=== PATIENT | female | born 1960 | race Caucasian/White ===

== ENCOUNTER → 2016-08-31 | Outpatient (REF) | payer OTHER ==
[~2016-08-31] MED LIST: METO25TAB PO; PROT1TAB2 PO; SUCR1SS PO; XANA0.5T PO
== END ==
LOC: M SFHCLACO 15:04
PROVIDERS: ATTEND Physician Assistant
DX: A09 Infectious gastroenteritis and colitis, unspecified (principal)

== ENCOUNTER → 2016-09-01 | Outpatient (REF) | payer OTHER | LOC: M SFHCLACO 15:05 | PROVIDERS: ATTEND Physician Assistant | DX: A09 Infectious gastroenteritis and colitis, unspecified (principal) ==

== ENCOUNTER → 2016-09-02 | Outpatient (REF) | payer OTHER | LOC: M SFHCLACO 15:07 | PROVIDERS: ATTEND Physician Assistant | DX: A09 Infectious gastroenteritis and colitis, unspecified (principal) ==

== ENCOUNTER → 2017-03-30 | Outpatient (REF) | payer OTHER ==
[2017-03-30 15:41] LABS: ALBUMIN 3.1 GM/DL (3.2-5.2); ALBUMIN/GLOBULIN RATIO 0.69 (1.00-1.93); ALKALINE PHOSPHATASE 168 U/L (45-117); ALT/SGPT 34 U/L (12-78); ANION GAP 8 MEQ/L (8-16); AST/SGOT 54 U/L (15-37); BLOOD UREA NITROGEN 7 MG/DL (7-18); CALCIUM LEVEL 8.6 MG/DL (8.5-10.1); CARBON DIOXIDE LEVEL 26 MEQ/L (21-32); CHLORIDE LEVEL 103 MEQ/L (98-107); CHOLESTEROL LEVEL 210 MG/DL (<200); GLOMERULAR FILTRATION RATE > 60.0 (>51); GLUCOSE, FASTING 150 MG/DL (70-105); MAGNESIUM LEVEL 1.8 MG/DL (1.8-2.4); SODIUM LEVEL 137 MEQ/L (136-145); TOTAL PROTEIN 7.6 GM/DL (6.4-8.2); TRIGLYCERIDES LEVEL 201 MG/DL (<150)
== END ==
LOC: M SFHCLACO 09:46
PROVIDERS: ATTEND Physician Assistant
DX: I10 Essential (primary) hypertension (principal); Z68.30 Body mass index [BMI] 30.0-30.9, adult; K21.9 Gastro-esophageal reflux disease without esophagitis; F41.9 Anxiety disorder, unspecified

== ENCOUNTER → 2017-12-06 | Outpatient (CLI) | payer OTHER | LOC: M RAD 06:25 | DX: R19.7 Diarrhea, unspecified (principal) | CPT/HCPCS: 76700 ==

== ENCOUNTER 2017-12-10 08:34 | Day surgery (SDC) | payer OTHER ==
[2017-12-10] MEDS: NS 1,000 ML IV (08:45)
[2017-12-10] MEDS ORDERED: fentaNYL 100 MCG/2 ML INJECTION (J3010) As Ordered (10:40)
[2017-12-10] MEDS ORDERED: LIDOCAINE 2% INJ 100 MG/5 ML SDV (FOR ANES.) As Ordered (10:41)
[2017-12-10] MEDS ORDERED: PROPOFOL 200 MG/20 ML VIAL As Ordered (10:41)
== END 2017-12-10 11:09 | disposition home or self-care (01) ==
LOC: M OPP 08:34
DX: K50.90 Crohn's disease, unspecified, without complications (principal); R19.7 Diarrhea, unspecified; D12.2 Benign neoplasm of ascending colon; D12.7 Benign neoplasm of rectosigmoid junction; K57.30 Diverticulosis of large intestine without perforation or abscess without bleeding; K64.8 Other hemorrhoids; R10.13 Epigastric pain; R11.10 Vomiting, unspecified; K21.0 Gastro-esophageal reflux disease with esophagitis; K29.70 Gastritis, unspecified, without bleeding; K29.80 Duodenitis without bleeding; I10 Essential (primary) hypertension; M54.5 Low back pain; F41.9 Anxiety disorder, unspecified; F32.9 Major depressive disorder, single episode, unspecified; R06.83 Snoring; F17.210 Nicotine dependence, cigarettes, uncomplicated; Z88.8 Allergy status to other drugs, medicaments and biological substances; Z79.899 Other long term (current) drug therapy; Z80.42 Family history of malignant neoplasm of prostate; Z80.6 Family history of leukemia
CPT/HCPCS: 45385

== ENCOUNTER 2018-11-10 03:09 | Emergency (ER) | payer OTHER ==
[~2018-11-10] VITALS: Ht 167.6 cm; Wt 81.8 kg
[~2018-11-10 03:09] MED LIST changes: +FLUO40CA PO; +LOSA100T50 PO; +METO1TAB63 PO; -METO25TAB PO; +PROC10TA4 PO
[2018-11-10] MEDS ORDERED: PANTOPRAZOLE 40MG TAB (PROTONIX) PO ONE (04:00)
[2018-11-10 04:02] LABS: BASO % 0.4 % (0.0-1.0); EOS # 0.2 10^3/uL (0.0-0.50); EOS % 2.3 % (0.0-3.0); HEMATOCRIT 38.4 % (36.0-47.0); HEMOGLOBIN 13.9 g/dl (12.0-15.5); LYMPH # 1.8 10^3/uL (1.5-4.5); LYMPH % 18.1 % (24.0-44.0); MEAN CORPUSCULAR HEMOGLOBIN 38.6 pg (27.0-33.0); MEAN CORPUSCULAR HGB CONC 36.2 g/dl (32.0-36.5); MEAN CORPUSCULAR VOLUME 106.7 fl (80.0-96.0); MONO # 0.8 10^3/uL (0.0-0.8); MONO % 8.3 % (0.0-5.0); NEUTROPHILS # 6.8 10^3/uL (1.8-7.7); NEUTROPHILS % 70.4 % (36.0-66.0); PLATELET COUNT, AUTOMATED 110 10^3/uL (150-450); WHITE BLOOD COUNT 9.7 10^3/uL (4.0-10.0)
[2018-11-10] MEDS ORDERED: PANT40TA3 PO (04:11)
[2018-11-10 04:24] LABS: ALBUMIN 2.5 GM/DL (3.2-5.2); ALT/SGPT 30 U/L (12-78); BILIRUBIN,DIRECT 1.6 MG/DL (0.0-0.2); BILIRUBIN,TOTAL 2.9 MG/DL (0.2-1.0); BLOOD UREA NITROGEN 5 MG/DL (7-18); CALCIUM LEVEL 7.8 MG/DL (8.5-10.1); CARBON DIOXIDE LEVEL 22 MEQ/L (21-32); CHLORIDE LEVEL 103 MEQ/L (98-107); CPK CREATINE PHOSPHOKINASE 51 U/L (26-192); CREATININE FOR GFR 0.61 MG/DL (0.55-1.30); ETHYL ALCOHOL (ETHANOL) 0.021 % (0.000-0.010); GLOMERULAR FILTRATION RATE > 60.0 (>51); GLUCOSE, FASTING 166 MG/DL (70-100); LIPASE 467 U/L (73-393); MB/CK RELATIVE INDEX 3.33 (< OR =4); POTASSIUM SERUM 3.5 MEQ/L (3.5-5.1); SODIUM LEVEL 136 MEQ/L (136-145); TOTAL PROTEIN 7.7 GM/DL (6.4-8.2); TROPONIN I 0.02 NG/ML (< 0.10)
[2018-11-10] MEDS ORDERED: amLODIPine 10 MG TAB PO ONE (04:30)
--- NOTE | 2018-11-10 06:03 | REPVR ---
EXAM: US Abdomen Limited, Right Upper Quadrant EXAM DATE/TIME: 11/10/2018 5:49 AM CLINICAL HISTORY: 58 years old, female; Pain; Other: Chest; Additional info: Epigastric pain TECHNIQUE: Imaging protocol: Real-time ultrasound of the abdomen with image documentation. Examination was focused on the right upper quadrant. COMPARISON: ABD COMPLETE US 12/06/2017 6:46 AM FINDINGS: Liver: The liver is lobulated in contour and heterogeneous and echogenic in texture. Gallbladder: No gallstones seen. Common bile duct: The CBD is normal in caliber measuring 2 mm in diameter. Pancreas: The pancreas is obscured by bowel gas. Right kidney: The right kidney measures 11.2 x 4.5 x 4.4 cm. The right renal parenchymal echogenicity is within normal limits. There is no right renal mass, stone, cyst or hydronephrosis. Intraperitoneal space: There is suggestion of small perihepatic ascites. IMPRESSION: 1. Cirrhotic liver with no focal mass identified. 2. No cholelithiasis or sonographic evidence of cholecystitis. 3. Suggestion of small perihepatic ascites Electronically signed by: Brad Augutse On 11/10/2018 06:03:35 AM
[2018-11-10] MEDS ORDERED: GI COCKTAIL 50ML BTL(HYOSCYAMINE/MAALOX/LIDOCAINE VISCOUS)(1:3:1) PO ONE (06:15)
[2018-11-10] MEDS ORDERED: CARA1TAB6 PO (06:58)
[2018-11-10 07:06] VITALS: BP 144/71
--- NOTE | 2018-11-10 08:39 | REP ---
Abdomen series: Three views. History: Abdomen pain Comparison study: August 30, 2015. Findings: EKG monitoring electrodes overlie the chest. There is no evidence of infiltrate or free subdiaphragmatic air. Heart is not enlarged. The aorta is slightly calcific. Supine and erect views of the abdomen show a normal bowel gas pattern. Psoas margins and flank stripes are intact. No mass, organomegaly, or pathologic calcification is seen. Impression: No significant abnormality. Electronically Signed by Adilson Norman MD 11/10/2018 01:04 P
--- NOTE | 2018-11-11 07:11 | ECGEPIP ---
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
== END 2018-11-10 07:08 | disposition home or self-care (01) ==
LOC: M ED 03:09
DX: K29.20 Alcoholic gastritis without bleeding (principal); K70.10 Alcoholic hepatitis without ascites; I10 Essential (primary) hypertension; F33.9 Major depressive disorder, recurrent, unspecified; F41.9 Anxiety disorder, unspecified; F10.10 Alcohol abuse, uncomplicated; Z79.899 Other long term (current) drug therapy; F17.210 Nicotine dependence, cigarettes, uncomplicated
CPT/HCPCS: 36415; 74021; 76705; 80048; 80076; 82550; 82553; 83690; 85025; 93005; 93041; 99285; G0480

== ENCOUNTER 2019-01-13 10:31 | Day surgery (SDC) | payer OTHER ==
[~2019-01-13] VITALS: Ht 167.6 cm; Wt 72.6 kg
[~2019-01-13 10:31] MED LIST changes: +ALPR1TAB3 PO; +CARA1TAB6 PO; +METO25TA4 PO; +NS 1,000 ML IV ONE; +PANT40TA3 PO
[2019-01-13] MEDS ORDERED: PROPOFOL 500 MG/50 ML VIAL As Ordered ONE (10:47)
[2019-01-13] MEDS ORDERED: fentaNYL 100 MCG/2 ML INJECTION (J3010) As Ordered ONE (10:47)
[2019-01-13] MEDS ORDERED: LIDOCAINE 2% INJ 100 MG/5 ML SDV (FOR ANES.) As Ordered ONE (10:50)
[2019-01-13] MEDS ORDERED: ONDANSETRON 4MG/2ML VIAL (J2405) As Ordered ONE (11:08)
[2019-01-13] MEDS ORDERED: ePHEDrine SULFATE 25 MG/5 ML(5MG/ML) SYRINGE As Ordered ONE (11:15)
[2019-01-13] MEDS ORDERED: PROPOFOL 200 MG/20 ML VIAL As Ordered ONE (11:53)
--- NOTE | 2019-01-13 12:23 | ROOR ---
Patient Name: Alexa Burgos Procedure Date: 01/13/2019 10:53 AM Date of : 1960 Age: 58 Room: [facility] Gender: Female Note Status: Finalized Procedure: Upper GI endoscopy Indications: Cirrhosis rule out esophageal varices, Suspected atrophic gastritis Providers: Du Long MD Referring MD: PAULINE Kwan PA-C Requesting Provider: Medicines: Monitored Anesthesia Care Complications: No immediate complications. Procedure: Pre-Anesthesia Assessment: - Prior to the procedure, a History and Physical was performed, and patient medications and allergies were reviewed. The patient is competent. The risks and benefits of the procedure and the sedation options and risks were discussed with the patient. All questions were answered and informed consent was obtained. Patient identification and proposed procedure were verified by the physician, the nurse and the anesthesiologist in the procedure room. Mental Status Examination: alert and oriented. Airway Examination: normal oropharyngeal airway and neck mobility. Respiratory Examination: clear to auscultation. CV Examination: normal. Prophylactic Antibiotics: The patient does not require prophylactic antibiotics. Prior Anticoagulants: The patient has taken no previous anticoagulant or antiplatelet agents. ASA Grade Assessment: III - A patient with severe systemic disease. After reviewing the risks and benefits, the patient was deemed in satisfactory condition to undergo the procedure. The anesthesia plan was to use monitored anesthesia care (MAC). Immediately prior to administration of medications, the patient was re-assessed for adequacy to receive sedatives. The heart rate, respiratory rate, oxygen saturations, blood pressure, adequacy of pulmonary ventilation, and response to care were monitored throughout the procedure. The physical status of the patient was re-assessed after the procedure. The Endoscope was introduced through the mouth, and advanced to the second part of duodenum. The upper GI endoscopy was accomplished without difficulty. The patient tolerated the procedure well. Findings: The Z-line was regular and was found 40 cm from the incisors. Grade I, small (< 5 mm) varices were found in the lower third of the esophagus. Moderate portal hypertensive gastropathy was found in the entire examined stomach. Four biopsies were obtained with cold forceps for histology in the gastric antrum, as well as two biopsies in the gastric body. Verification of patient identification for the specimen was done by the physician and nurse using the patient's name, date and medical record number. Estimated blood loss was minimal. Diffuse mildly congested mucosa without active bleeding and with no stigmata of bleeding was found in the duodenal bulb and in the second portion of the duodenum. Impression: - Z-line regular, 40 cm from the incisors. - Grade I and small (< 5 mm) esophageal varices. - Portal hypertensive gastropathy. - Congested duodenal mucosa. - Biopsies performed in the gastric antrum and in the gastric body. Recommendation: - Patient has a contact number available for emergencies. The signs and symptoms of potential delayed complications were discussed with the patient. Return to normal activities tomorrow. Written discharge instructions were provided to the patient. - Low sodium diet. - Continue present medications. - - To review and start on low dose Non selective beta- blockers in clinic follow up. - Await pathology results. - Return to GI clinic in [facility] (address [address], [address], [place], [facility] [place]) in 4 -- 6 weeks. Please call GI clinic @ [phone] for apppointment date and time. - Return to primary care physician. Du Long MD Du Long MD 01/13/2019 12:22:57 PM Electronically signed by Du Long MD Number of Addenda: 0 Note Initiated On: 01/13/2019 10:53 AM Estimated Blood Loss: Estimated blood loss was minimal.
[2019-01-13 12:35] VITALS: BP 110/60
--- NOTE | 2019-01-13 13:17 | ROOR ---
Patient Name: Alexa Burgos Procedure Date: 01/13/2019 11:06 AM Date of : 1960 Age: 58 Room: [facility] Gender: Female Note Status: Finalized Procedure: Colonoscopy Indications: High risk colon cancer surveillance: Personal history of adenoma (10 mm or greater in size), High risk colon cancer surveillance: Personal history of adenoma with villous component, Incidental - Follow-up for history of adenomatous polyps in the colon Providers: Du Long MD Referring MD: PAULINE Kwan PA-C Requesting Provider: Medicines: Monitored Anesthesia Care Complications: No immediate complications. Procedure: Pre-Anesthesia Assessment: - Prior to the procedure, a History and Physical was performed, and patient medications and allergies were reviewed. The patient is competent. The risks and benefits of the procedure and the sedation options and risks were discussed with the patient. All questions were answered and informed consent was obtained. Patient identification and proposed procedure were verified by the physician, the nurse and the anesthesiologist in the procedure room. Mental Status Examination: alert and oriented. Airway Examination: normal oropharyngeal airway and neck mobility. Respiratory Examination: clear to auscultation. CV Examination: normal. Prophylactic Antibiotics: The patient does not require prophylactic antibiotics. Prior Anticoagulants: The patient has taken no previous anticoagulant or antiplatelet agents. ASA Grade Assessment: III - A patient with severe systemic disease. After reviewing the risks and benefits, the patient was deemed in satisfactory condition to undergo the procedure. The anesthesia plan was to use monitored anesthesia care (MAC). Immediately prior to administration of medications, the patient was re-assessed for adequacy to receive sedatives. The heart rate, respiratory rate, oxygen saturations, blood pressure, adequacy of pulmonary ventilation, and response to care were monitored throughout the procedure. The physical status of the patient was re-assessed after the procedure. The Colonoscope was introduced through the anus and advanced to the terminal ileum, with identification of the appendiceal orifice and IC valve. The colonoscopy was performed without difficulty. The patient tolerated the procedure well. The quality of the bowel preparation was good. The terminal ileum, ileocecal valve, appendiceal orifice, and rectum were photographed. Scope insertion time was 3 minutes. Scope withdrawal time was 9 minutes. The total duration of the procedure was 12 minutes. Findings: The perianal and digital rectal examinations were normal. The terminal ileum appeared normal except few red spots ( tiny AVMs). A few medium-sized localized angioectasias with stigmata of recent bleeding were found in the ascending colon. Coagulation for hemostasis using argon plasma at 0.8 liters/minute and 20 funes was successful. For hemostasis, one hemostatic clip was successfully placed. There was no bleeding at the end of the procedure. A 6 mm polyp was found in the ascending colon. The polyp was sessile. The polyp was removed with a hot snare. Resection and retrieval were complete. Verification of patient identification for the specimen was done by the physician and nurse using the patient's name, date and medical record number. Estimated blood loss was minimal. A 4 mm polyp was found in the recto-sigmoid colon. The polyp was sessile. The polyp was removed with a cold biopsy forceps. Resection and retrieval were complete. Non-bleeding external and internal hemorrhoids were found during retroflexion. The hemorrhoids were medium-sized. An area of moderately congested mucosa was found in the recto-sigmoid colon. Impression: - The examined portion of the ileum was normal except few red spots ( tiny AVMs).. - A few recently bleeding colonic angioectasias. Treated with argon plasma coagulation (APC). Clip was placed. - One 6 mm polyp in the ascending colon, removed with a hot snare. Resected and retrieved. - One 4 mm polyp at the recto-sigmoid colon, removed with a cold biopsy forceps. Resected and retrieved. - Non-bleeding external and internal hemorrhoids. - Congested mucosa in the recto-sigmoid colon. Recommendation: - Patient has a contact number available for emergencies. The signs and symptoms of potential delayed complications were discussed with the patient. Return to normal activities tomorrow. Written discharge instructions were provided to the patient. - Low sodium diet. - Continue present medications. - Await pathology results. - Repeat colonoscopy in 3 years for surveillance based on pathology results and for surveillance based on personal history of previous adenomatous polyps. - Return to GI office in [facility] (address [address], [address], [place] [address]) in 4 -- 6 weeks. Please call GI clinic @ [phone] for apppointment date and time. - Return to primary care physician. Du Long MD Du Long MD 01/13/2019 1:16:29 PM Electronically signed by Du Long MD Number of Addenda: 0 Note Initiated On: 01/13/2019 11:06 AM Estimated Blood Loss: Estimated blood loss was minimal.
== END 2019-01-13 12:56 | disposition home or self-care (01) ==
LOC: M OPP 10:31
PROVIDERS: ATTEND Internal Medicine Gastroenterology
DX: K64.8 Other hemorrhoids (principal); K55.21 Angiodysplasia of colon with hemorrhage; D12.2 Benign neoplasm of ascending colon; K63.5 Polyp of colon; K63.89 Other specified diseases of intestine; K74.60 Unspecified cirrhosis of liver; I85.10 Secondary esophageal varices without bleeding; K76.6 Portal hypertension; K31.89 Other diseases of stomach and duodenum; Z86.010 Personal history of colon polyps; Z79.899 Other long term (current) drug therapy; Z88.8 Allergy status to other drugs, medicaments and biological substances
CPT/HCPCS: 43239; 45380; 45382; 45385; 88305; J2405; J3010

== ENCOUNTER → 2019-03-07 | Outpatient (CLI) | payer OTHER ==
[~2019-03-07] MED LIST changes: +GASTROGRAFIN SOLUTION 30ML (Q9963) As Ordered ONE; +ISOVUE-370 76% 100ML VIAL (Q9967) As Ordered ONE; -NS 1,000 ML IV ONE
--- NOTE | 2019-03-08 09:59 | REP ---
Clinical: Abdominal pain and nausea. Technique: Axial contrast enhanced images from the lung bases to the pubic symphysis using oral (per protocol) and 100 ml Isovue 370 intravenous contrast material with precontrast and delayed images of the abdomen as well as coronal and sagittal re-formations. Findings: Moderate to significant amount of ascites noted throughout the abdomen and pelvis. Hepatomegaly is appreciated with heterogeneous liver and subtle hepatic nodular contour suggesting cirrhosis. A recanalized umbilical vein is identified along with mucosal thickening primarily involving the ascending colon which are both known findings related to cirrhosis. Portal vein thrombosis noted (images 42-55). Spleen, pancreas, bilateral adrenal glands and kidneys are relatively normal. The gallbladder is moderately distended. There is no evidence for bowel obstruction and no free air to suggest perforation. Pelvis demonstrates normal bladder and evidence for prior hysterectomy. Atherosclerotic changes of the aorta and vasculature noted without aneurysm. Musculoskeletal structures demonstrate degenerative changes. Lung bases demonstrate moderate COPD. Impression: 1. Findings described above compatible with cirrhosis. 2. Portal vein thrombosis. Electronically Signed by Braxton Hair MD 03/07/2019 03:53 P
== END ==
LOC: M RAD 13:16
PROVIDERS: ATTEND Internal Medicine Gastroenterology
DX: R11.0 Nausea (principal)
CPT/HCPCS: 74177; Q9963; Q9967

== ENCOUNTER → 2019-04-04 | Outpatient (REF) | payer OTHER ==
[~2019-04-04] MED LIST changes: -GASTROGRAFIN SOLUTION 30ML (Q9963) As Ordered ONE; -ISOVUE-370 76% 100ML VIAL (Q9967) As Ordered ONE
[2019-04-13 14:07] LABS: CALPROTECTIN STOOL <16 ug/g (0-120); FATS NEUTRAL Normal (.); FATS TOTAL Normal (.)
== END ==
LOC: M LAB REF 12:00
PROVIDERS: ATTEND Internal Medicine Gastroenterology
DX: R63.4 Abnormal weight loss (principal); R11.0 Nausea

== ENCOUNTER → 2019-04-05 | Outpatient (CLI) | payer OTHER ==
[2019-04-05 11:40] LABS: BASO % 0.4 % (0.0-1.0); EOS # 0.3 10^3/uL (0.0-0.5); EOS % 2.8 % (0.0-3.0); HEMOGLOBIN 12.7 g/dl (12.0-15.5); LYMPH # 2.2 10^3/uL (1.5-5.0); LYMPH % 24.4 % (24.0-44.0); MEAN CORPUSCULAR HEMOGLOBIN 35.4 pg (27.0-33.0); MEAN CORPUSCULAR HGB CONC 33.4 g/dl (32.0-36.5); MEAN CORPUSCULAR VOLUME 105.8 fl (80.0-96.0); MONO # 1.1 10^3/uL (0.0-0.8); MONO % 11.9 % (0.0-5.0); NEUTROPHILS # 5.3 10^3/uL (1.5-8.5); NEUTROPHILS % 59.8 % (36.0-66.0); PLATELET COUNT, AUTOMATED 240 10^3/uL (150-450); RED BLOOD COUNT 3.59 10^6/uL (4.00-5.40); WHITE BLOOD COUNT 8.9 10^3/uL (4.0-10.0)
[2019-04-05 11:50] LABS: INR 1.65; PROTHROMBIN TIME 19.2 SECONDS (11.8-14.0)
[2019-04-05 11:51] LABS: PARTIAL THROMBOPLASTIN TIME 33.7 SECONDS (25.0-38.4)
[2019-04-05 12:04] LABS: ALBUMIN 2.5 GM/DL (3.2-5.2); BILIRUBIN,DIRECT 1.5 MG/DL (0.0-0.2); BILIRUBIN,TOTAL 2.7 MG/DL (0.2-1.0); CREATININE FOR GFR 2.08 MG/DL (0.55-1.30); GLOMERULAR FILTRATION RATE 26.1 (>51); TOTAL PROTEIN 8.4 GM/DL (6.4-8.2)
== END ==
LOC: M LAB 11:00
PROVIDERS: ATTEND Internal Medicine Gastroenterology
DX: R11.0 Nausea (principal); R63.4 Abnormal weight loss

== ENCOUNTER → 2019-04-05 | Outpatient (CLI) | payer OTHER ==
[2019-04-05 12:21] LABS: HEMOGLOBIN A1c 4.6 %
[2019-04-05 12:24] LABS: ALBUMIN 2.5 GM/DL (3.2-5.2); BILIRUBIN,TOTAL 2.7 MG/DL (0.2-1.0); CALCIUM LEVEL 8.6 MG/DL (8.5-10.1); CREATININE FOR GFR 2.05 MG/DL (0.55-1.30); GLOMERULAR FILTRATION RATE 26.6 (>51); TOTAL PROTEIN 8.3 GM/DL (6.4-8.2)
== END ==
LOC: M LAB 10:57
PROVIDERS: ATTEND Physician Assistant
DX: I10 Essential (primary) hypertension (principal); E88.81 Metabolic syndrome and other insulin resistance

== ENCOUNTER 2019-06-05 14:15 | Inpatient (IN) | payer OTHER ==
[~2019-06-05] VITALS: Ht 165.1 cm; Wt 54.5 kg
[2019-06-05] VITALS (20 sets, daily range): BP systolic 65–99; BP diastolic 40–56
[2019-06-05] MEDS ORDERED: NS 500 ML IV SCH (17:45)
[2019-06-05 17:49] LABS: ALBUMIN 2.4 GM/DL (3.2-5.2); ALT/SGPT 28 U/L (12-78); BILIRUBIN,DIRECT 1.5 MG/DL (0.0-0.2); BILIRUBIN,TOTAL 2.6 MG/DL (0.2-1.0); ETHYL ALCOHOL (ETHANOL) < 0.003 % (0.000-0.010); INR 2.09; PARTIAL THROMBOPLASTIN TIME 27.1 SECONDS (25.0-38.4); PROTHROMBIN TIME 23.3 SECONDS (11.8-14.0)
[2019-06-05] MEDS ORDERED: MED REC COMMENT (18:50)
--- NOTE | 2019-06-05 19:06 | REP ---
Single view chest: 06/05/2019. Indication: New central line placement evaluation. Comparison: 08/30/2015. Findings: Right-sided IJ central line is present with the distal tip in the SVC. There is no pneumothorax. No air space consolidations or pleural effusions are present. The cardiac silhouette is unremarkable. Impression: No pneumothorax. Electronically Signed by Henry Santiago DO 06/05/2019 06:58 P
--- NOTE | 2019-06-05 19:36 | ROOPDOC ---
[facility] Report Of Operation Report of Operation DATE OF PROCEDURE: 06/05/2019 PREPROCEDURE DIAGNOSES: poor access, cirrhosis POSTPROCEDURE DIAGNOSES: poor access, cirrhosis PROCEDURE: right IJ central line placement Performed by: Chester Thompson Attending: Dr. José Luis Vang ANESTHESIA: local ESTIMATED BLOOD LOSS: Approximately <5mL COMPLICATIONS: none PROCEDURE NOTE: Consent was obtained prior to the procedure. Indications, risks and benefits were explained to the patient. Procedure was performed . DESCRIPTION OF PROCEDURE: The patient was placed in the supine position, was placed in Trendelenburg. The right chest region and neck was prepped with chlorhexidine scrub. The patient was draped in the typical sterile fashion using a full drape. Ultrasonography was employed at bedside. A sterile probe cover was placed over the ultrasound. The medial and lateral head of the sternocleidomastoid were identified, as was the carotid pulse. The internal jugular vein was identified using ultrasound. Anesthesia was achieved over the internal jugular vein on the right using a 1% lidocaine solution. Once ane sthetized, an introducer needle was inserted into the internal jugular vein under direct ultrasound visualization. Venous blood was withdrawn, syringe was removed and a guidewire was advanced on to the introducer needle. The guidewire was visualized in the internal jugular vein by ultrasound. A small incision was made in the skin surface with a scalpel, and the introducer needle was exchanged for a dilator over the guidewire. After appropriate dilation was obtained, the dilator was exchanged over the wire for a central venous catheter. The wire was removed, and the catheter was sutured in place. A sterile bandage was placed over the catheter site. The patient tolerated the procedure well without any hemodynamic compromise. At the time of procedure completion, all ports were aspirated and flushed properly. Postprocedure x-ray was performed, which demonstrated adequate positioning of the central venous catheter in the right internal jugular vein. GME ATTESTATION GME ATTESTATION My faculty preceptor for this patient encounter was physically present during the encounter and was fully available. All aspects of the patient interview, examination, medical decision making process, and medical care plan development were reviewed and approved by the faculty preceptor. The faculty preceptor is aware and concurs with the plan as stated in the body of this note and will attest to such by his/her cosignature. CHESTER THOMPSON DO Jun 05, 2019 19:36
[2019-06-05 19:45] LABS: HEMATOCRIT 31.8 % (36.0-47.0); MEAN CORPUSCULAR HEMOGLOBIN 34.1 pg (27.0-33.0); MEAN CORPUSCULAR HGB CONC 34.6 g/dl (32.0-36.5); MEAN CORPUSCULAR VOLUME 98.5 fl (80.0-96.0); PLATELET COUNT, AUTOMATED 142 10^3/uL (150-450); RED BLOOD COUNT 3.23 10^6/uL (4.00-5.40); WHITE BLOOD COUNT 9.9 10^3/uL (4.0-10.0)
--- NOTE | 2019-06-05 20:19 | HPEPDOC ---
[facility] Medical History & Physical Date of Admission Jun 05, 2019 Date of Service: Jun 05, 2019 History and Physical CHIEF COMPLAINT: weakness and weight loss HISTORY OF PRESENT ILLNESS: Patient is a 58F with PMH alcoholic cirrhosis, HTN, Anxiety/Depression was sent in by Dr. Long's office with concern for cirrhosis and SBP. Patient was initially referred to GI by PCP for suspected Crohn's disease but work up was not suggestive of Crohn's. Per GI's documentation, patient had complaints of abdominal pain, nausea, vomiting, loss of appetite in setting of liver cirrhosis and ascites, requested workup to r/o SBP. Patient states that she has had significant unintentional weight loss for months but cannot quantify how many months or about how pounds she had lost. Also reports decrease appetite as well as intermittent diarrhea. She currently denies any abdominal discomfort, SOB, fever, chills, diarrhea, melena or chematochezia at this time. Upon arriving on the floor, patient was noted to have very difficult BP to obtain but about 80 systolic by doppler. She was moved to the ICU for further monitoring. PAST MEDICAL HISTORY: Refer to [facility] PAST SURGICAL HISTORY: Appendicitis Hysterectomy Colonoscopy/EGD SOCIAL HISTORY: Smokes 1/2 ppd. History of alcohol use and currently does not. Denies any drug use. FAMILY HISTORY: Mother- Leukemia Father- prostate cancer ALLERGIES: Please see below. REVIEW OF SYSTEMS: 10 point review of system negative except as stated in [facility] HOME MEDICATIONS: Please see below. PHYSICAL EXAMINATION: General: No acute distress, alert, severely dry skin everywhere, weak Eyes: Normal sclera, EOMI, WILFREDO HENT: Atraumatic, neck supple, moist mucous membranes Cardiovascular: Bradycardic, normal rhythm. Pulmonary: Clear to auscultation b/l, no wheezing GI: Soft, nontender, nondistended Skin: Warm and dry Neuro: CN grossly intact. No focal deficits. Strengths equal b/l. Psych: oriented x 3 LABORATORY DATA: See below. IMAGING: CXR- Findings: Right-sided IJ central line is present with the distal tip in the SVC. There is no pneumothorax. No air space consolidations or pleural effusions are present. The cardiac silhouette is unremarkable. Impression: No pneumothorax. MICROBIOLOGY: Please see below. ASSESSMENT AND PLAN: 1. Liver cirrhosis with concern for SBP - No significant abdominal tenderness, no leukocytosis and afebrile. - Abdomen is soft with no significant distension. Will check US/CT for any evidence of ascites. - IR consult for paracentesis in AM. Start on Rocephin for coverage of SBP. - Contact GI in AM to see if Dr. Long wants to be on official consultation along with medicine team. 2. Hypotension - Systolic BP around 80-90s on presentation, appear extremely dry. - Getting small amount of IVF with improvement in pressure. To get 500 cc NS total @100. - No strong evidence of sepsis base on current bloodwork other than hypotention. - Check Lactic acid now. On Rocephin for coverage of possible SBP. - Start on pressor if needed. 3. Intermittent diarrhea - Obtain GI panel. No current diarrhea reported. Low suspicion for C. diff. 4. Suspected portal vein thrombosis - Obtain US/CT abdomen/pelvis. - Anticoagulate if positive. 5. HTN - Hold all home hypertensive meds given hypotention. DVT ppx: HSQ Code status: Full code Vital Signs Vital Signs Date Time Temp Pulse Resp B/P (MAP) Pulse Ox O2 Delivery O2 Flow Rate FiO2 06/05/19 18:45 58 20 99/54 Nasal Cannula 2.0 06/05/19 16:30 97.1 Laboratory Data Labs 24H Laboratory Tests 2 06/05/19 17:08: Prothrombin Time 23.3H, Prothromb Time International Ratio 2.09, Activated Partial Thromboplast Time 27.1, Total Bilirubin 2.6H, Direct Bilirubin 1.5H, Aspartate Amino Transf (AST/SGOT) 41H, Alanine Aminotransferase (ALT/SGPT) 28, Alkaline Phosphatase 100, Total Protein 8.0, Albumin 2.4L, Albumin/Globulin Ratio 0.43L, Ethyl Alcohol Level < 0.003 CBC/BMP Home Medications Scheduled Fluoxetine Hcl (Fluoxetine HCl) 40 Mg Cap, 40 MG PO QHS Losartan Potassium (Losartan Potassium) 100 Mg Tab, 100 MG PO DAILY Metoprolol Tartrate (Metoprolol Tartrate) 25 Mg Tablet, 25 MG PO BID Pantoprazole Sodium (Pantoprazole Sodium) 40 Mg Tablet.dr, 40 MG PO QHS Scheduled PRN Alprazolam (Alprazolam) 1 Mg Tablet, 1 MG PO TIDP PRN for ANXIETY/AGITATION Miscellaneous Medications [Med Rec Comment] MEDS HAVE NOT BEEN TAKEN IN OVER A WEEK PER PT Allergies Coded Allergies: Opioids - Morphine Analogues (Verified Adverse Reaction, Mild, N/V, 01/12/19) A-FIB/CHADSVASC A-FIB History Current/History of A-Fib/PAF?: No ALANIS VALENCIA MD Jun 05, 2019 20:19
[2019-06-05] MEDS: GASTROGRAFIN SOLUTION 30ML PO SCH ×2 (20:41→21:20)
[2019-06-05] MEDS: ALPRAZolam 0.5 MG TAB PO PRN (20:41)
[2019-06-05] MEDS: cefTRIAXone SOD 2 GM in D5W MINI-BAG PLUS 50 ML IV SCH (20:41)
[2019-06-05 21:04] LABS: CALCIUM LEVEL 8.4 MG/DL (8.5-10.1); CREATININE FOR GFR 2.15 MG/DL (0.55-1.30); GLOMERULAR FILTRATION RATE 25.2 (>51); POTASSIUM SERUM 3.3 MEQ/L (3.5-5.1)
[2019-06-05] MEDS: PANTOPRAZOLE 40MG TAB (PROTONIX) PO SCH (21:52)
[2019-06-05] MEDS: FLUoxetine 20 MG CAP PO SCH (21:52)
[2019-06-05] MEDS: HEPARIN SOD (PORCINE) 5000 UNITS/ML VIAL SQ SCH (21:53)
[2019-06-05] MEDS ORDERED: NOREPINEPHRINE 4 MG/4 ML AMP As Ordered ONE (22:02)
[2019-06-05] MEDS: NOREPINEPHRINE BITARTRATE 8 MG in D5W 492 ML IV SCH (22:10)
--- NOTE | 2019-06-05 22:49 | REPVR ---
PROCEDURE INFORMATION: Exam: CT Abdomen And Pelvis Without Contrast Exam date and time: 06/05/2019 9:16 PM Age: 58 years old Clinical history: Abdominal pain; Generalized; Prior surgery; Additional info: Assess pancreas, for portal vein thrombosis, ascites TECHNIQUE: Imaging protocol: Computed tomography of the abdomen and pelvis without contrast. Radiation optimization: All CT scans at this facility use at least one of these dose optimization techniques: automated exposure control; mA and/or kV adjustment per patient size (includes targeted exams where dose is matched to clinical indication); or iterative reconstruction. Other contrast: Route: Oral; COMPARISON: CT ABD PELVIS WITH CONTRAST 2019-03-07 15:31 FINDINGS: Limitations: Study is limited by the absence of contrast. Liver: Liver cirrhosis. Gallbladder and bile ducts: Normal. No calcified stones. No ductal dilation. Pancreas: Atrophic pancreas. Spleen: Normal. No splenomegaly. Adrenals: Normal. No mass. Kidneys and ureters: Normal. No hydronephrosis. Stomach and bowel: Diffuse gastric, and bowel wall thickening, likely from portal hypertension with portal venous bowel edema. Mild colonic diverticulosis without evidence for acute diverticulitis. Appendix: No evidence of appendicitis. Intraperitoneal space: Large volume ascites. Vasculature: Unremarkable. No abdominal aortic aneurysm. Lymph nodes: Unremarkable. No enlarged lymph nodes. Bladder: Unremarkable as visualized. Reproductive: Hysterectomy. Bones/joints: Left anterior lateral chronic rib fractures. 4 mm L4-L5 anterolisthesis. Mild S-shaped lumbar curvature. L4-S1 disc bulge/protrusions. Moderate L4-5 spinal stenosis. Soft tissues: Unremarkable. IMPRESSION: 1. Study is without contrast, portal vein thrombus can't be assessed adequately. 2. Atrophic but otherwise unremarkable pancreas. 3. Liver cirrhosis. 4. Large volume ascites. 5. Diffuse gastric, and bowel wall thickening, likely from portal hypertension with portal venous bowel edema. Secondary to cirrhosis, and/or portal vein obstruction. 6. Mild colonic diverticulosis without evidence for acute diverticulitis. Electronically signed by: Jamison Latif On 06/05/2019 22:49:13 PM
[2019-06-06] VITALS (64 sets, daily range): BP systolic 76–108; BP diastolic 42–60
[2019-06-06 04:34] LABS: HEMATOCRIT 32.2 % (36.0-47.0); HEMOGLOBIN 10.6 g/dl (12.0-15.5); MEAN CORPUSCULAR HEMOGLOBIN 33.3 pg (27.0-33.0); MEAN CORPUSCULAR HGB CONC 32.9 g/dl (32.0-36.5); MEAN CORPUSCULAR VOLUME 101.3 fl (80.0-96.0); PLATELET COUNT, AUTOMATED 161 10^3/uL (150-450); RED BLOOD COUNT 3.18 10^6/uL (4.00-5.40); WHITE BLOOD COUNT 11.3 10^3/uL (4.0-10.0)
[2019-06-06 04:45] LABS: INR 2.29
[2019-06-06 04:46] LABS: PARTIAL THROMBOPLASTIN TIME 37.6 SECONDS (25.0-38.4)
[2019-06-06 04:57] LABS: BILIRUBIN,TOTAL 1.7 MG/DL (0.2-1.0); CALCIUM LEVEL 7.4 MG/DL (8.5-10.1); CREATININE FOR GFR 1.94 MG/DL (0.55-1.30); GLOMERULAR FILTRATION RATE 28.3 (>51); POTASSIUM SERUM 3.1 MEQ/L (3.5-5.1)
[2019-06-06] MEDS ORDERED: POTASSIUM CHLORIDE 10 MEQ SR TABLET PO ONE (05:15)
[2019-06-06] MEDS: HEPARIN SOD (PORCINE) 5000 UNITS/ML VIAL SQ SCH ×3 (05:35→21:18)
[2019-06-06] MEDS: NOREPINEPHRINE BITARTRATE 8 MG in D5W 492 ML IV SCH (10:53)
[2019-06-06] MEDS ORDERED: PHYTONADIONE 1.25 MG 1/4 TAB PO ONE (12:00)
--- NOTE | 2019-06-06 12:32 | CR.PDOC ---
General Date of Consultation: Jun 05, 2019 Referring Provider: MANNY ATKINS MD Attending Physician: MELVIN MORGAN MD Consultation Printed copy of the GI clinic note (06/05/2019) is placed in chart as part of GI consultation. Impression and recommendations reviewed with primary team. GI will follow. Please call GI if any questions or acute change in status. Laboratory Data Labs 24H Laboratory Tests 2 06/05/19 17:08: Prothrombin Time 23.3H, Prothromb Time International Ratio 2.09, Activated Partial Thromboplast Time 27.1, Total Bilirubin 2.6H, Direct Bilirubin 1.5H, Aspartate Amino Transf (AST/SGOT) 41H, Alanine Aminotransferase (ALT/SGPT) 28, Alkaline Phosphatase 100, Total Protein 8.0, Albumin 2.4L, Albumin/Globulin Ratio 0.43L, Ethyl Alcohol Level < 0.003 06/05/19 19:30: Nucleated Red Blood Cells % (auto) 0.0, Anion Gap 13, Glomerular Filtration Rate 25.2L, Calcium Level 8.4L 06/05/19 20:25: Lactic Acid Level 2.6*H 06/06/19 04:13: Prothrombin Time 25.0H, Prothromb Time International Ratio 2.29, Activated Partial Thromboplast Time 37.6, Total Bilirubin 1.7H, Aspartate Amino Transf (AST/SGOT) 31, Alanine Aminotransferase (ALT/SGPT) 23, Alkaline Phosphatase 94, Total Protein 7.0, Albumin 2.0L, Albumin/Globulin Ratio 0.40L, Nucleated Red Blood Cells % (auto) 0.0, Anion Gap 10, Glomerular Filtration Rate 28.3L, Calcium Level 7.4L, Lactic Acid Followup at 4 Hours 1.5 CBC/BMP Laboratory Tests 06/05/19 19:30 06/06/19 04:13 Allergies Coded Allergies: Opioids - Morphine Analogues (Verified Adverse Reaction, Mild, N/V, 01/12/19) Home Medications Scheduled Fluoxetine Hcl (Fluoxetine HCl) 40 Mg Cap, 40 MG PO QHS, (Reported) Losartan Potassium (Losartan Potassium) 100 Mg Tab, 100 MG PO DAILY, (Reported) Metoprolol Tartrate (Metoprolol Tartrate) 25 Mg Tablet, 25 MG PO BID, (Reported) Pantoprazole Sodium (Pantoprazole Sodium) 40 Mg Tablet.dr, 40 MG PO QHS, (Reported) Scheduled PRN Alprazolam (Alprazolam) 1 Mg Tablet, 1 MG PO TIDP PRN for ANXIETY/AGITATION, (Reported) Miscellaneous Medications [Med Rec Comment] , (Reported) MEDS HAVE NOT BEEN TAKEN IN OVER A WEEK PER PT MELVIN MORGAN MD Jun 06, 2019 12:32
[2019-06-06] MEDS: ALPRAZolam 0.5 MG TAB PO PRN (15:24)
[2019-06-06 17:28] LABS: INR 1.84
--- NOTE | 2019-06-06 17:48 | IPNPDOC ---
Text Note Date of Service The patient was seen on 06/06/19. NOTE S: Pt examined at bedside. Noted to still be lethargic. Overnight, her BP continue to run soft, requiring pressors to be started. This morning, she continues on 5 mcg Levophed. She was initially scheduled for diagnostic parace ntesis today, however was cancelled due to suboptimal INR per radiology. She only complains of feeling weak and nauseous with abdominal discomfort. Otherwise, denies f/c/n/blood loss. PE: Vitals: see below General: NAD, A&Ox2, knows her name and hospital, but wrong year, resting comfortably HEENT: NCAT, EOMI, dry mucous membranes, scleral icterus, right IJ present CV: RRR, no murmurs or clicks or rub. No edema RESP: CTAB, no w/r/r/ ABD: soft, distended, tympanic. Tender throughout. No masses. No rebound, guarding, rigidity EXTREMITIES: 2+ radial pulses b/l, able to move all extremities NEURO: lethargic, but able to hold conversation and answer appropriately. No focal deficits or acute changes A/P: 1. Liver cirrhosis with large ascites: She continues to be afebrile, white count increased from 9-11 with some abdominal tenderness. There is concern for possible SBP. Continue Rocephin. Was initially scheduled for diagnostic paracentesis today, however per reports this was canceled due to her INR being greater than 1.5. I spoke with Dr. Pacheco, who will have her on schedule for tomorrow morning or afternoon. Nothing by mouth after breakfast 06/07/2019. As/P2 units FFP. Avoid any additional reversal given her hypercoagulable state and history of portal venous thrombosis as per 03/07/[address] abdomen and pelvis did not see any thrombosis, however will require closer look via Doppler. Will attempt to do this tomorrow along with the paracentesis, as both will require nothing by mouth. Dr. Long is following, appreciate GI input. Per recommendations, patient only to be started on anticoagulants-bridge therapy with heparin or Lovenox. Will add this on pending her results on tomorr ow's tests. 2. Hypotension: Likely 2/2 underlying liver cirrhosis. Limit fluids given her ascites. Was started on Levophed, titrate down to maintain MAP >65. Has underlying hypertension-continue holding home antihypertensive. 3. Portal hypertension, esophageal varices, portal hypertensive gastropathy: 2/[address] Long outpatient. 4. Waxing waning mentation: Likely hepatic encephalopathy. She is A&Ox3 at baseline. Continue monitoring. Ammonia levels ordered Anxiety/depression continue Xanax and Prozac DVT ppx: heparin sc DISPO: pending paracentesis & liver Doppler tomorrow. Continue abx. VS,Fishbone, I+O VS, Fishbone, I+O Laboratory Tests 06/05/19 19:30 06/06/19 04:13 Vital Signs Date Time Temp Pulse Resp B/P (MAP) Pulse Ox O2 Delivery O2 Flow Rate FiO2 06/06/19 16:00 57 18 96/54 (68) 98 Room Air 06/06/19 15:58 97.7 06/05/19 19:30 1.0 I&O- Last 24 Hours up to 6 AM 06/06/19 06:00 Intake Total 1131 ml Output Total 0 ml Balance 1131 ml GME ATTESTATION GME ATTESTATION My faculty preceptor for this patient encounter was physically present during the encounter and was fully available. All aspects of the patient interview, examination, medical decision making process, and medical care plan development were reviewed and approved by the faculty preceptor. The faculty preceptor is aware and concurs with the plan as stated in the body of this note and will attest to such by his/her cosignature. ATTENDING NOTE I, Anthony Chavez, have independently examined this patient and performed my own physical exam, as well as reviewed the documentation and edited where necessary. I have discussed in detail with the resident / student the findings and plan of treatment as documented by the resident / student and edited their note. I agree with their findings and treatment plan and have edited their documentation. I will continue to follow the patient during this hospital stay. STELLA RYDER DO Jun 06, 2019 16:23 ANTHONY CHAVEZ MD Jun 06, 2019 18:55
[2019-06-06] MEDS: FLUoxetine 20 MG CAP PO SCH (20:06)
[2019-06-06] MEDS: PANTOPRAZOLE 40MG TAB (PROTONIX) PO SCH (20:06)
[2019-06-06] MEDS: cefTRIAXone SOD 2 GM in D5W MINI-BAG PLUS 50 ML IV SCH (20:06)
[2019-06-07] VITALS (64 sets, daily range): BP systolic 75–134; BP diastolic 45–67
[2019-06-07] MEDS: HEPARIN SOD (PORCINE) 5000 UNITS/ML VIAL SQ SCH ×3 (05:23→20:48)
[2019-06-07 05:38] LABS: HEMATOCRIT 29.5 % (36.0-47.0); HEMOGLOBIN 9.8 g/dl (12.0-15.5); MEAN CORPUSCULAR HEMOGLOBIN 33.9 pg (27.0-33.0); MEAN CORPUSCULAR HGB CONC 33.2 g/dl (32.0-36.5); MEAN CORPUSCULAR VOLUME 102.1 fl (80.0-96.0); PLATELET COUNT, AUTOMATED 117 10^3/uL (150-450); RED BLOOD COUNT 2.89 10^6/uL (4.00-5.40); WHITE BLOOD COUNT 8.8 10^3/uL (4.0-10.0)
[2019-06-07 05:58] LABS: INR 1.92; PROTHROMBIN TIME 21.7 SECONDS (11.8-14.0)
[2019-06-07 05:59] LABS: CALCIUM LEVEL 7.7 MG/DL (8.5-10.1); CREATININE FOR GFR 1.5 MG/DL (0.55-1.30); GLOMERULAR FILTRATION RATE 38.1 (>51); MAGNESIUM LEVEL 1.3 MG/DL (1.8-2.4); POTASSIUM SERUM 3.4 MEQ/L (3.5-5.1)
[2019-06-07] MEDS ORDERED: MAG SULF 1GM/100ML (MAG RUN) 1 GM in IV 1 EA IV ONE (06:30)
[2019-06-07] MEDS ORDERED: POTASSIUM CHLORIDE 10 MEQ SR TABLET PO ONE (06:30)
[2019-06-07] MEDS ORDERED: NS 250 ML IV ONE (08:30)
[2019-06-07] MEDS: LACTULOSE 20 GM/30 ML SYRUP UD PO SCH ×4 (08:36→23:44)
--- NOTE | 2019-06-07 13:58 | REP ---
ULTRASOUND ABDOMEN WITH DUPLEX DOPPLER EVALUATION OF PORTAL VASCULATURE: Real-time sonographic evaluation of abdomen performed. The gallbladder demonstrates no evidence of intraluminal sludge or calculus, wall thickening, or pericholecystic fluid. There is no intrahepatic or extrahepatic biliary dilatation, common bile duct measuring 4 mm. Liver demonstrates heterogeneous echotexture with small right lobe and prominent size of left lobe with microlobulated borders suggesting cirrhosis. No gross mass is seen in the liver. The pancreas could not be visualized due to overlying bowel gas. Spleen demonstrates normal length of 10.2 cm with no intrinsic abnormality. The kidneys appear normal in size and echotexture, right kidney measuring 12.0 x 5.8 x 6.3 cm and left kidney 10.4 x 6.9 x 5.9 cm. There is no renal mass, hydronephrosis, or nephrolithiasis identified. Abdominal aorta could not be visualized. There is mild scattered abdominal and pelvic ascites. Real-time ultrasound evaluation and duplex Doppler interrogation of portal vasculature is performed. Filling defect is seen in the main portal vein and superior mesenteric vein, compatible with portal vein thrombus. This is nonocclusive. There is normal direction of flow in the portal venous system. Velocity in the central aspect of the splenic vein is 46.4 cm/s. Velocity in the superior mesenteric vein is 17.7 cm/s. Velocity in the main portal vein is variable and pulsatile, between 29 and 77 cm/s. There does appear to be complete thrombosis of the left portal vein. Hepatic veins have lost phasicity, with no evidence of thrombosis. Main hepatic artery demonstrates peak systolic velocity 80.4 cm/s, resistive index is 0.67. IMPRESSION: Appearance of the liver is compatible with cirrhosis. Mild diffuse abdominal and pelvic ascites. Duplex Doppler evaluation of the portal vasculature demonstrates main portal vein diameter 15 mm suggesting portal hypertension. There is nonocclusive thrombus in the superior mesenteric and main portal vein with apparent complete thrombosis of the left portal vein. Electronically Signed by Codey Pacheco MD 06/07/2019 02:14 P
--- NOTE | 2019-06-07 14:31 | IPNPDOC ---
Text Note Date of Service The patient was seen on 06/07/19. NOTE S: Pt examined at bedside. Abdominal pain continues today. She required increase in Levophed overnight, up to 8mcg, titrated back down to 2mcg this am. Attempted to shut off drip this am, but did not tolerate and required restart. No other issues overnight. Awaiting paracentesis & liver Doppler today. Denies f/c/n/blood loss. PE: Vitals: see below General: NAD, A&Ox3, resting comfortably HEENT: NCAT, EOMI, dry mucous membranes, scleral icterus, right IJ present CV: RRR, no murmurs or clicks or rub. No edema RESP: CTAB, no w/r/r/ ABD: soft, distended, tympanic. Tender throughout. No masses. No rebound, guarding, rigidity EXTREMITIES: 2+ radial pulses b/l, able to move all extremities NEURO: lethargic, but able to hold conversation and answer appropriately. No focal deficits or acute changes A/P: 1. Liver cirrhosis with large ascites: She continues to be afebrile, white count normalized. Continue Rocephin for suspicion of SBP. NPO after breakfast for diagnostic paracentesis & liver doppler today. Has hx of portal venous thro mbosis as per 03/07/[address] abdomen and pelvis did not see any thrombosis. Avoid further INR reversal given this hypercoagulable state. Dr. Long is following, appreciate GI input. Per recommendations, patient is to be started on anticoagulants-bridge therapy with heparin or Lovenox. Awaiting today's results. 2. Hypotension: Likely 2/2 underlying liver cirrhosis. Limit fluids given her ascites. Continues on Levophed, titrate down as tolerated to maintain MAP >65. Has underlying hypertension-continue holding home antihypertensive. 3. Portal hypertension, esophageal varices, portal hypertensive gastropathy: 2/[address] Long outpatient. 4. Hepatic Encephalopathy: ammonia high at 75. Lactulose started 5. AK I: Normal renal function at baseline, creatinine 0.6-0.8. Likely prerenal given hypotensive state and is improving with current pressor and antibiotic. 6. Hypomagnesemia: Supplemented 7. Hypokalemia: Supplemented Anxiety/depression continue Xanax and Prozac DVT ppx: heparin sc DISPO: paracentesis & liver Doppler today. Continue abx. VS,Fishbone, I+O VS, Fishbone, I+O Laboratory Tests 06/07/19 05:22 Vital Signs Date Time Temp Pulse Resp B/P (MAP) Pulse Ox O2 Delivery O2 Flow Rate FiO2 06/07/19 13:45 97.0 58 18 105/51 (69) 99 Room Air 06/05/19 19:30 1.0 I&O- Last 24 Hours up to 6 AM 06/07/19 06:00 Intake Total 1722.0 ml Output Total 550 ml Balance 1172.0 ml GME ATTESTATION GME ATTESTATION My faculty preceptor for this patient encounter was physically present during the encounter and was fully available. All aspects of the patient interview, examination, medical decision making process, and medical care plan development were reviewed and approved by the faculty preceptor. The faculty preceptor is aware and concurs with the plan as stated in the body of this note and will attest to such by his/her cosignature. ATTENDING NOTE I, Anthony Wong, have independently examined this patient and performed my own physical exam, as well as reviewed the documentation and edited where necessary. I have discussed in detail with the resident / student the findings and plan of treatment as documented by the resident / student and edited their note. I agree with their findings and treatment plan and have edited their documentation. I will continue to follow the patient during this hospital stay. STELLA RYDER DO Jun 07, 2019 14:31 ANTHONY WONG MD Jun 07, 2019 15:56
[2019-06-07] MEDS: ACETAMINOPHEN TAB 650MG DOSE (2X325MG) PO PRN ×2 (14:41→20:46)
--- NOTE | 2019-06-07 16:22 | REP ---
Ultrasound-guided paracentesis The procedure was performed under the direct supervision of Dr. Pacheco. The risks and benefits of the procedure were explained to the patient and informed consent was obtained. The procedure was performed in the ICU at the bedside. The largest pocket of fluid was localized in the left flank using ultrasound guidance. The skin was prepped and draped in a sterile fashion. 1% lidocaine was used as a local anesthetic. An 8-Omani multi side-hole catheter was inserted using trocar technique. 2900 ml of clear yellow fluid was withdrawn with a sample sent to the lab for analysis. The patient tolerated the procedure well and there were no immediate complications. After the appropriate amount of monitored convalescence the patient was discharged from the department. Electronically Signed by FELECIA Figueroa 06/07/2019 04:05 P Electronically Signed by Codey Pacheco MD 06/07/2019 04:13 P
[2019-06-07] MEDS: ALPRAZolam 0.5 MG TAB PO PRN (18:45)
[2019-06-07] MEDS: cefTRIAXone SOD 2 GM in D5W MINI-BAG PLUS 50 ML IV SCH (18:46)
[2019-06-07] MEDS: FLUoxetine 20 MG CAP PO SCH (20:46)
[2019-06-07] MEDS: PANTOPRAZOLE 40MG TAB (PROTONIX) PO SCH (20:46)
[2019-06-08] VITALS (13 sets, daily range): BP systolic 92–132; BP diastolic 52–60
[2019-06-08 04:47] LABS: HEMATOCRIT 32.6 % (36.0-47.0); HEMOGLOBIN 10.6 g/dl (12.0-15.5); MEAN CORPUSCULAR HEMOGLOBIN 33.7 pg (27.0-33.0); MEAN CORPUSCULAR HGB CONC 32.5 g/dl (32.0-36.5); MEAN CORPUSCULAR VOLUME 103.5 fl (80.0-96.0); RED BLOOD COUNT 3.15 10^6/uL (4.00-5.40); WHITE BLOOD COUNT 6.7 10^3/uL (4.0-10.0)
[2019-06-08 04:59] LABS: INR 2.05; PROTHROMBIN TIME 22.9 SECONDS (11.8-14.0)
[2019-06-08 05:03] LABS: CREATININE FOR GFR 1.33 MG/DL (0.55-1.30); GLOMERULAR FILTRATION RATE 43.8 (>51); MAGNESIUM LEVEL 1.7 MG/DL (1.8-2.4); POTASSIUM SERUM 3.7 MEQ/L (3.5-5.1)
[2019-06-08 05:08] LABS: PLATELET COUNT, AUTOMATED 91 10^3/uL (150-450)
[2019-06-08] MEDS: LACTULOSE 20 GM/30 ML SYRUP UD PO SCH ×4 (05:50→23:18)
[2019-06-08] MEDS: HEPARIN SOD (PORCINE) 5000 UNITS/ML VIAL SQ SCH (05:56)
[2019-06-08] MEDS ORDERED: ENOXAPARIN 60 MG/0.6 ML SYR (J1650) SC SCH (08:00)
[2019-06-08] MEDS ORDERED: MAG SULF 1GM/100ML (MAG RUN) 1 GM in IV 1 EA IV ONE (08:00)
--- NOTE | 2019-06-08 11:52 | IPNPDOC ---
Text Note Date of Service The patient was seen on 06/08/19. NOTE S: Pt examined at bedside in ICU. Underwent paracentesis yesterday, 2.9L clear yellow fluid drained-awaiting lab results. Also noted to have portal vein thrombosis. Only complaint today is nausea. She has been off levophed since yesterday afternoon, and started lactulose yesterday-tolerating well. No events overnight. No f/c/constipation/blood loss. PE: Vitals: see below General: NAD, A&Ox3, resting comfortably HEENT: NCAT, EOMI, dry mucous membranes, scleral icterus, right IJ present CV: RRR, no murmurs or clicks or rub. No edema RESP: CTAB, no w/r/r/ ABD: soft, less distended than prior days. Tender throughout. No masses, rebound, guarding, or rigidity EXTREMITIES: able to move all extremities, no edema or calf tenderness NEURO: appropriately coherent & conversant. No focal deficits or acute changes A/P: 1. Liver cirrhosis with large ascites: s/p diagnostic paracentesis yesterday-2.9 L clear yellow fluid removed. Awaiting lab results. She feels slightly better paracentesis. Continue on ceftriaxone possible SBP. She continues to be afebrile without leukocytosis. Dr. Long following, appreciate input. Will get in to [facility] with GI to consider starting octreotide & propanolol for her underlying portal hypertension and concern of possible bleed. 2. Portal vein thrombosis: Noted on 03/07/2019 CT, and doppler yesterday in the superior mesenteric vein, main portal vein, and left portal vein. Avoid further INR reversal given this hypercoagulable state. Will start on therapeutic anticoagulation- heparin drip due to concern of possible bleed and quicker reversal. Continue monitoring H&H. 4. Hypotension: Likely 2/2 underlying liver cirrhosis. Limit fluids given her ascites. Off of the Levophed since 06/07 noon. Maintaining MAP >65. Continue holding home antihypertensive and will likely downgrade out of ICU later today if bp holds up. 5. ANTHONY: Improving. Normal renal function at baseline, creatinine 0.6-0.8. Likely prerenal given hypotensive state. Continue monitoring bp & abx. 6. Hepatic Encephalopathy: ammonia high at 75. Lactulose started, goal of at least 3 BMs/day. Recheck pending. Fully A&Ox3 today. 7. Hypomagnesemia: Supplemented 8. Hypokalemia: resolved with supplement Anxiety/depression continue Xanax and Prozac DVT ppx: heparin drip DISPO: pending clinical improvement. Possible d/g out of ICU today pending bp trend. VS,Fishbone, I+O VS, Fishbone, I+O Laboratory Tests 06/08/19 04:28 Vital Signs Date Time Temp Pulse Resp B/P (MAP) Pulse Ox O2 Delivery O2 Flow Rate FiO2 06/08/19 09:00 65 109/57 (74) 99 Room Air 06/08/19 08:00 98.6 16 06/05/19 19:30 1.0 I&O- Last 24 Hours up to 6 AM 06/08/19 06:00 Intake Total 1140.2 ml Output Total 3350 ml Balance -2209.8 ml GME ATTESTATION GME ATTESTATION My faculty preceptor for this patient encounter was physically present during the encounter and was fully available. All aspects of the patient interview, examination, medical decision making process, and medical care plan development were reviewed and approved by the faculty preceptor. The faculty preceptor is aware and concurs with the plan as stated in the body of this note and will attest to such by his/her cosignature. ATTENDING NOTE I, Anthony Wong, have independently examined this patient and performed my own physical exam, as well as reviewed the documentation and edited where necessary. I have discussed in detail with the resident / student the findings and plan of treatment as documented by the resident / student and edited their note. I agree with their findings and treatment plan and have edited their documentation. I will continue to follow the patient during this hospital stay. STELLA RYDER DO Jun 08, 2019 11:52 ANTHONY WONG MD Jun 08, 2019 13:11
[2019-06-08] MEDS: ONDANSETRON 4MG/2ML VIAL (J2405) IV PRN (17:37)
[2019-06-08] MEDS: HEPARIN DRIP 25,000 UNITS in IV 1 EA IV SCH (18:13)
[2019-06-08 20:40] LABS: SPEC. GRAVITY BODY FLUIDS 1.013 (NOT ESTABLISHED)
[2019-06-08 20:55] LABS: SOURCE, BODY FLUID ALBUMIN ASCITES; SOURCE, BODY FLUID GLUCOSE ASCITES; SOURCE, BODY FLUID TOT PROTEIN ASCITES; TOTAL PROTEIN, BODY FLUID 1.1 G/DL (NOT ESTABLISHED)
[2019-06-08] MEDS ORDERED: WARFARIN SOD 2.5 MG TAB PO ONE (21:00)
[2019-06-08] MEDS: PANTOPRAZOLE 40MG TAB (PROTONIX) PO SCH (21:54)
[2019-06-08] MEDS: FLUoxetine 20 MG CAP PO SCH (21:54)
[2019-06-08] MEDS: cefTRIAXone SOD 2 GM in D5W MINI-BAG PLUS 50 ML IV SCH (21:55)
[2019-06-08] MEDS: ALPRAZolam 0.5 MG TAB PO PRN (22:04)
[2019-06-09] VITALS: BP 98/64
[2019-06-09 04:00] VITALS: BP 113/54
[2019-06-09] MEDS: LACTULOSE 20 GM/30 ML SYRUP UD PO SCH ×4 (05:38→23:59)
[2019-06-09 05:43] LABS: HEMATOCRIT 30.6 % (36.0-47.0); HEMOGLOBIN 10.3 g/dl (12.0-15.5); MEAN CORPUSCULAR HEMOGLOBIN 34.1 pg (27.0-33.0); MEAN CORPUSCULAR HGB CONC 33.7 g/dl (32.0-36.5); MEAN CORPUSCULAR VOLUME 101.3 fl (80.0-96.0); PLATELET COUNT, AUTOMATED 109 10^3/uL (150-450); RED BLOOD COUNT 3.02 10^6/uL (4.00-5.40); WHITE BLOOD COUNT 8.5 10^3/uL (4.0-10.0)
[2019-06-09 05:54] LABS: INR 2.06
[2019-06-09 06:05] LABS: CALCIUM LEVEL 7.7 MG/DL (8.5-10.1); CREATININE FOR GFR 1.27 MG/DL (0.55-1.30); GLOMERULAR FILTRATION RATE 46.2 (>51); MAGNESIUM LEVEL 1.8 MG/DL (1.8-2.4); POTASSIUM SERUM 3.6 MEQ/L (3.5-5.1)
[2019-06-09 07:24] LABS: PARTIAL THROMBOPLASTIN TIME 135.7 SECONDS (25.0-38.4)
[2019-06-09 08:00] VITALS: BP 110/60
--- NOTE | 2019-06-09 11:21 | IPNPDOC ---
Text Note Date of Service The patient was seen on 06/09/19. NOTE S: Pt downgraded out of ICU yesterday, bp maintaining well without fluids and pressors. Still has poor po intake and minimal appetite. Still pending paracentesis labs. Tolerating AC well without bleed. No issues overnight. No f/c/n/v/cp/sob. PE: Vitals: see below General: NAD, A&Ox3, resting comfortably, visibly-fatigued HEENT: NCAT, EOMI, anicteric sclera, dry mucous membranes, scleral icterus, right IJ present CV: RRR, no murmurs or clicks or rub. No edema RESP: CTAB, no w/r/r/ ABD: soft, minimally distended. Mild discomfort to palpatin diffusely. No masses, rebound, guarding, or rigidity EXTREMITIES: able to move all extremities, no edema or calf tenderness NEURO: appropriately coherent & conversant. No focal deficits or acute changes A/P: 1. Liver cirrhosis with large ascites: s/p diagnostic paracentesis 06/08 with 2.9 L clear yellow fluid removed. Negative cytology, and SAAG=1.6, with ascitic protein 1.1. Lab unable to run cell count due to fluid sitting out too long, thus unable to quantify PMN. Will treat as presumed SBP, antibiotic for total of 5-7 days. Continues on Ceftriaxone, tolerating well. Will switch to Cipro on dc. Afebrile without leukocytosis. Dr. Long following, appreciate input: will start on Propranolol & Aldactone with hold parameters, monitor HR, bp, e-lytes. 2. Portal vein thrombosis: in superior mesenteric vein, main portal vein, and left portal vein. Per GI, bridge to Coumadin with heparin for at least 3 days, with goal INR 2-3. Will discuss with PFS possibility of obtaining pre-approval to send home on Lovenox. Risks, benefits, alternatives of anticoagulation discussed in depth with pt on prior days, to which she is agreeable. H&H remain stable without any signs of bleeding. 4. Hypotension: doing well since off pressors & not requiring fluids. Monitor bp with the start of bblocker & diuretic for her cirrhosis as noted above 5. Poor appetite: po intake barely 800mL/day. Nutrition consult in place. Continue fluid restriction and high protein. 6. ANTHONY: Improving, Cr down to 1.27 today. Baseline 0.6-0.8. Likely prerenal given initial hypotensive state now improving. 7. Hypomagnesemia: resolved with supplement 8. Hepatic Encephalopathy: resolved. Ammonia improving with pt hving 3+ loose BMs/day. Continue lactulose Anxiety/depression continue Xanax and Prozac DVT ppx: heparin bridge to Coumadin DISPO: Downgrade to general medical floor. Pending PT & Nutrition c/s. Likely d/c home 24-28 hrs. VS,Fishbone, I+O VS, Fishbone, I+O Laboratory Tests 06/09/19 05:27 Vital Signs Date Time Temp Pulse Resp B/P (MAP) Pulse Ox O2 Delivery O2 Flow Rate FiO2 06/09/19 04:00 97.4 67 14 113/54 (73) 96 Room Air 06/05/19 19:30 1.0 I&O- Last 24 Hours up to 6 AM 06/09/19 06:00 Intake Total 880 ml Balance 880 ml GME ATTESTATION GME ATTESTATION My faculty preceptor for this patient encounter was physically present during the encounter and was fully available. All aspects of the patient interview, examination, medical decision making process, and medical care plan development were reviewed and approved by the faculty preceptor. The faculty preceptor is aware and concurs with the plan as stated in the body of this note and will attest to such by his/her cosignature. ATTENDING NOTE I, Anthony Wong, have independently examined this patient and performed my own physical exam, as well as reviewed the documentation and edited where necessary. I have discussed in detail with the resident / student the findings and plan of treatment as documented by the resident / student and edited their note. I agree with their findings and treatment plan and have edited their documentation. I will continue to follow the patient during this hospital stay. STELLA RYDER DO Jun 09, 2019 11:21 ANTHONY WONG MD Jun 09, 2019 15:00
[2019-06-09] MEDS: HEPARIN SOD (PORCINE) 5000 UNITS/ML VIAL IV PRN (15:53)
[2019-06-09] MEDS: HEPARIN DRIP 25,000 UNITS in IV 1 EA IV SCH (15:54)
[2019-06-09] MEDS ORDERED: WARFARIN SOD 2.5 MG TAB PO SCH (17:00)
[2019-06-09] MEDS ORDERED: LIDOCAINE 1% MDV 20ML VIAL As Ordered ONE (17:26)
[2019-06-09] MEDS: ONDANSETRON 4MG/2ML VIAL (J2405) IV PRN (18:11)
[2019-06-09] MEDS ORDERED: ENOX40IN3 SC (18:12)
[2019-06-09] MEDS: SPIRONOLACTONE 25 MG TAB PO SCH (18:30)
[2019-06-09] MEDS: cefTRIAXone SOD 2 GM in D5W MINI-BAG PLUS 50 ML IV SCH (20:13)
[2019-06-09] MEDS: PANTOPRAZOLE 40MG TAB (PROTONIX) PO SCH (21:17)
[2019-06-09] MEDS: FLUoxetine 20 MG CAP PO SCH (21:18)
[2019-06-09] MEDS: PROPRANOLOL 10 MG TAB PO SCH (21:25)
[2019-06-09 22:00] VITALS: BP 123/66
[2019-06-09] MEDS: ALPRAZolam 0.5 MG TAB PO PRN (23:00)
[2019-06-10] VITALS (7 sets, daily range): BP systolic 85–118; BP diastolic 43–62
[2019-06-10] MEDS: SODIUM CHLORIDE 0.9% INJ 10 ML SYR IV SCH ×2 (05:06→17:11)
[2019-06-10] MEDS: SODIUM CHLORIDE 0.9% INJ 10 ML SYR IV PRN (05:07)
[2019-06-10] MEDS: LACTULOSE 20 GM/30 ML SYRUP UD PO SCH ×3 (05:11→17:12)
[2019-06-10 06:24] LABS: HEMATOCRIT 31.3 % (36.0-47.0); HEMOGLOBIN 10.3 g/dl (12.0-15.5); MEAN CORPUSCULAR HEMOGLOBIN 33.7 pg (27.0-33.0); MEAN CORPUSCULAR HGB CONC 32.9 g/dl (32.0-36.5); MEAN CORPUSCULAR VOLUME 102.3 fl (80.0-96.0); PLATELET COUNT, AUTOMATED 112 10^3/uL (150-450); RED BLOOD COUNT 3.06 10^6/uL (4.00-5.40); WHITE BLOOD COUNT 8.5 10^3/uL (4.0-10.0)
[2019-06-10 06:31] LABS: INR 3.02; PROTHROMBIN TIME 31.2 SECONDS (11.8-14.0)
[2019-06-10 06:32] LABS: PARTIAL THROMBOPLASTIN TIME 74.8 SECONDS (25.0-38.4)
[2019-06-10 06:48] LABS: CALCIUM LEVEL 7.5 MG/DL (8.5-10.1); CREATININE FOR GFR 1.26 MG/DL (0.55-1.30); GLOMERULAR FILTRATION RATE 46.6 (>51); MAGNESIUM LEVEL 1.5 MG/DL (1.8-2.4); POTASSIUM SERUM 3.7 MEQ/L (3.5-5.1)
[2019-06-10] MEDS ORDERED: MAGNESIUM OXIDE 400 MG TAB (MAG-OX) PO ONE (07:30)
[2019-06-10] MEDS: PROPRANOLOL 10 MG TAB PO SCH (08:26)
[2019-06-10] MEDS: SPIRONOLACTONE 25 MG TAB PO SCH (08:27)
[2019-06-10] MEDS ORDERED: NS 250 ML IV ONE (09:00)
[2019-06-10] MEDS ORDERED: SPIRONOLACTONE 12.5MG PER 1/2 TABLET PO SCH (09:00)
[2019-06-10] MEDS: HEPARIN DRIP 25,000 UNITS in IV 1 EA IV SCH (11:04)
[2019-06-10] MEDS ORDERED: PILL CUTTER 1 EACH XX PRN (12:00)
[2019-06-10] MEDS ORDERED: PROPRANOLOL 10 MG TAB PO SCH (13:00)
[2019-06-10] MEDS: HEPARIN SOD (PORCINE) 5000 UNITS/ML VIAL IV PRN (13:25)
--- NOTE | 2019-06-10 14:08 | IPNPDOC ---
Text Note Date of Service The patient was seen on 06/10/19. NOTE S: No reported events overnight. Noted to have more energy and better appetite and po intake. Hypotensive 70s/50s this am with dizziness, but tolerated Propranolol & spironolactone well last night. No bleeds. Continues on heparin drip bridging to Coumadin. Underwent right midline placement yesterday with plan to remove IJ central line. No f/c/n/v/cp/sob. PE: Vitals: see below General: NAD, A&Ox3, resting comfortably, more energetic HEENT: NCAT, EOMI, dry mucous membranes, scleral icterus, right IJ and right midline present CV: RRR, no murmurs or clicks or rub. No edema RESP: mild bibasilar crackles, no wheezing or rhonchi or respiratory distress ABD: soft, minimally distended. Mild discomfort to palpation diffusely. No masses, rebound, guarding, or rigidity EXTREMITIES: able to move all extremities, no edema or calf tenderness NEURO: appropriately coherent & conversant. No focal deficits or acute changes A/P: 1. Alcoholic cirrhosis with large ascites: s/p diagnostic paracentesis 06/08 with 2.9 L clear yellow fluid removed suggesting portal HTN. Continue fluid restriction, high protein diet. Will reduce Propranolol & Spironolactone doses and monitor bp in light of her intermittent hypotension. Continue Ceftriaxone total of 5-7 days for presumed SBP. Will switch to Cipro on dc. Afebrile without leukocytosis. Dr. Long following, appreciate input. 2. Portal vein thrombosis: in superior mesenteric vein, main portal vein, and left portal vein. Per PFS, Lovenox is approved by her insurance for 1-month supply sent in, but syringes are only 80mg, and pt will be taught prior to discharge how to inject only 60mg twice a day for therapeutic dosing. Will DC her heparin drip and Coumadin, and start Lovenox inpt and continue it into her discharge. Tolerating AC well. H&H remain stable without any signs of bleeding. 4. Hypotension: Intermittent, responding well to 250mL bolus this am. Limit fluids given her ascites. Will reduce by half her doses of bblocker & diuretic with hold parameters in place 5. Poor appetite: improving. Dietary consulted and Ensure added to meals. Continue fluid restriction and high protein. 6. ANTHONY: Improving. Baseline 0.6-0.8. Likely prerenal given hypotensive episodes now improving. 7. Hypomagnesemia:supplemented 8. Hepatic Encephalopathy: resolved. Ammonia improving. Goal is to have 3+ loose BMs/day. Continue lactulose 9. Anxiety/depression: stable, continue Xanax and Prozac DVT ppx: Lovenox sc DISPO: Pending PT. Likely d/c home 24-28 hrs. VS,Fishbone, I+O VS, Fishbone, I+O Laboratory Tests 06/10/19 06:05 06/10/19 06:06 Vital Signs Date Time Temp Pulse Resp B/P (MAP) Pulse Ox O2 Delivery O2 Flow Rate FiO2 06/10/19 10:00 97.8 56 12 85/60 (68) 96 Room Air 06/05/19 19:30 1.0 I&O- Last 24 Hours up to 6 AM 06/10/19 06:00 Intake Total 1617 ml Output Total 150 ml Balance 1467 ml GME ATTESTATION GME ATTESTATION My faculty preceptor for this patient encounter was physically present during the encounter and was fully available. All aspects of the patient interview, examination, medical decision making process, and medical care plan development were reviewed and approved by the faculty preceptor. The faculty preceptor is aware and concurs with the plan as stated in the body of this note and will at test to such by his/her cosignature. ATTENDING NOTE I, Anthony Wong, have independently examined this patient and performed my own physical exam, as well as reviewed the documentation and edited where necessary. I have discussed in detail with the resident / student the findings and plan of treatment as documented by the resident / student and edited their note. I agree with their findings and treatment plan and have edited their documentation. I will continue to follow the patient during this hospital stay. STELLA RYDER DO Jun 10, 2019 14:07 ANTHONY WONG MD Jun 10, 2019 15:42
[2019-06-10] MEDS: ALPRAZolam 0.5 MG TAB PO PRN ×2 (14:09→21:38)
[2019-06-10] MEDS ORDERED: NS 500 ML IV ONE (15:00)
[2019-06-10] MEDS ORDERED: WARFARIN SOD 2 MG TAB PO SCH (17:00)
[2019-06-10] MEDS: MIDODRINE 5 MG TAB PO SCH (17:11)
[2019-06-10] MEDS: ENOXAPARIN 60 MG/0.6 ML SYR (J1650) SC SCH (17:11)
--- NOTE | 2019-06-10 20:47 | IPNPDOC ---
Date Seen The patient was seen on 06/10/19. Progress Note Interval history: Patient was initially noted to help low borderline blood pressure requiring i ntermittent use of vasopressors to maintain blood pressure. Patient had ultrasound Doppler, which confirmed the presence of portal vein thrombosis (involving the main portal vein, left portal vein and superior mesenteric vein). Unfortunately, the ascitic fluid analysis was incomplete but suggestive of portal hypertensive ascites, without any malignant cells on cytology. Patients symptoms have significantly improved on antibiotics, anticoagulation and lactulose. Patient upon questioning still reports mild abdominal pain and still not having much of appetite. Exam: Vitals: Afebrile, no tachycardia, borderline BP. Abdomen: Soft, mildly distention, mild tenderness, no rigidity, no guarding and no rebound. Normal bowel sounds heard. Chest: Bilaterally clear air entry, normal S1 and S2 heard. Labs: Reviewed. Imaging: Ultrasound, Doppler and CT abdomen done in this hospitalization reviewed. Impression: -- Alcoholic liver cirrhosis CTP C, MELD- Na - 19, decompensated with suspected SBP, (prior work up done in GI clinic, patient did labs in [facility] -- n egative autoimmune, viral hepatitis work up, not immune to hepatitis A and B), noted grade 1 esophageal varices in EGD in January 2019, moderate ascites, mild hepatic encephalopathy ( started on lactulose in this hospitalization), quit alcohol since April 2019 ( as per patient). -- Portal vein thrombosis complicating liver cirrhosis. -- Abdominal pain and nausea and loss of appetite and unintentional weight loss -- likely related to above. NO alcoholic hepatitis. No evidence of intrabaodminal malignancy, no malignancy in Colonoscopy ( done in January 2019.), Recommendations: -- Complete course of antibiotics for SBP for atleast 7- 10 days. -- For portal vein thrombosis, patient would benefit from anticoagulation. Discussed the different options of anticoagulation, their indications, risks and benefits, and alternatives with the patient. Due to lack of data on newer anticoagulants, the current available data suggest the preferred agent - Lovenox or fondaparinux or Coumadin. Unfortunately in this patient due to elevated INR at baseline, it is very difficult to monitor therapeutic efficacy of Coumadin. Discussed with the primary team about possibility of obtaining Lovenox. -- As patient has small esophageal varices, nonselective beta blockers can be tried if tolerated by blood pressure or else can be held for now. -- Similarly, the diuresis in this patient with borderline blood pressure will be based on the tolerance. Consider very low dose spirolonolactone for now. -- Continue lactulose, dose titrated to achieve at least 1- 2 loose bowel movements per day. -- Low sodium diet ( < 2gm/ day sodium) and high protein diet. ( consider nutrition supplements). -- Complete cessation of alcohol and avoid all hepatotoxic medications (avoid sedatives especially long acting Benzodiazepines and high dose opioids). -- Avoid NSAIDs and high dose aspirin, opioids and benzodiazepines. -- Depending on clinical course, if persistent, loss of appetite, will consider appetite stimulants in clinic follow-up. -- HCC surveillance with Ultrasound abdomen and AFP levels every 6 months. -- Elective vaccination for hepatitis A and B in outpatient setting, if not vac cinated in the past. -- Please do GI clinic appointment in 1-2 weeks upon discharge. Plan of care discussed with the patient and recommendations communicated with the primary team. VS, I&O, 24H, Fishbone Vital Signs/I&O Vital Signs Date Time Temp Pulse Resp B/P (MAP) Pulse Ox O2 Delivery O2 Flow Rate FiO2 06/10/19 19:00 88/48 (61) 06/10/19 18:00 97.6 58 17 98 Room Air 06/05/19 19:30 1.0 I&O- Last 24 Hours up to 6 AM 06/10/19 06:00 Intake Total 1617 ml Output Total 150 ml Balance 1467 ml Laboratory Data 24H LABS Laboratory Tests 2 06/09/19 22:28: Activated Partial Thromboplast Time 131.3*H 06/10/19 06:05: Nucleated Red Blood Cells % (auto) 0.0 06/10/19 06:06: Activated Partial Thromboplast Time 74.8H, Prothrombin Time 31.2H, Prothromb Time International Ratio 3.02, Anion Gap 9, Glomerular Filtration Rate 46.6L, Calcium Level 7.5L, Magnesium Level 1.5L, Ammonia 28 06/10/19 12:07: Activated Partial Thromboplast Time 55.5H 06/10/19 16:00: Lactic Acid Level 2.9*H CBC/BMP Laboratory Tests 06/10/19 06:05 06/10/19 06:06 Microbiology Microbiology 06/07/19 Acid Fast Stain, Received Pending 06/07/19 Mycobacterial Culture, Received Pending 06/07/19 Fungal Smear, Received Pending 06/07/19 Fungal Culture, Received Pending 06/07/19 Gram Stain - Final, Complete 06/07/19 Body Fluid Culture - Final, Complete 06/05/19 Blood Culture - Preliminary, Resulted No Growth after 72 hours. All specime... 06/05/19 Blood Culture - Preliminary, Resulted No Growth after 72 hours. All specime... MELVIN MORGAN MD Jun 10, 2019 20:47
[2019-06-10] MEDS: PANTOPRAZOLE 40MG TAB (PROTONIX) PO SCH (21:13)
[2019-06-10] MEDS: cefTRIAXone SOD 2 GM in D5W MINI-BAG PLUS 50 ML IV SCH (21:13)
[2019-06-10] MEDS: FLUoxetine 20 MG CAP PO SCH (21:14)
[2019-06-11] MEDS: LACTULOSE 20 GM/30 ML SYRUP UD PO SCH ×4 (00:16→17:06)
[2019-06-11 02:00] VITALS: BP 98/50
[2019-06-11] MEDS: ENOXAPARIN 60 MG/0.6 ML SYR (J1650) SC SCH ×2 (05:00→17:05)
[2019-06-11 06:00] VITALS: BP 110/60
[2019-06-11] MEDS: SODIUM CHLORIDE 0.9% INJ 10 ML SYR IV SCH ×2 (06:12→17:05)
[2019-06-11 07:16] LABS: HEMATOCRIT 32.5 % (36.0-47.0); HEMOGLOBIN 10.4 g/dl (12.0-15.5); MEAN CORPUSCULAR HEMOGLOBIN 33.4 pg (27.0-33.0); MEAN CORPUSCULAR VOLUME 104.5 fl (80.0-96.0); PLATELET COUNT, AUTOMATED 114 10^3/uL (150-450); RED BLOOD COUNT 3.11 10^6/uL (4.00-5.40); WHITE BLOOD COUNT 8.9 10^3/uL (4.0-10.0)
[2019-06-11 07:18] LABS: CALCIUM LEVEL 7.6 MG/DL (8.5-10.1); CREATININE FOR GFR 1.36 MG/DL (0.55-1.30); GLOMERULAR FILTRATION RATE 42.7 (>51); MAGNESIUM LEVEL 1.6 MG/DL (1.8-2.4); POTASSIUM SERUM 3.6 MEQ/L (3.5-5.1)
[2019-06-11 07:19] LABS: INR 4.79; PROTHROMBIN TIME 45.2 SECONDS (11.8-14.0)
[2019-06-11] MEDS: MIDODRINE 5 MG TAB PO SCH ×3 (08:25→17:05)
--- NOTE | 2019-06-11 11:36 | IPNPDOC ---
Text Note Date of Service The patient was seen on 06/11/19. NOTE Subjective: Patient was seen and examined at the bedside. . She reports she has had an uneventful evening. She denies any significant dizziness this morning. Denies chest pain, shortness of breath or palpitations. Does report some abdominal discomfort. Denies any nausea, diarrhea, or urinary discomfort. Patient continue physical therapy, however, she has not yet cleared. Objective: Vitals (See below) General: Lying in bed, no acute distress, comfortable, AAOx3 HEENT: NC, AT CVS: RRR, +S1S2 Lungs: Fair air entry b/l, -w/r/r Abdomen: Soft, ND, mild diffuse tenderness Extremities: - Edema, - Calf tenderness Assessment and plan: Cirrhosis with large volume ascites - likely 2/2 alcohol abuse history - s/p Paracentesis 06/08/2019 - removal of 2900 cc of fluid - Fluid analysis is consistent with portal hypertension - Will continue with fluid restrictions - c/w Spironolactone as tolerated with holding parameters - GI on consultation; appreciate their input Suspected spontaneous bacterial peritonitis - Remains afebrile - s/p Leukocytosis - c/w Ceftriaxone (Day #6) Thrombosis within protal vein system - s/p Heparin Drip - Warfarin has been discontinued given difficulty in interpreting INR with her liver dysfunction / coagulopathy - c/w Lovenox therapeutic Hypotension - possibly 2/2 hypovolemia / third spacing, possibly 2/2 medications - Mildly elevated lactic acid - s/p IV fluid hydration - c/w Midodrine Poor appetite - Dietary consulted and Ensure added to meals - Continue fluid restriction and high protein diet ANTHONY - possibly 2/2 hepatorenal syndrome, possibly 2/2 hypotension / hypovolemia - BP has improved - Cr baseline of 0.6-0.8 - Will avoid excess fluids given third spacing - c/w Midodrine; will repeat BMP this afternoon Hypomagnesemia - Will supplement s/p Hepatic Encephalopathy - Ammonia has normalized - c/w Lactulose with goal is to have 3+ loose BMs/day Anxiety/depression - c/w Alprazolam and Fluoxetine GI prophylaxis - c/w Protonix DVT prophylaxis - c/w full anticoagulation with Lovenox Disposition: - Awaiting physical therapy clearance - Anticipate home with services, possibly subacute rehabilitation VS,Sherice, I+O VS, Fishbone, I+O Laboratory Tests 06/11/19 06:31 Vital Signs Date Time Temp Pulse Resp B/P (MAP) Pulse Ox O2 Delivery O2 Flow Rate FiO2 06/11/19 06:00 98.1 61 17 110/60 (77) 97 06/11/19 02:00 Room Air 06/05/19 19:30 1.0 I&O- Last 24 Hours up to 6 AM 06/11/19 06:00 Intake Total 2515 ml Output Total 200 ml Balance 2315 ml SHERMAN WONG MD Jun 11, 2019 11:36
[2019-06-11 12:00] VITALS: BP 112/57
[2019-06-11] MEDS ORDERED: MAG SULF 1GM/100ML (MAG RUN) 1 GM in IV 1 EA IV ONE (12:00)
[2019-06-11 14:00] VITALS: BP 110/56
[2019-06-11 18:00] VITALS: BP 113/54
[2019-06-11] MEDS: ONDANSETRON 4MG/2ML VIAL (J2405) IV PRN (19:52)
[2019-06-11] MEDS: cefTRIAXone SOD 2 GM in D5W MINI-BAG PLUS 50 ML IV SCH (19:52)
[2019-06-11] MEDS: FLUoxetine 20 MG CAP PO SCH (20:01)
[2019-06-11] MEDS: PANTOPRAZOLE 40MG TAB (PROTONIX) PO SCH (20:01)
[2019-06-11] MEDS: ALPRAZolam 0.5 MG TAB PO PRN (20:01)
[2019-06-11] MEDS: SODIUM CHLORIDE 0.9% INJ 10 ML SYR IV PRN (20:02)
[2019-06-11 22:00] VITALS: BP 109/50
[2019-06-12] VITALS (7 sets, daily range): BP systolic 94–114; BP diastolic 50–57
[2019-06-12] MEDS: ENOXAPARIN 60 MG/0.6 ML SYR (J1650) SC SCH ×2 (05:04→16:39)
[2019-06-12 05:50] LABS: HEMATOCRIT 29.2 % (36.0-47.0); HEMOGLOBIN 9.8 g/dl (12.0-15.5); MEAN CORPUSCULAR HGB CONC 33.6 g/dl (32.0-36.5); MEAN CORPUSCULAR VOLUME 101.4 fl (80.0-96.0); PLATELET COUNT, AUTOMATED 112 10^3/uL (150-450); RED BLOOD COUNT 2.88 10^6/uL (4.00-5.40); WHITE BLOOD COUNT 8.4 10^3/uL (4.0-10.0)
[2019-06-12 05:59] LABS: INR 3.58; PROTHROMBIN TIME 35.8 SECONDS (11.8-14.0)
[2019-06-12 06:05] LABS: CALCIUM LEVEL 7.7 MG/DL (8.5-10.1); CREATININE FOR GFR 1.24 MG/DL (0.55-1.30); GLOMERULAR FILTRATION RATE 47.5 (>51); MAGNESIUM LEVEL 1.8 MG/DL (1.8-2.4); POTASSIUM SERUM 3.8 MEQ/L (3.5-5.1)
[2019-06-12] MEDS: LACTULOSE 20 GM/30 ML SYRUP UD PO SCH ×4 (06:18→16:39)
[2019-06-12] MEDS: SODIUM CHLORIDE 0.9% INJ 10 ML SYR IV SCH ×2 (06:19→16:39)
[2019-06-12] MEDS: MIDODRINE 5 MG TAB PO SCH ×3 (08:35→16:39)
[2019-06-12] MEDS: SPIRONOLACTONE 6.25 MG PER 1/4 TAB PO SCH ×2 (10:13→16:56)
[2019-06-12] MEDS: PROPRANOLOL 10 MG TAB PO SCH (10:14)
--- NOTE | 2019-06-12 17:21 | IPNPDOC ---
Text Note Date of Service The patient was seen on 06/12/19. NOTE S: Examined at bedside. Feeling lightheaded this am with soft bps 90s/60s, maintaining MAP>65. No reported events overnight. Had right IJ line removed yesterday, currently using right arm midline without issues. No bleeding as she continues on therapeutic Lovenox for her portal vein thrombosis. Appetite continues to be improving from admission. No f/c/n/v/cp/sob. PE: Vitals: see below General: NAD, A&Ox3, resting comfortably HEENT: NCAT, EOMI, dry mucous membranes, scleral icterus, right midline present CV: RRR, no murmurs or clicks or rub. No edema RESP: mild bibasilar crackles, no wheezing or rhonchi or respiratory distress ABD: soft, minimally distended. No discomfort to palpation. No masses, rebound, guarding, or rigidity EXTREMITIES: able to move all extremities, no edema or calf tenderness NEURO: appropriately coherent & conversant. No focal deficits or acute changes SKIN: bandage in right neck from recent central line removed. No rashes or signs of skin infection A/P: 1. Alcoholic cirrhosis with large ascites: s/p diagnostic paracentesis 06/08 with 2.9 L clear yellow fluid removed suggesting portal HTN. Continue fluid restriction, high protein diet. Given her hypotensive episodes, will attempt lowest doses of Propranolol & Spironolactone with hold parameters in place. Will dc if her bp doesn't hold up for med administration and pt will have to f/u outpatient. Continue Ceftriaxone total of 7-10 days for presumed SBP as per GI. Appreciate Dr. Long's input. She remains afebrile without leukocytosis. Abd currently nontender and without significant distension. 2. Hypotension: Intermittent, responds well to small boluses of fluids, but limit IVF given her 3rd spacing and ascites. Started on Midodrine, encourage po entake, and bblocker & diuretic reduced to smallest doses with hold parameters in place. 4. Portal vein thrombosis: in superior mesenteric vein, main portal vein, and left portal vein. Continue Lovenox as per GI. S/P heparin drip & Coumadin. Per PFS, Lovenox is approved by her insurance for 1-month supply sent in, but syringes are only 80mg, and pt will need to be taught prior to discharge how to inject only 60mg twice a day for therapeutic dosing. Tolerating AC well. H&H remain stable without any signs of bleeding. 5. Poor appetite: improving. Dietary consulted and Ensure added to meals. Continue fluid restriction and high protein. 6. ANTHONY: almost fully resolved, baseline Cr 0.6-0.8. Likely prerenal given hypotensive episodes now improving. 7. Hypomagnesemia: resolved with supplement 8. Hepatic Encephalopathy: resolved. Ammonia improved. Goal is to have 3+ loose BMs/day. Continue lactulose post-discharge as well until f/u with GI. 9. Anxiety/depression: stable, continue Prozac. Xanax d/c'd per GI rec's-pt has not required [id number] administration. Replaced with Atarax prn. Monitor DVT ppx: Lovenox sc DISPO: Pending PT/OT/PFS. Monitor bp and po intake. VS,Fishbone, I+O VS, Fishbone, I+O Laboratory Tests 06/12/19 05:31 Vital Signs Date Time Temp Pulse Resp B/P (MAP) Pulse Ox O2 Delivery O2 Flow Rate FiO2 06/12/19 14:00 97.4 56 17 96/57 (70) 99 Room Air I&O- Last 24 Hours up to 6 AM 06/12/19 06:00 Intake Total 715 ml Output Total 300 ml Balance 415 ml GME ATTESTATION GME ATTESTATION My faculty preceptor for this patient encounter was physically present during the encounter and was fully available. All aspects of the patient interview, examination, medical decision making process, and medical care plan development were reviewed and approved by the faculty preceptor. The faculty preceptor is aware and concurs with the plan as stated in the body of this note and will attest to such by his/her cosignature. ATTENDING NOTE I, Anthony Wong, have independently examined this patient and performed my own physical exam, as well as reviewed the documentation and edited where necessary. I have discussed in detail with the resident / student the findings and plan of treatment as documented by the resident / student and edited their note. I agree with their findings and treatment plan and have edited their documentation. I will continue to follow the patient during this hospital stay. STELLA RYDER DO Jun 12, 2019 17:21 ANTHONY WONG MD Jun 21, 2019 18:28
[2019-06-12] MEDS: FLUoxetine 20 MG CAP PO SCH (20:35)
[2019-06-12] MEDS: PANTOPRAZOLE 40MG TAB (PROTONIX) PO SCH (20:35)
[2019-06-13] VITALS (7 sets, daily range): BP systolic 100–108; BP diastolic 50–60
[2019-06-13] MEDS: LACTULOSE 20 GM/30 ML SYRUP UD PO SCH ×6 (00:03→23:43)
[2019-06-13] MEDS: ENOXAPARIN 60 MG/0.6 ML SYR (J1650) SC SCH ×2 (05:29→16:46)
[2019-06-13] MEDS: SODIUM CHLORIDE 0.9% INJ 10 ML SYR IV SCH ×2 (05:29→17:50)
[2019-06-13 06:13] LABS: HEMATOCRIT 30.5 % (36.0-47.0); HEMOGLOBIN 10.4 g/dl (12.0-15.5); MEAN CORPUSCULAR HEMOGLOBIN 34.2 pg (27.0-33.0); MEAN CORPUSCULAR HGB CONC 34.1 g/dl (32.0-36.5); MEAN CORPUSCULAR VOLUME 100.3 fl (80.0-96.0); PLATELET COUNT, AUTOMATED 138 10^3/uL (150-450); RED BLOOD COUNT 3.04 10^6/uL (4.00-5.40); WHITE BLOOD COUNT 7.4 10^3/uL (4.0-10.0)
[2019-06-13 06:33] LABS: CALCIUM LEVEL 7.8 MG/DL (8.5-10.1); CREATININE FOR GFR 1.36 MG/DL (0.55-1.30); GLOMERULAR FILTRATION RATE 42.7 (>51); MAGNESIUM LEVEL 1.8 MG/DL (1.8-2.4); POTASSIUM SERUM 3.6 MEQ/L (3.5-5.1)
[2019-06-13] MEDS: SPIRONOLACTONE 6.25 MG PER 1/4 TAB PO SCH (08:30)
[2019-06-13] MEDS: PROPRANOLOL 10 MG TAB PO SCH (08:30)
[2019-06-13] MEDS: MIDODRINE 5 MG TAB PO SCH ×3 (08:31→16:46)
[2019-06-13] MEDS: ACETAMINOPHEN TAB 650MG DOSE (2X325MG) PO PRN (08:45)
--- NOTE | 2019-06-13 15:29 | IPNPDOC ---
Text Note Date of Service The patient was seen on 06/13/19. NOTE S: Examined at bedside. Continues to feel lightheaded and nauseous this am, with mild diffuse abd tenderness. No issues overnight. Continues to work with PT/OT and possible rehab. BP continues to be borderline soft this am. No f/c/n/v/cp/sob. PE: Vitals: see below General: NAD, A&Ox3, resting comfortably HEENT: NCAT, EOMI, dry mucous membranes, scleral icterus, right midline present CV: RRR, no murmurs or clicks or rub. No edema RESP: CTAB, no wheezing/r/r. No respiratory distress ABD: soft, minimally distended. No discomfort to palpation. No masses, rebound, guarding, or rigidity EXTREMITIES: able to move all extremities, no edema or calf tenderness NEURO: appropriately coherent & conversant. No focal deficits or acute changes SKIN: bandage in right neck from recent central line removed. No rashes or signs of skin infection A/P: 1. Alcoholic cirrhosis with large ascites: s/p diagnostic paracentesis 06/08 with 2.9 L clear yellow fluid removed suggesting portal HTN. Continue fluid restriction, high protein diet. Unable to tolerate Spironolactone & bblocker - will dc and monitor bp. Pt will need to f/u o/p with GI for regimen adjustment. Is s/p 7 days Ceftriaxone completed 06/11 for presumed SBP. Afebrile without leukocytosis since. GI following - appreciate Dr. Long's input. Abd pain has been slowly worsening since last paracentesis, no signs of acute abd. Likely recurrent ascites. Will repeat CT abd and possibly needs repeat paracentesis. 2. Hypotension: Intermittent, responds well to small boluses of fluids, but limit IVF given her 3rd spacing and ascites. Will inc Midodrine dose, encourage po entake. Avoid any bp meds at this time. 4. Portal vein thrombosis: in superior mesenteric vein, main portal vein, and left portal vein. Continue Lovenox as per GI. S/P heparin drip & Coumadin. Per PFS, Lovenox is approved by her insurance for 1-month supply sent in, but syringes are only 80mg, and pt will need to be taught prior to discharge how to inject only 60mg twice a day for therapeutic dosing. Tolerating AC well. H&H remain stable without any signs of bleeding. 5. Poor appetite: improving. Dietary consulted and Ensure added to meals. Continue fluid restriction and high protein. 6. ANTHONY: Cr back to 1.36 today, baseline Cr 0.6-0.8. Likely prerenal given hypotensive episodes vs hepatorenal. Monitor pending CT and possible repeat paracentesis. No complaints. 7. Hepatic Encephalopathy: resolved. Ammonia improved. Goal is to have 3+ loose BMs/day. Continue lactulose post-discharge as well until f/u with GI. 8. Anxiety/depression: stable, continue Prozac. Xanax d/c'd per GI rec's-pt has not required [id number] administration. Replaced with Atarax prn. Monitor DVT ppx: Lovenox sc DISPO: Pending PT/OT/PFS. Monitor bp and po intake. Likely acute vs subacute rehab. VS,Fishbone, I+O VS, Fishbone, I+O Laboratory Tests 06/13/19 05:53 Vital Signs Date Time Temp Pulse Resp B/P (MAP) Pulse Ox O2 Delivery O2 Flow Rate FiO2 06/13/19 14:00 98.2 61 17 108/60 (76) 97 06/12/19 22:00 Room Air I&O- Last 24 Hours up to 6 AM0 06/13/19 06:00 Intake Total 1070 ml Output Total 250 ml Balance 820 ml GME ATTESTATION GME ATTESTATION My faculty preceptor for this patient encounter was physically present during the encounter and was fully available. All aspects of the patient interview, examination, medical decision making process, and medical care plan development were reviewed and approved by the faculty preceptor. The faculty preceptor is aware and concurs with the plan as stated in the body of this note and will attest to such by his/her cosignature. STELLA RYDER DO Jun 13, 2019 15:29
--- NOTE | 2019-06-13 17:18 | REP ---
CT abdomen and pelvis without IV or oral contrast: History: History of cirrhosis. Abdomen pain. Question ascites. Comparison CT study June 05, 2019. CT findings: Preliminary digital relay technician radiograph shows soft tissue density peripheral to central bowel gas consistent with ascites. No evidence of obstructive pattern. There is no evidence of pleural effusion. There are, however, scattered ground-glass opacities in the lower lobes of the lungs bilaterally consistent with developing edema or pneumonia. This is a new finding. There is a moderate amount of diffuse abdominal ascites. This is similar in estimated volume to that seen on the June 05, 2019 study. There is no abdominal wall defect, mass, or bowel obstruction seen. No adenopathy is noted. Edematous changes are seen in the intra-abdominal and retroperitoneal fat. No evidence of hydronephrosis is seen. No focal hepatic lesion is seen. There is a small accessory splenule. No pancreatic or gallbladder abnormality is noted. Impression: Moderate amount of diffuse recurrent abdominal ascites. Ground-glass opacity pattern developing in the lung bases, question bibasilar pneumonia versus edema. Electronically Signed by Adilson Norman MD 06/13/2019 05:23 P
[2019-06-13] MEDS: FLUoxetine 20 MG CAP PO SCH (20:03)
[2019-06-13] MEDS: PANTOPRAZOLE 40MG TAB (PROTONIX) PO SCH (20:03)
[2019-06-14] VITALS (7 sets, daily range): BP systolic 101–119; BP diastolic 48–64
[2019-06-14] MEDS: SODIUM CHLORIDE 0.9% INJ 10 ML SYR IV PRN ×2 (01:26→22:28)
[2019-06-14] MEDS: ONDANSETRON 4MG/2ML VIAL (J2405) IV PRN ×4 (01:26→22:23)
[2019-06-14] MEDS: ENOXAPARIN 60 MG/0.6 ML SYR (J1650) SC SCH ×2 (05:12→16:10)
[2019-06-14] MEDS: LACTULOSE 20 GM/30 ML SYRUP UD PO SCH ×3 (05:13→18:00)
[2019-06-14] MEDS: SODIUM CHLORIDE 0.9% INJ 10 ML SYR IV SCH ×2 (05:13→18:05)
[2019-06-14] MEDS: MIDODRINE 5 MG TAB PO SCH ×3 (07:33→16:10)
[2019-06-14 09:01] LABS: HEMOGLOBIN 10.5 g/dl (12.0-15.5); MEAN CORPUSCULAR HEMOGLOBIN 33.9 pg (27.0-33.0); MEAN CORPUSCULAR HGB CONC 32.8 g/dl (32.0-36.5); MEAN CORPUSCULAR VOLUME 103.2 fl (80.0-96.0); PLATELET COUNT, AUTOMATED 160 10^3/uL (150-450); WHITE BLOOD COUNT 11.5 10^3/uL (4.0-10.0)
[2019-06-14] MEDS: ACETAMINOPHEN TAB 650MG DOSE (2X325MG) PO PRN (09:29)
--- NOTE | 2019-06-14 18:04 | IPNPDOC ---
Text Note Date of Service The patient was seen on 06/14/19. NOTE S: Examined at bedside. Still feeling nauseous and abdominal pressure. No dizziness today. Tolerating all meds well and appetite is improving. No reported events overnight. BP is better this am. No f/c/n/v/cp/sob/blood loss. PE: Vitals: see below General: NAD, A&Ox3, sitting up comfortably HEENT: NCAT, EOMI, dry mucous membranes, scleral icterus, right midline present CV: RRR, no murmurs or clicks or rub. No edema RESP: bibasilar rales, no wheezing or rhonchi. No respiratory distress ABD: soft, distended. Minimal discomfort to palpation. No masses, rebound, guarding, or rigidity EXTREMITIES: able to move all extremities, trace edema, no calf tenderness NEURO: appropriately coherent & conversant. No focal deficits or acute changes SKIN: bandage in right neck from recent central line removed. No rashes or signs of skin infection A/P: 1. Alcoholic cirrhosis with large ascites: * s/p diagnostic paracentesis 06/08 with 2.9 L clear yellow fluid removed suggesting portal HTN. * s/p 7 days Ceftriaxone completed 06/11 for presumed SBP. Remains afebrile and clinically well * Continue fluid restriction, high protein diet. * Unable to tolerate Spironolactone & bblocker. Pt will need to f/u o/p with GI for regimen adjustment. Follows Dr. Long * Repeat CT abd reveals recurrent moderate ascites. Pt agreeable to therapeutic paracentesis today. Monitor bp 2. Hypotension: Intermittent, responds well to small boluses of fluids, but limit IVF given her 3rd spacing and ascites. Continue Midodrine, encourage po entake, high protein & Ensure. Avoid any bp meds at this time. 4. Portal vein thrombosis: in superior mesenteric vein, main portal vein, and left portal vein. Continue Lovenox as per GI. S/P heparin drip & Coumadin. Per P FS, Lovenox is approved by her insurance for 1-month supply sent in, but syringes are only 80mg, and pt will need to be taught prior to discharge how to inject only 60mg twice a day for therapeutic dosing. Tolerating AC well. H&H remain stable without any signs of bleeding. 5. Poor appetite: improving. Dietary consulted and Ensure added to meals. Continue fluid restriction and high protein. 6. ANTHONY: Cr still above baseline 0.6-0.8. Likely prerenal given hypotensive episodes vs hepatorenal. No complaints. This may be her new baseline renal function in light of her recent decompensated cirrhosis and low bps. 7. Hepatic Encephalopathy: resolved. Ammonia improved. Goal is to have 3+ loose BMs/day. Continue lactulose post-discharge as well until f/u with GI. 8. Anxiety/depression: stable, continue Prozac. Xanax d/c'd per GI rec's-pt has not required [id number] administration. Replaced with Atarax prn-which she has not required thus far either. Monitor DVT ppx: Lovenox sc DISPO: Pending PT/OT/PFS. Likely acute vs subacute rehab. VS,Fishbone, I+O VS, Fishbone, I+O Laboratory Tests 06/14/19 08:37 Vital Signs Date Time Temp Pulse Resp B/P (MAP) Pulse Ox O2 Delivery O2 Flow Rate FiO2 06/14/19 15:53 58 18 100 Room Air 06/14/19 15:10 98.9 06/14/19 14:00 106/55 (72) I&O- Last 24 Hours up to 6 AM 06/14/19 05:59 Intake Total 1350 ml Output Total 450 ml Balance 900 ml GME ATTESTATION GME ATTESTATION My faculty preceptor for this patient encounter was physically present during the encounter and was fully available. All aspects of the patient interview, examination, medical decision making process, and medical care plan development were reviewed and approved by the faculty preceptor. The faculty preceptor is aware and concurs with the plan as stated in the body of this note and will attest to such by his/her cosignature. STELLA RYDER DO Jun 14, 2019 18:04
[2019-06-14] MEDS: PANTOPRAZOLE 40MG TAB (PROTONIX) PO SCH (20:12)
[2019-06-14] MEDS: FLUoxetine 20 MG CAP PO SCH (20:12)
[2019-06-15] MEDS: LACTULOSE 20 GM/30 ML SYRUP UD PO SCH ×5 (05:08→19:52)
[2019-06-15] MEDS: SODIUM CHLORIDE 0.9% INJ 10 ML SYR IV SCH ×2 (05:08→18:28)
[2019-06-15] MEDS: ENOXAPARIN 60 MG/0.6 ML SYR (J1650) SC SCH ×2 (05:08→15:40)
[2019-06-15 06:00] VITALS: BP 100/54
[2019-06-15 06:42] LABS: CALCIUM LEVEL 7.5 MG/DL (8.5-10.1); CREATININE FOR GFR 1.58 MG/DL (0.55-1.30); GLOMERULAR FILTRATION RATE 35.9 (>51); POTASSIUM SERUM 3.3 MEQ/L (3.5-5.1)
[2019-06-15] MEDS: ONDANSETRON 4MG/2ML VIAL (J2405) IV PRN ×2 (07:53→14:06)
[2019-06-15] MEDS: SODIUM CHLORIDE 0.9% INJ 10 ML SYR IV PRN ×2 (07:53→14:07)
[2019-06-15 08:09] LABS: BASO % 0.3 % (0.0-1.0); EOS # 0.1 10^3/uL (0.0-0.5); EOS % 1.6 % (0.0-3.0); HEMATOCRIT 29.2 % (36.0-47.0); HEMOGLOBIN 9.8 g/dl (12.0-15.5); LYMPH # 1.7 10^3/uL (1.5-5.0); LYMPH % 22.2 % (24.0-44.0); MEAN CORPUSCULAR HEMOGLOBIN 33.6 pg (27.0-33.0); MEAN CORPUSCULAR HGB CONC 33.6 g/dl (32.0-36.5); MONO # 1.2 10^3/uL (0.0-0.8); MONO % 15.2 % (0.0-5.0); NEUTROPHILS # 4.6 10^3/uL (1.5-8.5); NEUTROPHILS % 60.1 % (36.0-66.0); PLATELET COUNT, AUTOMATED 125 10^3/uL (150-450); RED BLOOD COUNT 2.92 10^6/uL (4.00-5.40); WHITE BLOOD COUNT 7.7 10^3/uL (4.0-10.0)
[2019-06-15] MEDS ORDERED: POTASSIUM CHLORIDE 10 MEQ SR TABLET PO ONE (08:15)
[2019-06-15] MEDS: MIDODRINE 5 MG TAB PO SCH ×3 (08:31→15:41)
[2019-06-15 10:00] VITALS: BP 105/50
[2019-06-15 11:45] LABS: MAGNESIUM LEVEL 1.6 MG/DL (1.8-2.4)
--- NOTE | 2019-06-15 13:57 | IPNPDOC ---
Text Note Date of Service The patient was seen on 06/15/19. NOTE S: Examined at bedside. Underwent Paracentesis yesterday with 2600mL removed, with abd pain improving afterwards. Vomited overnight, but feeling better this am. BP maintaining well, no dizziness. Tolerating all meds well and appetite is improving. No f/c/n/v/cp/sob/blood loss. PE: Vitals: see below General: NAD, A&Ox3, resting comfortably in bed HEENT: NCAT, EOMI, dry mucous membranes, scleral icterus, right midline present CV: RRR, no murmurs or clicks or rub. No edema RESP: CTAB, no wheezing, rhonchi, rales. No respiratory distress ABD: soft, nondistended - improved from prior days. No discomfort to palpation. No masses, rebound, guarding, or rigidity EXTREMITIES: able to move all extremities, no edema, no calf tenderness NEURO: appropriately coherent & conversant. No focal deficits or acute changes SKIN: No rashes or signs of skin infection A/P: 1. Alcoholic cirrhosis with large ascites: * s/p diagnostic paracentesis 06/08 with 2.9 L clear yellow fluid removed suggesting portal HTN * s/p therapeutic paracentesis 06/15 with 2.6L removed * s/p 7 days Ceftriaxone completed 06/11 for presumed SBP. Remains afebrile and clinically well. No leukocytosis * Continue fluid restriction, high protein diet. * Unable to tolerate Spironolactone & bblocker. Pt will need to f/u o/p with GI for regimen adjustment. Follows Dr. Long 2. ANTHONY: * Cr still above baseline 0.6-0.8. Pt asymptomatic * Likely prerenal given hypotensive episodes vs hepatorenal. Avoid nephrotoxins * Limit fluids given her 3rd spacing & ascites * This may be her new baseline renal function in light of her recent decompensated cirrhosis and low bps * 06/13 CT found no hydronephrosis. UA pending. Will consider renal US after 4. Portal vein thrombosis: in superior mesenteric vein, main portal vein, and left portal vein. Continue Lovenox as per GI. S/P heparin drip & Coumadin. Per PFS, Lovenox is approved by her insurance for 1-month supply sent in, but sy ringes are only 80mg, and pt will need to be taught prior to discharge how to inject only 60mg twice a day for therapeutic dosing. Tolerating AC well. H&H remain stable without any signs of bleeding. 5. Poor appetite: improving. Dietary consulted and Ensure added to meals. Continue fluid restriction and high protein. 6. Hypotension: Intermittent, responds well to small boluses of fluids, but l imit IVF given her 3rd spacing and ascites. Continue Midodrine, encourage po entake, high protein & Ensure. Avoid any bp meds at this time. 7. Hepatic Encephalopathy: resolved. Ammonia normalized. Goal is to have 3+ loose BMs/day. Continue lactulose post-discharge as well until f/u with GI. 8. Anxiety/depression: stable, continue Prozac. Xanax d/c'd per GI rec's-pt has not required [id number] administration. Replaced with Atarax prn-which she has not required thus far either. Monitor 9. Hypokalemia/hypomagnesemia: Supplemented DVT ppx: therapeutic Lovenox DISPO: Pending PT/OT/PFS. Likely acute vs subacute rehab. VS,Fishbone, I+O VS, Fishbone, I+O Laboratory Tests 06/15/19 05:34 06/15/19 05:37 Vital Signs Date Time Temp Pulse Resp B/P (MAP) Pulse Ox O2 Delivery O2 Flow Rate FiO2 06/15/19 10:00 97.8 59 13 105/50 (68) 98 06/14/19 18:00 Room Air 06/14/19 14:00 I&O- Last 24 Hours up to 6 AM 06/15/19 06:00 Intake Total 1250 ml Output Total 3350 ml Balance -2100 ml GME ATTESTATION GME ATTESTATION My faculty preceptor for this patient encounter was physically present during the encounter and was fully available. All aspects of the patient interview, examination, medical decision making process, and medical care plan development were reviewed and approved by the faculty preceptor. The faculty preceptor is aware and concurs with the plan as stated in the body of this note and will attest to such by his/her cosignature. STELLA RYDER DO Jun 15, 2019 13:57
[2019-06-15 14:00] VITALS: BP 103/51
[2019-06-15] MEDS ORDERED: MAGNESIUM OXIDE 400 MG TAB (MAG-OX) PO ONE (15:00)
[2019-06-15 18:00] VITALS: BP 101/48
[2019-06-15] MEDS: FLUoxetine 20 MG CAP PO SCH (21:17)
[2019-06-15] MEDS: PANTOPRAZOLE 40MG TAB (PROTONIX) PO SCH (21:17)
[2019-06-15] MEDS: hydrOXYzine 10 MG TAB PO PRN (21:35)
[2019-06-15 22:00] VITALS: BP 108/52
[2019-06-16 02:00] VITALS: BP 104/60
[2019-06-16] MEDS: ENOXAPARIN 60 MG/0.6 ML SYR (J1650) SC SCH ×2 (03:52→16:19)
[2019-06-16 06:00] VITALS: BP 96/60
[2019-06-16] MEDS: LACTULOSE 20 GM/30 ML SYRUP UD PO SCH ×4 (06:00→23:06)
[2019-06-16] MEDS: SODIUM CHLORIDE 0.9% INJ 10 ML SYR IV SCH ×2 (06:06→16:19)
[2019-06-16 06:17] LABS: HEMATOCRIT 28.8 % (36.0-47.0); MEAN CORPUSCULAR HEMOGLOBIN 34.1 pg (27.0-33.0); MEAN CORPUSCULAR HGB CONC 34.7 g/dl (32.0-36.5); MEAN CORPUSCULAR VOLUME 98.3 fl (80.0-96.0); PLATELET COUNT, AUTOMATED 132 10^3/uL (150-450); RED BLOOD COUNT 2.93 10^6/uL (4.00-5.40); WHITE BLOOD COUNT 7.6 10^3/uL (4.0-10.0)
[2019-06-16 06:37] LABS: CALCIUM LEVEL 7.7 MG/DL (8.5-10.1); CREATININE FOR GFR 1.42 MG/DL (0.55-1.30); GLOMERULAR FILTRATION RATE 40.6 (>51); MAGNESIUM LEVEL 1.7 MG/DL (1.8-2.4); POTASSIUM SERUM 3.9 MEQ/L (3.5-5.1)
[2019-06-16] MEDS: ONDANSETRON 4MG/2ML VIAL (J2405) IV PRN ×2 (07:04→14:24)
[2019-06-16] MEDS ORDERED: MAGNESIUM OXIDE 400 MG TAB (MAG-OX) PO ONE (08:30)
[2019-06-16] MEDS: MIDODRINE 5 MG TAB PO SCH ×3 (08:36→16:19)
[2019-06-16 10:00] VITALS: BP 102/63
--- NOTE | 2019-06-16 11:58 | IPNPDOC ---
Text Note Date of Service The patient was seen on 06/16/19. NOTE S: Examined at bedside. Still nauseous, but states meds help. No vomit overnight or any other issues. Blood pressure under control. No f/c/n/v/bowel changes. Working with PT/OT. Application for Acute Rehab was denied. Per therapy, possible home dc next week. PE: Vitals: see below General: NAD, A&Ox3, laying comfortably in bed HEENT: NCAT, EOMI, dry mucous membranes, scleral icterus CV: RRR, no murmurs or clicks or rub. No edema RESP: CTAB, no wheezing, rhonchi, rales. No respiratory distress ABD: soft, nondistended - improved from prior days. No discomfort to palpation. No masses, rebound, guarding, or rigidity EXTREMITIES: able to move all extremities, no edema, no calf tenderness. Right midline present NEURO: appropriately coherent & conversant. No focal deficits or acute changes SKIN: No rashes or signs of skin infection A/P: 1. Alcoholic cirrhosis with large ascites: * s/p diagnostic paracentesis 06/08 with 2.9 L clear yellow fluid removed suggesting portal HTN * s/p therapeutic paracentesis 06/15 with 2.6L removed * s/p 7 days Ceftriaxone completed 06/11 for presumed SBP. Remains afebrile and clinically well. No leukocytosis * Continue fluid restriction, high protein diet. * Unable to tolerate Spironolactone & bblocker. Pt will need to f/u o/p with GI for regimen adjustment. Follows Dr. Long 2. ANTHONY: * Cr still above baseline 0.6-0.8. Pt asymptomatic. Overall improving * Likely prerenal given hypotensive episodes vs hepatorenal. Avoid nephrotoxins * Limit fluids given her 3rd spacing & ascites * This may be her new baseline renal function in light of her recent decompensated cirrhosis and low bps * 06/13 CT found no hydronephrosis. UA ?UTI - culture pending. Will consider renal US if neg culture. 4. Portal vein thrombosis: in superior mesenteric vein, main portal vein, and left portal vein. Continue Lovenox as per GI. S/P heparin drip & Coumadin. Per PFS, Lovenox is approved by her insurance for 1-month supply sent in, but syringes are only 80mg, and pt will need to be taught prior to discharge how to inject only 60mg twice a day for therapeutic dosing. Tolerating AC well. H&H remain stable without any signs of bleeding. 5. Poor appetite: improving. Dietary consulted and Ensure added to meals. C ontinue fluid restriction and high protein. 6. Hypotension: Intermittent, responds well to small boluses of fluids, but limit IVF given her 3rd spacing and ascites. Continue Midodrine, encourage po entake, high protein & Ensure. Avoid any bp meds at this time. 7. Hepatic Encephalopathy: resolved. Ammonia normalized. Goal is to have 3+ loose BMs/day. Continue lactulose post-discharge as well until f/u with GI. 8. Anxiety/depression: stable, continue Prozac. Xanax d/c'd per GI rec's-pt has not required [id number] administration. Replaced with Atarax prn-which she has not required thus far either. Monitor 9. Hypokalemia/hypomagnesemia: Supplemented DVT ppx: therapeutic Lovenox DISPO: Pending PT/OT/PFS. Possible home with services early next week. VS,Fishbone, I+O VS, Fishbone, I+O Laboratory Tests 06/16/19 05:33 Vital Signs Date Time Temp Pulse Resp B/P (MAP) Pulse Ox O2 Delivery O2 Flow Rate FiO2 06/16/19 10:00 97.4 61 17 102/63 (76) 98 Room Air 06/14/19 14:00 I&O- Last 24 Hours up to 6 AM 06/16/19 06:00 Intake Total 675 ml Output Total 100 ml Balance 575 ml GME ATTESTATION GME ATTESTATION My faculty preceptor for this patient encounter was physically present during the encounter and was fully available. All aspects of the patient interview, examination, medical decision making process, and medical care plan development were reviewed and approved by the faculty preceptor. The faculty preceptor is aware and concurs with the plan as stated in the body of this note and will attest to such by his/her cosignature. STELLA RYDER DO Jun 16, 2019 11:58
[2019-06-16 14:00] VITALS: BP 92/70
[2019-06-16] MEDS: SODIUM CHLORIDE 0.9% INJ 10 ML SYR IV PRN (14:25)
--- NOTE | 2019-06-16 17:17 | REP ---
MIDLINE CATHETER INSERTION WITH SITE TIMJaime The procedure was performed under the direct supervision of Dr. Pacheco. The risks and benefits of the procedure were explained to the patient and informed consent was obtained. The right basilic vein was localized using ultrasound guidance. The skin was prepped and draped in a sterile fashion. 1% lidocaine was used as a local anesthetic. Using ultrasound guidance the basilic vein was cannulated and a 0.018 guidewire was inserted. The needle was removed and a 5.5 Lithuanian dilator and peel-away sheath was inserted over the guide wire. A 5.5 Lithuanian dual lumen catheter was cut to a length of 14 cm. The dilator was removed and the catheter was inserted over the guide wire. The peel-away sheath was removed and the catheter was flushed with heparinized saline as per Hospital protocol. The catheter was affixed to the skin and a sterile dressing was applied. The patient tolerated the procedure well and there were no immediate complications. Electronically Signed by FLEECIA Figueroa 06/09/2019 05:51 P Electronically Signed by Codey Pacheco MD 06/16/2019 05:08 P
--- NOTE | 2019-06-16 17:18 | REP ---
Ultrasound-guided paracentesis The procedure was performed under the direct supervision of Dr. Pacheco. The risks and benefits of the procedure were explained to the patient and informed consent was obtained. The largest pocket of fluid was localized in the left flank using ultrasound guidance. The skin was prepped and draped in a sterile fashion. 1% lidocaine was used as a local anesthetic. Using ultrasound guidance an 8-H[place]er multi side-hole catheter was inserted using trocar technique. 2600 ml of yellow fluid was withdrawn and discarded. The patient tolerated the procedure well and there were no immediate complications. After the appropriate amount of monitored convalescence the patient was discharged from the department. Electronically Signed by FELECIA Figueroa 06/14/2019 05:07 P Electronically Signed by Codey Pacheco MD 06/16/2019 05:08 P
[2019-06-16 18:00] VITALS: BP 100/74
[2019-06-16] MEDS: FLUoxetine 20 MG CAP PO SCH (20:18)
[2019-06-16] MEDS: PANTOPRAZOLE 40MG TAB (PROTONIX) PO SCH (20:18)
[2019-06-16 22:00] VITALS: BP 118/68
[2019-06-16] MEDS: hydrOXYzine 10 MG TAB PO PRN (22:33)
[2019-06-17 02:00] VITALS: BP 102/58
[2019-06-17] MEDS: ENOXAPARIN 60 MG/0.6 ML SYR (J1650) SC SCH ×2 (05:07→15:52)
[2019-06-17] MEDS: SODIUM CHLORIDE 0.9% INJ 10 ML SYR IV SCH ×2 (05:07→17:07)
[2019-06-17] MEDS: LACTULOSE 20 GM/30 ML SYRUP UD PO SCH ×4 (05:07→23:56)
[2019-06-17 05:58] LABS: HEMATOCRIT 31.4 % (36.0-47.0); HEMOGLOBIN 10.7 g/dl (12.0-15.5); MEAN CORPUSCULAR HEMOGLOBIN 33.9 pg (27.0-33.0); MEAN CORPUSCULAR HGB CONC 34.1 g/dl (32.0-36.5); MEAN CORPUSCULAR VOLUME 99.4 fl (80.0-96.0); PLATELET COUNT, AUTOMATED 141 10^3/uL (150-450); RED BLOOD COUNT 3.16 10^6/uL (4.00-5.40); WHITE BLOOD COUNT 8.2 10^3/uL (4.0-10.0)
[2019-06-17 06:00] VITALS: BP 120/66
[2019-06-17 06:16] LABS: CALCIUM LEVEL 7.7 MG/DL (8.5-10.1); CREATININE FOR GFR 1.51 MG/DL (0.55-1.30); GLOMERULAR FILTRATION RATE 37.8 (>51); MAGNESIUM LEVEL 1.6 MG/DL (1.8-2.4); POTASSIUM SERUM 4.2 MEQ/L (3.5-5.1)
[2019-06-17] MEDS: MAGNESIUM OXIDE 400 MG TAB (MAG-OX) PO SCH (08:30)
[2019-06-17] MEDS: MIDODRINE 5 MG TAB PO SCH ×3 (08:30→15:52)
[2019-06-17 10:00] VITALS: BP 131/75
[2019-06-17] MEDS: ONDANSETRON 4MG/2ML VIAL (J2405) IV PRN ×2 (12:57→19:54)
[2019-06-17 14:00] VITALS: BP 121/64
--- NOTE | 2019-06-17 16:02 | IPNPDOC ---
Text Note Date of Service The patient was seen on 06/17/19. NOTE S: Examined at bedside. Feeling better today. No vomiting or abd pain. No issues overnight. Awaiting possible rehab. No f/c/cp/sob. PE: Vitals: see below General: NAD, A&Ox3, sitting up in bed comfortably HEENT: NCAT, EOMI, dry mucous membranes, scleral icterus CV: RRR, no murmurs or clicks or rub. No edema RESP: CTAB, no wheezing, rhonchi, rales. No respiratory distress ABD: soft, NT, ND No masses, rebound, guarding, or rigidity EXTREMITIES: able to move all extremities, no edema, no calf tenderness. Right midline present NEURO: appropriately coherent & conversant. No focal deficits or acute changes SKIN: No rashes or signs of skin infection A/P: 1. Alcoholic cirrhosis with large ascites: * s/p diagnostic paracentesis 06/08 with 2.9 L clear yellow fluid removed suggesting portal HTN * s/p therapeutic paracentesis 06/14 with 2.6L removed * s/p 7 days Ceftriaxone completed 06/11 for presumed SBP. Remains afebrile and clinically well. No leukocytosis * Continue fluid restriction, high protein diet * Unable to tolerate Spironolactone & bblocker due to chronically low bp. Pt will need to f/u o/p with GI for regimen adjustment. Follows Dr. Long 2. ANTHONY: * Cr still above baseline 0.6-0.8. Pt asymptomatic. Overall improving * Likely prerenal given hypotensive episodes vs hepatorenal. Avoid nephrotoxins * Limit fluids given her 3rd spacing & ascites * This may be her new baseline renal function in light of her recent decompen sated cirrhosis and low bps * 06/13 CT found no hydronephrosis. UA & cx negative. Monitor and consider renal US if worsens 3. Hypomagnesemia : supplemented 4. Portal vein thrombosis: in superior mesenteric vein, main portal vein, and left portal vein. Continue Lovenox as per GI. S/P heparin drip & Coumadin. Per PFS, Lovenox is approved by her insurance for 1-month supply sent in, but syringes are only 80mg, and pt will need to be taught prior to discharge how to inject only 60mg twice a day for therapeutic dosing. Tolerating AC well. H&H remain stable without any signs of bleeding. 5. Poor appetite: improving. Dietary consulted and Ensure added to meals. Continue fluid restriction and high protein. 6. Hypotension: Intermittent, responds well to small boluses of fluids, but limit IVF given her 3rd spacing and ascites. Continue Midodrine, encourage po entake, high protein & Ensure. Avoid any bp meds at this time. 7. Hepatic Encephalopathy: resolved. Ammonia normalized. Goal is to have 3+ loose BMs/day. Continue lactulose post-discharge as well until f/u with GI. 8. Anxiety/depression: stable, continue Prozac. Xanax d/c'd per GI rec's-pt has not required [id number] administration. Replaced with Atarax prn-which she has not required thus far either. Monitor 9. Hypokalemia/hypomagnesemia: Supplemented DVT ppx: therapeutic Lovenox DISPO: Pending PT/OT/PFS. Possible home with services early next week. VS,Fishbone, I+O VS, Fishbone, I+O Laboratory Tests 06/17/19 05:17 Vital Signs Date Time Temp Pulse Resp B/P (MAP) Pulse Ox O2 Delivery O2 Flow Rate FiO2 06/17/19 14:00 98.2 64 18 121/64 (83) 98 Room Air 06/14/19 14:00 I&O- Last 24 Hours up to 6 AM 06/17/19 06:00 Intake Total 980 ml Output Total 200 ml Balance 780 ml GME ATTESTATION GME ATTESTATION My faculty preceptor for this patient encounter was physically present during the encounter and was fully available. All aspects of the patient interview, examination, medical decision making process, and medical care plan development were reviewed and approved by the faculty preceptor. The faculty preceptor is aware and concurs with the plan as stated in the body of this note and will attest to such by his/her cosignature. STELLA RYDER DO Jun 17, 2019 16:02
[2019-06-17 18:00] VITALS: BP 129/67
[2019-06-17] MEDS: PANTOPRAZOLE 40MG TAB (PROTONIX) PO SCH (19:54)
[2019-06-17] MEDS: FLUoxetine 20 MG CAP PO SCH (19:54)
[2019-06-17 22:00] VITALS: BP 118/62
[2019-06-18 02:00] VITALS: BP 132/66
[2019-06-18] MEDS: LACTULOSE 20 GM/30 ML SYRUP UD PO SCH ×4 (05:10→23:25)
[2019-06-18] MEDS: ENOXAPARIN 60 MG/0.6 ML SYR (J1650) SC SCH ×2 (05:10→14:36)
[2019-06-18] MEDS: SODIUM CHLORIDE 0.9% INJ 10 ML SYR IV SCH ×2 (05:11→18:00)
[2019-06-18] MEDS: ONDANSETRON 4MG/2ML VIAL (J2405) IV PRN ×3 (05:12→20:04)
[2019-06-18 06:00] VITALS: BP 98/64
[2019-06-18 06:18] LABS: HEMOGLOBIN 10.6 g/dl (12.0-15.5); MEAN CORPUSCULAR HEMOGLOBIN 34.1 pg (27.0-33.0); MEAN CORPUSCULAR HGB CONC 34.2 g/dl (32.0-36.5); MEAN CORPUSCULAR VOLUME 99.7 fl (80.0-96.0); PLATELET COUNT, AUTOMATED 143 10^3/uL (150-450); RED BLOOD COUNT 3.11 10^6/uL (4.00-5.40)
[2019-06-18 06:42] LABS: CALCIUM LEVEL 8.3 MG/DL (8.5-10.1); CREATININE FOR GFR 1.7 MG/DL (0.55-1.30); MAGNESIUM LEVEL 1.6 MG/DL (1.8-2.4); POTASSIUM SERUM 3.9 MEQ/L (3.5-5.1)
[2019-06-18] MEDS: MIDODRINE 5 MG TAB PO SCH ×3 (08:00→15:03)
[2019-06-18] MEDS: MAGNESIUM OXIDE 400 MG TAB (MAG-OX) PO SCH (08:40)
[2019-06-18 08:45] VITALS: BP 134/72
[2019-06-18] MEDS ORDERED: MAG SULF 1GM/100ML (MAG RUN) 1 GM in IV 1 EA IV ONE (09:00)
--- NOTE | 2019-06-18 10:04 | IPNPDOC ---
Text Note Date of Service The patient was seen on 06/18/19. NOTE Subjective: Patient seen and examined at bedside. Continues to feel better. No acute overnight events reported, no new medical complaints today. Objective: Vitals: see below General: NAD, sitting up in bed comfortably HEENT: NCAT, EOMI CV: +S1S2, RRR RESP: CTA B/L ABD: soft, NT, ND EXTREMITIES: able to move all extremities, no edema, no calf tenderness. Right midline present NEURO: appropriately coherent & conversant. No focal deficits or acute changes SKIN: No rashes or signs of skin infection A/P: 58 yo female with PMHx alcoholic cirrhosis presents for abdominal pain, found to have large ascites s/p paracentesis, s/p abx for presumed SBP, ANTHONY #Alcoholic cirrhosis with large ascites: * s/p diagnostic paracentesis 06/08 with 2.9 L clear yellow fluid removed sugge sting portal HTN * s/p therapeutic paracentesis 06/14 with 2.6L removed * s/p 7 days Ceftriaxone completed 06/11 for presumed SBP. Remains afebrile and clinically well. No leukocytosis * Continue fluid restriction, high protein diet * Unable to tolerate Spironolactone & BB due to chronically low bp. Pt will need to f/u o/p with GI for regimen adjustment. Follows with Dr. Long #ANTHONY: - Likely prerenal given hypotensive episodes vs hepatorenal. Avoid nephrotoxins * Limit fluids given her 3rd spacing & ascites * This may be her new baseline renal function in light of her recent decompensated cirrhosis and low bps * 06/13 CT found no hydronephrosis. UA & cx negative. Monitor and consider renal US if worsens # Hypomagnesemia : supplemented # Portal vein thrombosis - in superior mesenteric vein, main portal vein, and left portal vein - Continue therapeutic Lovenox as per GI - Per PFS, Lovenox is approved by her insurance for 1-month supply sent in, but syringes are only 80mg, and pt will need to be taught prior to discharge how to inject only 60mg twice a day for therapeutic dosing. Tolerating AC well. H&H remain stable without any signs of bleeding - coumadin difficult given underlying liver disease # Poor appetite: improving. Dietary consulted and Ensure added to meals. Continue fluid restriction and high protein. # Hypotension - intermittent, responds well to small boluses of fluids, but limit IVF given her 3rd spacing and ascites - continue Midodrine, encourage po intake, high protein & Ensure # Hepatic Encephalopathy - resolved - Goal is to have 3+ loose BMs/day. Continue lactulose post-discharge as well until f/u with GI. #Anxiety/depression - continue Prozac #Hypokalemia/hypomagnesemia: Supplemented DVT ppx: therapeutic Lovenox DISPO: Pending PT/OT/PFS. Possible home with services. VS,Sherice, I+O VS, Yurie, I+O Laboratory Tests 06/18/19 05:30 Vital Signs Date Time Temp Pulse Resp B/P (MAP) Pulse Ox O2 Delivery O2 Flow Rate FiO2 06/18/19 06:00 98.3 65 17 98/64 (75) 96 Room Air 06/14/19 14:00 I&O- Last 24 Hours up to 6 AM 06/18/19 06:00 Intake Total 1680 ml Output Total 425 ml Balance 1255 ml CRISTI CONNORS MD Jun 18, 2019 10:04
[2019-06-18 14:00] VITALS: BP 126/65
[2019-06-18] MEDS: hydrOXYzine 10 MG TAB PO PRN (14:35)
[2019-06-18 18:00] VITALS: BP 135/70
[2019-06-18] MEDS: FLUoxetine 20 MG CAP PO SCH (20:04)
[2019-06-18] MEDS: PANTOPRAZOLE 40MG TAB (PROTONIX) PO SCH (20:04)
[2019-06-18] MEDS: SODIUM CHLORIDE 0.9% INJ 10 ML SYR IV PRN (20:06)
[2019-06-18 22:00] VITALS: BP 118/78
[2019-06-19 02:00] VITALS: BP 122/82
[2019-06-19] MEDS: ENOXAPARIN 60 MG/0.6 ML SYR (J1650) SC SCH ×2 (05:03→17:46)
[2019-06-19] MEDS: SODIUM CHLORIDE 0.9% INJ 10 ML SYR IV SCH ×2 (05:03→17:46)
[2019-06-19] MEDS: LACTULOSE 20 GM/30 ML SYRUP UD PO SCH ×4 (05:03→21:17)
[2019-06-19 06:00] VITALS: BP 130/84
[2019-06-19 06:52] LABS: CALCIUM LEVEL 7.8 MG/DL (8.5-10.1); CREATININE FOR GFR 1.62 MG/DL (0.55-1.30); GLOMERULAR FILTRATION RATE 34.9 (>51); MAGNESIUM LEVEL 1.9 MG/DL (1.8-2.4); POTASSIUM SERUM 3.4 MEQ/L (3.5-5.1)
[2019-06-19] MEDS: MIDODRINE 5 MG TAB PO SCH ×4 (08:46→16:00)
[2019-06-19] MEDS: MAGNESIUM OXIDE 400 MG TAB (MAG-OX) PO SCH (08:46)
[2019-06-19] MEDS: ONDANSETRON 4MG/2ML VIAL (J2405) IV PRN ×2 (10:09→17:45)
--- NOTE | 2019-06-19 15:28 | IPNPDOC ---
Date Seen The patient was seen on 06/19/19. Progress Note SUBJECTIVE: Patient reports feeling well this morning. She denies any abdominal pain. She is noticing her belly is starting to fill up with fluid again. She denies any shortness of breath or discomfort. She did work with PT and OT and session was difficult due to patient's shaking. She feels unsteady on her feet. She is not having any trouble eating or drinking. She is having several bowel movements due to the lactulose that was given to her. REVIEW OF SYSTEMS: CONSTITUTIONAL: Feels well. No fever or chills HEENT: denies vision changes, no sinus problems, denies any trouble swallowing CARDIOVASCULAR: no palpitations RESPIRATORY: Denies any shortness of breath GENITOURINARY: No dysuria MUSCULOSKELETAL: Denies any joint/muscle pain GASTROINTESTINAL: Denies abdominal pain, no nausea/vomiting/diarrhea SKIN: No new rashes or lesions NEUROLOGICAL: No loss of sensation PSYCHIATRIC: Reports normal mood, no delusions or hallucinations ENDOCRINE: No hot/cold intolerance HEMATOLOGIC/LYMPHATIC: No easy bruising, no lumps/bumps ALLERGIC/IMMUNOLOGIC: No sinus symptoms OBJECTIVE: PHYSICAL EXAMINATION: VITAL SIGNS: Please see below. GENERAL APPEARANCE: Laying in bed, appears stated age, no acute distress, calm, cooperative HEENT: EOMI, PERRLA, neck is supple with no thyromegaly or lymphadenopathy RESPIRATORY: Lungs are clear to auscultation bilaterally with no adventitious breath sounds appreciated CARDIOVASCULAR: no JVD, RRR, no murmurs/rubs/gallops ABDOMEN: Soft, nontender to palpation in all four quadrants, there is a positive fluid shift, no masses/organomegaly EXTREMITIES: no clubbing, cyanosis or edema noted NEUROLOGICAL: No obvious focal deficits PSYCHIATRIC: normal mood/affect Skin: No rashes or ulcers. LN: No significant cervical or inguinal lymphadenopathy LABS: Please see below IMAGING: None recent ASSESSMENT: This is a 58-year-old female with history of alcoholic cirrhosis who presented with abdominal pain and suspected spontaneous bacterial peritonitis. She is status post large volume paracenteses 2. Overall, her leukocytosis has improved, but she now has ANTHONY likely prerenal in nature secondary to tenuous blood pressure and hypoperfusion. 1. Alcoholic cirrhosis and large volume ascites: -S/P diagnostic and therapeutic paracenteses, over 6 L removed. No real evidence of actual SBP. She is status post 7 days of ceftriaxone. Vitals are stable, in cluding afebrile and normotensive -Continue fluid restriction, high-protein diet -Started 25 mg Lena tone daily and Lasix 20 mg daily as she is likely benefit from diuresis at this time 2. ANTHONY: Likely prerenal given episodes of hypotension versus hepatorenal. -Creatinine has been stable around 1.4-1.6. She has been on fluid restriction and has not had any nephrotoxic medications -Will hold off on renal US for now, as it is not needed. CT abdomen did not demonstrate any abnormalities 3. Portal vein thrombosis: -Continue Lovenox -Per previous notes: "Lovenox is approved by her insurance for 1-month supply sent in, but syringes are only 80mg, and pt will need to be taught prior to discharge how to inject only 60mg twice a day for therapeutic dosing." 4. Poor nutrition/appetite: -Continue Ensure supplementation 5. Hepatic encephalopathy: -Appears to have resolved. Patient has been having several bowel movements daily. Lactulose decreased to 15 mL every 8 hours, with hold parameters 6. Electrolyte abnormalities: Hypokalemia/hypomagnesemia -Supplemented DVT prophylaxis: Patient is on Lovenox DISPO: Pending improvement in medical status, patient may be able to be discharged to rehabilitation facility or home in the next 48 hours VS, I&O, 24H, [facility] Vital Signs/I&O Vital Signs Date Time Temp Pulse Resp B/P (MAP) Pulse Ox O2 Delivery O2 Flow Rate FiO2 06/19/19 06:00 98.1 84 15 130/84 (99) 98 Room Air 06/14/19 14:00 I&O- Last 24 Hours up to 6 AM 06/19/19 06:00 Intake Total 1516 ml Balance 1516 ml Laboratory Data 24H LABS Laboratory Tests 2 06/19/19 05:35: Anion Gap 9, Glomerular Filtration Rate 34.9L, Calcium Level 7.8L, Magnesium Level 1.9 CBC/BMP Laboratory Tests 06/19/19 05:35 Microbiology Microbiology 06/16/19 Urine Culture - Final, Complete GME ATTESTATION GME ATTESTATION My faculty preceptor for this patient encounter was physically present during the encounter and was fully available. All aspects of the patient interview, examination, medical decision making process, and medical care plan development were reviewed and approved by the faculty preceptor. The faculty preceptor is aware and concurs with the plan as stated in the body of this note and will attest to such by his/her cosignature. GME ATTESTATION GME ATTESTATION My faculty preceptor for this patient encounter was physically present during the encounter and was fully available. All aspects of the patient interview, examination, medical decision making process, and medical care plan development were reviewed and approved by the faculty preceptor. The faculty preceptor is aware and concurs with the plan as stated in the body of this note and will attest to such by his/her cosignature. ATTENDING NOTE Patient was seen and examined by me this morning with the residents. Agree with the above assessment and plan SHERIF PAREKH MD Jun 19, 2019 15:28 PARESH FRANCOIS MD Jun 21, 2019 08:46
[2019-06-19] MEDS: SPIRONOLACTONE 25 MG TAB PO SCH (17:46)
[2019-06-19] MEDS: FUROSEMIDE 20 MG TAB PO SCH (17:46)
[2019-06-19] MEDS: PANTOPRAZOLE 40MG TAB (PROTONIX) PO SCH (21:16)
[2019-06-19] MEDS: FLUoxetine 20 MG CAP PO SCH (21:17)
[2019-06-19 22:00] VITALS: BP 126/82
[2019-06-20] VITALS (9 sets, daily range): BP systolic 111–133; BP diastolic 70–80
[2019-06-20] MEDS: ENOXAPARIN 60 MG/0.6 ML SYR (J1650) SC SCH ×2 (04:04→16:29)
[2019-06-20] MEDS: hydrOXYzine 10 MG TAB PO PRN ×2 (05:00→18:37)
[2019-06-20] MEDS: SODIUM CHLORIDE 0.9% INJ 10 ML SYR IV SCH ×2 (05:07→18:02)
[2019-06-20] MEDS: SODIUM CHLORIDE 0.9% INJ 10 ML SYR IV PRN ×3 (05:08→23:14)
[2019-06-20] MEDS: ONDANSETRON 4MG/2ML VIAL (J2405) IV PRN ×2 (05:08→23:14)
[2019-06-20] MEDS: LACTULOSE 20 GM/30 ML SYRUP UD PO SCH ×3 (05:08→20:19)
[2019-06-20] MEDS ORDERED: SPIRONOLACTONE 50 MG TAB PO SCH (06:00)
[2019-06-20 06:52] LABS: ALBUMIN 1.9 GM/DL (3.2-5.2); BILIRUBIN,TOTAL 1.2 MG/DL (0.2-1.0); CALCIUM LEVEL 7.7 MG/DL (8.5-10.1); CREATININE FOR GFR 1.86 MG/DL (0.55-1.30); GLOMERULAR FILTRATION RATE 29.7 (>51); POTASSIUM SERUM 3.6 MEQ/L (3.5-5.1); TOTAL PROTEIN 7.8 GM/DL (6.4-8.2)
[2019-06-20] MEDS: MIDODRINE 5 MG TAB PO SCH ×3 (08:00→16:00)
[2019-06-20 08:34] LABS: HEMATOCRIT 32.9 % (36.0-47.0); HEMOGLOBIN 10.6 g/dl (12.0-15.5); MEAN CORPUSCULAR HEMOGLOBIN 33.2 pg (27.0-33.0); MEAN CORPUSCULAR HGB CONC 32.2 g/dl (32.0-36.5); MEAN CORPUSCULAR VOLUME 103.1 fl (80.0-96.0); PLATELET COUNT, AUTOMATED 158 10^3/uL (150-450); RED BLOOD COUNT 3.19 10^6/uL (4.00-5.40); WHITE BLOOD COUNT 11.5 10^3/uL (4.0-10.0)
[2019-06-20] MEDS: SPIRONOLACTONE 25 MG TAB PO SCH (09:15)
[2019-06-20] MEDS: FUROSEMIDE 20 MG TAB PO SCH (09:15)
[2019-06-20] MEDS: MAGNESIUM OXIDE 400 MG TAB (MAG-OX) PO SCH (09:15)
--- NOTE | 2019-06-20 13:18 | REP ---
Acute abdominal series: Three views. History: Abdomen pain. Comparison chest x-ray: June 05 2019. Findings: There is a hazy opacity in the right upper perihilar region consistent with pneumonia. Lung reynoso are otherwise clear. There is no evidence of free subdiaphragmatic air. Heart is not enlarged. Supine and erect views of the abdomen demonstrate air and stool in a nondistended colon. There are a few small bowel loops in the right mid abdomen. No evidence of obstruction. Upright view shows no significant air fluid level. There is homogeneous opacity lateral to the ascending and descending colon and throughout the pelvis consistent with ascites. Impression: 1. Evidence of ascites. Unremarkable bowel gas pattern. 2. Infiltrate in the right upper lobe perihilar region consistent with pneumonia. Electronically Signed by Adilson Norman MD 06/20/2019 01:10 P
--- NOTE | 2019-06-20 13:47 | IPNPDOC ---
Date Seen The patient was seen on 06/20/19. Progress Note SUBJECTIVE: Patient reports she feels poorly this morning. She is having diarrhea and nausea since last night despite not having taken her lactulose. She does have some abdominal pain. She is not constipated and not having any trouble urinating. . She has been afebrile for 24 hours and has had vitals within normal limits. OBJECTIVE: PHYSICAL EXAMINATION: VITAL SIGNS: Please see below. GENERAL APPEARANCE: Laying in bed, appears stated age, no acute distress, calm, cooperative HEENT: EOMI, PERRLA, neck is supple with no thyromegaly or lymphadenopathy RESPIRATORY: Lungs are clear to auscultation bilaterally with no adventitious breath sounds appreciated CARDIOVASCULAR: no JVD, RRR, no murmurs/rubs/gallops ABDOMEN: Soft, nontender to palpation in all four quadrants, there is a positive fluid shift, appears to be somewhat more than yesterday, no masses/organomegaly EXTREMITIES: no clubbing, cyanosis or edema noted NEUROLOGICAL: No obvious focal deficits PSYCHIATRIC: normal mood/affect Skin: No rashes or ulcers. LN: No significant cervical or inguinal lymphadenopathy LABS: Please see below IMAGING: ABD XR: 1. Evidence of ascites. Unremarkable bowel gas pattern. 2. Infiltrate in the right upper lobe perihilar region consistent with pneumonia. ASSESSMENT: This is a 58-year-old female with history of alcoholic cirrhosis who presented with abdominal pain and suspected spontaneous bacterial peritonitis. She is status post large volume paracenteses 2. Overall, her leukocytosis has improved, but she now has ANTHONY likely prerenal in nature secondary to tenuous blood pressure and hypoperfusion. 1. Alcoholic cirrhosis and large volume ascites: -Patient's abdominal discomfort may be from reaccumulation of fluid in her abdomen at this time -Abdominal x-ray today demonstrates evidence of ascites. Should the patient need to be drained, will refer to IR -S/P diagnostic and therapeutic paracenteses, over 6 L removed. No real evidence of actual SBP. She is status post 7 days of ceftriaxone. Vitals are stable, including afebrile and normotensive -Continue fluid restriction, high-protein diet -Started 25 mg Lena tone daily and Lasix 20 mg daily as she is likely benefit from diuresis at this time 2. ANTHONY: Likely prerenal given episodes of hypotension versus hepatorenal. -Ordered urine sodium and creatinine to characterize ANTHONY. Less likely prerenal at this point as she has not been hypotensive for several days. May be lasting ATN -Creatinine has been stable around 1.4-1.6. She has been on fluid restriction and has not had any nephrotoxic medications -Will hold off on renal US for now, as it is not needed. CT abdomen did not demonstrate any abnormalities 3. Portal vein thrombosis: -Continue Lovenox -Per previous notes: "Lovenox is approved by her insurance for 1-month supply sent in, but syringes are only 80mg, and pt will need to be taught prior to discharge how to inject only 60mg twice a day for therapeutic dosing." 4. Poor nutrition/appetite: -Continue Ensure supplementation 5. Hepatic encephalopathy: -Appears to have resolved. Patient has been having several bowel movements daily. Lactulose decreased to 15 mL every 8 hours, with hold parameters 6. Electrolyte abnormalities: Hypokalemia/hypomagnesemia -Supplemented DVT prophylaxis: Patient is on Lovenox DISPO: Pending improvement in medical status, patient may be able to be discharg ed to rehabilitation facility or home in the next 48 hours VS, I&O, 24H, [facility] Vital Signs/I&O Vital Signs Date Time Temp Pulse Resp B/P (MAP) Pulse Ox O2 Delivery O2 Flow Rate FiO2 06/20/19 09:12 81 123/75 (91) 06/20/19 06:00 98.0 18 98 Room Air 06/14/19 14:00 I&O- Last 24 Hours up to 6 AM 06/20/19 06:00 Intake Total 1350 ml Output Total 200 ml Balance 1150 ml Laboratory Data 24H LABS Laboratory Tests 2 06/20/19 05:35: Nucleated Red Blood Cells % (auto) 0.0, Anion Gap 11, Glomerular Filtration Rate 29.7L, Calcium Level 7.7L, Total Bilirubin 1.2H, Aspartate Amino Transf (AST/SGOT) 47H, Alanine Aminotransferase (ALT/SGPT) 32, Alkaline Phosphatase 139H, Total Protein 7.8, Albumin 1.9L, Albumin/Globulin Ratio 0.32L CBC/BMP Laboratory Tests 06/20/19 05:35 Microbiology Microbiology 06/16/19 Urine Culture - Final, Complete GME ATTESTATION GME ATTESTATION My faculty preceptor for this patient encounter was physically present during the encounter and was fully available. All aspects of the patient interview, examination, medical decision making process, and medical care plan development were reviewed and approved by the faculty preceptor. The faculty preceptor is aware and concurs with the plan as stated in the body of this note and will attest to such by his/her cosignature. GME ATTESTATION GME ATTESTATION My faculty preceptor for this patient encounter was physically present during the encounter and was fully available. All aspects of the patient interview, examination, medical decision making process, and medical care plan development were reviewed and approved by the faculty preceptor. The faculty preceptor is aware and concurs with the plan as stated in the body of this note and will attest to such by his/her cosignature. ATTENDING NOTE Patient was seen and examined by me this morning with the residents. Agree with the above assessment and plan SHERIF PAREKH MD Jun 20, 2019 10:10 PARESH FRANCOIS MD Jun 21, 2019 08:50
[2019-06-20] MEDS: PANTOPRAZOLE 40MG TAB (PROTONIX) PO SCH (20:19)
[2019-06-20] MEDS: FLUoxetine 20 MG CAP PO SCH (20:19)
[2019-06-21 02:00] VITALS: BP 118/79
[2019-06-21] MEDS: ENOXAPARIN 60 MG/0.6 ML SYR (J1650) SC SCH (04:17)
[2019-06-21] MEDS: LACTULOSE 20 GM/30 ML SYRUP UD PO SCH ×2 (05:42→13:10)
[2019-06-21] MEDS: SODIUM CHLORIDE 0.9% INJ 10 ML SYR IV SCH (05:42)
[2019-06-21] MEDS: SODIUM CHLORIDE 0.9% INJ 10 ML SYR IV PRN (05:43)
[2019-06-21 06:00] VITALS: BP 105/71
[2019-06-21] MEDS: MIDODRINE 5 MG TAB PO SCH ×2 (08:00→11:58)
[2019-06-21] MEDS: SPIRONOLACTONE 25 MG TAB PO SCH (09:41)
[2019-06-21] MEDS: MAGNESIUM OXIDE 400 MG TAB (MAG-OX) PO SCH (09:41)
[2019-06-21] MEDS: FUROSEMIDE 20 MG TAB PO SCH (09:41)
[2019-06-21 10:00] VITALS: BP 110/70
[2019-06-21] MEDS ORDERED: Lactulose Syrup PO (11:29)
--- NOTE | 2019-06-21 12:10 | DS.PDOC ---
Discharge Summary General Date of Admission Jun 05, 2019 at 15:39 Date of Discharge June 21, 2019 Attending Physician: PARESH FRANCOIS MD Specialist/Consultants Involve: MELVIN LONG MD Discharge Summary PROCEDURES PERFORMED DURING STAY: Paracenteses 2 ADMITTING DIAGNOSES: 1. Alcoholic liver cirrhosis. 2. Ascites 3. Hypotension DISCHARGE DIAGNOSES: 1. Portal vein thrombosis 2. Alcoholic liver cirrhosis 3. Acute renal failure, prerenal COMPLICATIONS/CHIEF COMPLAINT: Liver Cirrhosis. HISTORY OF PRESENT ILLNESS: Patient is a 58F with PMH alcoholic cirrhosis, HTN, Anxiety/Depression was sent in by Dr. Long's office with concern for cirrhosis and SBP. Patient was initially referred to GI by PCP for suspected Crohn's disease but work up was not suggestive of Crohn's. Per GI's documentation, patient had complaints of abdominal pain, nausea, vomiting, loss of appetite in setting of liver cirrhosis and ascites, requested workup to r/o SBP. Patient states that she has had significant unintentional weight loss for months but cannot quantify how many months or about how pounds she had lost. Also reports decrease appetite as well as intermittent diarrhea. She currently denies any abdominal discomfort, SOB, fever, chills, diarrhea, melena or chematochezia at this time. HOSPITAL COURSE: Patient was admitted with significant abdominal pain and ascites concerning for spontaneous bacterial peritonitis. She was started on empiric antibiotics, Rocephin as such. GI panel was obtained that was negative for C. difficile or other infectious diarrhea causing organism. She underwent to large volume paracenteses where 3 L were removed each time. Fluid was unable to be tested for bacteria as it was sent too late. Patient was transferred to the ICU for hypotension and put on pressors on hospital day 3. Patient was treated with heparin drip, transitioned to Lovenox for portal vein thrombosis. The patient tolerated pressors and was started on Midrin for symptomatic hypotension. The Patient did develop a acute kidney injury while inpatient, likely secondary to hypotension and prerenal in nature. Her creatinine remained stable around 1.6-1.8 with a normal baseline. On the differential is hepatorenal syndrome. This will need to be worked up further in the outpatient setting. The patient continued to have good urine output. She was discharged on lactulose with titration. Orders for 2-3 bowel movements daily. Both spironolactone and Lasix were held at discharge due to her acute kidney injury. She is to follow-up with gastroenterology in the outpatient setting for medication management. DISCHARGE MEDICATIONS: Please see below. ALLERGIES: Please see below. PHYSICAL EXAMINATION: VITAL SIGNS: Please see below. GENERAL APPEARANCE: Laying in bed, appears stated age, no acute distress, calm, cooperative HEENT: EOMI, PERRLA, neck is supple with no thyromegaly or lymphadenopathy RESPIRATORY: Lungs are clear to auscultation bilaterally with no adventitious breath sounds appreciated CARDIOVASCULAR: no JVD, RRR, no murmurs/rubs/gallops ABDOMEN: Soft, nontender to palpation in all four quadrants, there is a positive fluid shift, appears to be somewhat more than yesterday, no masses/organomegaly EXTREMITIES: no clubbing, cyanosis or edema noted NEUROLOGICAL: No obvious focal deficits PSYCHIATRIC: normal mood/affect Skin: No rashes or ulcers. LN: No significant cervical or inguinal lymphadenopathy LABORATORY DATA: Please see below. IMAGING: ABD XR:Impression: 1. Evidence of ascites. Unremarkable bowel gas pattern. 2. Infiltrate in the right upper lobe perihilar region consistent with pneumonia. CT ABD/PELVIS: Impression: Moderate amount of diffuse recurrent abdominal ascites. Ground-glass opacity pattern developing in the lung bases, question bibasilar pneumonia versus edema. PROGNOSIS: fair ACTIVITY: [As tolerated]. DIET: as tolerated DISCHARGE PLAN: Follow-up with PCP within 3 days, follow up with GI within 14 days DISPOSITION: . DISCHARGE INSTRUCTIONS: 1.. Follow-up with PCP within 3 days 2. Needs GI appointment within 14 days ITEMS TO FOLLOWUP ON ON OUTPATIENT: 1. Acute kidney injury DISCHARGE CONDITION: [Stable]. TIME SPENT ON DISCHARGE: Greater than 30 minutes. Vital Signs/I&Os Vital Signs Date Time Temp Pulse Resp B/P (MAP) Pulse Ox O2 Delivery O2 Flow Rate FiO2 06/21/19 10:00 97.0 77 18 110/70 (83) 97 06/21/19 02:00 Room Air I&O- Last 24 Hours up to 6 AM 06/21/19 06:00 Intake Total 1155 ml Output Total 150 ml Balance 1005 ml Laboratory Data Labs 24H Laboratory Tests 2 06/20/19 18:40: Urine Random Creatinine 290.0, Urine Random Sodium 10 Microbiology Microbiology 06/16/19 Urine Culture - Final, Complete Discharge Medications Scheduled Enoxaparin Sodium (Enoxaparin Sodium) 40 Mg/0.4 Ml Syringe, 40 MG SC BID inject total of 60mg (1.5 syringe) in morning and 60mg (1.5 syringe) at evening = total of 3 syringes/day. Fluoxetine Hcl (Fluoxetine HCl) 40 Mg Cap, 40 MG PO QHS, (Reported) Lactulose (Lactulose) 10 Gm/15 Ml Solution, 15 ML PO BID Losartan Potassium (Losartan Potassium) 100 Mg Tab, 100 MG PO DAILY, (Reported) Metoprolol Tartrate (Metoprolol Tartrate) 25 Mg Tablet, 25 MG PO BID, (Reported) Pantoprazole Sodium (Pantoprazole Sodium) 40 Mg Tablet.dr, 40 MG PO QHS, (Reported) [Lactulose Syrup] 30 ML SYRP, 15 ML PO DAILY TAKE 15ML DAILY AND TITRATE FOR 2-3 BOWEL MOVEMENTS Scheduled PRN Alprazolam (Alprazolam) 1 Mg Tablet, 1 MG PO TIDP PRN for ANXIETY/AGITATION, (Reported) Allergies Coded Allergies: Opioids - Morphine Analogues (Verified Adverse Reaction, Mild, N/V, 01/12/19) GME ATTESTATION GME ATTESTATION My faculty preceptor for this patient encounter was physically present during t he encounter and was fully available. All aspects of the patient interview, examination, medical decision making process, and medical care plan development were reviewed and approved by the faculty preceptor. The faculty preceptor is aware and concurs with the plan as stated in the body of this note and will attest to such by his/her cosignature. GME ATTESTATION GME ATTESTATION My faculty preceptor for this patient encounter was physically present during the encounter and was fully available. All aspects of the patient interview, examination, medical decision making process, and medical care plan development were reviewed and approved by the faculty preceptor. The faculty preceptor is aware and concurs with the plan as stated in the body of this note and will attest to such by his/her cosignature. ATTENDING NOTE Patient was seen and examined by me this morning with the residents. Agree with the above assessment and plan SHERIF PAREKH MD Jun 21, 2019 12:10 PARESH FRANCOIS MD Jun 22, 2019 13:37
[2019-06-21 14:00] VITALS: BP 115/70
[2019-06-21] MEDS ORDERED: LACT10SO29 PO (15:50)
== END 2019-06-21 16:00 | disposition home health service (06) | DRG 264 ==
LOC: M PCU 15:39 → M ICU 17:17 → M PCU 06-08 17:11 → M MSPAV 06-09 13:40
PROVIDERS: ADMIT Internal Medicine; ATTEND Internal Medicine
PROC: 0W9G3ZZ Drainage of Peritoneal Cavity, Percutaneous Approach (ICD-10-PCS; 2019-06-07)
PROC: 02HV33Z Insertion of Infusion Device into Superior Vena Cava, Percutaneous Approach (ICD-10-PCS; principal; 2019-06-09 17:00)
PROC: 0W9G3ZX Drainage of Peritoneal Cavity, Percutaneous Approach, Diagnostic (ICD-10-PCS; 2019-06-14)
DX: K70.31 Alcoholic cirrhosis of liver with ascites (principal); I81 Portal vein thrombosis; I95.89 Other hypotension; N17.9 Acute kidney failure, unspecified; E83.42 Hypomagnesemia; K72.90 Hepatic failure, unspecified without coma; I85.10 Secondary esophageal varices without bleeding; E87.6 Hypokalemia; F41.9 Anxiety disorder, unspecified; F32.9 Major depressive disorder, single episode, unspecified; Z79.899 Other long term (current) drug therapy; Z88.5 Allergy status to narcotic agent; I10 Essential (primary) hypertension

== ENCOUNTER 2019-06-30 17:49 | Inpatient (IN) | payer OTHER ==
[~2019-06-30] VITALS: Ht 167.6 cm; Wt 59.8 kg
[~2019-06-30 17:49] MED LIST changes: -ENOX80IN3 SC; -ONDA4TAB5 PO
[2019-06-30 19:37] LABS: BASO % 0.1 % (0.0-1.0); EOS % 0.4 % (0.0-3.0); HEMOGLOBIN 11.6 g/dl (12.0-15.5); LYMPH # 1.5 10^3/uL (1.5-5.0); LYMPH % 20.9 % (24.0-44.0); MEAN CORPUSCULAR HEMOGLOBIN 33.7 pg (27.0-33.0); MEAN CORPUSCULAR HGB CONC 33.1 g/dl (32.0-36.5); MEAN CORPUSCULAR VOLUME 101.7 fl (80.0-96.0); MONO % 14.2 % (0.0-5.0); NEUTROPHILS # 4.5 10^3/uL (1.5-8.5); NEUTROPHILS % 63.4 % (36.0-66.0); PLATELET COUNT, AUTOMATED 225 10^3/uL (150-450); RED BLOOD COUNT 3.44 10^6/uL (4.00-5.40)
[2019-06-30 19:52] LABS: INR 1.89; PROTHROMBIN TIME 21.5 SECONDS (11.8-14.0)
[2019-06-30 19:53] LABS: PARTIAL THROMBOPLASTIN TIME 42.1 SECONDS (25.0-38.4)
[2019-06-30 20:16] LABS: ALBUMIN 1.9 GM/DL (3.2-5.2); ALT/SGPT 29 U/L (12-78); AMYLASE 46 U/L (25-115); BILIRUBIN,DIRECT 0.6 MG/DL (0.0-0.2); BILIRUBIN,TOTAL 1.3 MG/DL (0.2-1.0); BLOOD UREA NITROGEN 53 MG/DL (7-18); CALCIUM LEVEL 8.5 MG/DL (8.5-10.1); CARBON DIOXIDE LEVEL 14 MEQ/L (21-32); CHLORIDE LEVEL 106 MEQ/L (98-107); CK-MB VALUE MASS 1.2 NG/ML (<3.6); CPK CREATINE PHOSPHOKINASE 28 U/L (26-192); CREATININE FOR GFR 5.33 MG/DL (0.55-1.30); GLOMERULAR FILTRATION RATE 8.8 (>51); GLUCOSE, FASTING 130 MG/DL (70-100); LIPASE 319 U/L (73-393); MB/CK RELATIVE INDEX 4.29 (< OR =4); POTASSIUM SERUM 3.8 MEQ/L (3.5-5.1); SODIUM LEVEL 134 MEQ/L (136-145); TOTAL PROTEIN 8.3 GM/DL (6.4-8.2); TROPONIN I < 0.02 NG/ML (< 0.10)
--- NOTE | 2019-06-30 20:22 | REPVR ---
PROCEDURE INFORMATION: Exam: CT Abdomen And Pelvis Without Contrast Exam date and time: 06/30/2019 7:50 PM Age: 58 years old Clinical indication: Abdominal pain; Generalized; Additional info: Abd pain, nausea, hepatorenal syndrome TECHNIQUE: Imaging protocol: Computed tomography of the abdomen and pelvis without contrast. Radiation optimization: All CT scans at this facility use at least one of these dose optimization techniques: automated exposure control; mA and/or kV adjustment per patient size (includes targeted exams where dose is matched to clinical indication); or iterative reconstruction. COMPARISON: CT ABD PELVIS W/O CONTRAST 06/13/2019 3:54 PM FINDINGS: Lungs: Bilateral stellate foci of increased interstitial markings associated with foci of peripheral airway disease, stable in comparison to the prior study. Liver: Examination of the liver demonstrates a contracted volume, lobular surface contour, and enlargement of the left and caudate lobes, findings consistent with late stage cirrhosis. Gallbladder and bile ducts: Normal. No calcified stones. No ductal dilation. Pancreas: There is diffuse pancreatic atrophy. Spleen: Normal. No splenomegaly. Adrenals: Normal. No mass. Kidneys and ureters: Punctate nonobstructive calculus lower pole left kidney. Stomach and bowel: Inflammatory changes demonstrated in the duodenal sweep which may be related to hypoproteinemia however acute inflammation such as duodenitis is not excluded. Mild diverticulosis is present in the distal colon. No diverticulitis. There is wall thickening of several small bowel loops most likely related to hypoproteinemia and less likely enteritis. Appendix: No evidence of appendicitis. Intraperitoneal space: There is a moderate amount of free intraperitoneal fluid present. Vasculature: The aorta demonstrates mild atherosclerotic calcification. Lymph nodes: Unremarkable. No enlarged lymph nodes. Bladder: Unremarkable as visualized. Reproductive: There has been a hysterectomy. Bones/joints: Grade 1 anterolisthesis of L4 on L5 likely degenerative in the absence of a spondylolysis. Moderate to severe central spinal stenosis at L4-L5. Bulging disc annulus at L5-S1. Soft tissues: Unremarkable. IMPRESSION: 1. Examination of the liver demonstrates a contracted volume, lobular surface contour, and enlargement of the left and caudate lobes, findings consistent with late stage cirrhosis. 2. There is diffuse pancreatic atrophy. 3. There is a moderate amount of free intraperitoneal fluid present. 4. Inflammatory changes demonstrated in the duodenal sweep which may be related to hypoproteinemia however acute inflammation such as duodenitis is not excluded. 5. There has been a hysterectomy. 6. Mild diverticulosis is present in the distal colon. No diverticulitis. 7. There is wall thickening of several small bowel loops most likely related to hypoproteinemia and less likely enteritis. Electronically signed by: Milton Jimenez On 06/30/2019 20:22:38 PM
[2019-06-30] MEDS ORDERED: ONDA-83 PO (21:26)
[2019-06-30] MEDS ORDERED: ENOX80IN3 SC (21:26)
[2019-06-30] MEDS ORDERED: LACT10SO29 PO (21:27)
[2019-06-30] MEDS ORDERED: HEPARIN DRIP 25,000 UNITS in IV 1 EA IV SCH (23:44)
[2019-06-30] MEDS ORDERED: ALPRAZolam 0.5 MG TAB PO PRN (23:45)
[2019-06-30] MEDS ORDERED: HEPARIN SOD (PORCINE) 5000 UNITS/ML VIAL IV ONE (23:45)
[2019-06-30] MEDS ORDERED: NS 1,000 ML IV ONE (23:45)
[2019-07-01 00:11] LABS: HEMATOCRIT 32.3 % (36.0-47.0); HEMOGLOBIN 10.6 g/dl (12.0-15.5); MEAN CORPUSCULAR HEMOGLOBIN 33.1 pg (27.0-33.0); MEAN CORPUSCULAR HGB CONC 32.8 g/dl (32.0-36.5); MEAN CORPUSCULAR VOLUME 100.9 fl (80.0-96.0); PLATELET COUNT, AUTOMATED 212 10^3/uL (150-450)
[2019-07-01] MEDS ORDERED: ONDANSETRON 4MG/2ML VIAL (J2405) As Ordered ONE (00:27)
--- NOTE | 2019-07-01 00:41 | HPEPDOC ---
[facility] Medical History & Physical Date of Admission Jul 01, 2019 Date of Service: Jul 01, 2019 Attending Physician: MANNY ATKINS MD History and Physical CHIEF COMPLAINT: Sent by PCP for lab abnormalities HISTORY OF PRESENT ILLNESS: 58-year-old female with past medical history of cirrhosis, hypertension, GERD, and portal vein thrombosis (on Lovenox), presents from PCPs office for lab abnormalities. Patient was found to have a creatinine of 5.7 today, for which she was sent to the emergency department. Patient reports decreased oral intake over the past few weeks, was discharged from the hospital couple weeks ago after being admitted for portal vein thrombosis. She also reports decreased urine output for the past 2-3 days, has continued taking her lactulose with multiple bowel movements every day. She reportedly had 20 bowel movements yesterday. She has no other complaints at this time, denies shortness of breath, chest pain, nausea, vomiting, abdominal pain or diarrhea. 10 point review of system is negative except for above PAST MEDICAL HISTORY: 1. Alcoholic cirrhosis. 2. Hypertension. 3. Portal vein thrombosis. 4. GERD PAST SURGICAL HISTORY: 1. Appendectomy. 2. Hysterectomy. SOCIAL HISTORY: Smoked half pack per day for over 30 years, quit 1 month ago. Previous alcoholic, quit earlier this year. Denies drug use FAMILY HISTORY: Father with history of heart disease ALLERGIES: Please see below. HOME MEDICATIONS: Please see below. PHYSICAL EXAMINATION: VITAL SIGNS: Please see below. GENERAL: No distress HEENT: Normocephalic, atraumatic, dry mucous membranes NECK: Supple CARDIOVASCULAR EXAMINATION: S1, S2, no murmurs RESPIRATORY EXAMINATION: Scattered rhonchi, no wheezing ABDOMINAL EXAMINATION: Soft, nontender, nondistended, positive bowel sounds EXTREMITIES: Range of motion intact SKIN: No rash NEUROLOGICAL EXAMINATION: Alert and oriented 3, no focal deficits PSYCHIATRIC EXAMINATION: Calm and cooperative LABORATORY DATA: See below. IMAGING: CT abdomen and pelvis showing moderate ascites and cirrhosis MICROBIOLOGY: Please see below. ASSESSMENT: 58-year-old female with past medical history of alcoholic cirrhosis, portal vein thrombosis on anticoagulation, hypertension and GERD presents from PCPs office for acute kidney injury. PLAN: 1. Acute kidney injury. Likely prerenal given decreased oral intake and excessive bowel movements from lactulose, hold losartan, status post 1 L normal saline bolus, continue gentle IV hydration, urine studies ordered, renal ultrasound pending. 2. Portal vein thrombosis. On Lovenox at home, will hold given acute kidney injury, heparin drip started. 3. Hypertension. Hold losartan, continue metoprolol 4. GERD. Continue Protonix DVT prophylaxis: Heparin gtt. GI prophylaxis: Home PPI Vital Signs Vital Signs Date Time Temp Pulse Resp B/P (MAP) Pulse Ox O2 Delivery O2 Flow Rate FiO2 07/01/19 00:00 59 109/57 (74) 99 Room Air 06/30/19 17:58 96.9 18 Laboratory Data Labs 24H Laboratory Tests 2 06/30/19 19:28: Immature Granulocyte % (Auto) 1.0, Neutrophils (%) (Auto) 63.4, Lymphocytes (%) (Auto) 20.9L, Monocytes (%) (Auto) 14.2H, Eosinophils (%) (Auto) 0.4, Basophils (%) (Auto) 0.1, Neutrophils # (Auto) 4.5, Lymphocytes # (Auto) 1.5, Monocytes # (Auto) 1.0H, Eosinophils # (Auto) 0.0, Basophils # (Auto) 0.0, Nucleated Red Blood Cells % (auto) 0.0, Prothrombin Time 21.5H, Prothromb Time International Ratio 1.89, Activated Partial Thromboplast Time 42.1H, Anion Gap 14, Glomerular Filtration Rate 8.8L, Calcium Level 8.5, Total Bilirubin 1.3H, Direct Bilirubin 0.6H, Aspartate Amino Transf (AST/SGOT) 45H, Alanine Aminotransferase (ALT/SGPT) 29, Alkaline Phosphatase 121H, Total Creatine Kinase 28, Creatine Kinase MB 1.2, Creatine Kinase MB Relative Index 4.29H, Troponin I < 0.02, Total Protein 8.3H, Albumin 1.9L, Albumin/Globulin Ratio 0.30L, Amylase Level 46, Lipase 319 06/30/19 23:56: Nucleated Red Blood Cells % (auto) 0.0, Activated Partial Thromboplast Time 43.4H CBC/BMP Laboratory Tests 06/30/19 19:28 06/30/19 23:56 Home Medications Scheduled Enoxaparin Sodium (Enoxaparin Sodium) 80 Mg/0.8 Ml Syringe, 80 MG SC DAILY Fluoxetine Hcl (Fluoxetine HCl) 40 Mg Cap, 40 MG PO QHS Lactulose (Lactulose) 10 Gm/15 Ml Solution, 15 ML PO BID Losartan Potassium (Losartan Potassium) 100 Mg Tab, 100 MG PO DAILY Metoprolol Tartrate (Metoprolol Tartrate) 25 Mg Tablet, 25 MG PO BID Pantoprazole Sodium (Pantoprazole Sodium) 40 Mg Tablet.dr, 40 MG PO QHS Scheduled PRN Alprazolam (Alprazolam) 1 Mg Tablet, 1 MG PO TIDP PRN for ANXIETY/AGITATION Ondansetron HCl (Ondansetron HCl) 4 Mg Tablet, 4 MG PO Q6HP PRN for nausea/vomiting NEW RX, HAS NOT STARTED Allergies Coded Allergies: Opioids - Morphine Analogues (Verified Adverse Reaction, Mild, N/V, 01/12/19) A-FIB/CHADSVASC A-FIB History Current/History of A-Fib/PAF?: No MANNY ATKINS MD Jul 01, 2019 00:41
--- NOTE | 2019-07-01 01:38 | REPVR ---
PROCEDURE INFORMATION: Exam: US Retroperitoneal Limited, Kidneys Exam date and time: 07/01/2019 12:54 AM Age: 58 years old Clinical indication: Condition or disease; Kidney or ureter condition; Acute renal insufficiency; Additional info: Chandana TECHNIQUE: Imaging protocol: Real-time ultrasound of the retroperitoneum with image documentation. Examination was focused on the kidneys. COMPARISON: [facility]ENTES[facility] US 06/14/2019 3:13 PM FINDINGS: Right kidney: No stones. No hydronephrosis. Left kidney: No stones. No hydronephrosis. Intraperitoneal space: Large ascites. Bladder: Bilateral ureteral jets are present. IMPRESSION: Large ascites. No hydronephrosis bilaterally. Electronically signed by: Jose Baum On 07/01/2019 01:37:40 AM
[2019-07-01 04:10] VITALS: BP 100/49
[2019-07-01] MEDS: HEPARIN DRIP 25,000 UNITS in IV 1 EA IV SCH (04:37)
[2019-07-01] MEDS: FLUoxetine 20 MG CAP PO SCH ×2 (04:39→22:14)
[2019-07-01] MEDS: PANTOPRAZOLE 40MG TAB (PROTONIX) PO SCH ×2 (04:40→22:14)
[2019-07-01] MEDS: NS 1,000 ML IV SCH ×2 (04:40→12:32)
[2019-07-01 06:59] LABS: HEMOGLOBIN 9.9 g/dl (12.0-15.5); MEAN CORPUSCULAR HEMOGLOBIN 33.7 pg (27.0-33.0); PLATELET COUNT, AUTOMATED 188 10^3/uL (150-450); RED BLOOD COUNT 2.94 10^6/uL (4.00-5.40); WHITE BLOOD COUNT 8.7 10^3/uL (4.0-10.0)
[2019-07-01 07:45] LABS: ALBUMIN 1.5 GM/DL (3.2-5.2); BILIRUBIN,TOTAL 1.1 MG/DL (0.2-1.0); CALCIUM LEVEL 7.4 MG/DL (8.5-10.1); CREATININE FOR GFR 4.83 MG/DL (0.55-1.30); GLOMERULAR FILTRATION RATE 9.9 (>51); MAGNESIUM LEVEL 1.5 MG/DL (1.8-2.4); POTASSIUM SERUM 3.1 MEQ/L (3.5-5.1); TOTAL PROTEIN 6.9 GM/DL (6.4-8.2)
[2019-07-01] MEDS: METOPROLOL TART 25 MG TABLET PO SCH ×4 (09:00→22:17)
[2019-07-01] MEDS: ONDANSETRON 4 MG TAB (S0181) PO PRN ×2 (09:15→17:01)
[2019-07-01 14:00] VITALS: BP 118/55
[2019-07-01] MEDS ORDERED: MAG SULF 1GM/100ML (MAG RUN) 1 GM in IV 1 EA IV ONE (17:00)
[2019-07-01] MEDS ORDERED: POTASSIUM CHLORIDE 10 MEQ SR TABLET PO ONE (17:00)
--- NOTE | 2019-07-01 17:11 | IPNPDOC ---
Subjective Date Seen The patient was seen on 07/01/19. Subjective Chief Complaint/HPI Patient lying in bed comfortable. Her family is all around her and have multiple questions regarding patient's care. General: Denies: ROS Unobtainable, Chills, Night Sweats, Fatigue, Malaise, Normal Appetite, Other Symptoms Constitutional: Denies: Chills, Fever, Malaise, Night Sweats, Weakness, Fati kamla, Weight Loss, Lethargy, Other Pulmonary: Denies: Dyspnea, Cough, Pleuritic Chest Pain, Other Symptoms Cardiovascular: Denies: Chest Pain, Palpitations, Orthopnea, Paroxysmal Noc. Dyspnea, Edema, Lt Headedness, Other Symptoms Gastrointestinal: Denies: Nausea, Vomiting, Abdominal Pain, Diarrhea, Constipation, Melena, Hematochezia, Other Symptoms Musculoskeletal: Denies: Neck Pain, Back Pain, Shoulder Pain, Arm Pain, Hand Pain, Leg Pain, Foot Pain, Joint Pain, Muscle Pain, Spasms, Other Symptoms Neurological: Denies: Weakness, Numbness, Incoordination, Change in speech, Confusion, Seizures, Other Symptoms Objective Physical Examination General Exam: Positive: Alert, Cooperative Eye Exam: Positive: PERRLA, Conjunctiva & lids normal ENT Exam: Positive: Atraumatic Neck Exam: Positive: Supple Chest Exam: Positive: Clear to auscultation, Normal air movement Heart Exam: Positive: Rate Normal, Normal S1, Normal S2 Abdomen Exam: Positive: Normal bowel sounds, Tenderness Extremity Exam: Positive: Normal pulses Skin Exam: Positive: Nl turgor and temperature Neuro Exam: Positive: Strength at 5/5 X4 ext, Cranial Nerves 3-12 NL Assessment /Plan Problems (1) Acute kidney injury superimposed on CKD Status: Acute Problem Text: Patient's baseline creatinine on 06/12/2019 was 1.24 and on 06/20/2019 was 1.86 Her worsening renal function, most likely secondary to dehydration and volume loss via diarrhea Patient will continue receiving IV fluids normal saline at 80 cc per hour Patient's creatinine is 4.83, now and BUN is 56 Will monitor patient's renal functions and intake and output closely Nephrology consult with Dr. Thibodeaux has been called Renal sonogram shows large ascites, but no hydronephrosis (2) Alcoholic cirrhosis of liver with ascites Status: Chronic Problem Text: CT of the abdomen and pelvis shows late stage cirrhosis and diffuse pancreatic atrophy Possible enteritis secondary to hypoproteinemia Will request paracentesis from IR under ultrasound guidance Continue home meds (3) GERD (gastroesophageal reflux disease) Status: Chronic Problem Text: Continue PPI as per orders (4) Depression Status: Chronic (5) Hypertension Status: Chronic Problem Text: Continue home meds (6) Hypokalemia Status: Acute Problem Text: Potassium supplement given Repeat levels in a.m. (7) Hypomagnesemia Status: Acute Problem Text: Magnesium supplement given Repeat Levels in a.m. (8) Portal vein thrombosis Status: Chronic Problem Text: Patient was diagnosed for [place] thromboses on last admission Patient has been receiving Lovenox at home, but which is on hold secondary to a GI Heparin infusion has been started for anticoagulation Plan/VTE VTE Prophylaxis Ordered?: Yes VS, I&O, 24H, Sherice Vital Signs/I&O Vital Signs Date Time Temp Pulse Resp B/P (MAP) Pulse Ox O2 Delivery O2 Flow Rate FiO2 07/01/19 14:00 98.0 75 20 118/55 (76) 95 07/01/19 04:10 Room Air I&O- Last 24 Hours up to 6 AM 07/01/19 06:00 Intake Total 1100 ml Output Total 0 ml Balance 1100 ml Laboratory Data 24H LABS Laboratory Tests 2 06/30/19 19:28: Immature Granulocyte % (Auto) 1.0, Neutrophils (%) (Auto) 63.4, Lymphocytes (%) (Auto) 20.9L, Monocytes (%) (Auto) 14.2H, Eosinophils (%) (Auto) 0.4, Basophils (%) (Auto) 0.1, Neutrophils # (Auto) 4.5, Lymphocytes # (Auto) 1.5, Monocytes # (Auto) 1.0H, Eosinophils # (Auto) 0.0, Basophils # (Auto) 0.0, Nucleated Red Blood Cells % (auto) 0.0, Prothrombin Time 21.5H, Prothromb Time International Ratio 1.89, Activated Partial Thromboplast Time 42.1H, Anion Gap 14, Glomerular Filtration Rate 8.8L, Calcium Level 8.5, Total Bilirubin 1.3H, Direct Bilirubin 0.6H, Aspartate Amino Transf (AST/SGOT) 45H, Alanine Aminotransferase (ALT/SGPT) 29, Alkaline Phosphatase 121H, Total Creatine Kinase 28, Creatine Kinase MB 1.2, Creatine Kinase MB Relative Index 4.29H, Troponin I < 0.02, Total Protein 8.3H, Albumin 1.9L, Albumin/Globulin Ratio 0.30L, Amylase Level 46, Lipase 319 06/30/19 23:56: Nucleated Red Blood Cells % (auto) 0.0, Activated Partial Thromboplast Time 43.4H 07/01/19 06:38: Nucleated Red Blood Cells % (auto) 0.0, Anion Gap 11, Glomerular Filtration Rate 9.9L, Calcium Level 7.4L, Total Bilirubin 1.1H, Aspartate Amino Transf (AST/SGOT) 38H, Alanine Aminotransferase (ALT/SGPT) 24, Alkaline Phosphatase 94, Total Protein 6.9, Albumin 1.5#L, Albumin/Globulin Ratio 0.28L, Magnesium Level 1.5L 07/01/19 11:02: Activated Partial Thromboplast Time 214.2*H CBC/BMP Laboratory Tests 06/30/19 19:28 06/30/19 23:56 07/01/19 06:38 MAYRA NAVA MD Jul 01, 2019 17:11
[2019-07-01] MEDS: ONDANSETRON 4MG/2ML VIAL (J2405) IV PRN ×2 (18:40→22:59)
[2019-07-01 22:00] VITALS: BP 109/52
[2019-07-02] VITALS (14 sets, daily range): BP systolic 80–146; BP diastolic 42–76
[2019-07-02] MEDS: ONDANSETRON 4MG/2ML VIAL (J2405) IV PRN ×5 (04:41→22:11)
[2019-07-02 04:51] LABS: BASO % 0.1 % (0.0-1.0); EOS # 0.1 10^3/uL (0.0-0.5); EOS % 0.9 % (0.0-3.0); HEMATOCRIT 29.5 % (36.0-47.0); HEMOGLOBIN 9.8 g/dl (12.0-15.5); LYMPH # 2.2 10^3/uL (1.5-5.0); LYMPH % 24.3 % (24.0-44.0); MEAN CORPUSCULAR HEMOGLOBIN 33.4 pg (27.0-33.0); MEAN CORPUSCULAR HGB CONC 33.2 g/dl (32.0-36.5); MEAN CORPUSCULAR VOLUME 100.7 fl (80.0-96.0); MONO # 1.2 10^3/uL (0.0-0.8); MONO % 13.5 % (0.0-5.0); NEUTROPHILS # 5.4 10^3/uL (1.5-8.5); PLATELET COUNT, AUTOMATED 178 10^3/uL (150-450); RED BLOOD COUNT 2.93 10^6/uL (4.00-5.40)
[2019-07-02 05:15] LABS: ALBUMIN 1.6 GM/DL (3.2-5.2); CALCIUM LEVEL 7.5 MG/DL (8.5-10.1); CREATININE FOR GFR 4.44 MG/DL (0.55-1.30); GLOMERULAR FILTRATION RATE 10.9 (>51); POTASSIUM SERUM 3.5 MEQ/L (3.5-5.1); TOTAL PROTEIN 7.1 GM/DL (6.4-8.2)
[2019-07-02] MEDS: HEPARIN SOD (PORCINE) 5000 UNITS/ML VIAL IV PRN ×2 (05:42→14:08)
[2019-07-02] MEDS: HEPARIN DRIP 25,000 UNITS in IV 1 EA IV SCH (05:52)
[2019-07-02] MEDS: NS 1,000 ML IV SCH (08:55)
[2019-07-02] MEDS: METOPROLOL TART 25 MG TABLET PO SCH ×2 (08:56→21:00)
--- NOTE | 2019-07-02 09:45 | IPNPDOC ---
Subjective Date Seen The patient was seen on 07/02/19. Subjective Chief Complaint/HPI Patient feeling much better, comfortable, in no apparent distress General: Denies: ROS Unobtainable, Chills, Night Sweats, Fatigue, Malaise, Normal Appetite, Other Symptoms Constitutional: Denies: Chills, Fever, Malaise, Night Sweats, Weakness, Fatigue, Weight Loss, Lethargy, Other Eyes: Denies: Pain, Vision change, Conjunctivae inflammation, Eyelid inflammation, Redness, Other Pulmonary: Denies: Dyspnea, Cough, Pleuritic Chest Pain, Other Symptoms Cardiovascular: Denies: Chest Pain, Palpitations, Orthopnea, Paroxysmal Noc. Dyspnea, Edema, Lt Headedness, Other Symptoms Gastrointestinal: Denies: Nausea, Vomiting, Abdominal Pain, Diarrhea, Constipation, Melena, Hematochezia, Other Symptoms Musculoskeletal: Denies: Neck Pain, Back Pain, Shoulder Pain, Arm Pain, Hand Pain, Leg Pain, Foot Pain, Joint Pain, Muscle Pain, Spasms, Other Symptoms Neurological: Denies: Weakness, Numbness, Incoordination, Change in speech, Confusion, Seizures, Other Symptoms Objective Physical Examination General Exam: Positive: Alert, Cooperative Eye Exam: Positive: PERRLA, Conjunctiva & lids normal ENT Exam: Positive: Atraumatic Neck Exam: Positive: Supple Chest Exam: Positive: Clear to auscultation, Normal air movement Heart Exam: Positive: Rate Normal, Normal S1, Normal S2 Abdomen Exam: Positive: Normal bowel sounds, Tenderness Extremity Exam: Positive: Normal pulses Skin Exam: Positive: Nl turgor and temperature Neuro Exam: Positive: Strength at 5/5 X4 ext, Cranial Nerves 3-12 NL Assessment /Plan Problems (1) Acute kidney injury superimposed on CKD Status: Acute Problem Text: Patient's baseline creatinine on 06/12/2019 was 1.24 and on 06/20/2019 was 1.86 Her worsening renal function, most likely secondary to dehydration and volume loss via diarrhea Patient will continue receiving IV fluids normal saline at 80 cc per hour Creatinines have improved to 4.44 and BUN is 52 Will monitor patient's renal functions and intake and output closely Nephrology consult is still pending Renal sonogram shows large ascites, but no hydronephrosis (2) Alcoholic cirrhosis of liver with ascites Status: Chronic Problem Text: CT of the abdomen and pelvis shows late stage cirrhosis and diffuse pancreatic atrophy Possible enteritis secondary to hypoproteinemia Will request paracentesis from IR under ultrasound guidance in a.m. Continue home meds (3) GERD (gastroesophageal reflux disease) Status: Chronic Problem Text: Continue PPI as per orders (4) Depression Status: Chronic (5) Hypertension Status: Chronic Problem Text: Continue home meds (6) Hypokalemia Status: Resolved Problem Text: Patient's potassium is 3.7 Will give one extra dose dose today to prevent hypokalemia in a.m. (7) Hypomagnesemia Status: Acute Problem Text: Magnesium supplement given Repeat level pending (8) Portal vein thrombosis Status: Chronic Problem Text: Patient was diagnosed for [place] thromboses on last admission Patient has been receiving Lovenox at home, but which is on hold secondary to a GI Heparin infusion has been started for anticoagulation Plan/VTE VTE Prophylaxis Ordered?: Yes VS, I&O, 24H, Fishbone Vital Signs/I&O Vital Signs Date Time Temp Pulse Resp B/P (MAP) Pulse Ox O2 Delivery O2 Flow Rate FiO2 07/02/19 08:56 73 98/60 07/02/19 06:50 97.5 18 99 Room Air I&O- Last 24 Hours up to 6 AM 07/02/19 06:00 Intake Total 2398.25 ml Output Total 625 ml Balance 1773.25 ml Laboratory Data 24H LABS Laboratory Tests 2 07/01/19 11:02: Activated Partial Thromboplast Time 214.2*H 07/01/19 19:01: Activated Partial Thromboplast Time 124.9*H 07/02/19 04:42: Activated Partial Thromboplast Time 55.6H, Immature Granulocyte % (Auto) 1.2, Neutrophils (%) (Auto) 60.0, Lymphocytes (%) (Auto) 24.3, Monocytes (%) (Auto) 13.5H, Eosinophils (%) (Auto) 0.9, Basophils (%) (Auto) 0.1, Neutrophils # (Auto) 5.4, Lymphocytes # (Auto) 2.2, Monocytes # (Auto) 1.2H, Eosinophils # (Auto) 0.1, Basophils # (Auto) 0.0, Nucleated Red Blood Cells % (auto) 0.0, Anion Gap 14, Glomerular Filtration Rate 10.9L, Calcium Level 7.5L, Total Bilirubin 1.0, Aspartate Amino Transf (AST/SGOT) 44H, Alanine Aminotransferase (ALT/SGPT) 28, Alkaline Phosphatase 110, Total Protein 7.1, Albumin 1.6L, Albumin/Globulin Ratio 0.29L CBC/BMP Laboratory Tests 07/02/19 04:42 MAYRA NAVA MD Jul 02, 2019 09:45
[2019-07-02 11:35] LABS: AMORPHOUS SEDIMENT MODERATE (NEGATIVE); APPEARANCE, URINE CLOUDY (CLEAR); BACTERIA, URINE AUTO NEGATIVE (NEGATIVE); BILIRUBIN, URINE AUTO NEGATIVE (NEGATIVE); BLOOD, URINE BLOOD NEGATIVE (NEGATIVE); COLOR, URINE YELLOW (YELLOW); GLUCOSE, URINE (UA) AUTO NEGATIVE (NEGATIVE); GRANULAR CAST, URINE AUTO 8 /LPF; KETONE, URINE AUTO NEGATIVE (NEGATIVE); LEUKOCYTE ESTERASE, URINE AUTO NEGATIVE (NEGATIVE); NITRITE, URINE AUTO NEGATIVE (NEGATIVE); PROTEIN, URINE AUTO NEGATIVE (NEGATIVE); RBC, URINE AUTO 1 /HPF (0-3); SPECIFIC GRAVITY URINE AUTO 1.014 (1.002-1.035); SQUAMOUS EPITHELIAL CELL UR AU 21 /HPF (0-6); UROBILINOGEN, URINE AUTO 0.2 mg/dL (0.0-2.0); WBC, URINE AUTO 10 /HPF (0-3)
[2019-07-02 11:59] LABS: CHLORIDE,RANDOM URINE < 10 MEQ/L; POTASSIUM RANDOM URINE 26.1 MEQ/L; SODIUM,RANDOM URINE 14 MEQ/L
[2019-07-02] MEDS: MIDODRINE 5 MG TAB PO SCH ×2 (13:03→15:56)
--- NOTE | 2019-07-02 15:14 | ECGEPIP ---
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
[2019-07-02] MEDS: OCTREOTIDE ACETATE 1,200 MCG in NS 238.8 ML IV SCH (15:27)
--- NOTE | 2019-07-02 20:19 | CR ---
DATE OF CONSULTATION: 07/02/2019 REQUESTING PHYSICIAN: Dr. Ling CONSULTING PHYSICIAN: Vane Lozoya MD REASON FOR CONSULTATION: Management of acute renal failure. CHIEF COMPLAINT: The patient was sent to the emergency room on 07/01/2019 for abnormal labs found at PCP office. HISTORY OF PRESENT ILLNESS: Alexa Burgos is a 58-year-old female with past medical history of alcoholic cirrhosis, last drink was exactly 2 months ago, history of hypertension, portal vein thrombosis, who was on Lovenox. The patient has baseline CKD III with a best baseline creatinine of 1.2 as of June 2019. She was seen at PCP office recently and she was found to have a creatinine of 5.7 so patient was sent to the emergency room for further management and evaluation. When patient presented to the hospital, she also reported that she was nauseated. She was having vomiting for a few days and she was also having loose stools because of all the bowel preparation that she was taking to prevent hepatic encephalopathy. She was having about 20 bowel movements a day. The patient was admitted under the hospitalist service yesterday because of acute renal failure. She was started on IV fluid hydration. Nephrology service was called for further help in the management of this patient. Of note, patient was also taking losartan at home 100 mg daily which was stopped on admission. I saw and evaluated the patient today morning at the bedside. Her was also present at the bedside. The patient was able to provide the history. She reports that she is feeling slightly better today as compared with yesterday. PAST MEDICAL HISTORY: Past medical history of alcoholic cirrhosis, last drink was 2 months ago, history of hypertension, portal vein thrombosis anticoagulated with Lovenox, gastroesophageal reflux disease. PAST SURGICAL HISTORY: Status post hysterectomy and appendectomy in the past. ALLERGIES: The patient is allergic to MORPHINE ANALOG. FAMILY HISTORY: No significant family history of end-stage renal disease requiring hemodialysis. SOCIAL HISTORY: The patient is a former smoker. She quit 1 month ago. She was a heavy alcohol drinker and she quit 2 months ago. She denies any illicit drug abuse. REVIEW OF SYSTEMS: Constitutional: Patient reports feeling very weak and tired. Eyes: She denies any blurry vision, double vision. ENT: She denies any dysphagia, odynophagia. Cardiovascular: She denies any chest pain or palpitation. Respiratory: She denies any shortness of breath or cough. GI: She reports nausea and diarrhea. Genitourinary: She reports a decreased urine output. Musculoskeletal: She denies any muscle aches and pains. Skin: She denies any rashes or ulcers. Hematology/Oncology: The patient denies any easy bleeding or bruising. Endocrine: The patient denies any hyperthyroidism, hypothyroidism or diabetes. All other review of systems is negative. PHYSICAL EXAMINATION: General: The patient is awake, alert, oriented times three, laying in bed. Vital signs: Temperature is 98 degrees Fahrenheit, blood pressure is 117/58, pulse is 71, respiratory rate of 18, saturating 100% on room air. Head and neck exam: Extraocular muscles intact. Pupils equally round and reactive to light. Mucous membranes are moist. Neck is supple. There is mildly elevated JVD. Cardiovascular: S1, S2, regular rate. No edema of the bilateral lower extremities. Respiratory: Mildly decreased breath sounds at the bases with mild inspiratory crackles at the bases on deep inspiration. Abdomen: Soft. There is moderate amount of ascites and dullness to percussion in the flanks. Genitourinary: Bladder is not palpable. Musculoskeletal: No clubbing or cyanosis. Pulses are 2+. [employer]INTENANCE: The patient moves all extremities. She follows commands. Mild tremor of the upper extremities on rest was noted. LABORATORY REVIEW: CBC showed WBC of 9, hemoglobin is 9.8, platelets are 178, PTT is 48.4. Urinalysis showed it was cloudy with 10 WBCs. Urine random sodium is 14, random potassium is 26.1, and random chloride is less than 10. BMP done on arrival showed a creatinine of 5.3. BMP done today showed sodium 137, potassium 3.5, chloride 112, bicarbonate is 11, BUN is 52, creatinine is 4.4, calcium 7.5, magnesium is 1.5, total bilirubin is 1, AST 44, ALT is 28 alkaline phosphatase is 110, albumin is 1.6 today. Microbiology: Stool occult blood is negative. IMAGING: Renal ultrasound was done which showed large volume ascites. CT scan of the abdomen and pelvis showed lobular surface and contour and enlarged left lobe consistent with cirrhosis. Diffuse pancreatic atrophy. Moderate amount of free intraperitoneal fluid. HOME MEDICATIONS: The patient's home medications included: - alprazolam 1 mg by mouth three times a day as needed for anxiety - Lovenox 80 mg subcutaneous daily - fluoxetine 40 mg nightly - lactulose 15 mL twice a day - losartan 100 mg daily - metoprolol 25 mg by mouth twice a day - Zofran as needed - Protonix 40 mg nightly CURRENT INPATIENT MEDICATIONS: The patient's medications include heparin drip. She was given magnesium sulfate 1 gram IV times one dose. She was getting normal saline at 80 mL an hour which I am stopping right now. I have started the patient on Sandostatin drip. She is also on Xanax 1 mg three times a day as needed for anxiety. She is on fluoxetine 40 mg daily, metoprolol 25 mg by mouth twice a day. I have started the patient on midodrine 5 mg every eight hours. He is on Zofran as needed, Protonix 40 mg by mouth nightly, and potassium chloride 40 mEq one dose was given today. ASSESSMENT: 58-year-old female with chronic kidney disease stage III, baseline creatinine of 1.2, history of alcoholic cirrhosis, hypertension and portal vein thrombosis currently on anticoagulation admitted at this time with acute renal failure. PLAN: 1. Acute renal failure superimposed on chronic kidney disease stage III. The patient urine electrolytes show very low sodium and very low chloride which point towards either volume depletion or hepatorenal syndrome. The patient was getting normal saline IV. However given her very low albumin level, it is going to make her ascites worse. I have started the patient on albumin 25% 25 grams IV every eight hours and because of soft blood pressures I have started the patient on midodrine 5 mg by mouth three times a day. Losartan has already been adequately held by the admitting physician and I also started the patient on octreotide infusion 50 mcg per hour. 2. Portal vein thrombosis. The patient is already on metoprolol for portal hypertension and because of thrombosis and renal failure Lovenox has been stopped and she has been switched to heparin infusion. 3. History of hypertension. Avoid use of MATTHEW inhibitors or angiotensin receptor blockers in this patient. Okay to continue metoprolol, blood pressure is actually soft, and I have started the patient on midodrine to help with acute renal failure. 4. Gastroesophageal reflux disease. Okay to continue current dose of Protonix. 5. Hypomagnesemia. The patient was already given magnesium 1 gram IV today morning. 6. Hyponatremia. The patient had hypovolemic hyponatremia and I see the sodium level is improving after IV fluid hydration and administration of IV albumin. Thank you for involving me in the care of this patient. I shall be happy to follow the patient along with you tomorrow morning.
[2019-07-02] MEDS: PANTOPRAZOLE 40MG TAB (PROTONIX) PO SCH (22:11)
[2019-07-02] MEDS: FLUoxetine 20 MG CAP PO SCH (22:11)
[2019-07-02] MEDS ORDERED: NS 250 ML IV ONE ×2 (23:00→23:15)
[2019-07-03] VITALS (16 sets, daily range): BP systolic 75–134; BP diastolic 40–76
[2019-07-03] MEDS ORDERED: MIDODRINE 5 MG TAB PO ONE
[2019-07-03] MEDS: ONDANSETRON 4MG/2ML VIAL (J2405) IV PRN ×3 (02:31→20:07)
[2019-07-03 05:59] LABS: BASO % 0.2 % (0.0-1.0); EOS # 0.1 10^3/uL (0.0-0.5); EOS % 0.9 % (0.0-3.0); HEMATOCRIT 24.4 % (36.0-47.0); HEMOGLOBIN 8.1 g/dl (12.0-15.5); LYMPH # 1.7 10^3/uL (1.5-5.0); MEAN CORPUSCULAR HEMOGLOBIN 33.8 pg (27.0-33.0); MEAN CORPUSCULAR HGB CONC 33.2 g/dl (32.0-36.5); MEAN CORPUSCULAR VOLUME 101.7 fl (80.0-96.0); MONO # 0.8 10^3/uL (0.0-0.8); MONO % 12.1 % (0.0-5.0); NEUTROPHILS % 60.2 % (36.0-66.0); PLATELET COUNT, AUTOMATED 133 10^3/uL (150-450); WHITE BLOOD COUNT 6.6 10^3/uL (4.0-10.0)
[2019-07-03 06:24] LABS: ALBUMIN 2.4 GM/DL (3.2-5.2); BILIRUBIN,TOTAL 1.5 MG/DL (0.2-1.0); CALCIUM LEVEL 7.9 MG/DL (8.5-10.1); CREATININE FOR GFR 4.34 MG/DL (0.55-1.30); GLOMERULAR FILTRATION RATE 11.2 (>51); MAGNESIUM LEVEL 1.6 MG/DL (1.8-2.4); POTASSIUM SERUM 3.6 MEQ/L (3.5-5.1); TOTAL PROTEIN 6.3 GM/DL (6.4-8.2)
[2019-07-03] MEDS: HEPARIN DRIP 25,000 UNITS in IV 1 EA IV SCH ×2 (06:25→13:46)
[2019-07-03] MEDS ORDERED: MAG SULF 1GM/100ML (MAG RUN) 1 GM in IV 1 EA IV ONE (07:30)
[2019-07-03] MEDS: MIDODRINE 5 MG TAB PO SCH ×3 (08:22→16:29)
[2019-07-03] MEDS: cefTRIAXone SOD 1 GM in D5W MINI-BAG PLUS 50 ML IV SCH (10:15)
--- NOTE | 2019-07-03 10:39 | IPNPDOC ---
Subjective Date Seen The patient was seen on 07/03/19. Subjective Chief Complaint/HPI Patient is comfortable offers no new complaints at the present time, in no apparent distress General: Denies: ROS Unobtainable, Chills, Night Sweats, Fatigue, Malaise, Normal Appetite, Other Symptoms Constitutional: Denies: Chills, Fever, Malaise, Night Sweats, Weakness, Fatigue, Weight Loss, Lethargy, Other Pulmonary: Denies: Dyspnea, Cough, Pleuritic Chest Pain, Other Symptoms Cardiovascular: Denies: Chest Pain, Palpitations, Orthopnea, Paroxysmal Noc. Dyspnea, Edema, Lt Headedness, Other Symptoms Gastrointestinal: Denies: Nausea, Vomiting, Abdominal Pain, Diarrhea, Constipation, Melena, Hematochezia, Other Symptoms Musculoskeletal: Denies: Neck Pain, Back Pain, Shoulder Pain, Arm Pain, Hand Pain, Leg Pain, Foot Pain, Joint Pain, Muscle Pain, Spasms, Other Symptoms Neurological: Denies: Weakness, Numbness, Incoordination, Change in speech, Confusion, Seizures, Other Symptoms Objective Physical Examination General Exam: Positive: Alert, Cooperative Chest Exam: Positive: Clear to auscultation, Normal air movement Heart Exam: Positive: Rate Normal, Normal S1, Normal S2 Abdomen Exam: Positive: Normal bowel sounds, Tenderness Extremity Exam: Positive: Normal pulses Skin Exam: Positive: Nl turgor and temperature Neuro Exam: Positive: Strength at 5/5 X4 ext, Cranial Nerves 3-12 NL Assessment /Plan Problems (1) Acute kidney injury superimposed on CKD Status: Acute Problem Text: Acute kidney injury on CK D, stage III, most likely secondary to hypovolemia or hepatorenal syndrome Nephrology consult appreciated IV fluids with normal saline DC'd to prevent further worsening of ascites Patient admitted and started on albumin 25% 25 g IV every 8 hours Should also has been started on midodrine 5 mg by mouth 3 times a day for hypotension No statin and metoprolol has been placed on hold Patient also has been started on octreotide 50 g per hour as well Renal function is slightly improved with the creatinine of 4.34 Further, as per nephrology recommendation Renal sonogram shows large ascites, but no hydronephrosis (2) Alcoholic cirrhosis of liver with ascites Status: Chronic Problem Text: CT of the abdomen and pelvis shows late stage cirrhosis and diffuse pancreatic atrophy Possible enteritis secondary to hypoproteinemia Scheduled for paracentesis for removal of ascites today Patient is already on abdomen supplement from nephrology Continue home meds (3) GERD (gastroesophageal reflux disease) Status: Chronic Problem Text: Continue PPI as per orders (4) Depression Status: Chronic (5) Hypertension Status: Chronic Problem Text: Continue home meds (6) Hypokalemia Status: Resolved Problem Text: Patient's potassium is 3.7 Will give one extra dose dose today to prevent hypokalemia in a.m. (7) Hypomagnesemia Status: Acute Problem Text: Magnesium supplement given Repeat level pending (8) Portal vein thrombosis Status: Chronic Problem Text: Patient was diagnosed for [place] thromboses on last admission Patient has been receiving Lovenox at home, but which is on hold secondary to a GI Continue heparin infusion for anticoagulation Beta blockers for portal hypertension are on hold secondary to hypotension Plan/VTE VTE Prophylaxis Ordered?: Yes VS, I&O, 24H, Fishbone Vital Signs/I&O Vital Signs Date Time Temp Pulse Resp B/P (MAP) Pulse Ox O2 Delivery O2 Flow Rate FiO2 07/03/19 08:41 98.2 88 20 92/51 98 Nasal Cannula 2.0 I&O- Last 24 Hours up to 6 AM 07/03/19 06:00 Intake Total 1443.5 ml Output Total 300 ml Balance 1143.5 ml Laboratory Data 24H LABS Laboratory Tests 2 07/02/19 10:45: Urine Color YELLOW, Urine Appearance CLOUDYH, Urine pH 5.0, Urine Specific [place] 1.014, Urine Protein NEGATIVE, Urine Glucose (Auto)(UA) NEGATIVE, Urine Ketones (Auto) NEGATIVE, Urine Blood NEGATIVE, Urine Nitrite NEGATIVE, Urine Bilirubin NEGATIVE, Urine Urobilinogen 0.2, Urine Leukocyte Esterase (Auto) NEGATIVE, Urine WBC (Auto) 10H, Urine RBC (Auto) 1, Urine Hyaline Casts (Auto) 13, Urine Bacteria (Auto) NEGATIVE, Urine Squamous Epithelial Cells 21, Urine Amorphous Sediment (Auto) MODERATEH, Urine Granular Casts (Auto) 8, Urine Sperm (Auto) , Urine Random Creatinine 248.0, Urine Random Sodium 14, Urine Random Potassium 26.1, Urine Random Chloride < 10 07/02/19 11:57: Activated Partial Thromboplast Time 48.4H 07/02/19 20:18: Activated Partial Thromboplast Time 229.0*H 07/02/19 22:21: Activated Partial Thromboplast Time 195.1*H 07/03/19 05:30: Immature Granulocyte % (Auto) 0.6, Neutrophils (%) (Auto) 60.2, Lymphocytes (%) (Auto) 26.0, Monocytes (%) (Auto) 12.1H, Eosinophils (%) (Auto) 0.9, Basophils (%) (Auto) 0.2, Neutrophils # (Auto) 4.0, Lymphocytes # (Auto) 1.7, Monocytes # (Auto) 0.8, Eosinophils # (Auto) 0.1, Basophils # (Auto) 0.0, Nucleated Red Blood Cells % (auto) 0.0, Activated Partial Thromboplast Time 96.0H, Anion Gap 16, Glomerular Filtration Rate 11.2L, Calcium Level 7.9L, Magnesium Level 1.6L, Total Bilirubin 1.5H, Aspartate Amino Transf (AST/SGOT) 35, Alanine Aminotransferase (ALT/SGPT) 23, Alkaline Phosphatase 73, Total Protein 6.3L, Albumin 2.4#L, Albumin/Globulin Ratio 0.62L CBC/BMP Laboratory Tests 07/03/19 05:30 Microbiology Microbiology 07/02/19 Stool Occult Blood (ERIC) - Final, Complete MAYRA NAVA MD Jul 03, 2019 10:39
[2019-07-03 12:22] LABS: HEMATOCRIT 24.7 % (36.0-47.0); HEMOGLOBIN 8.2 g/dl (12.0-15.5); MEAN CORPUSCULAR HEMOGLOBIN 33.5 pg (27.0-33.0); MEAN CORPUSCULAR HGB CONC 33.2 g/dl (32.0-36.5); MEAN CORPUSCULAR VOLUME 100.8 fl (80.0-96.0); PLATELET COUNT, AUTOMATED 137 10^3/uL (150-450); RED BLOOD COUNT 2.45 10^6/uL (4.00-5.40); WHITE BLOOD COUNT 7.4 10^3/uL (4.0-10.0)
[2019-07-03] MEDS: SODIUM BICARBONATE 325 MG TAB PO SCH ×2 (12:30→20:07)
[2019-07-03 12:44] LABS: INR 2.84; PROTHROMBIN TIME 29.7 SECONDS (11.8-14.0)
[2019-07-03 12:45] LABS: PARTIAL THROMBOPLASTIN TIME 74.4 SECONDS (25.0-38.4)
--- NOTE | 2019-07-03 13:02 | IPN ---
DATE OF SERVICE: 07/03/2019 SUBJECTIVE: The patient was seen and examined at the bedside today morning. Last 24-hour events were noted. The patient was hypotensive overnight. She needed IV fluid boluses. She was started on albumin infusions yesterday. There is no significant improvement in the renal function. Patient is still oliguric. She does not have and Sher catheter so urine output is not accurately measured. Creatinine has still been fluctuating at about 4.3. She continues to be on heparin infusion at this time. OBJECTIVE: Vital signs: Temperature is 98.2 degrees Fahrenheit, blood pressure is 119/56, pulse is 71, respiratory of 18, saturating 98% on nasal cannula at 1 liter. Intake and output: urine output recorded is 525 mL yesterday. There is no urine output recorded today. However, I was told by the nursing staff that after placement of Sher catheter today she had 350 mL of urine output so far. Weight in the bed scale is 57.5 mL. PHYSICAL EXAMINATION: General: The patient is awake, alert, oriented times three, laying in bed in no apparent distress. Head and neck exam: Extraocular muscles intact. Pupils equally round and reactive to light. Mucous membranes are moist. Neck is supple. There is no jugular venous distention (JVD). Cardiovascular: S1, S2, regular rate. No edema of the bilateral lower extremities. Respiratory: Chest is clear to auscultation bilaterally. Bilateral equal air entry. No rales or rhonchi. Abdomen: Soft, positive bowel sounds. Nontender. Moderate amount of ascites is noted. Musculoskeletal: No clubbing or cyanosis. Pulses are 2+. INTERIOR DESIGN COORDINATOR: No focal deficit. Mild tremors of the hands were noted. There is no asterixis. LAB REVIEW: CBC showed a WBC of 6.6, hemoglobin 8.1, platelets are 133, PTT is 96 today on heparin drip. BMP showed sodium 141, potassium 3.6, chloride 113, bicarb is 12, BUN 47, creatinine is 4.3, it was 4.4 yesterday, magnesium is 1.6, total bilirubin 1.5, AST 35, ALT is 23, alk phos is 73, albumin is 2.4 now. CURRENT INPATIENT MEDICATIONS: The patient's medications were all reviewed by myself. I started empirically ceftriaxone 1 gram IV daily. She continues to be on heparin drip. She is also going to get a dose of mag sulfate 1 gram IV. She was given two normal saline boluses last night. She has been started on octreotide infusion. Lopressor has been stopped now. Midodrine dose was increased to 10 mg by mouth three times a day. No other change in the medications today as compared with yesterday. ASSESSMENT AND PLAN: 1. Acute renal failure superimposed on chronic kidney disease stage 3. The patient continues to be an albumin and octreotide infusion. I have increased the midodrine 10 mg three times a day. The patient is being empirically treated as volume depletion worsens hepatorenal syndrome. I am going to place the Sher catheter today for accurate measurement of urine output. Metoprolol has been stopped. 2. Hypotension. The patient's metoprolol was also on hold. Losartan was held on admission. Midodrine dose has been increased to 10 mg three times a day. Blood pressures are optimal. If she remains hypotensive, she might need to be transferred to intensive care unit (ICU) for initiation of Levophed. Ceftriaxone has been empirically started for any possibility of spontaneous bacterial peritonitis (SBP). 3. Portal vein thrombosis. The patient continues to be on heparin, PTT is therapeutic at this time. 4. Hypomagnesemia. The patient is getting IV mag sulfate.
[2019-07-03] MEDS: OCTREOTIDE ACETATE 1,200 MCG in NS 238.8 ML IV SCH (13:41)
[2019-07-03] MEDS: PANTOPRAZOLE 40MG TAB (PROTONIX) PO SCH (20:07)
[2019-07-03] MEDS: FLUoxetine 20 MG CAP PO SCH (20:07)
[2019-07-03] MEDS: PROMETHAZINE INJ 25 MG/ML VIAL (J2550) IV PRN (21:14)
[2019-07-04] VITALS (18 sets, daily range): BP systolic 100–128; BP diastolic 52–75
[2019-07-04 05:54] LABS: BASO % 0.2 % (0.0-1.0); EOS # 0.1 10^3/uL (0.0-0.5); EOS % 1.6 % (0.0-3.0); HEMATOCRIT 24.3 % (36.0-47.0); LYMPH # 2.1 10^3/uL (1.5-5.0); LYMPH % 25.9 % (24.0-44.0); MEAN CORPUSCULAR HEMOGLOBIN 33.5 pg (27.0-33.0); MEAN CORPUSCULAR HGB CONC 32.9 g/dl (32.0-36.5); MEAN CORPUSCULAR VOLUME 101.7 fl (80.0-96.0); MONO # 0.7 10^3/uL (0.0-0.8); MONO % 8.4 % (0.0-5.0); NEUTROPHILS # 5.1 10^3/uL (1.5-8.5); NEUTROPHILS % 63.3 % (36.0-66.0); PLATELET COUNT, AUTOMATED 128 10^3/uL (150-450); RED BLOOD COUNT 2.39 10^6/uL (4.00-5.40)
[2019-07-04 06:28] LABS: BILIRUBIN,TOTAL 1.2 MG/DL (0.2-1.0); CALCIUM LEVEL 8.3 MG/DL (8.5-10.1); CREATININE FOR GFR 4.48 MG/DL (0.55-1.30); GLOMERULAR FILTRATION RATE 10.8 (>51); PHOSPHORUS LEVEL 4.2 MG/DL (2.5-4.9); POTASSIUM SERUM 3.5 MEQ/L (3.5-5.1)
[2019-07-04 06:29] LABS: MAGNESIUM LEVEL 1.9 MG/DL (1.8-2.4)
[2019-07-04] MEDS: HEPARIN SOD (PORCINE) 5000 UNITS/ML VIAL IV PRN (07:08)
[2019-07-04] MEDS: PROMETHAZINE INJ 25 MG/ML VIAL (J2550) IV PRN ×2 (07:54→16:05)
[2019-07-04] MEDS: MIDODRINE 5 MG TAB PO SCH ×3 (08:24→16:06)
[2019-07-04] MEDS: SODIUM BICARBONATE 325 MG TAB PO SCH ×2 (08:25→20:01)
[2019-07-04] MEDS: cefTRIAXone SOD 1 GM in D5W MINI-BAG PLUS 50 ML IV SCH (08:32)
--- NOTE | 2019-07-04 12:29 | REP ---
Clinical: Line placement. Comparison: 06/30/2019 Findings: Right IJ line with tip in the SVC/right atrium. Mediastinum and cardiac silhouette are normal. Diffuse increased alveolar and interstitial opacities suggest bronchitis and multifocal pneumonia representing a new finding as compared to prior examination. No effusion. No pneumothorax. Impression: 1. Right IJ line in satisfactory position. 2. Diffuse increased interstitial and alveolar markings suggesting bronchitis/multifocal pneumonia. Less likely differential diagnosis includes interstitial edema. Electronically Signed by Braxton Hair MD 07/04/2019 12:21 P
[2019-07-04] MEDS ORDERED: SLF 3 ML SYR IV PRN (12:45)
[2019-07-04] MEDS ORDERED: SODIUM CHLORIDE 0.9% INJ 10 ML SYR IV PRN (12:45)
[2019-07-04] MEDS ORDERED: SODIUM BICARBONATE 75 MEQ in NS 0.45% 1,000 ML IV SCH (13:00)
[2019-07-04] MEDS: OCTREOTIDE ACETATE 1,200 MCG in NS 238.8 ML IV SCH (13:38)
[2019-07-04] MEDS: SODIUM CHLORIDE 0.9% INJ 10 ML SYR IV SCH ×2 (14:00→21:26)
[2019-07-04] MEDS: SLF 3 ML SYR IV SCH ×2 (14:00→21:25)
[2019-07-04 18:32] LABS: CHLORIDE,RANDOM URINE < 10 MEQ/L; SODIUM,RANDOM URINE 12 MEQ/L
--- NOTE | 2019-07-04 18:42 | IPN ---
DATE: 07/04/2019 SUBJECTIVE: The patient was seen and examined at the bedside today morning. She is afebrile, hemodynamically stable. Blood pressures are better. She continues to be on albumin infusions, octreotide infusion, and heparin drip. She is nonoliguric at this time; however, there is no significant improvement in the renal function. Creatinine has been fluctuating between 4.3-4.4. She still has metabolic acidosis. The patient does report persistent nausea, and she is not having any loose stools anymore. OBJECTIVE: Vital signs: Temperature is 97.4 degrees Fahrenheit, blood pressure 102/66, pulse is 69, respiratory of 21, saturating 96% on room air. Intake and output: Urine output recorded is 550 mL yesterday, 100 mL so far today since overnight. Weight in the bed scale was 57.5 kg yesterday. PHYSICAL EXAMINATION: General: The patient is awake, alert, oriented times three, lying in bed in no apparent distress. HEAD AND NECK : Extraocular muscles intact. Pupils equally round and reactive to light. Mucous membranes are moist. Neck is supple. There is no jugular venous distention (JVD). CARDIOVASCULAR: S1, S2, regular rate. No edema of the bilateral lower extremities. RESPIRATORY: Chest is clear to auscultation bilaterally. Bilateral equal air entry. No rales or rhonchi. ABDOMEN: Soft. Positive bowel sounds. Moderate amount of ascites. No tenderness was noted. MUSCULOSKELETAL: No clubbing or cyanosis. Pulses are 2+. CENTRAL NERVOUS SYSTEM: No focal deficit. No asterixis was noted.. LABORATORY REVIEW: CBC showed a WBC of 8, hemoglobin is 8, platelets are 128. PTT today morning was 50.2. BMP today morning showed sodium 142, potassium 3.5, chloride 115, bicarbonate 13, BUN 44, creatinine is 4.4, calcium 8.3. Total bilirubin is 1.2, AST 38, ALT 24, alkaline phosphatase 67, albumin is 3 today. CURRENT INPATIENT MEDICATIONS. The patient's medications were all reviewed by me. She continues to be on IV Rocephin. She is on heparin drip. She continues on octreotide infusion. I have started the patient sodium bicarbonate 75 mEq with half-normal saline at 75 mL an hour. She is on midodrine 10 mg by mouth three times a day, and she is also on sodium bicarbonate 600 mg by mouth twice a day. ASSESSMENT: 1. Acute renal failure superimposed on chronic kidney disease, stage III. The patient came in with dehydration, nausea, vomiting, and diarrhea. She also has a low albumin and known alcoholic cirrhosis. She is being treated as dehydration versus hepatorenal syndrome. Continue the albumin, midodrine, and octreotide, and given persistent metabolic acidosis and no improvement in the renal function for the last 2 days, I am restarting the fluid with some bicarbonate. There is no urgent need of hemodialysis. The patient is still nonoliguric at this time. 2. Hypotension. The patient continues to be on midodrine. Blood pressures have improved now. Continue the empiric IV antibiotics. 3. Portal vein thrombosis. Continue the heparin drip with titration according to PTT. 4. Metabolic acidosis. The patient is on sodium bicarbonate orally. I have also started the IV bicarbonate-containing fluids. 5. Alcoholic cirrhosis, decompensated with ascites and acute renal failure. The patient's last drink was 2 months ago. Ascites is not that tnese. We can always wait for the ascites tap to be done whenever interventional radiology (IR) open. Continue the management of acute renal failure as mentioned above.
[2019-07-04] MEDS: FLUoxetine 20 MG CAP PO SCH (20:01)
[2019-07-04] MEDS: PANTOPRAZOLE 40MG TAB (PROTONIX) PO SCH (20:01)
--- NOTE | 2019-07-04 23:38 | IPNPDOC ---
Date Seen The patient was seen on 07/04/19. Progress Note HISTORY OF PRESENT ILLNESS: 58-year-old female with past medical history of cirrhosis, hypertension, GERD, and portal vein thrombosis (on Lovenox), presents from PCPs office for lab abnormalities. Patient was found to have a creatinine of 5.7 today, for which she was sent to the emergency department. Patient reports decreased oral intake over the past few weeks, was discharged from the hospital couple weeks ago after being admitted for portal vein thrombosis. She also reports decreased urine output for the past 2-3 days, has continued taking her lactulose with multiple bowel movements every day. She reportedly had 20 bowel movements yesterday. She has no other complaints at this time, denies shortness of breath, chest pain, nausea, vomiting, abdominal pain or diarrhea. 07/04/19 No acute events, now has Sher placed, minimal change in creatinine, patient comfortable but reports nausea. She is scheduled to undergo paracentesis on . She denies any SOB, CP, abdominal pain, diarrhea or constipation. 10 point review of system is negative except for above PHYSICAL EXAMINATION: VITAL SIGNS: Please see below. GENERAL: No distress HEENT: Normocephalic, atraumatic, moist mucous membranes NECK: Supple CARDIOVASCULAR EXAMINATION: S1, S2, no murmurs RESPIRATORY EXAMINATION: Scattered rhonchi, no wheezing ABDOMINAL EXAMINATION: Soft, nontender, mildly distended, positive bowel sounds EXTREMITIES: Range of motion intact SKIN: No rash NEUROLOGICAL EXAMINATION: Alert and oriented 3, no focal deficits PSYCHIATRIC EXAMINATION: Calm and cooperative LABORATORY DATA: See below. MICROBIOLOGY: Please see below. ASSESSMENT: 58-year-old female with past medical history of alcoholic cirrhosis, portal vein thrombosis on anticoagulation, hypertension and GERD admitted for ANTHONY on CKD. PLAN: 1. Acute kidney injury on CKD III. volume depletion vs hepatorenal syndrome, physical examination more consistent with volume depletion, holding Lactulose & losartan, minimal change in creatinine with current treatment, IV fluids (Sodium Bicarb 75 Meq + 0.45 NS) at 75 ml started. 2. Portal vein thrombosis. On Lovenox at home, will hold given acute kidney injury, continue heparin gtt, pTT therapeutic. 3. Liver Cirrhosis - lactulose being held, currently on Midodrine, Octreotide & IV albumin for hepatorenal syndrome. Scheduled for Paracentesis on , on ceftriaxone for SBP prophylaxis. Due to multiple continue IV infusions & poor IV access, a RIJ TLC was placed today without any complications. 3. Hypertension. Hold losartan, continue metoprolol 4. GERD. Continue Protonix DVT prophylaxis: Heparin gtt. GI prophylaxis: Home PPI VS, I&O, 24H, Fishbone Vital Signs/I&O Vital Signs Date Time Temp Pulse Resp B/P (MAP) Pulse Ox O2 Delivery O2 Flow Rate FiO2 07/04/19 21:27 97.8 65 16 105/57 93 Room Air 07/03/19 12:00 1.0 I&O- Last 24 Hours up to 6 AM 07/04/19 06:00 Intake Total 1305.0 ml Output Total 650 ml Balance 655.0 ml Laboratory Data 24H LABS Laboratory Tests 2 07/04/19 05:27: Immature Granulocyte % (Auto) 0.6, Neutrophils (%) (Auto) 63.3, Lymphocytes (%) (Auto) 25.9, Monocytes (%) (Auto) 8.4H, Eosinophils (%) (Auto) 1.6, Basophils (%) (Auto) 0.2, Neutrophils # (Auto) 5.1, Lymphocytes # (Auto) 2.1, Monocytes # (Auto) 0.7, Eosinophils # (Auto) 0.1, Basophils # (Auto) 0.0, Nucleated Red Blood Cells % (auto) 0.0, Anion Gap 14, Glomerular Filtration Rate 10.8L, Calcium Level 8.3L, Phosphorus Level 4.2, Magnesium Level 1.9, Total Bilirubin 1.2H, Aspartate Amino Transf (AST/SGOT) 30, Alanine Aminotransferase (ALT/SGPT) 24, Alkaline Phosphatase 67, Total Protein 7.0, Albumin 3.0#L, Albumin/Globulin Ratio 0.75L 07/04/19 06:17: Activated Partial Thromboplast Time 50.2H, Lactic Acid Level 1.2 07/04/19 13:05: Activated Partial Thromboplast Time 90.9H 07/04/19 14:50: Urine Random Creatinine 144.0, Urine Random Sodium 12, Urine Random Chloride < 10 07/04/19 19:24: Activated Partial Thromboplast Time 72.5H CBC/BMP Laboratory Tests 07/04/19 05:27 Microbiology Microbiology 07/04/19 Stool Occult Blood (ERIC) - Final, Complete 07/02/19 Stool Occult Blood (ERIC) - Final, Complete MANNY ATKINS MD Jul 04, 2019 23:38
--- NOTE | 2019-07-04 23:44 | IPNPDOC ---
Date Seen The patient was seen on 07/04/19. Progress Note Central line placement procedure note INDICATION: Poor IV access, multiple continuous infusions PROCEDURE MACHINE I COREMAKER: Dr. Atkins Consent was obtained from patient prior to the procedure. Indications, risks, and benefits were explained at length. PROCEDURE SUMMARY: A time out was performed. My hands were washed immediately prior to the procedure. I wore a surgical cap, mask with protective eyewear, full gown and sterile gloves throughout the procedure. The patient was placed in Trendelenburg position. right neck region was prepped using chlorhexidine scrub and draped in sterile fashion using a full drape and sterile probe cover employed. The medial and lateral heads of the sternocleidomastoid muscle were identified as was the carotid pulse. The Internal Jugular vein was identified using the ultrasound. Anesthesia was achieved over the vein using 1% lidocaine. Using real-time out of plane guidance, the introducer needle was inserted into the Internal Jugular vein under direct ultrasound visualization. Venous blood was withdrawn. The syringe was removed and a guidewire was advanced into the introducer needle. The guidewire was visualized in the Internal Jugular Vein by ultrasound. A small incision was made at the skin surface with a scalpel and the introducer needle was exchanged for a dilator over the guidewire. After appropriate dilation was obtained, the dilator was exchanged over the wire for a 20 cm central venous catheter. The wire was removed and the catheter was sutured in place at 17 cm. A sterile sorbaview shield was placed over the catheter at the insertion site. The patient tolerated the procedure without any hemodynamic compromise. At time of procedure completion, all ports aspirated and flushed properly. Post-procedure chest x-ray shows proper placement without an obvious pneumothorax. Estimated blood loss is <5 cc. VS, I&O, 24H, Fishbone Vital Signs/I&O Vital Signs Date Time Temp Pulse Resp B/P (MAP) Pulse Ox O2 Delivery O2 Flow Rate FiO2 07/04/19 21:27 97.8 65 16 105/57 93 Room Air 07/03/19 12:00 1.0 I&O- Last 24 Hours up to 6 AM 07/04/19 06:00 Intake Total 1305.0 ml Output Total 650 ml Balance 655.0 ml Laboratory Data 24H LABS Laboratory Tests 2 07/04/19 05:27: Immature Granulocyte % (Auto) 0.6, Neutrophils (%) (Auto) 63.3, Lymphocytes (%) (Auto) 25.9, Monocytes (%) (Auto) 8.4H, Eosinophils (%) (Auto) 1.6, Basophils (%) (Auto) 0.2, Neutrophils # (Auto) 5.1, Lymphocytes # (Auto) 2.1, Monocytes # (Auto) 0.7, Eosinophils # (Auto) 0.1, Basophils # (Auto) 0.0, Nucleated Red Blood Cells % (auto) 0.0, Anion Gap 14, Glomerular Filtration Rate 10.8L, Calcium Level 8.3L, Phosphorus Level 4.2, Magnesium Level 1.9, Total Bilirubin 1.2H, Aspartate Amino Transf (AST/SGOT) 30, Alanine Aminotransferase (ALT/SGPT) 24, Alkaline Phosphatase 67, Total Protein 7.0, Albumin 3.0#L, Albumin/Globulin Ratio 0.75L 07/04/19 06:17: Activated Partial Thromboplast Time 50.2H, Lactic Acid Level 1.2 07/04/19 13:05: Activated Partial Thromboplast Time 90.9H 07/04/19 14:50: Urine Random Creatinine 144.0, Urine Random Sodium 12, Urine Random Chloride < 10 07/04/19 19:24: Activated Partial Thromboplast Time 72.5H CBC/BMP Laboratory Tests 07/04/19 05:27 Microbiology Microbiology 07/04/19 Stool Occult Blood (ERIC) - Final, Complete 07/02/19 Stool Occult Blood (ERIC) - Final, Complete MANNY ATKINS MD Jul 04, 2019 23:44
[2019-07-05] VITALS (17 sets, daily range): BP systolic 104–146; BP diastolic 52–77
[2019-07-05] MEDS: SODIUM CHLORIDE 0.9% INJ 10 ML SYR IV SCH ×3 (01:01→22:14)
[2019-07-05] MEDS: HEPARIN DRIP 25,000 UNITS in IV 1 EA IV SCH (04:29)
[2019-07-05] MEDS: SLF 3 ML SYR IV SCH ×2 (05:42→12:58)
[2019-07-05 06:13] LABS: HEMATOCRIT 24.6 % (36.0-47.0); HEMOGLOBIN 7.9 g/dl (12.0-15.5); MEAN CORPUSCULAR HEMOGLOBIN 33.2 pg (27.0-33.0); MEAN CORPUSCULAR HGB CONC 32.1 g/dl (32.0-36.5); MEAN CORPUSCULAR VOLUME 103.4 fl (80.0-96.0); PLATELET COUNT, AUTOMATED 106 10^3/uL (150-450); RED BLOOD COUNT 2.38 10^6/uL (4.00-5.40); WHITE BLOOD COUNT 10.3 10^3/uL (4.0-10.0)
[2019-07-05 06:37] LABS: ALBUMIN 3.2 GM/DL (3.2-5.2); BILIRUBIN,TOTAL 1.5 MG/DL (0.2-1.0); CALCIUM LEVEL 8.1 MG/DL (8.5-10.1); CREATININE FOR GFR 4.27 MG/DL (0.55-1.30); GLOMERULAR FILTRATION RATE 11.4 (>51); MAGNESIUM LEVEL 1.5 MG/DL (1.8-2.4); PHOSPHORUS LEVEL 3.2 MG/DL (2.5-4.9); POTASSIUM SERUM 3.1 MEQ/L (3.5-5.1); TOTAL PROTEIN 6.6 GM/DL (6.4-8.2)
[2019-07-05] MEDS: MIDODRINE 5 MG TAB PO SCH ×3 (08:05→16:51)
[2019-07-05] MEDS: MAG SULF 1GM/100ML (MAG RUN) 1 GM in IV 1 EA IV SCH ×3 (08:53→11:42)
[2019-07-05] MEDS ORDERED: POTASSIUM CHLORIDE 10 MEQ SR TABLET PO ONE (09:00)
[2019-07-05] MEDS: PROMETHAZINE INJ 25 MG/ML VIAL (J2550) IV PRN (10:15)
[2019-07-05] MEDS: cefTRIAXone SOD 1 GM in D5W MINI-BAG PLUS 50 ML IV SCH (10:16)
[2019-07-05] MEDS: SODIUM BICARBONATE 325 MG TAB PO SCH ×2 (10:36→22:15)
[2019-07-05] MEDS: ONDANSETRON 4MG/2ML VIAL (J2405) IV PRN ×2 (12:45→17:18)
[2019-07-05] MEDS: OCTREOTIDE ACETATE 1,200 MCG in NS 238.8 ML IV SCH (13:31)
[2019-07-05] MEDS: SODIUM BICARBONATE 75 MEQ in NS 0.45% 1,000 ML IV SCH (16:30)
--- NOTE | 2019-07-05 19:23 | IPN ---
DATE: 07/05/2019 SUBJECTIVE: The patient was seen and examined at the bedside today morning. She was given some bicarbonate-containing IV fluid. There is slight improvement in the renal function today as compared with yesterday. Creatinine is down from 4.4 to 4.2 today and bicarbonate level is improving. The patient continues to get albumin infusions and she is also on octreotide. She denies any active complaints. She is slightly sleepy today as compared with yesterday. OBJECTIVE: VITAL SIGNS: Temperature is 97 degrees Fahrenheit, blood pressure 122/56, pulse is 72, respiratory rate of 18, saturating 91% on nasal cannula at one liter. INTAKE AND OUTPUT: Urine output recorded is 275 mL since overnight. Weight in the bed scale is 59.8 kg. PHYSICAL EXAMINATION: GENERAL: The patient is awake, alert, oriented times two, laying in bed, in no apparent distress. HEAD AND NECK: Extraocular muscles intact. Pupils equally round and reactive to light. Mucous membranes are moist. Neck is supple. There is no jugular venous distention (JVD). CARDIOVASCULAR: S1, S2, regular rate. No edema of the bilateral lower extremities. RESPIRATORY: Chest is clear to auscultation bilaterally. Bilateral equal air entry. No rales or rhonchi. ABDOMEN: Soft, positive bowel sounds. Moderate amount of ascites was noted. GENITOURINARY: She has an indwelling Sher catheter. MUSCULOSKELETAL: No clubbing or cyanosis. Pulses are 2+. 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 She is oriented times two today. LABORATORY REVIEW: CBC showed a WBC of 10.3, hemoglobin is 7.9, platelets are 106. Urine random sodium done yesterday was 12, chloride was less than 10. Random creatinine was 144. BMP showed sodium 140, potassium 4.1, chloride 113, bicarbonate 17, BUN 43, creatinine is 4.2, it was 4.4 yesterday, glucose 143, calcium is 8.1, magnesium 1.5, total bilirubin is 1.5. CURRENT INPATIENT MEDICATIONS: The patient's medications were all reviewed by me. She continues to be on IV ceftriaxone. She got one liter of bicarbonate-containing fluid that helped improve the creatinine and bicarbonate a little bit. I am going to start the patient on sodium bicarbonate drip at 75 mL an hour for a total of three liters. She continues to be on Sandostatin drip as well. She continues to be on IV heparin. Continue the midodrine 10 mg by mouth three times a day. The patient was given a dose of potassium chloride 40 mEq times one dose. ASSESSMENT AND PLAN: 1. Acute renal failure superimposed on chronic kidney disease, stage III. The patient was given gentle bicarbonate-containing fluids yesterday which helped improve the creatinine a little. I have started the patient on 75 mL an hour of bicarbonate-containing fluid. Urine electrolytes are consistent with volume depletion or hepatorenal syndrome. Continue current dose of albumin, midodrine and octreotide as well. The patient has just one more dose of albumin pending. Serum albumin levels are within the acceptable range now. 2. Hypokalemia. It is secondary to improvement in the metabolic acidosis. The patient was already given potassium chloride 40 mEq today morning. 3. Metabolic acidosis. Continue bicarbonate-containing IV fluids and oral sodium bicarbonate as well. 4. Hypotension. Continue midodrine 10 mg by mouth three times a day. 5. Portal vein thrombosis. Continue the heparin drip. 6. Alcoholic cirrhosis with ascites. The patient has moderate amount of ascites which can be drained anytime this week. No evidence of abdominal compartment syndrome.
--- NOTE | 2019-07-05 21:07 | IPNPDOC ---
Date Seen The patient was seen on 07/05/19. Progress Note HISTORY OF PRESENT ILLNESS: 58-year-old female with past medical history of cirrhosis, hypertension, GERD, and portal vein thrombosis (on Lovenox), presents from PCPs office for lab abnormalities. Patient was found to have a creatinine of 5.7 today, for which she was sent to the emergency department. Patient reports decreased oral intake over the past few weeks, was discharged from the hospital couple weeks ago after being admitted for portal vein thrombosis. She also reports decreased urine output for the past 2-3 days, has continued taking her lactulose with multiple bowel movements every day. She reportedly had 20 bowel movements yesterday. She has no other complaints at this time, denies shortness of breath, chest pain, nausea, vomiting, abdominal pain or diarrhea. 07/04/19 No acute events, now has Sher placed, minimal change in creatinine, patient comfortable but reports nausea. She is scheduled to undergo paracentesis on . She denies any SOB, CP, abdominal pain, diarrhea or constipation. 07/05/19 Patient comfortable in bed, without any complaints, appears mildly tachypneic. Patient denies any shortness of breath, chest pain, nausea, vomiting, abdominal pain or diarrhea at this time. 10 point review of system is negative except for above PHYSICAL EXAMINATION: VITAL SIGNS: Please see below. GENERAL: No distress HEENT: Normocephalic, atraumatic, moist mucous membranes NECK: Right IJ triple-lumen catheter CARDIOVASCULAR EXAMINATION: S1, S2, no murmurs RESPIRATORY EXAMINATION: Scattered rhonchi, no wheezing ABDOMINAL EXAMINATION: Soft, nontender, mildly distended, positive bowel sounds EXTREMITIES: Range of motion intact SKIN: No rash NEUROLOGICAL EXAMINATION: Alert and oriented 3, no focal deficits PSYCHIATRIC EXAMINATION: Calm and cooperative LABORATORY DATA: See below. MICROBIOLOGY: Please see below. ASSESSMENT: 58-year-old female with past medical history of alcoholic cirrhosis, portal vein thrombosis on anticoagulation, hypertension and GERD admitted for ANTHONY on CKD. PLAN: 1. Acute kidney injury on CKD III. volume depletion vs hepatorenal syndrome, holding Lactulose & losartan, slight improvement in creatinine from yesterday, continue IV fluids (Sodium Bicarb 75 Meq + 0.45 NS) at 75 ml per hour, midodrine 10 mg 3 times a day, received last dose of IV albumin today, remains on octreotide drip. 2. Possible GI bleed. Significant drop in H&H since admission, most of which is likely hemodilution from significant IV albumin infusion and IV fluids but patient's stool occult blood has been positive for the past 2 days which was negative at the time of admission. Upon further review of patient's imaging from previous admission when she was diagnosed with portal vein thrombosis, she has partial occlusion of the portal vein, possibly chronic portal vein thrombosis in the setting of cirrhosis. Given patient's current presentation, the risks of GI bleed at this time outweigh the risks of worsening portal vein thrombosis; will hold heparin drip for now. There is no GI service available at this time. 2. Portal vein thrombosis. On Lovenox at home, will hold given acute kidney injury, heparin drip held due to concern of GI bleed. 3. Liver Cirrhosis - lactulose being held, currently on Midodrine, Octreotide & IV albumin for hepatorenal syndrome. Scheduled for Paracentesis on , on ceftriaxone for SBP prophylaxis. 3. Hypertension. Currently hypotensive requiring midodrine, holding losartan and metoprolol. 4. GERD. Continue Protonix DVT prophylaxis: TEDs GI prophylaxis: Home PPI VS, I&O, 24H, Fishbone Vital Signs/I&O Vital Signs Date Time Temp Pulse Resp B/P (MAP) Pulse Ox O2 Delivery O2 Flow Rate FiO2 07/05/19 20:09 98.3 78 17 128/59 91 Nasal Cannula 2.0 I&O- Last 24 Hours up to 6 AM 07/05/19 06:00 Intake Total 2411.0 ml Output Total 425 ml Balance 1986.0 ml Laboratory Data 24H LABS Laboratory Tests 2 07/05/19 05:13: Nucleated Red Blood Cells % (auto) 0.0, Activated Partial Thromboplast Time 81.6H, Anion Gap 10, Glomerular Filtration Rate 11.4L, Calcium Level 8.1L, Phosphorus Level 3.2#, Magnesium Level 1.5L, Total Bilirubin 1.5H, Aspartate Amino Transf (AST/SGOT) 27, Alanine Aminotransferase (ALT/SGPT) 17, Alkaline Phosphatase 68, Total Protein 6.6, Albumin 3.2, Albumin/Globulin Ratio 0.94L CBC/BMP Laboratory Tests 07/05/19 05:13 Microbiology Microbiology 07/05/19 Stool Occult Blood (ERIC) - Final, Complete 07/04/19 Stool Occult Blood (ERIC) - Final, Complete 07/02/19 Stool Occult Blood (ERIC) - Final, Complete MANNY ATKINS MD Jul 05, 2019 21:07
[2019-07-05] MEDS: FLUoxetine 20 MG CAP PO SCH (22:15)
[2019-07-05] MEDS: PANTOPRAZOLE 40MG TAB (PROTONIX) PO SCH (22:15)
[2019-07-06] VITALS: BP 122/66
[2019-07-06 04:00] VITALS: BP 129/61
[2019-07-06 06:14] LABS: HEMATOCRIT 29.2 % (36.0-47.0); MEAN CORPUSCULAR HEMOGLOBIN 33.2 pg (27.0-33.0); MEAN CORPUSCULAR HGB CONC 33.9 g/dl (32.0-36.5); PLATELET COUNT, AUTOMATED 104 10^3/uL (150-450); RED BLOOD COUNT 2.98 10^6/uL (4.00-5.40); WHITE BLOOD COUNT 14.2 10^3/uL (4.0-10.0)
[2019-07-06 06:20] LABS: HEMOGLOBIN 9.9 g/dl (12.0-15.5)
[2019-07-06] MEDS: SODIUM CHLORIDE 0.9% INJ 10 ML SYR IV SCH ×3 (06:32→21:35)
[2019-07-06] MEDS: SODIUM BICARBONATE 75 MEQ in NS 0.45% 1,000 ML IV SCH (06:35)
[2019-07-06 06:39] LABS: CREATININE FOR GFR 3.75 MG/DL (0.55-1.30); GLOMERULAR FILTRATION RATE 13.2 (>51); MAGNESIUM LEVEL 2.1 MG/DL (1.8-2.4); PHOSPHORUS LEVEL 2.4 MG/DL (2.5-4.9); POTASSIUM SERUM 3.2 MEQ/L (3.5-5.1)
[2019-07-06 08:00] VITALS: BP 136/63
[2019-07-06 08:43] LABS: INR 2.39; PROTHROMBIN TIME 25.9 SECONDS (11.8-14.0)
[2019-07-06] MEDS ORDERED: POTASSIUM CHLORIDE 10 MEQ SR TABLET PO ONE (09:00)
[2019-07-06] MEDS: SODIUM BICARBONATE 325 MG TAB PO SCH ×2 (09:05→21:34)
[2019-07-06] MEDS: cefTRIAXone SOD 1 GM in D5W MINI-BAG PLUS 50 ML IV SCH (09:05)
[2019-07-06] MEDS: MIDODRINE 5 MG TAB PO SCH ×3 (09:05→16:36)
[2019-07-06] MEDS ORDERED: ALPRAZolam 0.5 MG TAB PO PRN (10:30)
[2019-07-06] MEDS ORDERED: LACTULOSE 20 GM/30 ML SYRUP UD PO PRN (11:15)
[2019-07-06] MEDS ORDERED: LACTULOSE 20 GM/30 ML SYRUP UD PO ONE (11:15)
[2019-07-06 12:00] VITALS: BP 118/64
[2019-07-06] MEDS: OCTREOTIDE ACETATE 1,200 MCG in NS 238.8 ML IV SCH (12:46)
--- NOTE | 2019-07-06 13:05 | IPN ---
DATE OF SERVICE: 07/06/2019 SUBJECTIVE: The patient was seen and examined at the bedside today morning. She continues to be on IV fluid hydration. She does report that her shortness of breath is slightly worse today as compared with yesterday. She is on 3 liters by nasal cannula. However, with the IV fluid hydration her renal function is improving. Her creatinine has come down from 4.2 to 3.7 today and urine output is also improving. OBJECTIVE: Vital Signs: Temperature is 99.5 degrees Fahrenheit, blood pressure 136/63, pulse 94, respiratory rate of 21, saturating 92% on nasal cannula at 3 liters. Intake and Output: Urine output recorded as 700 mL yesterday and 125 mL so far today since overnight. Weight in the bed scale is 61.2 kg. PHYSICAL EXAMINATION: General: The patient is awake, alert, oriented times three, laying in bed, in no apparent distress. Head and Neck Exam: Extraocular muscles intact. Pupils equally round and reactive to light. Mucous membranes are dry. Neck is supple. There is very mild jugular venous distention (JVD). She is wearing a nasal cannula and is at 3 liters. Cardiovascular: S1, S2. No edema of the bilateral lower extremities. Respiratory: Chest is clear to auscultation bilaterally anteriorly. There is very mild crepitations on deep inspiration at the bases. Abdomen: Soft. There is a moderate amount of ascites noted. Genitourinary: She has an indwelling Sher catheter and there is urine in the Sher catheter noted. Musculoskeletal: No clubbing or cyanosis. Pulses are 2+. 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 She moves extremities and she follows commands. LAB REVIEW: CBC showed a WBC of 14.2, hemoglobin 9.9, platelets of 104. BMP showed sodium 141, potassium 3.2, chloride 114, bicarb 17, BUN 38, creatinine is 3.7, calcium is 8, phosphorus is 2.4, magnesium 2.1. CURRENT INPATIENT MEDICATIONS: The patient's medications were all reviewed by myself. She continues to be on IV ceftriaxone. She continues to be on Sandostatin drip. I have decreased the IV fluid rate to 40 mL an hour now. No other change in the medications today as compared with yesterday. ASSESSMENT/PLAN: 1. Acute renal failure superimposed on chronic kidney disease stage 3. The patient was started on IV fluid hydration. It is helping improve the renal function. Creatinine is down to 3.7. Because of her moderate amount of shortness of breath, I have decreased the IV fluid rate to 40 mL an hour. 2. Hypokalemia. The patient is being given oral potassium. 3. Metabolic acidosis. Continue the IV bicarb and oral bicarbonate at this time, bicarb level is slowly improving. 4. Hypotension. Continue current dose of midodrine 10 mg by mouth three times a day. 5. Alcoholic cirrhosis with ascites. The patient has a high INR. Interventional radiology refused to do the ascites tap at this time. 6. Portal vein thrombosis. Heparin is on hold at this time because of INR of 2.3. 7. Shortness of breath. The patient is clinically intravascularly depleted. However, with all the fluids she is getting moderate shortness of breath. As mentioned above, IV fluid rate has been decreased to 40 mL an hour.
[2019-07-06 16:00] VITALS: BP 134/62
[2019-07-06] MEDS ORDERED: ACETAMINOPHEN TAB 650MG DOSE (2X325MG) PO PRN (16:30)
--- NOTE | 2019-07-06 18:49 | IPNPDOC ---
Date Seen The patient was seen on 07/06/19. Progress Note HISTORY OF PRESENT ILLNESS: 58-year-old female with past medical history of cirrhosis, hypertension, GERD, and portal vein thrombosis (on Lovenox), presents from PCPs office for lab abnormalities. Patient was found to have a creatinine of 5.7 today, for which she was sent to the emergency department. Patient reports decreased oral intake over the past few weeks, was discharged from the hospital couple weeks ago after being admitted for portal vein thrombosis. She also reports decreased urine output for the past 2-3 days, has continued taking her lactulose with multiple bowel movements every day. She reportedly had 20 bowel movements yesterday. She has no other complaints at this time, denies shortness of breath, chest pain, nausea, vomiting, abdominal pain or diarrhea. 07/04/19 No acute events, now has Sher placed, minimal change in creatinine, patient comfortable but reports nausea. She is scheduled to undergo paracentesis on . She denies any SOB, CP, abdominal pain, diarrhea or constipation. 07/05/19 Patient comfortable in bed, without any complaints, appears mildly tachypneic. Patient denies any shortness of breath, chest pain, nausea, vomiting, abdominal pain or diarrhea at this time. 07/06/19 No acute events overnight, reports worsening SOB, only had 1 BM & reports increased weakness along with hand tremors. 10 point review of system is negative except for above PHYSICAL EXAMINATION: VITAL SIGNS: Please see below. GENERAL: No distress HEENT: Normocephalic, atraumatic, moist mucous membranes NECK: Right IJ triple-lumen catheter CARDIOVASCULAR EXAMINATION: S1, S2, no murmurs RESPIRATORY EXAMINATION: Scattered rhonchi, no wheezing ABDOMINAL EXAMINATION: Soft, nontender, mildly distended, positive bowel sounds EXTREMITIES: Range of motion intact SKIN: No rash NEUROLOGICAL EXAMINATION: Alert and oriented 3, no focal deficits PSYCHIATRIC EXAMINATION: Calm and cooperative LABORATORY DATA: See below. MICROBIOLOGY: Please see below. ASSESSMENT: 58-year-old female with past medical history of alcoholic cirrhosis, portal vein thrombosis on anticoagulation, hypertension and GERD admitted for ANTHONY on CKD. PLAN: 1. Acute kidney injury on CKD III. volume depletion vs hepatorenal syndrome, slight improvement in creatinine from yesterday, continue IV fluids (Sodium Bicarb 75 Meq + 0.45 NS), rate decreased to 40 ml per hour due to worsening SOB, midodrine 10 mg 3 times a day and octreotide drip. 2. Possible GI bleed. Significant drop in H&H since admission, most of which is likely hemodilution from significant IV albumin infusion and IV fluids but patient's stool occult blood has been positive for the past 2 days which was negative at the time of admission. Heparin gtt being held for now, there is no GI service available at this time. 2. Portal vein thrombosis. heparin drip held due to concern of GI bleed. 3. Liver Cirrhosis - lactulose restarted due to worsening Ammonia levels and patient becoming symptomatic, currently on Midodrine & Octreotide. Paracentesis postponed to tomorrow due to elevated INR, on ceftriaxone for SBP prophylaxis. 3. Hypertension. Currently hypotensive requiring midodrine, holding losartan and metoprolol. 4. GERD. Continue Protonix DVT prophylaxis: TEDs GI prophylaxis: Home PPI VS, I&O, 24H, Fishbone Vital Signs/I&O Vital Signs Date Time Temp Pulse Resp B/P (MAP) Pulse Ox O2 Delivery O2 Flow Rate FiO2 07/06/19 16:00 3.0 07/06/19 16:00 98.7 93 20 134/62 (86) 92 Nasal Cannula I&O- Last 24 Hours up to 6 AM 07/06/19 06:00 Intake Total 1880.0 ml Output Total 550 ml Balance 1330.0 ml Laboratory Data 24H LABS Laboratory Tests 2 07/06/19 05:31: Nucleated Red Blood Cells % (auto) 0.0, Activated Partial Thromboplast Time 41. 9H, Anion Gap 10, Glomerular Filtration Rate 13.2L, Calcium Level 8.0L, Phosphorus Level 2.4#L, Magnesium Level 2.1 07/06/19 08:15: Prothrombin Time 25.9H, Prothromb Time International Ratio 2.39 07/06/19 11:32: Ammonia 54H CBC/BMP Laboratory Tests 07/06/19 05:31 Microbiology Microbiology 07/05/19 Stool Occult Blood (ERIC) - Final, Complete 07/04/19 Stool Occult Blood (ERIC) - Final, Complete 07/02/19 Stool Occult Blood (ERIC) - Final, Complete MANNY ATKINS MD Jul 06, 2019 18:49
[2019-07-06 20:00] VITALS: BP 130/62
[2019-07-06] MEDS: FLUoxetine 20 MG CAP PO SCH (21:34)
[2019-07-06] MEDS: PANTOPRAZOLE 40MG TAB (PROTONIX) PO SCH (21:34)
[2019-07-07] VITALS (22 sets, daily range): BP systolic 87–135; BP diastolic 44–80; O2SAT 90–98
[2019-07-07] MEDS: ONDANSETRON 4MG/2ML VIAL (J2405) IV PRN (01:25)
[2019-07-07] MEDS: SODIUM BICARBONATE 75 MEQ in NS 0.45% 1,000 ML IV SCH (04:11)
[2019-07-07] MEDS: SODIUM CHLORIDE 0.9% INJ 10 ML SYR IV SCH ×3 (05:30→21:27)
[2019-07-07 05:58] LABS: HEMATOCRIT 36.6 % (36.0-47.0); HEMOGLOBIN 11.6 g/dl (12.0-15.5); MEAN CORPUSCULAR HGB CONC 31.7 g/dl (32.0-36.5); MEAN CORPUSCULAR VOLUME 100.8 fl (80.0-96.0); PLATELET COUNT, AUTOMATED 105 10^3/uL (150-450); RED BLOOD COUNT 3.63 10^6/uL (4.00-5.40); WHITE BLOOD COUNT 16.6 10^3/uL (4.0-10.0)
[2019-07-07 06:07] LABS: INR 3.08; PROTHROMBIN TIME 31.7 SECONDS (11.8-14.0)
[2019-07-07 06:18] LABS: CALCIUM LEVEL 8.4 MG/DL (8.5-10.1); CREATININE FOR GFR 3.7 MG/DL (0.55-1.30); GLOMERULAR FILTRATION RATE 13.4 (>51); MAGNESIUM LEVEL 1.9 MG/DL (1.8-2.4); PHOSPHORUS LEVEL 2.6 MG/DL (2.5-4.9); POTASSIUM SERUM 3.8 MEQ/L (3.5-5.1)
[2019-07-07 07:18] LABS: D-DIMER QUANT > 4000 ng/ml (<500)
[2019-07-07 07:23] LABS: ABG BASE EXCESS -8.9 (-2.0-2.0); ABG HCO3 14.7 MEQ/L (22.0-26.0); ABG O2 SATURATION 90.3 % (95.0-99.0); ABG PARTIAL PRESSURE CO2 25.8 mmHg (35.0-45.0); ABG PARTIAL PRESSURE O2 62.4 mmHg (75.0-100.0); ABG STANDARD HCO3 17.2 MEQ/L (22.0-26.0); ABG TOTAL CO2 15.5 MEQ/L (22.0-29.0); ABG pH (ARTERIAL) 7.375 UNITS (7.350-7.450)
--- NOTE | 2019-07-07 07:45 | REP ---
Clinical: Increasing shortness of breath. Comparison: 07/04/2019. Findings: Diffuse bilateral alveolar infiltrates/ground-glass opacities without discrete focal consolidation. No obvious effusion. No pneumothorax. Mediastinum and cardiac silhouette normal. Right IJ line with tip in the SVC/right atrium. Skeletal structures intact. Impression: Diffuse bilateral air space disease. No discrete focal consolidation or effusion. Electronically Signed by Braxton Hair MD 07/07/2019 07:37 A
[2019-07-07] MEDS ORDERED: FUROSEMIDE 40 MG/4 ML VIAL (J1940) IV ONE (09:00)
[2019-07-07] MEDS: SODIUM BICARBONATE 325 MG TAB PO SCH ×2 (09:18→21:27)
[2019-07-07] MEDS: cefTRIAXone SOD 1 GM in D5W MINI-BAG PLUS 50 ML IV SCH (09:18)
[2019-07-07] MEDS: MIDODRINE 5 MG TAB PO SCH ×4 (09:19→17:02)
[2019-07-07] MEDS ORDERED: FUROSEMIDE 100 MG/10 ML VIAL (J1940) As Ordered ONE (09:55)
[2019-07-07] MEDS ORDERED: LORazepam 2 MG/ML VIAL (J2060) IV STA (10:56)
[2019-07-07] MEDS ORDERED: FUROSEMIDE 100 MG/10 ML VIAL (J1940) IV ONE (11:00)
[2019-07-07] MEDS ORDERED: PHYTONADIONE 10MG/ML INJECTION (J3430) SC ONE (12:00)
--- NOTE | 2019-07-07 12:24 | IPN ---
DATE OF SERVICE: 07/07/2019 SUBJECTIVE: The patient was seen and examined at the bedside today morning in the intensive care unit (ICU). Last 24-hour events were noted. The patient became more and more short of breath overnight. Intravenous (IV) fluids were stopped. She was given a dose of Lasix 40 mg in the morning. She has made only 140 mL of urine with that so far. The patient was placed on the bilevel positive airway pressure (BiPAP, and she arrived in the ICU. There is no significant improvement in the renal function. Creatinine has been at 3.7 since yesterday. Her BNP was elevated today morning. OBJECTIVE: Vital signs: Temperature is 98.7 degrees Fahrenheit, blood pressure 121/58, pulse is 102, respiratory of 48, saturating 93% on BiPAP at 40% FIO2. Intake and output: Urine output recorded since overnight is only 290 mL. Weight in the bed scale is 64 kg. The patient is almost 7 kg positive since the day of admission. PHYSICAL EXAM: General: The patient is awake, alert, oriented times three, moderate respiratory distress, sitting up in the bed in the ICU. She is wearing BiPAP. Neck is supple, moderately elevated jugular venous distention (JVD). Cardiovascular: S1, S2, tachycardia. No edema of the bilateral lower extremities. Respiratory: Decreased breath sounds with inspiratory crackles bilaterally at the bases. The patient is tachypneic. Abdomen is soft. Left lobe of the liver is palpable. She has a moderate to large amount of ascites. Genitourinary: She has an indwelling Sher catheter. Musculoskeletal: No clubbing or cyanosis. Pulses are 2+. 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 Skin: No rashes or ulcers. She does have a spider angiomata in upper chest wall region. LAB REVIEW: CBC showed WBC 16.6, hemoglobin is 11.6, platelets of 105. INR is three 3 today. BMP showed sodium 142, potassium 3.8, chloride 112, bicarb 18, BUN 39, creatinine is 3.7, calcium is 8.4, phosphorus 2.6, magnesium 1.9. Pro-BNP is 36,952. IMAGING: A chest x-ray was done today morning which showed diffuse interstitial infiltrates. CURRENT INPATIENT MEDICATIONS: The patient's medications were all reviewed by me. IV octreotide was stopped today morning. IV fluids were already stopped overnight. The patient was given a dose of Lasix 40 mg in the morning at 9 o'clock and 60 mg at 11 o'clock. She continues to be on midodrine. No other change in her medications today as compared with yesterday. ASSESSMENT/PLAN: 1. Acute hypoxemic respiratory failure. The patient is currently on bilevel positive airway pressure (BiPAP). Respiratory failure is most likely secondary to fluid overload and pulmonary edema. The patient was given Lasix. I discussed the possibility of her starting dialysis with the patient. She, herself, cannot make any final decisions. I talked with the as well, and he agrees that further intervention, including ascitic tap and placement of dialysis catheter and initiation of dialysis. If the patient gets a catheter placed today, she will be dialyzed today, and I will try to remove about 2 mL of fluid as tolerated by her blood pressure. 2. Metabolic acidosis. It is secondary to renal failure. She was getting bicarbonate-containing fluid, but now she is fluid overloaded. Some oral bicarb is being continued. If the patient is started on dialysis, oral bicarbonate will be stopped. 3. Hypotension. Blood pressure is controlled with midodrine. Octreotide is being stopped. 4. Alcoholic cirrhosis with ascites. The patient's INR is high. I have ordered a dose of vitamin K to be given subcutaneously for procedures including dialysis catheter placement and ascitic tap to be done for symptomatic relief. 5. Portal vein thrombosis. Because of the elevated INR and cirrhosis, heparin has been stopped. The patient was also dropping hemoglobin. 6. Congestive heart failure. Is most likely secondary to renal failure and fluid overload; however, there is no recent echocardiogram available. I have ordered an echocardiogram to be done today. 7. Disposition. The patient, overall, has a poor prognosis given alcoholic cirrhosis with portal vein thrombosis and acute renal failure. Total critical care time spent in the management of this patient today morning in the ICU was 1 hour.
[2019-07-07] MEDS ORDERED: LIDOCAINE 1% MDV 20ML VIAL As Ordered ONE (12:35)
[2019-07-07] MEDS ORDERED: HEPARIN 1,000 UNITS/ML 10ML VIAL (FOR RADIOLOGY& DIALYSIS ONLY) As Ordered ONE (12:49)
[2019-07-07 17:26] LABS: CHOLESTEROL RISK RATIO 9.5 (<5)
[2019-07-07 17:48] LABS: HEMOGLOBIN A1c 4.6 %
[2019-07-07 20:03] LABS: ABG BASE EXCESS -3.7 (-2.0-2.0); ABG HCO3 19.5 MEQ/L (22.0-26.0); ABG PARTIAL PRESSURE CO2 29.9 mmHg (35.0-45.0); ABG PARTIAL PRESSURE O2 104.1 mmHg (75.0-100.0); ABG STANDARD HCO3 21.4 MEQ/L (22.0-26.0); ABG TOTAL CO2 20.5 MEQ/L (22.0-29.0); ABG pH (ARTERIAL) 7.433 UNITS (7.350-7.450)
[2019-07-07] MEDS ORDERED: RAMELTEON 8 MG TAB (ROZEREM) PO SCH (21:00)
[2019-07-07] MEDS: FLUoxetine 20 MG CAP PO SCH (21:27)
[2019-07-07] MEDS: PANTOPRAZOLE 40MG TAB (PROTONIX) PO SCH (21:27)
--- NOTE | 2019-07-07 21:53 | IPNPDOC ---
Date Seen The patient was seen on 07/07/19. Progress Note HISTORY OF PRESENT ILLNESS: 58-year-old female with past medical history of cirrhosis, hypertension, GERD, and portal vein thrombosis (on Lovenox), presents from PCPs office for lab abnormalities. Patient was found to have a creatinine of 5.7 today, for which she was sent to the emergency department. Patient reports decreased oral intake over the past few weeks, was discharged from the hospital couple weeks ago after being admitted for portal vein thrombosis. She also reports decreased urine output for the past 2-3 days, has continued taking her lactulose with multiple bowel movements every day. She reportedly had 20 bowel movements yesterday. She has no other complaints at this time, denies shortness of breath, chest pain, nausea, vomiting, abdominal pain or diarrhea. 07/04/19 No acute events, now has Sher placed, minimal change in creatinine, patient comfortable but reports nausea. She is scheduled to undergo paracentesis on . She denies any SOB, CP, abdominal pain, diarrhea or constipation. 07/05/19 Patient comfortable in bed, without any complaints, appears mildly tachypneic. Patient denies any shortness of breath, chest pain, nausea, vomiting, abdominal pain or diarrhea at this time. 07/06/19 No acute events overnight, reports worsening SOB, only had 1 BM & reports increased weakness along with hand tremors. 07/07/19 Patient noted to be in significant respiratory distress, tachypneic requiring 12L of oxygen via NC; she was placed on BiPAP & transferred to ICU in an attempt to avoid intubation while treatment was provided. She was given 100 mg if Lasix IV total w/ suboptimal response; HD & intubation was discussed w/ patient & , both of whom agree with all treatment measures at this time. Al catheter was placed by IR for HD, Paracentesis was not performed due to elevated INR & without a substantial amount of ascites noted on bedside imaging. She underwent HD w/ removal of ~2L. She was reevaluated post HD, remains tachypneic but comfortable with good volumes noted on BiPAP and repeat ABG w/ adequate compensation at this time. Case was discussed w/ patient's GI (Dr. Long) who recommends that patient should be transferred to [facility] for inpatient workup regarding liver transplant, case discussed w/ transplant he patologist at [facility] who happy accepted the patient for transfer. Patient will require an ICU to ICU transfer with no ICU beds currently available at [facility]; patient is placed on the waiting list and will be transferred as soon as a bed is available. 10 point review of system is negative except for above PHYSICAL EXAMINATION: VITAL SIGNS: Please see below. GENERAL: on BiPAP, mild distress HEENT: Normocephalic, atraumatic, moist mucous membranes NECK: Al catheter in place CARDIOVASCULAR EXAMINATION: S1, S2, no murmurs RESPIRATORY EXAMINATION: tachypneic, Scattered rhonchi, no wheezing ABDOMINAL EXAMINATION: Soft, nontender, moderately distended, positive bowel sounds EXTREMITIES: Range of motion intact SKIN: No rash NEUROLOGICAL EXAMINATION: Alert and oriented 3, no focal deficits PSYCHIATRIC EXAMINATION: Calm and cooperative LABORATORY DATA: See below. MICROBIOLOGY: Please see below. ASSESSMENT: 58-year-old female with past medical history of alcoholic cirrhosis, portal vein thrombosis on anticoagulation, hypertension and GERD admitted for ANTHONY on CKD. PLAN: 1. Hepatorenal syndrome renal function w/ suboptimal improvement despite all treatment measures, Al catheter place, patient underwent HD for 2 hours & removal of ~2L, midodrine 10 mg 3 times a day, octreotide dced. 2. Acute respiratory failure - secondary to volume overload from IV albumin/IV fluids used to treat hepatorenal syndrome, now on BiPAP, will attempt to diurese w/ HD/Lasix & attempt Paracentesis when INR is better controlled to avoid endotracheal intubation. 2. Portal vein thrombosis. heparin drip held due to elevated INR & possible occult bleed. 3. Liver Cirrhosis - 2/2 to alcohol use, on medical management, attempting to transfer patient to [facility] for inpatient liver transplant workup, she has been accepted, awaiting ICU bed for transfer. Paracentesis postponed due to elevated INR, on Ceftriaxone for SBP prophylaxis. 3. Hypertension. Currently hypotensive requiring midodrine, holding losartan and metoprolol. 4. GERD. Continue Protonix DVT prophylaxis: TEDs GI prophylaxis: Home PPI VS, I&O, 24H, Fishbone Vital Signs/I&O Vital Signs Date Time Temp Pulse Resp B/P (MAP) Pulse Ox O2 Delivery O2 Flow Rate FiO2 07/07/19 20:30 92 34 96/46 (63) 95 NIPPV (BIPAP/CPAP) 50 07/07/19 20:00 97.6 07/07/19 08:01 12.0 I&O- Last 24 Hours up to 6 AM 07/07/19 05:59 Intake Total 1540 ml Output Total 475 ml Balance 1065 ml Laboratory Data 24H LABS Laboratory Tests 2 07/07/19 05:34: Nucleated Red Blood Cells % (auto) 0.0, Prothrombin Time 31.7H, Prothromb Time International Ratio 3.08, D-Dimer, Quantitative > 4000H, Anion Gap 12, Glomerular Filtration Rate 13.4L, Calcium Level 8.4L, Phosphorus Level 2.6, Magnesium Level 1.9, IW-Kxa-H-Type Natriuretic Peptide 12446K, Triglycerides Level 84, Total Cholesterol 76, LDL Cholesterol 51, Non-HDL Cholesterol (LDL + VLDL) 68, Total HDL Cholesterol 8L, Cholesterol/HDL Ratio 9.500H 07/07/19 05:45: Estimated Mean Plasma Glucose 85, Hemoglobin A1c 4.6 07/07/19 07:11: Blood Gas Bicarbonate Standard 17.2L, Arterial Blood pH 7.375, Arterial Blood Partial Pressure CO2 25.8L, Arterial Blood Partial Pressure O2 62.4L, Arterial Blood Total CO2 15.5L, Arterial Blood HCO3 14.7L, Arterial Blood Base Excess - 8.9L, Arterial Blood Oxygen Saturation 90.3L 07/07/19 17:26: 07/07/19 19:30: Blood Gas Bicarbonate Standard 21.4L, Arterial Blood pH 7.433, Arterial Blood Partial Pressure CO2 29.9L, Arterial Blood Partial Pressure O2 104.1H, Arterial Blood Total CO2 20.5L, Arterial Blood HCO3 19.5L, Arterial Blood Base Excess - 3.7L, Arterial Blood Oxygen Saturation 98.0 CBC/BMP Laboratory Tests 07/07/19 05:34 Microbiology Microbiology 07/05/19 Stool Occult Blood (ERIC) - Final, Complete 07/04/19 Stool Occult Blood (ERIC) - Final, Complete 07/02/19 Stool Occult Blood (ERIC) - Final, Complete MANNY ATKINS MD Jul 07, 2019 21:53
[2019-07-08] VITALS (96 sets, daily range): BP systolic 76–141; BP diastolic 42–75; O2SAT 93–100
[2019-07-08 00:21] LABS: CALCIUM LEVEL 8.6 MG/DL (8.5-10.1); CREATININE FOR GFR 3.16 MG/DL (0.55-1.30); GLOMERULAR FILTRATION RATE 16.1 (>51); POTASSIUM SERUM 3.6 MEQ/L (3.5-5.1)
[2019-07-08] MEDS: SODIUM CHLORIDE 0.9% INJ 10 ML SYR IV SCH ×3 (05:49→22:00)
[2019-07-08 06:08] LABS: HEMATOCRIT 28.4 % (36.0-47.0); HEMOGLOBIN 9.5 g/dl (12.0-15.5); MEAN CORPUSCULAR HGB CONC 33.5 g/dl (32.0-36.5); MEAN CORPUSCULAR VOLUME 98.6 fl (80.0-96.0); RED BLOOD COUNT 2.88 10^6/uL (4.00-5.40); WHITE BLOOD COUNT 12.6 10^3/uL (4.0-10.0)
[2019-07-08 06:35] LABS: ALBUMIN 2.3 GM/DL (3.2-5.2); BILIRUBIN,TOTAL 2.1 MG/DL (0.2-1.0); CALCIUM LEVEL 8.4 MG/DL (8.5-10.1); CREATININE FOR GFR 3.56 MG/DL (0.55-1.30); GLOMERULAR FILTRATION RATE 14.1 (>51); MAGNESIUM LEVEL 1.9 MG/DL (1.8-2.4); PHOSPHORUS LEVEL 3.7 MG/DL (2.5-4.9); POTASSIUM SERUM 3.9 MEQ/L (3.5-5.1)
[2019-07-08 07:26] LABS: PLATELET COUNT, AUTOMATED 46 10^3/uL (150-450)
[2019-07-08] MEDS: SODIUM BICARBONATE 325 MG TAB PO SCH (08:32)
[2019-07-08] MEDS: MIDODRINE 5 MG TAB PO SCH (08:32)
[2019-07-08 08:36] LABS: INR 3.81; PROTHROMBIN TIME 37.6 SECONDS (11.8-14.0)
[2019-07-08 08:37] LABS: PARTIAL THROMBOPLASTIN TIME 52.1 SECONDS (25.0-38.4)
--- NOTE | 2019-07-08 10:00 | REP ---
Portable chest x-ray: Single view. History: And July 04, 2019. Findings: Diffuse pulmonary parenchymal opacification is seen in a mixed interstitial and alveolar pattern consistent with diffuse pulmonary edema/ARDS pattern. No pleural effusion is seen. The heart is not enlarged. There is a little more opacity in the bases bilaterally compared with most recent prior study from three July 24, 2018. Right and there are internal jugular central venous lines are noted terminating in the region of the right atrium. Impression: Progressive opacification in the bases. Diffuse interstitial/alveolar edema versus ARDS pattern. Electronically Signed by Adilson Norman MD 07/08/2019 09:52 A
[2019-07-08] MEDS: cefTRIAXone SOD 1 GM in D5W MINI-BAG PLUS 50 ML IV SCH ×2 (10:03→22:47)
[2019-07-08] MEDS ORDERED: NOREPINEPHRINE 4 MG/4 ML AMP As Ordered ONE (10:04)
[2019-07-08] MEDS ORDERED: ETOMIDATE INJ 20MG/10ML VIAL As Ordered ONE (10:06)
[2019-07-08] MEDS ORDERED: MIDAZOLAM INJ 2 MG/2 ML VIAL (J2250) As Ordered ONE (10:07)
[2019-07-08] MEDS: NOREPINEPHRINE BITARTRATE 16 MG in D5W 484 ML IV SCH ×2 (10:13→22:48)
[2019-07-08] MEDS ORDERED: MIDAZOLAM INJ 2 MG/2 ML VIAL (J2250) IV STA (10:22)
[2019-07-08] MEDS ORDERED: ETOMIDATE INJ 20MG/10ML VIAL IV STA (10:22)
[2019-07-08] MEDS ORDERED: PROPOFOL 1,000 MG/100 ML VIAL As Ordered ONE (10:38)
[2019-07-08] MEDS: propofoL 1,000 MG in IV 1 EA IV SCH ×2 (11:15→17:15)
--- NOTE | 2019-07-08 11:16 | REP ---
Portable chest x-ray: Single view. 10:58 a.m. film History: Status post intubation. Comparison study: 09:38 a.m. film on this same date. Findings: Endotracheal tube is seen in good position at the level of proximal clavicles. A right internal jugular central venous catheters remain in place unchanged in position. Monitoring electrodes are again seen. Extensive interstitial and alveolar lung opacification is again seen. More coarse patchy areas of opacity are seen in the left and to a lesser extent right base. There is slight improvement in overall lung volume. Electronically Signed by Adilson Norman MD 07/08/2019 11:07 A
[2019-07-08] MEDS ORDERED: PHYTONADIONE 10MG/ML INJECTION (J3430) SC ONE (11:30)
[2019-07-08] MEDS: IPRATROPIUM 0.5MG/ALBUTEROL 2.5MG INH SOL UD 3ML (DUONEB)(J7620) NEB SCH ×3 (12:00→20:40)
[2019-07-08] MEDS: PANTOPRAZOLE 40MG INJ (PROTONIX) (C9113) IV SCH ×2 (12:14→21:24)
[2019-07-08] MEDS: CHLORHEXIDINE GLUCONATE 0.12 % 15ML UDC (PERIDEX ORAL RINSE) MT SCH ×2 (12:14→20:18)
--- NOTE | 2019-07-08 12:23 | IPNPDOC ---
Date Seen The patient was seen on 07/08/19. Progress Note Endotracheal intubation note INDICATION: Hypoxemic respiratory failure PROCEDURE ELECTRONICS COMMODITY MANAGER: Dr. Atkins ATTENDING PHYSICIAN: Dr. Phelan Consent was obtained from patient prior to the procedure. Indications, risk & benefits were explained at length. PROCEDURE SUMMARY: The patient was placed on a geodetic survey director including continuous pulse oximetry. She was preoxygenated with BiPAP followed by BVM. Rapid Sequence Intubation was conducted. The patient received 40 mg of Etomidate & 4 mg of Versed for induction, paralytics were not given. Using a size 3 GlideScope and a size 7.5 endotracheal tube with stylet, the patient was intubated on the 2nd attempt. The stylet was removed and cuff balloon was inflated. Appropriate endotracheal tube position was confirmed by direct visualization of vocal cord passage, fogging of the tube, CO2 colometric indicator and symmetric breath sounds. The tube was secured at 23 cm at the lips. Post intubation chest x-ray shows adequate placement. VS, I&O, 24H, [facility] Vital Signs/I&O Vital Signs Date Time Temp Pulse Resp B/P (MAP) Pulse Ox O2 Delivery O2 Flow Rate FiO2 07/08/19 11:24 84 33 109/54 (72) 96 Ventilator 50 07/08/19 08:00 97.5 07/07/19 08:01 12.0 I&O- Last 24 Hours up to 6 AM 07/08/19 06:00 Intake Total 860 ml Output Total 2340 ml Balance -1480 ml Laboratory Data 24H LABS Laboratory Tests 2 07/07/19 17:26: 07/07/19 19:30: Blood Gas Bicarbonate Standard 21.4L, Arterial Blood pH 7.433, Arterial Blood Partial Pressure CO2 29.9L, Arterial Blood Partial Pressure O2 104.1H, Arterial Blood Total CO2 20.5L, Arterial Blood HCO3 19.5L, Arterial Blood Base Excess -3. 7L, Arterial Blood Oxygen Saturation 98.0 07/07/19 23:52: Anion Gap 11, Glomerular Filtration Rate 16.1L, Calcium Level 8.6 07/08/19 05:49: Anion Gap 12, Glomerular Filtration Rate 14.1L, Calcium Level 8.4L, Nucleated Red Blood Cells % (auto) 0.0, Immature Platelet Fraction 3.4, Phosphorus Level 3.7#, Magnesium Level 1.9, Total Bilirubin 2.1H, Aspartate Amino Transf (AST/SGOT) 47H, Alanine Aminotransferase (ALT/SGPT) 21, Alkaline Phosphatase 76, Total Protein 6.0L, Albumin 2.3L, Albumin/Globulin Ratio 0.62L 07/08/19 08:07: Prothrombin Time 37.6H, Prothromb Time International Ratio 3.81, Activated Partial Thromboplast Time 52.1H, Fibrinogen 258 CBC/BMP Laboratory Tests 07/07/19 23:52 07/08/19 05:49 Microbiology Microbiology 07/05/19 Stool Occult Blood (ERIC) - Final, Complete 07/04/19 Stool Occult Blood (ERIC) - Final, Complete 07/02/19 Stool Occult Blood (ERIC) - Final, Complete MANNY ATKINS MD Jul 08, 2019 12:23
[2019-07-08] MEDS: fentaNYL 100 MCG/2 ML INJECTION (J3010) IV PRN (12:25)
[2019-07-08 13:22] LABS: ABG BASE EXCESS -5.5 (-2.0-2.0); ABG HCO3 18.6 MEQ/L (22.0-26.0); ABG O2 SATURATION 97.2 % (95.0-99.0); ABG PARTIAL PRESSURE CO2 31.9 mmHg (35.0-45.0); ABG PARTIAL PRESSURE O2 95.3 mmHg (75.0-100.0); ABG STANDARD HCO3 19.9 MEQ/L (22.0-26.0); ABG TOTAL CO2 19.6 MEQ/L (22.0-29.0); ABG pH (ARTERIAL) 7.384 UNITS (7.350-7.450)
[2019-07-08] MEDS ORDERED: HEPARIN 1,000 UNITS/ML 10ML VIAL (FOR RADIOLOGY& DIALYSIS ONLY) IV PRN (13:30)
[2019-07-08] MEDS ORDERED: SODIUM CHLORIDE 0.9% INJ 10 ML SYR IV PRN (13:30)
[2019-07-08 15:18] LABS: HEMOGLOBIN 10.2 g/dl (12.0-15.5); MEAN CORPUSCULAR HEMOGLOBIN 32.1 pg (27.0-33.0); MEAN CORPUSCULAR HGB CONC 31.9 g/dl (32.0-36.5); MEAN CORPUSCULAR VOLUME 100.6 fl (80.0-96.0); RED BLOOD COUNT 3.18 10^6/uL (4.00-5.40); WHITE BLOOD COUNT 14.8 10^3/uL (4.0-10.0)
--- NOTE | 2019-07-08 15:26 | CR ---
DATE OF CONSULTATION: 07/08/2019 HISTORY OF PRESENT ILLNESS: Ms. Burgos is a 58-year-old female with a history of alcoholic cirrhosis, hypertension, chronic kidney disease (CKD), portal vein thrombosis, was on Lovenox for anticoagulation, who had presented initially on 07/01/2019 with worsening renal failure and decreased urine output for the past few days. The patient was also reportedly on lactulose and had been having multiple bowel movements up to twenty a day, as well as some nausea and vomiting. The patient was admitted for her acute renal failure and was initially started on fluids. The patient was started on fluids with bicarbonate for her metabolic acidosis secondary to her renal failure. She was also given albumin and midodrine and octreotide for suspected hepatorenal syndrome. The patient was also noted to have hypotension, which did improve initially with midodrine. She was initially continued on heparin for her portal vein thrombosis. However, was noted to have worsening coagulopathy, as well as a stool occult blood becoming positive, and her heparin was then on hold. The patient was transferred to the intensive care unit (ICU) for worsening shortness of breath. She was given intravenous (IV) Lasix, a total of 100 mg yesterday with less than adequate response. Her chest x-ray yesterday had shown worsening pulmonary edema, and she was placed on bilateral positive airway pressure (BiPAP) for her increased respiratory distress and for her pulmonary edema. The patient, therefore, had a temporary hemodialysis catheter placed yesterday evening and was started on dialysis. She was able to have almost 2 liters of fluid removed with dialysis. This morning, the patient notes her breathing did not improve after dialysis, and she continues to be on BiPAP and continues to be significantly tachypneic and in respiratory distress. She was also noted to have more hypotension today despite being on the midodrine still. Discussed with the patient and her that given her respiratory distress and tachypnea despite dialysis, as well as with her repeat chest x-ray this morning showing worsening opacity, that she would need to be intubated and started on mechanical ventilation; and the patient and her were in agreement. She currently denies any chest pain. She does have some occasional cough, which is not very productive. Her only other complaint besides her shortness of breath and some anxiety, as well as some abdominal discomfort and abdominal distention. She previously has had paracentesis in the past twice in June and was due for a paracentesis during this admission. However, it was on hold given her coagulopathy. PAST MEDICAL AND SURGICAL HISTORY: Alcoholic cirrhosis, hypertension, portal vein thrombosis, gastroesophageal reflux disease (GERD), chronic kidney disease (CKD), hepatic encephalopathy, hysterectomy, appendectomy. HOME MEDICATIONS: - Lovenox - fluoxetine - lactulose - losartan - metoprolol - pantoprazole - Xanax as needed - Zofran as needed ALLERGIES: To MORPHINE. FAMILY HISTORY: Father with history of heart disease. SOCIAL HISTORY: Former smoker, was half a pack a day for more than 30 years, quit 1 month ago. Previous history of alcohol abuse, quit 2 months ago. No history of drug use. PHYSICAL EXAMINATION: Temperature 97.5, pulse 86, respirations 40s, blood pressure 80/43, oxygen (O2) saturation 93% on 50% FIO2 on BiPAP. Input 600. Output 2.4 liters. Net negative 1.8 liters. General: The patient is sitting in bed, appears tachypneic and in some respiratory distress. Is using accessory muscles for respiration and is only able to speak in short phrases. HEENT: Normocephalic, atraumatic. Pupils are reactive to light bilaterally. Neck is supple. Trachea is midline. There is no palpable cervical adenopathy. There is positive jugular venous distention (JVD). Cardiac: Regular rate and rhythm. Normal S1, S2. Unable to appreciate any murmurs. Respiratory: There are diminished breath sounds with some coarse rhonchi and crackles bilaterally. Abdomen: Is soft, moderately distended. There is some mild tenderness to palpation diffusely. There is a positive fluid wave. Extremities: There is a mild tremor noted. There is no lower extremity edema noted bilaterally. Skin: There is some spider angiomata noted on her chest. LABORATORIES: WBC 12.0, hemoglobin 9.5, platelet 46. Chemistry: Sodium is 140, potassium is 3.0, chloride is 109, bicarbonate is 19, BUN is 32, creatinine is 3.56, glucose is 107, AST 47, ALT 21, alkaline phosphatase 76, T bili 2.1, albumin is 2.3, ammonia was 154, BNP was 36,000. INR this morning 3.81, PTT 52.1, fibrinogen is 258. IMAGING: Chest x-ray this morning shows worsening diffuse pulmonary opacities bilaterally and an interstitial and alveolar pattern. There is also some more opacities in the bases bilaterally. There is a right internal jugular (vein) (IJ) triple lumen, as well as a right subclavian hemodialysis catheter in place terminating in the region of the right atrium. ASSESSMENT AND PLAN: Ms. Burgos is a 58-year-old female with a past medical history of alcoholic cirrhosis, gastroesophageal reflux disease, hypertension, portal vein thrombosis, chronic kidney disease, who presents with acute on chronic renal failure likely secondary to hepatorenal syndrome. The patient was started on albumin and fluids, as well as octreotide for her hepatorenal syndrome. She was also hypotensive likely in the setting of her chronic cirrhosis and was started on midodrine. The patient had some improvement in her renal function but continued to have persistent metabolic acidosis in the setting of her renal failure. She was also on bicarbonate fluids, as well. The patient was then noted yesterday to have increasing respiratory distress and the chest x-ray showing worsening diffuse infiltrates consistent with pulmonary edema. She was placed on BiPAP for her work of breathing and for the pulmonary edema. She was initially given Lasix with poor response and was then started on hemodialysis with a removal of almost 2 liters net negative fluids. This morning despite fluid removal, she continues to be in respiratory distress and significantly tachypneic on the BiPAP. Her chest x-ray also shows worsening bilateral opacities with some concern now for acute respiratory distress syndrome (ARDS), as well. The patient also was noted to require increasing amounts of FIO2 on the bilateral positive airway pressure (BiPAP). The patient was, therefore, intubated for her acute hypoxemic respiratory failure from ARDS versus a component of pulmonary edema. She was also found to be more hypotensive this morning despite being on midodrine and was also started on Levophed for vasopressor support. Neurologic: History of hepatic encephalopathy. The patient was on lactulose for her hepatic encephalopathy, and her ammonia level was mildly increased. - Lactulose is on hold as she does not have an orogastric (OG) tube. Will restart lactulose once OG tube is able to be placed safely. - The patient is intubated now and so was started on propofol for sedation. Will also give Versed as needed for agitation and fentanyl as needed for pain control. - Given concern for ARDS, will aim for a Latia score of 4-5. Cardiac: The patient has chronic hypotension likely in the setting of her cirrhosis. She was on midodrine for blood pressure support. She was noted to have worsening hypotension today, however, and was started on Levophed for vasopressor support. - Continue with Levophed and titrate for a mean arterial pressure (MAP) of 60- 65. Will check a lactic acid level. - The patient has a right IJ triple lumen in place. - Will followup the results of the echocardiogram. Pulmonary: The patient is a former smoker. Does not have any previous history of lung disease. She was noted to have acute hypoxemic respiratory failure initially in the setting of pulmonary edema. Her x-ray, however, continued to have worsening opacities despite fluid removal with concern for possible development of ARDS. The patient was intubated for her acute hypoxemic respiratory failure and started on mechanical ventilation. - Continue with mechanical ventilation with volume control with settings of 380/16/50 and 12. Will continue to wean down her positive end-expiratory pressure (PEEP) and FIO2 as tolerated. - Continue daily ABGs and chest x-rays while intubated. - Continue with vent bundle care with head of bed elevation and chlorhexidine mouthwash. - The patient was started on ceftriaxone given her history of cirrhosis and abdominal ascites for SBP prophylaxis. Her chest x-ray did show some increased patchy opacities in the bases, and there is some concern for possible aspiration. She did have some increased leukocytosis, but her white count has trended down. Would consider broadening antibiotics - Will check a sputum culture. - Gastrointestinal (GI): History of alcoholic cirrhosis. The patient also has a history of a portal vein thrombosis and was initially on Lovenox and then heparin for anticoagulation. She was noted to have a positive guaiac, and her anticoagulation was on hold. The patient also noted to have worsening coagulopathy, as well as worsening thrombocytopenia, likely in the setting of her liver disease, as well as with concern now for possible sepsis. The patient did have a fibrinogen level checked, which did not show DIC. - Will get an active type and screen and followup repeat CBC to continue to monitor her platelets. Will give the patient a dose of vitamin K and followup repeat coagulation. - Will increase her Protonix to IV twice a day and monitor for any active bleeding. Will hold off on transfusions for now. - Continue to hold anticoagulation. Will start thromboembolic deterrents (TEDs) and sequential compression devices (SCDs) for deep venous thrombosis (DVT) prophylaxis. - Continue to monitor liver function testing. - The patient was accepted at [facility] in the inpatient liver transplant service for possible workup for liver transplant. They are awaiting an intensive care unit (ICU) bed, however, now for transfer. - The patient does have evidence of ascites and had previously been getting paracentesis, last time in June. Her paracentesis, however, is on hold for now given her coagulopathy. - Will place an OG tube and start lactulose once placed. There is some concern, however, with possible varices given her cirrhosis history and portal vein thrombosis history, as well as now with her worsening thrombocytopenia and coagulopathy. There is potential concern for causing bleeding. Renal/endo: Acute on chronic renal failure, likely hepatorenal syndrome. The patient did receive hemodialysis yesterday and did have removal of almost 2 liters of fluid. Appreciate renal recommendations. She continues to have metabolic acidosis, as well as creatinine with minimal improvement. - I will followup with renal recommendations and likely start continuous venovenous hemodialysis (CVVHD). Will monitor electrolytes and replete as needed. - Monitor fingerstick glucose and will start D5 as needed for hypoglycemia. Deep venous thrombosis (DVT) prophylaxis. TEDs and SCDs. Gastrointestinal (GI) prophylaxis. Proton pump inhibitor (PPI). FULL CODE. TOTAL CRITICAL CARE TIME SPENT: Not including any procedures approximately 2 hours and 10 minutes. MTDD
[2019-07-08 15:28] LABS: PLATELET COUNT, AUTOMATED 64 10^3/uL (150-450)
--- NOTE | 2019-07-08 16:45 | IPN ---
DATE: 07/08/2019 SUBJECTIVE: The patient was seen and examined at the bedside today morning in the intensive care unit (ICU). Last 24-hour events were noted. Patient emergently got the temporary dialysis catheter placed in the right internal jugular (IJ) yesterday, and she was urgently dialyzed at the bedside in the ICU. Two liters of fluid were removed. She was on bilevel positive airway pressure (BiPAP. Despite 2 liters of fluid removal, patient was cachectic and hypoxemic. She needed to be intubated. She is currently intubated in the ICU now. She also needed to be started on Levophed 88 mcg. The patient continues to be oliguric. I was told by the patient's RN at the bedside that discussions have been done with the liver transplant center at [place] for transfer of the patient. The patient has been accepted over there, but bed is not available. The patient's was also present at the bedside. She is unable to provide any review of systems at this time because she is intubated and sedated with propofol. OBJECTIVE: Vital signs: Temperature is 98.2 degrees Fahrenheit, blood pressure is 107/53, pulse is 70, respiratory rate of 25, saturating 100% on the ventilator with a 50% FiO2. Intake and output: Urine output recorded yesterday 475 mL. Urine output since overnight is 31 mL. Ultrafiltration with hemodialysis was 2 liters yesterday. Weight in the bed scale is 61 kg. PHYSICAL EXAMINATION: GENERAL: The patient is intubated, sedated, lying in bed. HEAD AND NECK: Pupils are equally round and reactive to light. She has an orogastric tube (OGT) and endotracheal tube. Neck is supple. There is no jugular venous distention (JVD). CARDIOVASCULAR: S1, S2, regular rate. No edema of the bilateral lower extremities. RESPIRATORY: Mildly decreased breath sounds at the bases with inspiratory crackles at the bases. She has transmitted breath sounds through the ventilator. ABDOMEN: Soft. Moderate amount of ascites in the abdomen was noted. GENITOURINARY: She has an indwelling Sher catheter. MUSCULOSKELETAL: No clubbing or cyanosis. No edema of the bilateral lower extremities. CENTRAL NERVOUS SYSTEM: The patient is sedated with propofol. She moves extremities on painful stimuli. LABORATORY REVIEW: CBC showed WBC of 14.8, hemoglobin 10.2, platelets are 64. INR is 3.8 today. ABG showed a pH of 7.38, pCO2 of 31, pO2 of 95, bicarbonate is 18, oxygen saturation is 97.2%. BMP done today showed sodium 140, potassium 3.9, chloride 109, bicarbonate 19, BUN 35, creatinine is 3.5. Lactic acid is 3.5, calcium 8.4, phosphorus 3.7, magnesium 1.9. Total bilirubin 2.1, AST is 47, ALT 21, alkaline phosphatase is 76, albumin is 2.3. IMAGING STUDIES: A chest x-ray was done today morning, which showed endotracheal tube in satisfactory position, extensive interstitial and alveolar lung opacification, concerning for acute respiratory distress syndrome (ARDS) versus interstitial infiltrate and pulmonary edema. CURRENT INPATIENT MEDICATIONS: The patient's medications were all reviewed by me. She has been started on Levophed. She is currently on 8 mcg of Levophed. Her ceftriaxone has been changed to 1 gram IV every 12 hours. She is on propofol for sedation. She was given another dose of vitamin K 5 mg subcutaneous once. Oral bicarbonate has been stopped. ASSESSMENT AND PLAN: 1. Acute renal failure. The patient continues to be oliguric. She got the dialysis catheter yesterday. She was dialyzed at the bedside for 2 hours yesterday; however, because of her hemodynamic instability and use of pressors, she is being started on Continuous veno-venous hemodiafiltration (CVVHDF) at this time. Fluid removal will be done according to the mean arterial pressure (MAP) parameters as tolerated by her blood pressure. 2. Metabolic acidosis. It will be managed with dialysis now. Oral bicarbonate is being stopped now. 3. Hypotension. She is empirically being covered with IV ceftriaxone. Midodrine has been stopped. She continues to be on Levophed at 8 mcg. 4. Alcoholic cirrhosis with ascites. The patient's INR is still high. Vitamin K another dose was given by pulmonary critical care team. She was already discussed with the liver transplant center at [place], and she is pending transfer. 5. Portal vein thrombosis. Because of the elevated INRs, heparin has been stopped now. 6. Ventilator dependent respiratory failure. The patient has diffuse interstitial infiltrates on the chest x-ray concerning for pulmonary edema versus ARDS. Ventilator management is as per primary team, and I would try to keep the patient on dryer side with the CVVHDF. Total critical care time spent in the management of this patient today morning in the ICU was 1 hour. That does not include any procedures. Patient overall has a poor prognosis given decompensated cirrhosis with ascites and portal vein thrombosis, acute renal failure, and ventilator-dependent respiratory failure.
[2019-07-08 18:22] LABS: IONIZED CALCIUM 4.3 MG/DL (4.5-5.3)
[2019-07-08 18:23] LABS: HEMOGLOBIN 10.2 g/dl (12.0-15.5); MEAN CORPUSCULAR HEMOGLOBIN 32.3 pg (27.0-33.0); MEAN CORPUSCULAR HGB CONC 31.9 g/dl (32.0-36.5); MEAN CORPUSCULAR VOLUME 101.3 fl (80.0-96.0); RED BLOOD COUNT 3.16 10^6/uL (4.00-5.40); WHITE BLOOD COUNT 13.7 10^3/uL (4.0-10.0)
[2019-07-08 18:24] LABS: PLATELET COUNT, AUTOMATED 57 10^3/uL (150-450)
[2019-07-08 18:48] LABS: CALCIUM LEVEL 7.8 MG/DL (8.5-10.1); CREATININE FOR GFR 3.19 MG/DL (0.55-1.30); MAGNESIUM LEVEL 1.9 MG/DL (1.8-2.4); POTASSIUM SERUM 3.7 MEQ/L (3.5-5.1)
[2019-07-08] MEDS ORDERED: KCL 20MEQ IN 100ML SWI (KRUN) 20 MEQ in IV 1 EA IV ONE ×2 (19:45)
[2019-07-08] MEDS ORDERED: MAG SULF 1GM/100ML (MAG RUN) 1 GM in IV 1 EA IV ONE (19:45)
--- NOTE | 2019-07-08 20:51 | IPNPDOC ---
Date Seen The patient was seen on 07/08/19. Progress Note HISTORY OF PRESENT ILLNESS: 58-year-old female with past medical history of cirrhosis, hypertension, GERD, and portal vein thrombosis (on Lovenox), presents from PCPs office for lab abnormalities. Patient was found to have a creatinine of 5.7 today, for which she was sent to the emergency department. Patient reports decreased oral intake over the past few weeks, was discharged from the hospital couple weeks ago after being admitted for portal vein thrombosis. She also reports decreased urine output for the past 2-3 days, has continued taking her lactulose with multiple bowel movements every day. She reportedly had 20 bowel movements yesterday. She has no other complaints at this time, denies shortness of breath, chest pain, nausea, vomiting, abdominal pain or diarrhea. 07/04/19 No acute events, now has Sher placed, minimal change in creatinine, patient comfortable but reports nausea. She is scheduled to undergo paracentesis on . She denies any SOB, CP, abdominal pain, diarrhea or constipation. 07/05/19 Patient comfortable in bed, without any complaints, appears mildly tachypneic. Patient denies any shortness of breath, chest pain, nausea, vomiting, abdominal pain or diarrhea at this time. 07/06/19 No acute events overnight, reports worsening SOB, only had 1 BM & reports increased weakness along with hand tremors. 07/07/19 Patient noted to be in significant respiratory distress, tachypneic requiring 12L of oxygen via NC; she was placed on BiPAP & transferred to ICU in an attempt to avoid intubation while treatment was provided. She was given 100 mg if Lasix IV total w/ suboptimal response; HD & intubation was discussed w/ patient & , both of whom agree with all treatment measures at this time. Al catheter was placed by IR for HD, Paracentesis was not performed due to elevated INR & without a substantial amount of ascites noted on bedside imaging. She underwent HD w/ removal of ~2L. She was reevaluated post HD, remains tachypneic but comfortable with good volumes noted on BiPAP and repeat ABG w/ adequate compensation at this time. Case was discussed w/ patient's GI (Dr. Long) who recommends that patient should be transferred to [facility] for inpatient workup regarding liver transplant, case discussed w/ transplant he patologist at [facility] who happy accepted the patient for transfer. Patient will require an ICU to ICU transfer with no ICU beds currently available at [facility]; patient is placed on the waiting list and will be transferred as soon as a bed is available. 07/08/19 Patient seen at bedside in the morning, tachypneic on BiPAP requiring increased FiO2 (50%), morning CXR showing worsening opacities concerning for development of ARDS; case discussed with Piston Maker (Dr. Phelan) and decision was made to intubate the patient. Discussed with patient & at bedside regarding benefits/risks of intubation, both of whom agree with it at this time. Patient was intubated successfully. She was also hypotensive in the morning despite getting Midodrine, was started on Levophed infusion prior to intubation. PHYSICAL EXAMINATION: VITAL SIGNS: Please see below. GENERAL: sedated on mechanical ventilation HEENT: 7.5 ETT 23 cm at the lip NECK: Al catheter in place CARDIOVASCULAR EXAMINATION: S1, S2, no murmurs RESPIRATORY EXAMINATION: tachypneic, Scattered rhonchi ABDOMINAL EXAMINATION: Soft, nontender, moderately distended, positive bowel sounds EXTREMITIES: Range of motion intact prior to intubation SKIN: No rash PSYCHIATRIC EXAMINATION: calm on sedation LABORATORY DATA: See below. MICROBIOLOGY: Please see below. ASSESSMENT: 58-year-old female with past medical history of alcoholic cirrhosis, portal vein thrombosis on anticoagulation, hypertension and GERD admitted for ANTHONY 2/2 HRS now on mechanical ventilation in ICU for acute hypoxemic respiratory failure. PLAN: 1. Acute Hypoxemic respiratory failure - fluid overload and/or ARDS, intubated on mechanical ventilation, sedated w/ Propfol drip and as needed Versed & Fentanyl, Intensivit following. 2. Hepatorenal syndrome renal function w/ suboptimal improvement despite all treatment measures, [place] catheter placed yesterday, underwent HD for 2 hours yesterday, now on CRRT due to hypotension requiring vasopressor support. 3. Portal vein thrombosis. heparin drip held due to elevated INR & possible occult bleed. 4. Liver Cirrhosis - 2/2 to alcohol use, on medical management, attempting to transfer patient to [facility] for inpatient liver transplant workup, she has been accepted, awaiting ICU bed for transfer. Paracentesis postponed due to elevated INR, received 2nd dose of Vitamin K today, on Ceftriaxone for SBP prophylaxis. - thrombocytopenia worsening, ?sepsis vs compensated DIC (difficult to assess due to cirrhosis), not actively bleeding, will monitor & transfuse as needed for Platelet <10 or if bleeding. - hypotension - was hypotensive (likely from cirrhosis) at the time of admission which improved w/ midodrine, ?related to removal of 2L yesterday during HD, sepsis/ARDS/DIC as possible etiologies, unable to provide IV fluids given clinical scenario, started on Levophed for BP support, target MAP >65 5. GERD. Continue Protonix DVT prophylaxis: TEDs/SCDs GI prophylaxis: Protonix VS, I&O, 24H, Fishbone Vital Signs/I&O Vital Signs Date Time Temp Pulse Resp B/P (MAP) Pulse Ox O2 Delivery O2 Flow Rate FiO2 07/08/19 19:30 65 24 90/51 (64) 100 Ventilator 50 07/08/19 16:30 98.6 07/07/19 08:01 12.0 I&O- Last 24 Hours up to 6 AM 07/08/19 05:59 Intake Total 700 ml Output Total 2490 ml Balance -1790 ml Laboratory Data 24H LABS Laboratory Tests 2 07/07/19 23:52: Anion Gap 11, Glomerular Filtration Rate 16.1L, Calcium Level 8.6 07/08/19 05:49: Anion Gap 12, Glomerular Filtration Rate 14.1L, Calcium Level 8.4L, Nucleated Red Blood Cells % (auto) 0.0, Immature Platelet Fraction 3.4, Phosphorus Level 3.7#, Magnesium Level 1.9, Total Bilirubin 2.1H, Aspartate Amino Transf (AST/SGOT) 47H, Alanine Aminotransferase (ALT/SGPT) 21, Alkaline Phosphatase 76, Total Protein 6.0L, Albumin 2.3L, Albumin/Globulin Ratio 0.62L 07/08/19 08:07: Prothrombin Time 37.6H, Prothromb Time International Ratio 3.81, Activated Partial Thromboplast Time 52.1H, Fibrinogen 258 07/08/19 09:49: Blood Gas Bicarbonate Standard 19.9L, Arterial Blood pH 7.384, Arterial Blood Partial Pressure CO2 31.9L, Arterial Blood Partial Pressure O2 95.3, Arterial Blood Total CO2 19.6L, Arterial Blood HCO3 18.6L, Arterial Blood Base Excess - 5.5L, Arterial Blood Oxygen Saturation 97.2 07/08/19 15:05: Nucleated Red Blood Cells % (auto) 0.0, Lactic Acid Level 3.5*H 07/08/19 18:15: Nucleated Red Blood Cells % (auto) 0.0, Activated Partial Thromboplast Time 51.3H, Anion Gap 12, Glomerular Filtration Rate 16.0L, Calcium Level 7.8L, Whole Blood Ionized Calcium 4.3L, Phosphorus Level 3.0, Magnesium Level 1.9 CBC/BMP Laboratory Tests 07/07/19 23:52 07/08/19 05:49 07/08/19 15:05 07/08/19 18:15 Microbiology Microbiology 07/08/19 Gram Stain, Received Pending 07/08/19 Sputum Culture, Received Pending 07/05/19 Stool Occult Blood (ERIC) - Final, Complete 07/04/19 Stool Occult Blood (ERIC) - Final, Complete 07/02/19 Stool Occult Blood (ERIC) - Final, Complete MANNY ATKINS MD Jul 08, 2019 20:51
[2019-07-08] MEDS: CALCIUM GLUCONATE 1,000 MG, VIAL MATE ADAPTER 1 EACH in NS 100 ML IV SCH ×2 (21:24→22:47)
[2019-07-09] VITALS (62 sets, daily range): BP systolic 62–143; BP diastolic 38–71; O2SAT 98–100
[2019-07-09] MEDS: propofoL 1,000 MG in IV 1 EA IV SCH ×3 (00:30→17:37)
[2019-07-09 00:35] LABS: IONIZED CALCIUM 4.2 MG/DL (4.5-5.3)
[2019-07-09 01:02] LABS: CALCIUM LEVEL 8.4 MG/DL (8.5-10.1); CREATININE FOR GFR 3.14 MG/DL (0.55-1.30); GLOMERULAR FILTRATION RATE 16.2 (>51); MAGNESIUM LEVEL 2.5 MG/DL (1.8-2.4); POTASSIUM SERUM 5.5 MEQ/L (3.5-5.1)
[2019-07-09] MEDS: CALCIUM GLUCONATE 1,000 MG, VIAL MATE ADAPTER 1 EACH in NS 100 ML IV SCH ×4 (01:34→22:34)
[2019-07-09] MEDS: PIPERACILLIN/TAZOBACTAM SOD 2.25 GM in D5W MINI-BAG PLUS 50 ML IV SCH ×2 (01:48→14:19)
[2019-07-09 06:28] LABS: ABG HCO3 22.8 MEQ/L (22.0-26.0); ABG O2 SATURATION 99.3 % (95.0-99.0); ABG PARTIAL PRESSURE CO2 34.4 mmHg (35.0-45.0); ABG PARTIAL PRESSURE O2 162.3 mmHg (75.0-100.0); ABG STANDARD HCO3 23.7 MEQ/L (22.0-26.0); ABG TOTAL CO2 23.8 MEQ/L (22.0-29.0); ABG pH (ARTERIAL) 7.439 UNITS (7.350-7.450)
[2019-07-09] MEDS ORDERED: MORPHINE 2 MG/ML 1ML VIAL (J2270) IV PRN (06:30)
[2019-07-09] MEDS: SODIUM CHLORIDE 0.9% INJ 10 ML SYR IV SCH ×3 (06:40→22:00)
[2019-07-09 06:42] LABS: IONIZED CALCIUM 4.8 MG/DL (4.5-5.3)
[2019-07-09 06:50] LABS: BASO % 0.2 % (0.0-1.0); EOS # 0.7 10^3/uL (0.0-0.5); EOS % 5.7 % (0.0-3.0); HEMATOCRIT 30.9 % (36.0-47.0); HEMOGLOBIN 9.9 g/dl (12.0-15.5); LYMPH # 2.7 10^3/uL (1.5-5.0); LYMPH % 22.8 % (24.0-44.0); MEAN CORPUSCULAR HEMOGLOBIN 32.4 pg (27.0-33.0); MONO # 0.4 10^3/uL (0.0-0.8); MONO % 3.4 % (0.0-5.0); NEUTROPHILS # 7.9 10^3/uL (1.5-8.5); NEUTROPHILS % 67.5 % (36.0-66.0); PLATELET COUNT, AUTOMATED 39 10^3/uL (150-450); RED BLOOD COUNT 3.06 10^6/uL (4.00-5.40); WHITE BLOOD COUNT 11.6 10^3/uL (4.0-10.0)
[2019-07-09 06:59] LABS: INR 2.81; PROTHROMBIN TIME 29.5 SECONDS (11.8-14.0)
[2019-07-09 07:00] LABS: PARTIAL THROMBOPLASTIN TIME 53.1 SECONDS (25.0-38.4)
--- NOTE | 2019-07-09 07:14 | ECHO ---
DATE OF SERVICE: 07/08/2019 AGE: 58. REFERRING PROVIDER: Vane Lozoya MD PATIENT LOCATION: Room 3207. REASON FOR THE STUDY: Shortness of breath. 2D MEASUREMENTS: IVS: 1.0 cm LV: 4.5 cm LVPW: 0.9 cm LA: 3.3 cm Aorta: 3.0 cm IVC: 1.45 cm DOPPLER MEASUREMENTS: Peak velocity across the aortic valve: 1.5 m/s Peak velocity across the LVOT: 1.3 m/s Mitral E: 0.59 Mitral A: 0.50 with a ratio 1.2 Maximum tricuspid valve velocity: 2.8 m/s 2D COMMENTS: 1. Normal left ventricular size, wall thickness, and a normal global left ventricular systolic function. The estimated left ventricular systolic ejection fraction is estimated at 65% to 70%. 2. Normal left atrium. Normal right atrium and right ventricle. 3. The atrial septum appeared to be normal without evidence of defect or shunt. 4. Normal aortic root. 5. Trace pericardial effusion, no evidence of cardiac tamponade. A left pleural effusion was noted. 6. Mildly calcified aortic valve with normal leaflet excursion. Mildly calcified mitral annulus with normal anterior mitral valve leaflet motion. Normal tricuspid valve. The pulmonic valve and proximal pulmonary artery branches were not well visualized. 7. The inferior vena cava was normal in size, central venous pressure might be normal. DOPPLER: It detects trace to mild tricuspid regurgitation. The calculated pulmonary artery systolic pressure varies between 30-40 mmHg. Abnormal relaxation pattern was noted across the mitral valve annulus consistent with features of grade 2 left ventricular diastolic dysfunction. IMPRESSION: 1. Normal global left ventricular systolic function. There are some features of grade 2 left ventricular diastolic dysfunction. 2. Aortic valve sclerosis without stenosis or aortic regurgitation. 3. Isolated mitral annulus calcification without any evidence of mitral regurgitation or mitral stenosis. 4. Trace to mild tricuspid regurgitation with probably mild pulmonary hypertension. 5. A left pleural effusion was noted. Trace pericardial effusion noted.
[2019-07-09 07:25] LABS: ALBUMIN 2.2 GM/DL (3.2-5.2); BILIRUBIN,TOTAL 1.9 MG/DL (0.2-1.0); CALCIUM LEVEL 8.6 MG/DL (8.5-10.1); CREATININE FOR GFR 2.43 MG/DL (0.55-1.30); GLOMERULAR FILTRATION RATE 21.8 (>51); MAGNESIUM LEVEL 2.3 MG/DL (1.8-2.4); PHOSPHORUS LEVEL 1.9 MG/DL (2.5-4.9); POTASSIUM SERUM 3.9 MEQ/L (3.5-5.1); TOTAL PROTEIN 5.8 GM/DL (6.4-8.2)
[2019-07-09] MEDS ORDERED: KCL 20MEQ IN 100ML SWI (KRUN) 20 MEQ in IV 1 EA IV ONE ×2 (07:45)
[2019-07-09] MEDS: PANTOPRAZOLE 40MG INJ (PROTONIX) (C9113) IV SCH ×2 (08:08→20:02)
[2019-07-09] MEDS: CHLORHEXIDINE GLUCONATE 0.12 % 15ML UDC (PERIDEX ORAL RINSE) MT SCH ×2 (08:08→20:02)
[2019-07-09] MEDS: cefTRIAXone SOD 1 GM in D5W MINI-BAG PLUS 50 ML IV SCH (08:09)
[2019-07-09] MEDS: IPRATROPIUM 0.5MG/ALBUTEROL 2.5MG INH SOL UD 3ML (DUONEB)(J7620) NEB SCH ×4 (08:16→19:56)
--- NOTE | 2019-07-09 08:28 | REP ---
A portable chest x-ray: Single view. History: Intubated patient. Comparison study July 08, 2019. Findings: Endotracheal tube is seen in good position at the level of proximal clavicles. There are two central venous catheters in right internal jugular vein which terminate in the expected location of the superior vena cava. Diffuse interstitial lung disease is seen with focal left and, to a lesser extent right basilar opacities. There is some clearing diffusely. No new zone of infiltrate is seen. Electronically Signed by Adilson Norman MD 07/09/2019 08:20 A
[2019-07-09] MEDS: fentaNYL 100 MCG/2 ML INJECTION (J3010) IV PRN ×2 (09:28→19:52)
[2019-07-09] MEDS ORDERED: SODIUM PHOSPHATE INJ 30 MMOL in D5W 500 ML IV ONE (10:00)
--- NOTE | 2019-07-09 17:55 | IPNPDOC ---
Date Seen The patient was seen on 07/09/19. Progress Note HISTORY OF PRESENT ILLNESS: 58-year-old female with past medical history of cirrhosis, hypertension, GERD, and portal vein thrombosis (on Lovenox), presents from PCPs office for lab abnormalities. Patient was found to have a creatinine of 5.7 today, for which she was sent to the emergency department. Patient reports decreased oral intake over the past few weeks, was discharged from the hospital couple weeks ago after being admitted for portal vein thrombosis. She also reports decreased urine output for the past 2-3 days, has continued taking her lactulose with multiple bowel movements every day. She reportedly had 20 bowel movements yesterday. She has no other complaints at this time, denies shortness of breath, chest pain, nausea, vomiting, abdominal pain or diarrhea. 07/04/19 No acute events, now has Sher placed, minimal change in creatinine, patient comfortable but reports nausea. She is scheduled to undergo paracentesis on . She denies any SOB, CP, abdominal pain, diarrhea or constipation. 07/05/19 Patient comfortable in bed, without any complaints, appears mildly tachypneic. Patient denies any shortness of breath, chest pain, nausea, vomiting, abdominal pain or diarrhea at this time. 07/06/19 No acute events overnight, reports worsening SOB, only had 1 BM & reports increased weakness along with hand tremors. 07/07/19 Patient noted to be in significant respiratory distress, tachypneic requiring 12L of oxygen via NC; she was placed on BiPAP & transferred to ICU in an attempt to avoid intubation while treatment was provided. She was given 100 mg if Lasix IV total w/ suboptimal response; HD & intubation was discussed w/ patient & , both of whom agree with all treatment measures at this time. Al catheter was placed by IR for HD, Paracentesis was not performed due to elevated INR & without a substantial amount of ascites noted on bedside imaging. She underwent HD w/ removal of ~2L. She was reevaluated post HD, remains tachypneic but comfortable with good volumes noted on BiPAP and repeat ABG w/ adequate compensation at this time. Case was discussed w/ patient's GI (Dr. Long) who recommends that patient should be transferred to [facility] for inpatient workup regarding liver transplant, case discussed w/ transplant he patologist at [facility] who happy accepted the patient for transfer. Patient will require an ICU to ICU transfer with no ICU beds currently available at [facility]; patient is placed on the waiting list and will be transferred as soon as a bed is available. 07/08/19 Patient seen at bedside in the morning, tachypneic on BiPAP requiring increased FiO2 (50%), morning CXR showing worsening opacities concerning for development of ARDS; case discussed with Freight Broker (Dr. Phelan) and decision was made to intubate the patient. Discussed with patient & at bedside regarding benefits/risks of intubation, both of whom agree with it at this time. Patient was intubated successfully. She was also hypotensive in the morning despite getting Midodrine, was started on Levophed infusion prior to intubation. 07/09/19 Patient seen in the morning, sedated with propofol, receiving CVVHD, requiring levophed for pressure support, currently 8 mcg/m. Patient is awaiting transfer to [facility] once an ICU bed is available. PHYSICAL EXAMINATION: VITAL SIGNS: Please see below. GENERAL: sedated on mechanical ventilation HEENT: 7.5 ETT 23 cm at the lip NECK: Al and right IJ triple-lumen catheter in place. CARDIOVASCULAR EXAMINATION: S1, S2, no murmurs RESPIRATORY EXAMINATION: tachypneic, Scattered rhonchi ABDOMINAL EXAMINATION: Soft, nontender, moderately distended, positive bowel sounds SKIN: No rash PSYCHIATRIC EXAMINATION: Sedated LABORATORY DATA: See below. MICROBIOLOGY: Please see below. ASSESSMENT: 58-year-old female with past medical history of alcoholic cirrhosis, portal vein thrombosis on anticoagulation, hypertension and GERD admitted for ANTHONY 2/2 HRS now on mechanical ventilation in ICU for acute hypoxemic respiratory failure. PLAN: 1. Acute Hypoxemic respiratory failure - fluid overload and/or ARDS, intubated on mechanical ventilation, sedated w/ Propfol drip and as needed Versed & Fentanyl, Intensivit following. 2. Hepatorenal syndrome renal function w/ suboptimal improvement despite all treatment measures, currently undergoing CRRT due to hypotension requiring vasopressor support. 3. Portal vein thrombosis. heparin drip held due to elevated INR & possible occult bleed. Status post 2 doses of vitamin K. 4. Liver Cirrhosis - 2/2 to alcohol use, on medical management, attempting to transfer patient to [facility] for inpatient liver transplant workup, she has been accepted, awaiting ICU bed for transfer. Paracentesis postponed due to elevated INR, antibiotics switched to Zosyn overnight. - thrombocytopenia worsening, ?sepsis vs compensated DIC (difficult to assess due to cirrhosis), not actively bleeding, will monitor & transfuse as needed for Platelet <10 or if bleeding. - hypotension - was hypotensive (likely from cirrhosis) at the time of admission which improved w/ midodrine, ?related to removal of 2L yesterday during HD vs sepsis/ARDS as possible etiologies, continue Levophed, target MAP >65, on Zosyn. 5. GERD. Continue Protonix DVT prophylaxis: TEDs/SCDs GI prophylaxis: Protonix VS, I&O, 24H, Fishbone Vital Signs/I&O Vital Signs Date Time Temp Pulse Resp B/P (MAP) Pulse Ox O2 Delivery O2 Flow Rate FiO2 07/09/19 17:37 81 31 100 Ventilator 45 07/09/19 15:00 97/50 (66) 07/09/19 12:00 98.4 07/07/19 08:01 12.0 I&O- Last 24 Hours up to 6 AM 07/09/19 06:00 Intake Total 965 ml Output Total 21 ml Balance 944 ml Laboratory Data 24H LABS Laboratory Tests 2 07/08/19 18:15: Nucleated Red Blood Cells % (auto) 0.0, Activated Partial Thromboplast Time 51.3H, Anion Gap 12, Glomerular Filtration Rate 16.0L, Calcium Level 7.8L, Whole Blood Ionized Calcium 4.3L, Phosphorus Level 3.0, Magnesium Level 1.9 07/08/19 20:39: Bedside Glucose (Misc Panel) 103 07/08/19 21:00: Lactic Acid Followup at 4 Hours 4.7*H 07/09/19 00:26: Anion Gap 12, Glomerular Filtration Rate 16.2L, Calcium Level 8.4L, Whole Blood Ionized Calcium 4.2L, Phosphorus Level 3.0, Magnesium Level 2.5H 07/09/19 00:55: Bedside Glucose (Misc Panel) 140H 07/09/19 04:11: Bedside Glucose (Misc Panel) 132H 07/09/19 06:23: Blood Gas Bicarbonate Standard 23.7, Arterial Blood pH 7.439, Arterial Blood Partial Pressure CO2 34.4L, Arterial Blood Partial Pressure O2 162.3H, Arterial Blood Total CO2 23.8, Arterial Blood HCO3 22.8, Arterial Blood Base Excess -1.0, Arterial Blood Oxygen Saturation 99.3H, Arterial Blood Gas Puncture Site UNKNOWN 07/09/19 06:36: Immature Granulocyte % (Auto) 0.4, Neutrophils (%) (Auto) 67.5H, Lymphocytes (%) (Auto) 22.8L, Monocytes (%) (Auto) 3.4, Eosinophils (%) (Auto) 5.7H, Basophils (%) (Auto) 0.2, Neutrophils # (Auto) 7.9, Lymphocytes # (Auto) 2.7, Monocytes # (Auto) 0.4, Eosinophils # (Auto) 0.7H, Basophils # (Auto) 0.0, Nucleated Red Blood Cells % (auto) 0.0, Immature Platelet Fraction 6.7, Prothrombin Time 29.5H, Prothromb Time International Ratio 2.81, Activated Partial Thromboplast Time 53.1H, Anion Gap 10, Glomerular Filtration Rate 21.8L, Calcium Level 8.6, Whole Blood Ionized Calcium 4.8, Phosphorus Level 1.9#L, Magnesium Level 2.3, Total Bilirubin 1.9H, Aspartate Amino Transf (AST/SGOT) 49H, Alanine Aminotransferase (ALT/SGPT) 25, Alkaline Phosphatase 93, Total Protein 5.8L, Albumin 2.2L, Albumin/Globulin Ratio 0.61L, Procalcitonin 2.90 07/09/19 11:24: Lactic Acid Level 3.4*H 07/09/19 16:34: Bedside Glucose (Misc Panel) 135H CBC/BMP Laboratory Tests 07/08/19 18:15 07/09/19 00:26 07/09/19 06:36 Microbiology Microbiology 07/09/19 Blood Culture, Received Pending 07/08/19 Gram Stain - Final, Resulted 07/08/19 Sputum Culture, Resulted Pending 07/05/19 Stool Occult Blood (ERIC) - Final, Complete 07/04/19 Stool Occult Blood (ERIC) - Final, Complete 07/02/19 Stool Occult Blood (ERIC) - Final, Complete MANNY ATKINS MD Jul 09, 2019 17:55
[2019-07-09 18:11] LABS: IONIZED CALCIUM 4.3 MG/DL (4.5-5.3)
[2019-07-09 18:12] LABS: HEMATOCRIT 30.9 % (36.0-47.0); HEMOGLOBIN 9.9 g/dl (12.0-15.5); MEAN CORPUSCULAR HEMOGLOBIN 32.4 pg (27.0-33.0); RED BLOOD COUNT 3.06 10^6/uL (4.00-5.40); WHITE BLOOD COUNT 12.8 10^3/uL (4.0-10.0)
[2019-07-09 18:14] LABS: PLATELET COUNT, AUTOMATED 30 10^3/uL (150-450)
[2019-07-09 19:01] LABS: CREATININE FOR GFR 2.08 MG/DL (0.55-1.30); GLOMERULAR FILTRATION RATE 26.1 (>51); MAGNESIUM LEVEL 2.3 MG/DL (1.8-2.4); PHOSPHORUS LEVEL 3.1 MG/DL (2.5-4.9); POTASSIUM SERUM 3.9 MEQ/L (3.5-5.1)
[2019-07-09] MEDS ORDERED: KCL 20MEQ IN 100ML SWI (KRUN) 20 MEQ in IV 1 EA IV SCH ×2 (20:00)
[2019-07-09] MEDS: NOREPINEPHRINE BITARTRATE 16 MG in D5W 484 ML IV SCH (23:10)
[2019-07-10] VITALS (76 sets, daily range): BP systolic 70–113; BP diastolic 36–56; O2SAT 95–100
[2019-07-10] MEDS: fentaNYL 100 MCG/2 ML INJECTION (J3010) IV PRN ×2 (00:14→03:50)
[2019-07-10] MEDS: PIPERACILLIN/TAZOBACTAM SOD 2.25 GM in D5W MINI-BAG PLUS 50 ML IV SCH ×2 (01:51→14:43)
[2019-07-10] MEDS: MIDAZOLAM INJ 2 MG/2 ML VIAL (J2250) IV PRN ×2 (03:49→06:10)
[2019-07-10] MEDS ORDERED: IPRATROPIUM 0.5MG/ALBUTEROL 2.5MG INH SOL UD 3ML (DUONEB)(J7620) NEB ONE ×2 (04:30→04:45)
[2019-07-10] MEDS: propofoL 1,000 MG in IV 1 EA IV SCH ×2 (04:43→13:08)
--- NOTE | 2019-07-10 05:23 | REPVR ---
PROCEDURE INFORMATION: Exam: XR Chest, 1 View Exam date and time: 07/10/19 (4:19am) Age: 58 years old Clinical indication: Decreased oxygen saturation TECHNIQUE: Imaging protocol: Portable CXR Views: 1 view COMPARISON: Portable CXR of 07/09/19 (6:48am) FINDINGS: Comparison is made with a portable CXR done the previous morning. Diffusely prominent interstitial lung markings again noted. Patchy opacity remains at the left lung base. No significant pleural effusions. Normal heart size (unchanged). E-T tube in place, with its tip approx. 3.4 cm above the spencer. Enteric tube is noted, passing into the stomach (its tip is not included on the film). Right-sided central venous catheters remain in place. No pneumothorax. IMPRESSION: In general, similar findings were noted 22 hours earlier. Diffuse interstitial lung disease remains. Patchy opacity again noted at the left lung base -- possible infectious pneumonia. No significant pleural effusions are evident. Electronically signed by: Ely Montoya On 07/10/2019 05:22:59 AM
[2019-07-10 05:48] LABS: ABG BASE EXCESS -1.6 (-2.0-2.0); ABG HCO3 21.8 MEQ/L (22.0-26.0); ABG O2 SATURATION 91.8 % (95.0-99.0); ABG PARTIAL PRESSURE CO2 32.3 mmHg (35.0-45.0); ABG PARTIAL PRESSURE O2 60.8 mmHg (75.0-100.0); ABG STANDARD HCO3 23.1 MEQ/L (22.0-26.0); ABG TOTAL CO2 22.8 MEQ/L (22.0-29.0); ABG pH (ARTERIAL) 7.448 UNITS (7.350-7.450)
[2019-07-10 05:53] LABS: IONIZED CALCIUM 4.5 MG/DL (4.5-5.3)
[2019-07-10] MEDS: SODIUM CHLORIDE 0.9% INJ 10 ML SYR IV SCH ×3 (06:00→21:15)
[2019-07-10 06:04] LABS: BASO % 0.2 % (0.0-1.0); EOS # 0.7 10^3/uL (0.0-0.5); EOS % 5.2 % (0.0-3.0); HEMATOCRIT 31.3 % (36.0-47.0); HEMOGLOBIN 9.8 g/dl (12.0-15.5); LYMPH # 2.1 10^3/uL (1.5-5.0); LYMPH % 15.1 % (24.0-44.0); MEAN CORPUSCULAR HEMOGLOBIN 31.8 pg (27.0-33.0); MEAN CORPUSCULAR HGB CONC 31.3 g/dl (32.0-36.5); MEAN CORPUSCULAR VOLUME 101.6 fl (80.0-96.0); MONO % 7.1 % (0.0-5.0); NEUTROPHILS # 9.7 10^3/uL (1.5-8.5); NEUTROPHILS % 71.7 % (36.0-66.0); RED BLOOD COUNT 3.08 10^6/uL (4.00-5.40); WHITE BLOOD COUNT 13.6 10^3/uL (4.0-10.0)
[2019-07-10 06:11] LABS: PLATELET COUNT, AUTOMATED 34 10^3/uL (150-450)
[2019-07-10 06:21] LABS: INR 2.06
[2019-07-10 06:23] LABS: ALBUMIN 2.1 GM/DL (3.2-5.2); BILIRUBIN,TOTAL 1.9 MG/DL (0.2-1.0); CALCIUM LEVEL 7.9 MG/DL (8.5-10.1); CREATININE FOR GFR 1.79 MG/DL (0.55-1.30); GLOMERULAR FILTRATION RATE 31.1 (>51); MAGNESIUM LEVEL 2.3 MG/DL (1.8-2.4); PHOSPHORUS LEVEL 1.9 MG/DL (2.5-4.9); POTASSIUM SERUM 4.1 MEQ/L (3.5-5.1)
--- NOTE | 2019-07-10 06:36 | CCN ---
DATE: 07/09/2019 HISTORY: The patient was seen and examined this morning during bedside rounds. The patient was started on continuous veno-venous hemodialysis (CVVHD) yesterday. She initially was on Levophed, a low dose, but has required increasing amounts of Levophed up to 9 mcg per minute this morning. She has been unable to have any fluid removal with her CVVHD. Overnight the patient was also noted to be hypothermic. She was started on a bear hugger for warming. Antibiotics were broadened to zosyn. PHYSICAL EXAMINATION: VITAL SIGNS: Temperature 97.5, pulse 78, respirations 29, blood pressure 88/47, O2 sat 100% on 50% FiO2, in 835 and out 31. GENERAL: Patient is intubated and sedated. She is responsive to painful stimuli but is not awake and alert in following commands. HEENT: Normocephalic, atraumatic. Pupils reactive to light bilaterally. NECK: Supple. Trachea is midline, there is no palpable cervical adenopathy. There is no jugular venous distention (JVD). CARDIAC: Regular rate and rhythm. Normal S1-S2. Unable to appreciate murmurs. RESPIRATORY: There are diminished breath sounds bilaterally with some coarse occasional rhonchi. ABDOMEN: Soft, mildly distended. There is a palpable fluid wave. EXTREMITIES: There is no lower extremity edema noted bilaterally. There are some spider angioma noted on her chest. LABORATORY DATA: WBC 11.6, hemoglobin of 9.9, platelets are 39. Chemistry: Sodium is 138, potassium 3.9, chloride is 106, bicarb 22, BUN 26, creatinine is 2.43, glucose 98. Lactic acid increased to 4.7, phos 1.9, total bilirubin 1.9, AST 49, ALT 25, INR is 2.81. Arterial blood gas (ABG): pH 7.439, pCO2 of 39.4, pO2 of 162.3. IMAGING STUDIES: Chest x-ray showed a right IJ line in position and a right subclavian hemodialysis catheter in position. There is an endotracheal (ET) tube in place. There is improvement in the previous diffuse interstitial opacities but still present. There is increased markings and opacities in the bases bilaterally on the left more than the right. Echocardiogram: Normal ejection fraction (EF), normal left atrium and right atrium and right ventricle size. There is trace pericardial effusion. The inferior vena cava (IVC) appeared normal in size. There is grade 2 diastolic dysfunction but no significant valvular disease. There is probable mild pulmonary hypertension and a left pleural effusion. ASSESSMENT AND PLAN: Ms. Burgos is a 58 year old female with a past medical history of alcoholic cirrhosis, gastroesophageal reflux disease (GERD), hypertension, portal vein thrombosis, chronic kidney disease (CKD) who presented with acute on chronic renal failure likely secondary to hepatorenal syndrome. The patient was given albumin and fluids as well as octreotide. She was also started on midodrine for hypotension. The patient was then found to have worsening respiratory distress and chest x-ray showing bilateral diffuse infiltrates consistent with pulmonary edema. She was initially placed on BiPap and started on Lasix with some minimal improvement. The patient was then started on dialysis and was able to have almost 2 liters of fluid removed; however, her x-ray continued to show worsening opacities and she had increasing respiratory distress. She was therefore intubated for acute hypoxemic respiratory failure and respiratory distress. The patient was also found to have worsening hypotension and was started on Levophed for vasopressor support. Neurologic: History of hepatic encephalopathy. The patient was on lactulose previously for hepatic encephalopathy. - Lactulose was initially on hold as she did not have an orogastric (OG) tube. The OG tube was placed today and can restart lactulose to titrate to three to four bowel movements a day. - The patient is intubated and so will continue with propofol for sedation with Versed as needed for agitation and Fentanyl as needed for pain control. - The patient's oxygenation appears to be improving. Will titrate the sedation for a Portage score then of 3. Cardiac: The patient has a history of chronic hypotension likely in setting of her cirrhosis. She was initially on midodrine however appeared to have worsening shock requiring Levophed for vasopressor support. - The patient was noted to have increasing lactic acidosis. Patient likely with septic shock. She was started on Levophed and titrated to maintain a mean arterial pressure (MAP) above 65. She has required increasing Levophed requirements overnight. - Will continue to monitor and trend lactic acid. - The patient has a right internal jugular (IJ) triple lumen in place for vasopressor administration. - The patient's echocardiogram showed evidence of grade 2 diastolic dysfunction. No significant valvular pathology and a normal ejection fraction (EF). Her IVC also appeared normal in size. She was noted to have left pleural effusion, however. - The patient was noted to be more hypertensive when lying on her right side. Suspect with her abdominal distension and ascites when she lies on her right side she has compression of her IVC. Therefore will keep her more on her left side if possible. PULMONARY: The patient had acute hypoxemic respiratory failure in the setting of pulmonary edema with concern for possible acute respiratory distress syndrome (ARDS) with some possible aspiration pneumonia given some of the more focal opacities in the bases on her x-ray. The patient was intubated for her acute hypoxemic respiratory failure and started on mechanical ventilation. - Continue with mechanical ventilation with volume control with settings of 380/16 and will wean down her PEEP and FIO2 to 45% and a PEEP of 10. Will continue to wean down as tolerated. - Continue daily ABGs and chest x-rays while intubated. - Continue with vent bundle care with head of bed elevation and chlorhexidine mouth wash. - The patient was initially on ceftriaxone given her ascites for spontaenous bacterial peritonitis (SBP) prophylaxis. Her x-ray does show some increased opacities at the bases and there is some concern for aspiration. She was also noted be hypothermic and in worsening shock concerning for possible septic shock. Her antibiotics were broadened therefore to Zosyn renally dosed for aspiration pneumonia. Will followup her sputum culture and blood culture results. GASTROINTESTINAL (GI): History of alcoholic cirrhosis and portal vein thrombosis was initially on Lovenox and then heparin for anticoagulation. The patient's anticoagulation was on hold for concern of possible GI bleed as well as from her worsening coagulopathy and thrombocytopenia. - Will continue to monitor her thrombocytopenia. The patient likely has thrombocytopenia in the setting of her chronic liver disease as well as sepsis. Her fibrinogen level was checked and did not show any evidence of disseminated intravascular coagulation (DIC). The patient's coagulopathy is likely in the setting of her chronic liver disease. After a dose of vitamin K her INR has improved but is still abnormal. - Will continue to monitor her coags and platelets and transfuse as needed. - Continue with Protonix IV twice a day. - Continue to monitor liver function testing. - The patient was accepted at [facility] in their inpatient liver transplant service for workup for possible liver transplant. She is still awaiting a bed in the ICU for transfer. - The patient does have evidence of ascites and had been requiring frequent paracentesis. Repeat paresthesias on hold given her coagulopathy. - The patient had OG tube placed. Will keep nothing by mouth for now but if her hemoglobin continues to be stable will consider starting tube feeds. RENAL/ENDO: Acute on chronic renal failure likely hepatorenal syndrome. The patient was started on continuous veno-venous hemodialysis (CVVHD) which she initially was tolerating however has required increasing amounts of vasopressor support to maintain a MAP. Will discuss with renal and the patient will likely not be able to have any fluid removal with CVVHD. Will continue to monitor her metabolic acidosis and electrolytes. - Will check fingerstick glucose and will start D5 as needed for hypoglycemia. Deep venous thrombosis (DVT) prophylaxis. Thromboembolic deterrent stockings (TEDs) and sequential compression device (SCDs). GI prophylaxis: Proton pump inhibitor (PPI). FULL CODE. Total critical care time spent not including procedures approximately 45- minutes. MTDD
[2019-07-10] MEDS ORDERED: CALCIUM GLUCONATE 1,000 MG, VIAL MATE ADAPTER 1 EACH in NS 100 ML IV ONE (07:00)
[2019-07-10] MEDS ORDERED: SODIUM PHOSPHATE INJ 30 MMOL in NS 250 ML IV ONE (07:00)
[2019-07-10] MEDS: IPRATROPIUM 0.5MG/ALBUTEROL 2.5MG INH SOL UD 3ML (DUONEB)(J7620) NEB SCH ×4 (07:21→20:33)
[2019-07-10] MEDS: CHLORHEXIDINE GLUCONATE 0.12 % 15ML UDC (PERIDEX ORAL RINSE) MT SCH ×2 (08:13→21:14)
[2019-07-10] MEDS: PANTOPRAZOLE 40MG INJ (PROTONIX) (C9113) IV SCH ×2 (08:13→21:14)
[2019-07-10 08:58] LABS: HEPATITIS B SURFACE ANTIBODY NEGATIVE (POSITIVE)
[2019-07-10 09:08] LABS: HEPATITIS B SURFACE ANTIGEN NEGATIVE (NEGATIVE)
[2019-07-10 09:36] LABS: HEPATITIS B CORE ANTIBODY IGM NEGATIVE (NEGATIVE); HEPATITIS C VIRUS ABY INDEX 0.4 INDEX (<0.8)
--- NOTE | 2019-07-10 11:11 | IPN ---
DATE OF SERVICE: 07/09/2019 GENERAL: Alexa is seen and examined this morning in the intensive care unit. She remains on CVVHDF. Overnight, her Levophed pressor support needed to be increased from 4 mcg yesterday up to 8 today. Nursing staff did not remove any fluids with the CRRT. In the past 24 hours, the flow sheet shows that she is in net positive fluid balance of 634 mL. She had an echocardiogram yesterday that showed a normal size inferior vena cava with probable normal central venous pressure (CVP) and features of diastolic congestive heart failure. She remains intubated with 50% FIO2. She is still pending transfer to [facility] in [place] but there is no bed yet available. REVIEW OF SYSTEMS: Is unable to be obtained as the patient is intubated and sedated. Vital signs: Temperature 97.5, pulse 80, respiratory rate 26, blood pressure 95/54, saturating 100% on 50% FIO2. Review of intake and output (I's and O's) shows she has positive 630 mL. Weight in the bed scale today is 58.1 kg. General: The patient is seen in the intensive care unit, intubated and sedated. There is a Huma Hugger. Her pupils are reactive to light. There is an orogastric tube and endotracheal tube in place. Neck is supple. The jugular veins are mildly elevated. There is a central line present in the neck. Heart sounds are regular, S1, S2. No appreciable murmur. No edema in the legs. Respiratory: There is coarse air entry bilaterally. She is on 50% FIO2. The abdomen is soft and distended. There is a fluid wave. Genitourinary: There is a Sher catheter without urine. Neurologic: She is sedated. LABS: Sodium 138, potassium 3.9, bicarbonate 22, BUN 26, phosphorus 1.9, lactic acid yesterday 4.7. Hemoglobin 9.9, pO2 today on 50% FIO2 was 162. Chest x-ray today shows diffuse interstitial lung disease with some clearing diffusely of basilar opacities. INPATIENT MEDICATIONS: Reviewed by myself. She received several runs of calcium gluconate and potassium chloride, magnesium sulfate, and sodium phosphate. She continues on ceftriaxone 1 gram intravenous (IV) twice daily. She continues on Levophed infusion, presently 8 mcg. Remainder of medications are unchanged from prior. PROBLEMS: 1. Oligoanuric acute renal failure in this patient with hemodynamic instability and ongoing Levophed pressor requirement. The patient continues on CVVHDF via a dialysis catheter. Fluid removal will be variable, and dependent on her mean arterial pressures, with no fluid removal for MAP less than 70. 2. Ventilator dependent respiratory failure. The ventilator management is as per primary team. She has improvement in her blood gas today. PO2 is 160 with FIO2 of 50%, that can likely will be reduced. We will try to keep her on the drier feeder side with CVVHDF. 3. Diastolic congestive heart failure. Echocardiogram from yesterday is noted. Her inferior vena cava was of normal size. Her volume status at present seems fairly acceptable. In the past 24 hours, she was in positive fluid balance of 630 mL, and on nursing staff reported hypotension and need for increasing pressor requirements when she had more fluid removed with CVVHD. 4. Hypotension. In this patient with a history of lung decompensated cirrhosis, she has ongoing pressor dependence. Levophed was up-titrated to 8 mcg overnight. A repeat lactic acid level is pending. Echocardiogram showed preserved left ventricular ejection fraction and a normal inferior vena cava size. Continue with gentle fluid removal from CRRT as tolerated by the mean arterial pressure. She is also on ceftriaxone for SBP prophylaxis and possible aspiration pneumonia. 5. Multiple electrolyte abnormalities with repletion. The patient is receiving calcium, phosphorus. Her serum bicarbonate has improved nicely.
[2019-07-10] MEDS ORDERED: VANCOMYCIN HCL 1,000 MG, VIAL MATE ADAPTER 1 EACH in D5W 250 ML IV ONE (13:00)
--- NOTE | 2019-07-10 14:24 | IPN ---
DATE: 07/10/2019 SUBJECTIVE: Alexa was seen and examined this morning at the bedside in the intensive care unit. 24-hour events are reviewed. She has required increased pressor support, Levophed is up to 12 mics this morning. There was no fluid removal with continuous renal replacement therapy (CRRT) in the past 24 hours. She is positive about 1.9 liters in the past 24 hours. She remains hypothermic and continues with a Huma Hugger. She is for possible paracentesis later this afternoon. Her vent settings were adjusted with FiO2 decreased to 45%. Review of systems is unable to be obtained secondary to clinical condition. OBJECTIVE: Temperature 94.3, pulse 75, respiratory rate 24, blood pressure systolic 82-102, diastolic 50, saturating 97% on 45% FiO2. Review of intake and output shows she is net positive 1.9 liters. Weight on the bed scale today was not recorded. General: The patient is seen, intubated and sedated, lying lateral recumbent on the left. Pupils are reactive to light. Neck is supple. There are central lines present bilaterally. Jugular veins were difficult to assess but appear elevated. Heart sounds are regular, S1, S2. Breath sounds are coarse and diminished. There is scattered rhonchus. Abdomen is soft. There is ascitic fluid in situ. There are bowel sounds. Genitourinary: Shows a Sher catheter with very small amount of miranda colored urine. Neurologic she is sedate. There is trace edema in the legs. LABORATORY DATA: White count 13.6, hemoglobin 9.8, platelets 34, sodium 138, potassium 4.1, bicarbonate 22, lactic acid 4.3, ionized calcium 4.5, phosphorus 1.9. Sputum culture grew yeastlike organism. Chest x-ray July 10 diffuse prominent interstitial lung markings. No significant pleural effusions, patchy opacity left lung base. INPATIENT MEDICATIONS: Reviewed by myself. She received several runs of calcium gluconate. Her Levophed was increased to 12 mics. She continues on renally dosed Zosyn. She received 60 millimoles of sodium phosphate. She received a dose of vancomycin 1 gram IV times one. Her remainder of medications are unchanged as compared to yesterday. PROBLEMS: 1. Oligoanuric acute renal failure in this patient with the ongoing severe hypotension and increasing pressor requirements/hepatorenal syndrome. There is no sign of any renal recovery. In the past 24 hours her pressor requirements have increased. We have been unable to remove much fluid with CRRT. There is a plan for possible paracentesis as directed by the primary and critical care teams. Given that her FiO2 requirements remain fairly stable and given that she is requiring more pressor support, I am not trying to remove fluids at this time with her dialysis prescription. 2. Chronic hypotension in this patient with diastolic congestive heart failure and cirrhosis with ascites with worsening hemodynamics now on Levophed pressor support with increasing pressor requirements and increasing lactic acidosis. Her dialysis prescription has been rewritten to target a higher effluent dose per mL/kg/per hour. Her serum bicarbonate is 22 and her pH is normalized. She is in positive fluid balance of a total of 2.6 liters since over the weekend. There is plan for possible paracentesis this afternoon. Given her increasing pressor requirements it is been difficult to remove fluid with CRRT. I suggest that if she has a large volume paracentesis that she should receive albumin with it. 3. Ventilator dependent respiratory failure, vent management as per heat plant specialist. FiO2 was decreased to 45%. There is possible aspiration pneumonia as there is a patchy opacity on the left base. I also feel that she has some hypervolemia as well given that she has an positive fluid balance and we have had difficulty removing fluid with CRRT. Her sputum culture grew yeast. She is receiving renally dosed vancomycin and Zosyn, defer need for antifungal to pulmonary. 4. Hypophosphatemia. It is secondary to the continuous dialysis and the phosphorus repletion is 500 mL each time, hence I have changed orders for less aggressive phosphorus supplementation so that she has less intake.
[2019-07-10] MEDS: MIDODRINE 5 MG TAB FT SCH (15:00)
[2019-07-10 16:33] LABS: APPEARANCE, BODY FLUID CLEAR (CLEAR); ASCITES FL COLOR YELLOW (COLORLESS); SOURCE, BODY FLUID ASCITES; SPEC. GRAVITY BODY FLUIDS 1.009 (NOT ESTABLISHED)
[2019-07-10 16:54] LABS: SOURCE, BODY FLUID ALBUMIN ASCITES
[2019-07-10 17:00] LABS: SOURCE, BODY FLUID GLUCOSE ASCITES; SOURCE, BODY FLUID TOT PROTEIN ASCITES; TOTAL PROTEIN, BODY FLUID 0.7 G/DL (NOT ESTABLISHED)
--- NOTE | 2019-07-10 17:35 | IPNPDOC ---
Date Seen The patient was seen on 07/10/19. Progress Note HISTORY OF PRESENT ILLNESS: 58-year-old female with past medical history of cirrhosis, hypertension, GERD, and portal vein thrombosis (on Lovenox), presents from PCPs office for lab abnormalities. Patient was found to have a creatinine of 5.7 today, for which she was sent to the emergency department. Patient reports decreased oral intake over the past few weeks, was discharged from the hospital couple weeks ago after being admitted for portal vein thrombosis. She also reports decreased urine output for the past 2-3 days, has continued taking her lactulose with multiple bowel movements every day. She reportedly had 20 bowel movements yesterday. She has no other complaints at this time, denies shortness of breath, chest pain, nausea, vomiting, abdominal pain or diarrhea. 07/04/19 No acute events, now has Sher placed, minimal change in creatinine, patient comfortable but reports nausea. She is scheduled to undergo paracentesis on . She denies any SOB, CP, abdominal pain, diarrhea or constipation. 07/05/19 Patient comfortable in bed, without any complaints, appears mildly tachypneic. Patient denies any shortness of breath, chest pain, nausea, vomiting, abdominal pain or diarrhea at this time. 07/06/19 No acute events overnight, reports worsening SOB, only had 1 BM & reports increased weakness along with hand tremors. 07/07/19 Patient noted to be in significant respiratory distress, tachypneic requiring 12L of oxygen via NC; she was placed on BiPAP & transferred to ICU in an attempt to avoid intubation while treatment was provided. She was given 100 mg if Lasix IV total w/ suboptimal response; HD & intubation was discussed w/ patient & , both of whom agree with all treatment measures at this time. Al catheter was placed by IR for HD, Paracentesis was not performed due to elevated INR & without a substantial amount of ascites noted on bedside imaging. She underwent HD w/ removal of ~2L. She was reevaluated post HD, remains tachypneic but comfortable with good volumes noted on BiPAP and repeat ABG w/ adequate compensation at this time. Case was discussed w/ patient's GI (Dr. Long) who recommends that patient should be transferred to [facility] for inpatient workup regarding liver transplant, case discussed w/ transplant he patologist at [facility] who happy accepted the patient for transfer. Patient will require an ICU to ICU transfer with no ICU beds currently available at [facility]; patient is placed on the waiting list and will be transferred as soon as a bed is available. 07/08/19 Patient seen at bedside in the morning, tachypneic on BiPAP requiring increased FiO2 (50%), morning CXR showing worsening opacities concerning for development of ARDS; case discussed with [facility] Specialist (Dr. Phelan) and decision was made to intubate the patient. Discussed with patient & at bedside regarding benefits/risks of intubation, both of whom agree with it at this time. Patient was intubated successfully. She was also hypotensive in the morning despite getting Midodrine, was started on Levophed infusion prior to intubation. 07/09/19 Patient seen in the morning, sedated with propofol, receiving CVVHD, requiring levophed for pressure support, currently 8 mcg/m. Patient is awaiting transfer to [facility] once an ICU bed is available. 07/10/19 Patient examined in the morning, hypothermic overnight with increased Levophed requirements, currently at 12 mcg/min. She remains sedated on propofol, without any purposeful movement, unable to open eyes or follow commands at this time. Discussed her current condition & plan with at bedside, all questions answered. PHYSICAL EXAMINATION: VITAL SIGNS: Please see below. GENERAL: sedated on mechanical ventilation HEENT: 7.5 ETT 23 cm at the lip NECK: Al and right IJ triple-lumen catheter in place. CARDIOVASCULAR EXAMINATION: S1, S2, no murmurs RESPIRATORY EXAMINATION: tachypneic, Scattered rhonchi ABDOMINAL EXAMINATION: Soft, nontender, moderately distended, hypoactive bowel sounds SKIN: No rash PSYCHIATRIC EXAMINATION: Sedated LABORATORY DATA: See below. MICROBIOLOGY: Please see below. ASSESSMENT: 58-year-old female with past medical history of alcoholic cirrhosis, portal vein thrombosis on anticoagulation, hypertension and GERD admitted for ANTHONY 2/2 HRS now on mechanical ventilation in ICU for acute hypoxemic respiratory failure. PLAN: 1. Acute Hypoxemic respiratory failure - fluid overload and/or ARDS, intubated on mechanical ventilation, sedated w/ Propfol drip and as needed Versed & Fentanyl, Intensivit following. 2. Septic shock - source unclear, ?pulm vs GI vs liver failure, increased Levophed requirements, restarting IV albumin 25 gm q6h x3 doses to augment intravascular volume with the understanding that this may worsen her respiratory function if she continues to have poor urine output. procal significantly elevated, will trend, continue Zosyn, will provide one dose of Vancomycin & start empiric Micafungin as yeast grew in the sputum culture. Midodrine has been restarted in an attempt to wean off Levophed. 3. Hepatorenal syndrome renal function w/ suboptimal improvement despite all treatment measures, currently undergoing CRRT due to hypotension requiring vasopressor support. 4. Portal vein thrombosis. heparin drip held due to elevated INR & possible occult bleed. Status post 2 doses of vitamin K. 4. Liver Cirrhosis - 2/2 to alcohol use, on medical management, attempting to transfer patient to [facility] for inpatient liver transplant workup, she has been a ccepted, awaiting ICU bed for transfer. Plan for Paracentesis today. - thrombocytopenia worsening, ?sepsis vs compensated DIC (difficult to assess due to cirrhosis), not actively bleeding, will monitor & transfuse as needed for Platelet <10 or if bleeding. 5. GERD. Continue Protonix DVT prophylaxis: TEDs/SCDs GI prophylaxis: Protonix VS, I&O, 24H, Fishbone Vital Signs/I&O Vital Signs Date Time Temp Pulse Resp B/P (MAP) Pulse Ox O2 Delivery O2 Flow Rate FiO2 07/10/19 17:03 98.6 79 23 97/54 99 Ventilator 45 07/07/19 08:01 12.0 I&O- Last 24 Hours up to 6 AM 07/10/19 06:00 Intake Total 1386.8 ml Output Total 518 ml Balance 868.8 ml Laboratory Data 24H LABS Laboratory Tests 2 07/09/19 17:55: Nucleated Red Blood Cells % (auto) 0.0, Activated Partial Thromboplast Time 46.8H, Anion Gap 10, Glomerular Filtration Rate 26.1L, Lactic Acid Followup at 4 Hours 4.3*H, Calcium Level 8.0L, Whole Blood Ionized Calcium 4.3L, Phosphorus Level 3.1#, Magnesium Level 2.3 07/09/19 23:33: Bedside Glucose (Misc Panel) 124H 07/10/19 04:57: Bedside Glucose (Misc Panel) 96 07/10/19 05:24: Blood Gas Bicarbonate Standard 23.1, Arterial Blood pH 7.448, Arterial Blood Partial Pressure CO2 32.3L, Arterial Blood Partial Pressure O2 60.8L, Arterial Blood Total CO2 22.8, Arterial Blood HCO3 21.8L, Arterial Blood Base Excess - 1.6, Arterial Blood Oxygen Saturation 91.8L 07/10/19 05:41: Immature Granulocyte % (Auto) 0.7, Neutrophils (%) (Auto) 71.7H, Lymphocytes (%) (Auto) 15.1L, Monocytes (%) (Auto) 7.1H, Eosinophils (%) (Auto) 5.2H, Basophils (%) (Auto) 0.2, Neutrophils # (Auto) 9.7H, Lymphocytes # (Auto) 2.1, Monocytes # (Auto) 1.0H, Eosinophils # (Auto) 0.7H, Basophils # (Auto) 0.0, Nucleated Red Blood Cells % (auto) 0.0, Prothrombin Time 23.0H, Prothromb Time International Ratio 2.06, Anion Gap 11, Glomerular Filtration Rate 31.1L, Calcium Level 7.9L, Whole Blood Ionized Calcium 4.5, Phosphorus Level 1.9#L, Magnesium Level 2.3, Total Bilirubin 1.9H, Aspartate Amino Transf (AST/SGOT) 60H, Alanine Aminotransferase (ALT/SGPT) 27, Alkaline Phosphatase 122H, Total Protein 6.0L, Albumin 2.1L, Albumin/Globulin Ratio 0.54L 07/10/19 15:52: Body Fluid Source ASCITES, Body Fluid Color YELLOW, Body Fluid Appearance CLEAR, Body Fluid Specific Kane 1.009, Body Fluid WBC (Auto) 20H, Body Fluid RBC (Auto) < 2, Body Fluid Mononuclear Cells % Auto 55.0H, Fluid Polymorphonuclear Cell % Auto 45.0H, Body Fluid Glucose Source ASCITES, Body Fluid Glucose 120, Body Fluid Protein Source ASCITES, Body Fluid Total Protein 0.7, Body Fluid Albumin Source ASCITES, Body Fluid Albumin 0.2 07/10/19 16:10: Bedside Glucose (Misc Panel) 129H CBC/BMP Laboratory Tests 07/09/19 17:55 07/10/19 05:41 Microbiology Microbiology 07/10/19 Acid Fast Stain, Received Pending 07/10/19 Mycobacterial Culture, Received Pending 07/10/19 Fungal Smear, Received Pending 07/10/19 Fungal Culture, Received Pending 07/10/19 Gram Stain, Received Pending 07/10/19 Body Fluid Culture, Received Pending 07/09/19 Blood Culture - Preliminary, Resulted No growth after 24 hours . All specim... 07/08/19 Gram Stain - Final, Complete 07/08/19 Sputum Culture - Final, Complete Yeast Like Organism 07/05/19 Stool Occult Blood (ERIC) - Final, Complete 07/04/19 Stool Occult Blood (ERIC) - Final, Complete 07/02/19 Stool Occult Blood (ERIC) - Final, Complete MANNY ATKINS MD Jul 10, 2019 17:35
--- NOTE | 2019-07-10 18:04 | REP ---
Ultrasound-guided paracentesis The procedure was performed under the direct supervision of Dr. Norman. The risks and benefits of the procedure were explained and informed consent was obtained by the health care proxy. The procedure was performed in the ICU. The largest pocket of fluid was localized in the left flank using ultrasound guidance. The skin was prepped and draped in a sterile fashion. 1% lidocaine was used as a local anesthetic. An 8-Nepali multi side-hole catheter was inserted using trocar technique. 5400 ml of yellow fluid was withdrawn with a sample sent to the lab for analysis. The patient tolerated the procedure well and there were no immediate complications. After the appropriate amount of monitored convalescence the patient was discharged from the department. Electronically Signed by FELECIA Figueroa 07/10/2019 04:30 P Electronically Signed by Adilson Norman MD 07/10/2019 05:54 P
[2019-07-10 18:10] LABS: IONIZED CALCIUM 4.2 MG/DL (4.5-5.3)
--- NOTE | 2019-07-10 18:15 | CCN ---
DATE: 07/10/2019 The patient was seen and examined this morning during bedside rounds. The patient is still on continuous venovenous hemodialysis (CVVHD) but has not had any fluid removal as she required increasing amounts of Levophed. The patient was up to 11 mcg per minute this morning and had been up to 12 at one point yesterday. The patient continues to be hypothermic. She is intubated and sedated. PHYSICAL EXAMINATION: VITAL SIGNS: Temperature 97.6, pulse of 79, respirations 25, blood pressure 79/44, oxygen saturation 95% on 45% fraction of inspired oxygen (FiO2). Intake 1.7, output 513. GENERAL: The patient is intubated and sedated. She is responsive to painful stimuli but is not awake and alert and is not following commands. HEENT: Normocephalic, atraumatic. Pupils reactive to light bilaterally. NECK: Supple. Trachea is midline. There is no palpable cervical adenopathy. There is jugular venous distention (JVD). CARDIAC: Regular rate and rhythm. Normal S1, S2. Unable appreciate murmurs. RESPIRATORY: There are diminished breath sounds bilaterally with some coarse breath sounds. ABDOMEN: Soft, mildly distended. There is a palpable fluid wave. EXTREMITIES: There is no lower extremity edema noted bilaterally. There is some spider angioma noted on her skin. LABORATORY DATA: WBC 13.0, hemoglobin is 9.8, platelets are 34. Chemistry: Sodium is 138, potassium 4.1, chloride is 105, bicarbonate is 22, BUN is 17, creatinine 1.79, glucose is 105, phosphorus is 1.9. ABG: PH 7.448, pCO2 of 32.8, pO2 of 50.8. INR is 2.06. IMAGING: Chest x-ray shows some slight improvement in the diffuse interstitial markings. There is still a left basilar infiltrate present and slight infiltrate on the right base. There is a right IJ central line and a right subclavian hemodialysis catheter. ASSESSMENT AND PLAN: Ms. Burgos is a 58-year-old female with a history of alcoholic cirrhosis, gastroesophageal reflux disease (GERD), hypertension, portal vein thrombosis, chronic kidney disease (CKD) who presented with acute on chronic renal failure likely secondary to hepatorenal syndrome. The patient was treated with albumin, normal saline fluids as well as octreotide and started on midodrine for hypotension. She then had acute hypoxemic respiratory failure and worsening distress with chest x-ray showing bilateral infiltrates consistent with pulmonary edema. The patient was started on dialysis for her renal failure and had fluid removal but continued to worsen requiring intubation and mechanical ventilation. The patient is in shock and is on Levophed for vasopressor support, likely secondary to sepsis. NEUROLOGIC: History of hepatic encephalopathy. The patient was on lactulose previously for hepatic encephalopathy. - The patient has an orogastric (OG) tube in place and lactulose will be started once her blood pressure has improved. - The patient is intubated and sedated with propofol with Versed as-needed for agitation and fentanyl as-needed for pain control. - We will continue sedation and titrate for a Swiss score of 2-3. CARDIAC: History of chronic hypotension likely in the setting of her cirrhosis. She is now in shock on Levophed for vasopressor support, likely secondary to sepsis. - The patient is on Levophed and has required increasing amounts of Levophed to maintain a mean arterial pressure (MAP) above 65. - Her lactic acid has remained elevated, some of which may be in the setting of her chronic liver failure as well as with her renal failure and some of it may also be due to her sepsis and shock. - We will continue to monitor. The patient will be restarted on midodrine to help with her hypotension. - The patient is also planned for a paracentesis as she does have significant ascites which also may be causing some compression of her inferior vena cava (IVC) and decreased venous return. She is hypoalbuminemic so she will need albumin supplementation with her paracentesis if she has a large volume paracentesis performed. - The patient has a right internal jugular (IJ) triple lumen in place for vasopressor administration. PULMONARY: The patient has acute hypoxemic respiratory failure in the setting of pulmonary edema as well as with possible acute respiratory distress syndrome (ARDS) and aspiration pneumonia, as she does have focal opacities on her x-ray prior to her intubation. - The patient is mechanically ventilated with volume control with settings of 380/16/45 and 10. We will wean down her positive end-expiratory pressure (PEEP) today to 8 and continue weaning fraction of inspired oxygen (FiO2) and PEEP as tolerated. - Continue with daily arterial blood gases (ABGs) and chest x-ray while intubated. - Continue with ventilator bundle care with head of bed elevation and chlorhexidine mouthwash. - The patient has been hypothermic and has increased leukocytosis as well as has been requiring increasing Levophed requirements. Her antibiotics were previously broadened from ceftriaxone to Zosyn, but given concern of worsening hypotension, we will add a dose of vancomycin. Her sputum cultures were positive for yeast-like organisms and so will also start her on micafungin as well. GASTROINTESTINAL (GI): The patient with the history of alcoholic cirrhosis and portal vein thrombosis was on Lovenox initially and then held for a possible GI bleed. She does have coagulopathy as well as thrombocytopenia. - Continue to monitor the thrombocytopenia. It is likely in the setting of her chronic liver disease as well as sepsis and also continuous venovenous hemodialysis (CVVHD). - The patient does not appear to have any active bleeding at this time. Would transfuse if absolute platelet count is less than 20 or if she has any evidence of active bleeding we will transfuse platelets sooner. - Continue monitor her coagulopathy. She did receive a dose of vitamin K and her international normalized ratio (INR) did improve but is still abnormal. - Continue with Protonix twice a day. - Continue to monitor liver function testing. - The patient is planned for a paracentesis by interventional radiology (IR) today as her INR had improved. - The patient has an orogastric (OG) tube and she is nothing by mouth for now. - The patient was accepted at [facility] in their inpatient liver transplant service for workup for a possible liver transplant, but she is still awaiting an intensive care unit (ICU) bed for transfer. RENAL/ENDOCRINOLOGY: Acute on chronic renal failure likely hepatorenal syndrome. The patient was started on CVVHD without any fluid removal given her hypotension and vasopressor requirements. - Appreciate renal recommendations and will followup with their recommendations and electrolyte repletion. - Continue monitoring fingerstick glucose checks. Deep vein thrombosis (DVT) prophylaxis. Thromboembolic-deterrent stockings (TEDS) and sequential compression devices (SCDs). GI prophylaxis. Proton pump inhibitor (PPI). Full code. Total critical care time spent not including procedures is 45 minutes
[2019-07-10 18:17] LABS: HEMATOCRIT 27.8 % (36.0-47.0); HEMOGLOBIN 8.8 g/dl (12.0-15.5); MEAN CORPUSCULAR HEMOGLOBIN 32.5 pg (27.0-33.0); MEAN CORPUSCULAR HGB CONC 31.7 g/dl (32.0-36.5); MEAN CORPUSCULAR VOLUME 102.6 fl (80.0-96.0); RED BLOOD COUNT 2.71 10^6/uL (4.00-5.40); WHITE BLOOD COUNT 12.6 10^3/uL (4.0-10.0)
[2019-07-10 18:18] LABS: PLATELET COUNT, AUTOMATED 32 10^3/uL (150-450)
[2019-07-10 19:15] LABS: CALCIUM LEVEL 7.7 MG/DL (8.5-10.1); CREATININE FOR GFR 1.52 MG/DL (0.55-1.30); GLOMERULAR FILTRATION RATE 37.5 (>51); MAGNESIUM LEVEL 2.3 MG/DL (1.8-2.4); PHOSPHORUS LEVEL 2.9 MG/DL (2.5-4.9)
[2019-07-10] MEDS: MICAFUNGIN SODIUM 150 MG in D5W 100 ML IV SCH (20:01)
[2019-07-10] MEDS: CALCIUM GLUCONATE 1,000 MG in D5W MINI-BAG PLUS 100 ML IV SCH ×2 (20:54→22:35)
[2019-07-10] MEDS: NOREPINEPHRINE BITARTRATE 16 MG in D5W 484 ML IV SCH (23:38)
[2019-07-11] VITALS (82 sets, daily range): BP systolic 71–113; BP diastolic 37–62; O2SAT 88–100
[2019-07-11] MEDS: PIPERACILLIN/TAZOBACTAM SOD 2.25 GM in D5W MINI-BAG PLUS 50 ML IV SCH ×2 (01:16→13:25)
[2019-07-11] MEDS: MIDAZOLAM INJ 2 MG/2 ML VIAL (J2250) IV PRN ×2 (03:57→20:11)
[2019-07-11 05:40] LABS: IONIZED CALCIUM 4.4 MG/DL (4.5-5.3)
[2019-07-11 05:49] LABS: BASO % 0.3 % (0.0-1.0); EOS # 0.7 10^3/uL (0.0-0.5); EOS % 6.1 % (0.0-3.0); HEMATOCRIT 26.4 % (36.0-47.0); HEMOGLOBIN 8.3 g/dl (12.0-15.5); LYMPH # 2.1 10^3/uL (1.5-5.0); LYMPH % 19.2 % (24.0-44.0); MEAN CORPUSCULAR HEMOGLOBIN 32.4 pg (27.0-33.0); MEAN CORPUSCULAR HGB CONC 31.4 g/dl (32.0-36.5); MEAN CORPUSCULAR VOLUME 103.1 fl (80.0-96.0); MONO # 0.8 10^3/uL (0.0-0.8); MONO % 7.2 % (0.0-5.0); NEUTROPHILS # 7.2 10^3/uL (1.5-8.5); RED BLOOD COUNT 2.56 10^6/uL (4.00-5.40); WHITE BLOOD COUNT 10.9 10^3/uL (4.0-10.0)
[2019-07-11 05:55] LABS: PLATELET COUNT, AUTOMATED 27 10^3/uL (150-450)
[2019-07-11 05:59] LABS: INR 2.35; PROTHROMBIN TIME 25.5 SECONDS (11.8-14.0)
[2019-07-11 06:12] LABS: ALBUMIN 2.6 GM/DL (3.2-5.2); BILIRUBIN,TOTAL 2.2 MG/DL (0.2-1.0); CREATININE FOR GFR 1.33 MG/DL (0.55-1.30); GLOMERULAR FILTRATION RATE 43.8 (>51); MAGNESIUM LEVEL 2.4 MG/DL (1.8-2.4); PHOSPHORUS LEVEL 2.3 MG/DL (2.5-4.9); POTASSIUM SERUM 3.9 MEQ/L (3.5-5.1); TOTAL PROTEIN 5.9 GM/DL (6.4-8.2)
[2019-07-11] MEDS: propofoL 1,000 MG in IV 1 EA IV SCH ×3 (06:18→18:18)
[2019-07-11] MEDS: SODIUM CHLORIDE 0.9% INJ 10 ML SYR IV SCH ×3 (06:22→22:26)
[2019-07-11 06:24] LABS: ABG BASE EXCESS -0.3 (-2.0-2.0); ABG HCO3 24.1 MEQ/L (22.0-26.0); ABG O2 SATURATION 99.5 % (95.0-99.0); ABG PARTIAL PRESSURE CO2 38.4 mmHg (35.0-45.0); ABG STANDARD HCO3 24.3 MEQ/L (22.0-26.0); ABG TOTAL CO2 25.3 MEQ/L (22.0-29.0); ABG pH (ARTERIAL) 7.416 UNITS (7.350-7.450)
--- NOTE | 2019-07-11 07:21 | REP ---
Clinical: Intubation . Comparison: 07/08/2019, 07/10/2019 . Findings: Right IJ line with tip in the SVC. Endotracheal tube 5 cm above the spencer. Nasogastric tube courses below left hemidiaphragm. The mediastinum and cardiac silhouette are stable and within normal limits for portable technique. The lung reynoso demonstrate chronic interstitial changes with subtle bibasilar air space disease improved from prior examination. No effusion. No pneumothorax. Impression: 1. Lines and tubes in satisfactory position. 2. Improved aeration with decreased lower lobe air space disease. Electronically Signed by Braxton Hair MD 07/11/2019 07:10 A
[2019-07-11] MEDS: MIDODRINE 5 MG TAB FT SCH ×3 (07:43→16:34)
[2019-07-11] MEDS: IPRATROPIUM 0.5MG/ALBUTEROL 2.5MG INH SOL UD 3ML (DUONEB)(J7620) NEB SCH ×4 (07:54→20:30)
[2019-07-11] MEDS ORDERED: CALCIUM GLUCONATE 1,000 MG, VIAL MATE ADAPTER 1 EACH in D5W MINI-BAG PLUS 100 ML IV ONE (08:00)
[2019-07-11] MEDS ORDERED: KCL 20MEQ IN 100ML SWI (KRUN) 20 MEQ in IV 1 EA IV ONE ×2 (08:00)
[2019-07-11] MEDS: CHLORHEXIDINE GLUCONATE 0.12 % 15ML UDC (PERIDEX ORAL RINSE) MT SCH ×2 (08:39→20:17)
[2019-07-11] MEDS: PANTOPRAZOLE 40MG INJ (PROTONIX) (C9113) IV SCH ×2 (08:40→20:16)
--- NOTE | 2019-07-11 13:09 | CCN ---
DATE OF SERVICE: 07/11/2019 The patient was seen and examined this morning during bedside rounds. The patient is still on continuous venovenous hemodialysis (CVVHD) but has not been able to have fluid removal due to her hypotension and vasopressor requirements. She is still on Levophed. Has been able to be weaned down slightly. Was down to 7. Now up to 8 micrograms per minute. The patient continued to be hypothermic on a Huma Hugger. She is still intubated and sedated. The patient has an orogastric (OG) tube placed to low wall intermittent suction, and she has had some pink bloody output from her OG tube with anywhere from 50-150 or more output an hour. The patient also was noted to have some blood in her mouth and bleeding with mouth care today. Yesterday, the patient had a paracentesis done with removal of approximately 5.5 liters. Post paracentesis, she was hypotensive, and she received albumin supplementation with improvement in her blood pressure. PHYSICAL EXAMINATION: Temperature 95.9, pulse 59, respirations 22, blood pressure 90/54, oxygen (O2) saturation 100% at 35% FIO2. Input 1.5, output 423 mL. General: The patient is intubated and sedated. She is responsive to painful stimuli but is not following commands and is not awake and alert. HEENT: Normocephalic, atraumatic. Pupils reactive to light bilaterally. Neck is supple. Trachea is midline. There is no palpable cervical adenopathy. There is some dried blood in her oropharynx. Cardiac: Regular rate and rhythm. Normal S1, S2. Unable appreciate any murmurs. Respiratory: There are some coarse ventilated breath sounds bilaterally and with some diminished breath sounds at the bases but no wheezing or rhonchi. Abdomen is soft. It appears improved in terms of distention. There is some mild fluid but significantly improved from yesterday. There are diffusely diminished breath sounds. Extremities: There is trace lower extremity edema noted bilaterally. There are spider angiomas noted on her skin. LABORATORIES: WBC 10.9, hemoglobin is 8.3, platelets are 27. Chemistry: Sodium is 136, potassium 3.9, chloride is 103, bicarbonate is 26, BUN 11, creatinine is 1.33, glucose is 99, phosphorus 2.3, total bilirubin (T Bili) 2.2, albumin 2.6, AST 61, ALT 23, alkaline phosphatase 188. Arterial blood gas (ABG): pH 7.416, pCO2 of 38.4, pO2 of 181. INR is 2.35. IMAGING: Chest x-ray shows improvement in the diffuse interstitial markings. There are still increased patchy opacities in the bases bilaterally with a small effusion left greater than right. The endotracheal (ET) tube and orogastric (OG) tube are in good position. There is a subclavian hemodialysis catheter on the right and a triple-lumen catheter in the right internal jugular (vein) (IJ). ASSESSMENT AND PLAN: Ms. Burgos is a 58-year-old female with a history of alcoholic cirrhosis, gastroesophageal reflux disease (GERD), hypertension, portal vein thrombosis, chronic kidney disease (CKD), who presented with acute on chronic renal failure likely secondary to hepatorenal syndrome. The patient was treated with albumin, normal saline fluids, as well as octreotide, and started on midodrine initially for hypotension. She then had acute hypoxemic respiratory failure with chest x-ray showing bilateral infiltrates consistent with pulmonary edema. She was started on dialysis for her renal failure and had fluid removal but continued to have worsening hypoxemia and required intubation and mechanical ventilation. The patient was also in shock and started on Levophed for vasopressor support likely secondary to sepsis. Neurologic: History of hepatic encephalopathy. The patient was on lactulose for hepatic encephalopathy. - The patient has OG tube in place, and lactulose was restarted. - She is intubated and sedated with propofol and Versed as needed for agitation and fentanyl as needed for pain. - Continue sedation and titrate for a Latia score of 2-3. Cardiac: History of chronic hypotension in the setting of cirrhosis. The patient was then in shock on vasopressor support likely secondary to sepsis. - The patient is on Levophed, and her requirements have been going up and down. She is currently on 7-8 mcg per minute to maintain a mean arterial pressure (MAP) above 65. Will continue to titrate as needed. - The patient does have lactic acidosis, some of which may be in the setting of her chronic liver failure, as well as with the renal failure and some also from her initial sepsis and shock. Will continue to monitor. - Will continue midodrine for her chronic hypotension. - The patient had a paracentesis yesterday with large volume removal. She was hypotensive postprocedure and given albumin supplementation with some improvement in her blood pressure back to her baseline Levophed requirements. She has a right IJ triple-lumen in place for vasopressor administration. Pulmonary: The patient has acute hypoxemic respiratory failure initially in the setting of pulmonary edema, as well as concern for possible acute respiratory distress syndrome (ARDS) and aspiration pneumonia. - The patient is mechanically ventilated on volume control. Will adjust her settings and wean down her positive end-expiratory pressure (PEEP) and her FIO2. She will now be on 380/16/30 and 8. Will continue wean down PEEP as tolerated. - Continue with ABGs and chest x-rays while intubated. - Continue vent bundle care with head elevation and chlorhexidine mouthwash. - The patient was initially on ceftriaxone and then broadened to Zosyn for antibiotic coverage. She was also given a dose of vancomycin, as well. Her sputum culture is positive for a yeastlike organism, and she was started on micafungin, as well. Will continue to monitor; and if no improvement clinically in 3 days with the micafungin, will discontinue. Gastrointestinal (GI): History of alcoholic cirrhosis and portal vein thrombosis. Was on anticoagulation initially. The patient then with coagulopathy, as well as thrombocytopenia, which may be in the setting of her chronic liver disease, as well as sepsis, and also with CVVHD contributing to thrombocytopenia. - The patient has an OG tube in place, which is draining some pink gastric contents and some blood. She also has some blood in her mouth with mouth care, and her hemoglobin has been trending down. Will transfuse 1 unit of platelets and get an active type and screen. - Will repeat a CBC this afternoon to continue to monitor hemoglobin and platelets. - Continue to monitor her coagulopathy. Her international normalized ratio (INR) is trending up. She did receive a dose of vitamin K, which did improve her INR initially. - Will transfuse hemoglobin if less than 7. - Continue Protonix twice a day. - Continue to monitor liver function tests (LFTs). - The patient is status post paracentesis on 07/10/2019 with removal of 5.5 liters of fluid. - The patient has been accepted at [facility] in their inpatient liver transplant service for workup for possible liver transplant. However, she is still awaiting an intensive care unit (ICU) bed. Renal/endo: Acute on chronic renal failure, likely hepatorenal syndrome. The patient is on CVVHD currently without any fluid removal, given her hypotension and vasopressor requirements. - Appreciate renal consult and recommendations. - Continue monitoring fingerstick glucose checks. - Deep venous thrombosis (DVT) prophylaxis. Thromboembolic deterrents (TEDs) and sequential compression devices (SCDs). - Gastrointestinal (GI) prophylaxis: Proton pump inhibitor (PPI). FULL CODE. TOTAL CRITICAL CARE TIME SPENT: Not including procedures, approximately 45 minutes.
[2019-07-11 14:14] LABS: HEMATOCRIT 25.7 % (36.0-47.0); MEAN CORPUSCULAR HEMOGLOBIN 32.4 pg (27.0-33.0); MEAN CORPUSCULAR HGB CONC 31.1 g/dl (32.0-36.5); RED BLOOD COUNT 2.47 10^6/uL (4.00-5.40); WHITE BLOOD COUNT 12.7 10^3/uL (4.0-10.0)
[2019-07-11 14:20] LABS: PLATELET COUNT, AUTOMATED 58 10^3/uL (150-450)
--- NOTE | 2019-07-11 14:53 | IPNPDOC ---
Date Seen The patient was seen on 07/11/19. Progress Note HISTORY OF PRESENT ILLNESS: 58-year-old female with past medical history of cirrhosis, hypertension, GERD, and portal vein thrombosis (on Lovenox), presents from PCPs office for lab abnormalities. Patient was found to have a creatinine of 5.7 today, for which she was sent to the emergency department. Patient reports decreased oral intake over the past few weeks, was discharged from the hospital couple weeks ago after being admitted for portal vein thrombosis. She also reports decreased urine output for the past 2-3 days, has continued taking her lactulose with multiple bowel movements every day. She reportedly had 20 bowel movements yesterday. She has no other complaints at this time, denies shortness of breath, chest pain, nausea, vomiting, abdominal pain or diarrhea. 07/04/19 No acute events, now has Sher placed, minimal change in creatinine, patient comfortable but reports nausea. She is scheduled to undergo paracentesis on . She denies any SOB, CP, abdominal pain, diarrhea or constipation. 07/05/19 Patient comfortable in bed, without any complaints, appears mildly tachypneic. Patient denies any shortness of breath, chest pain, nausea, vomiting, abdominal pain or diarrhea at this time. 07/06/19 No acute events overnight, reports worsening SOB, only had 1 BM & reports increased weakness along with hand tremors. 07/07/19 Patient noted to be in significant respiratory distress, tachypneic requiring 12L of oxygen via NC; she was placed on BiPAP & transferred to ICU in an attempt to avoid intubation while treatment was provided. She was given 100 mg if Lasix IV total w/ suboptimal response; HD & intubation was discussed w/ patient & , both of whom agree with all treatment measures at this time. Al catheter was placed by IR for HD, Paracentesis was not performed due to elevated INR & without a substantial amount of ascites noted on bedside imaging. She underwent HD w/ removal of ~2L. She was reevaluated post HD, remains tachypneic but comfortable with good volumes noted on BiPAP and repeat ABG w/ adequate compensation at this time. Case was discussed w/ patient's GI (Dr. Long) who recommends that patient should be transferred to [facility] for inpatient workup regarding liver transplant, case discussed w/ transplant he patologist at [facility] who happy accepted the patient for transfer. Patient will require an ICU to ICU transfer with no ICU beds currently available at [facility]; patient is placed on the waiting list and will be transferred as soon as a bed is available. 07/08/19 Patient seen at bedside in the morning, tachypneic on BiPAP requiring increased FiO2 (50%), morning CXR showing worsening opacities concerning for development of ARDS; case discussed with Kaiako Kohanga Reo (Dr. Phelan) and decision was made to intubate the patient. Discussed with patient & at bedside regarding benefits/risks of intubation, both of whom agree with it at this time. Patient was intubated successfully. She was also hypotensive in the morning despite getting Midodrine, was started on Levophed infusion prior to intubation. 07/09/19 Patient seen in the morning, sedated with propofol, receiving CVVHD, requiring levophed for pressure support, currently 8 mcg/m. Patient is awaiting transfer to [facility] once an ICU bed is available. 07/10/19 Patient examined in the morning, hypothermic overnight with increased Levophed requirements, currently at 12 mcg/min. She remains sedated on propofol, without any purposeful movement, unable to open eyes or follow commands at this time. Discussed her current condition & plan with at bedside, all questions answered. 07/11/19 Patient seen in the morning, continues to have minimal urine output, Levophed currently at 7 mcg/m, oxygen requirements have decreased, remains on CRRT. PHYSICAL EXAMINATION: VITAL SIGNS: Please see below. GENERAL: sedated on mechanical ventilation HEENT: 7.5 ETT 23 cm at the lip NECK: Al and right IJ triple-lumen catheter in place. CARDIOVASCULAR EXAMINATION: S1, S2, no murmurs RESPIRATORY EXAMINATION: Scattered rhonchi ABDOMINAL EXAMINATION: Soft, nontender, moderately distended, hypoactive bowel sounds SKIN: No rash PSYCHIATRIC EXAMINATION: Sedated LABORATORY DATA: See below. MICROBIOLOGY: Please see below. ASSESSMENT: 58-year-old female with past medical history of alcoholic cirrhosis, portal vein thrombosis on anticoagulation, hypertension and GERD admitted for ANTHONY 2/2 HRS now on mechanical ventilation in ICU for acute hypoxemic respiratory failure. PLAN: 1. Acute Hypoxemic respiratory failure - fluid overload and/or ARDS, intubated on mechanical ventilation, sedated w/ Propfol drip and as needed Versed & Fentanyl, Intensivit following. 2. Septic shock - source unclear, ?pulm vs GI vs liver failure, continue Levophed to maintain MAP >65, continue Zosyn, repeat procal pending, continue Micafungin. Midodrine has been restarted in an attempt to wean off Levophed. 3. Hepatorenal syndrome renal function w/ suboptimal improvement despite all treatment measures, currently undergoing CRRT due to hypotension requiring vasopressor support. 4. Portal vein thrombosis. heparin drip held due to elevated INR & possible occult bleed. Status post 2 doses of vitamin K. 4. Liver Cirrhosis - 2/2 to alcohol use, on medical management, attempting to transfer patient to [facility] for inpatient liver transplant workup, she has been accepted, awaiting ICU bed for transfer. - thrombocytopenia worsening, ?sepsis vs DIC (difficult to assess due to cirrhosis), abdomen blood-tinged output from OG tube, blood around the mouth and pinkish sputum and the ET tube, received 1 unit of platelets today. 5. GERD. Continue Protonix DVT prophylaxis: TEDs/SCDs GI prophylaxis: Protonix VS, I&O, 24H, Fishbone Vital Signs/I&O Vital Signs Date Time Temp Pulse Resp B/P (MAP) Pulse Ox O2 Delivery O2 Flow Rate FiO2 07/11/19 13:25 97.3 68 22 87/52 100 Ventilator 30 07/07/19 08:01 12.0 I&O- Last 24 Hours up to 6 AM 07/11/19 06:00 Intake Total 1802.2 ml Output Total 723 ml Balance 1079.2 ml Laboratory Data 24H LABS Laboratory Tests 2 07/10/19 15:52: Body Fluid Source ASCITES, Body Fluid Color YELLOW, Body Fluid Appearance CLEAR, Body Fluid Specific [place] 1.009, Body Fluid WBC (Auto) 20H, Body Fluid RBC (Auto) < 2, Body Fluid Mononuclear Cells % Auto 55.0H, Fluid Polymorphonuclear Cell % Auto 45.0H, Body Fluid Glucose Source ASCITES, Body Fluid Glucose 120, Body Fluid Protein Source ASCITES, Body Fluid Total Protein 0.7, Body Fluid Albumin Source ASCITES, Body Fluid Albumin 0.2 07/10/19 16:10: Bedside Glucose (Misc Panel) 129H 07/10/19 17:59: Nucleated Red Blood Cells % (auto) 0.0, Immature Platelet Fraction 7.4, Anion Gap 9, Glomerular Filtration Rate 37.5L, Calcium Level 7.7L, Whole Blood Ionized Calcium 4.2L, Phosphorus Level 2.9#, Magnesium Level 2.3 07/10/19 21:50: Bedside Glucose (Misc Panel) 112H 07/11/19 00:30: Bedside Glucose (Misc Panel) 122H 07/11/19 05:18: Immature Granulocyte % (Auto) 1.2, Neutrophils (%) (Auto) 66.0, Lymphocytes (%) (Auto) 19.2L, Monocytes (%) (Auto) 7.2H, Eosinophils (%) (Auto) 6.1H, Basophils (%) (Auto) 0.3, Neutrophils # (Auto) 7.2, Lymphocytes # (Auto) 2.1, Monocytes # (Auto) 0.8, Eosinophils # (Auto) 0.7H, Basophils # (Auto) 0.0, Nucleated Red Blood Cells % (auto) 0.0, Prothrombin Time 25.5H, Prothromb Time International Ratio 2.35, Blood Gas Bicarbonate Standard 24.3, Arterial Blood pH 7.416, Arterial Blood Partial Pressure CO2 38.4, Arterial Blood Partial Pressure O2 181.0H, Arterial Blood Total CO2 25.3, Arterial Blood HCO3 24.1, Arterial Blood Base Excess -0.3, Arterial Blood Oxygen Saturation 99.5H, Anion Gap 7L, Glomerular Filtration Rate 43.8L, Calcium Level 8.0L, Whole Blood Ionized Calcium 4.4L, Phosphorus Level 2.3#L, Magnesium Level 2.4, Total Bilirubin 2.2H, Aspartate Amino Transf (AST/SGOT) 61H, Alanine Aminotransferase (ALT/SGPT) 23, Alkaline Phosphatase 108, Total Protein 5.9L, Albumin 2.6#L, Albumin/Globulin Ratio 0.79L 07/11/19 10:10: Bedside Glucose (Misc Panel) 100 07/11/19 13:55: Nucleated Red Blood Cells % (auto) 0.0 CBC/BMP Laboratory Tests 07/10/19 17:59 07/11/19 05:18 07/11/19 13:55 Microbiology Microbiology 07/10/19 Acid Fast Stain, Received Pending 07/10/19 Mycobacterial Culture, Received Pending 07/10/19 Fungal Smear, Received Pending 07/10/19 Fungal Culture, Received Pending 07/10/19 Gram Stain - Final, Resulted 07/10/19 Body Fluid Culture, Resulted Pending 07/09/19 Blood Culture - Preliminary, Resulted No Growth after 48 hours. All Specime... 07/08/19 Gram Stain - Final, Complete 07/08/19 Sputum Culture - Final, Complete Yeast Like Organism 07/05/19 Stool Occult Blood (ERIC) - Final, Complete 07/04/19 Stool Occult Blood (ERIC) - Final, Complete 07/02/19 Stool Occult Blood (ERIC) - Final, Complete MANNY ATKINS MD Jul 11, 2019 14:53
--- NOTE | 2019-07-11 15:28 | REP ---
IR Vas cath placement. Vas cath placement using fluoroscopy and ultrasound guidance. Ultrasound of the right neck. Ultrasound of the abdomen. Clinical information: Hepatorenal failure. Needs dialysis. Abdominal distension and respiratory distress. Ascites. Needs paracentesis. However, INR > 3. Physician: Dr. Suazo. Procedure: The patient and patient's were advised of the benefits, risks and alternatives of the procedure and informed consent was obtained. The time-out was performed with verification of the patient's name, MRN, site of procedure and type of procedure to be performed. The patient was positioned in the supine position on the angiographic table. The site was prepped and draped in the usual sterile fashion. Moderate sedation was not performed, the physician spent 45 minutes of continuous face to face time with the patient. A validation analyst radiograph reveals a right-sided central line. Reticular opacities in the lungs. Preliminary ultrasound of the right neck demonstrates patent right internal jugular vein containing central line. Local anesthesia using lidocaine was administered. A small incision was made above the clavicle. Using ultrasound guidance the right internal jugular vein was accessed using a lateral approach with a micro introducer needle. An 018 wire was advanced into the superior vena cava. The needle was removed and a micro introducer sheath was placed. An Amplatz wire was then passed into the inferior vena cava. The tract was dilated. A Bard Trialysis temporary dialysis catheter was inserted over the wire under fluoroscopy guidance. The catheter tip was positioned at the atrium and the wire was removed. All lumens flush and aspirate freely. The catheter was sutured to the skin with 2-0 Prolene. A sterile dressing was then applied. Abdomen mildly distended. Not tense. Sonographic images obtained of all four quadrants of the abdomen demonstrate mild to moderate ascites in the left abdomen. Not enough fluid to cause extremis. The patient tolerated the procedure well and was returned to the PRU in stable condition. EBL: < 5 ml. Complications: None. Conclusion: 1. Successful placement of a Bard Trialysis catheter via the right internal jugular vein. The catheter is ready for immediate use. 2. Once the patient is stable and if appropriate, the catheter will be converted to a Perma-Cath prior to discharge. 3. Ultrasound of the abdomen demonstrates moderate ascites; not enough to cause extremis. Therefore, risk of paracentesis given current INR is best avoided. Should refractory ascites become a problem, consider FFP and then long-term PleurX catheter placement. Thank you this referral. Electronically Signed by Nori Suazo MD 07/07/2019 02:13 P
[2019-07-11 18:09] LABS: IONIZED CALCIUM 4.4 MG/DL (4.5-5.3)
[2019-07-11 18:19] LABS: HEMATOCRIT 26.6 % (36.0-47.0); HEMOGLOBIN 8.3 g/dl (12.0-15.5); MEAN CORPUSCULAR HEMOGLOBIN 32.5 pg (27.0-33.0); MEAN CORPUSCULAR HGB CONC 31.2 g/dl (32.0-36.5); MEAN CORPUSCULAR VOLUME 104.3 fl (80.0-96.0); RED BLOOD COUNT 2.55 10^6/uL (4.00-5.40); WHITE BLOOD COUNT 13.6 10^3/uL (4.0-10.0)
[2019-07-11 18:20] LABS: PLATELET COUNT, AUTOMATED 57 10^3/uL (150-450)
[2019-07-11] MEDS ORDERED: CALCIUM GLUCONATE 1,000 MG in D5W MINI-BAG PLUS 100 ML IV ONE (18:30)
[2019-07-11 18:40] LABS: CALCIUM LEVEL 8.1 MG/DL (8.5-10.1); CREATININE FOR GFR 1.25 MG/DL (0.55-1.30); MAGNESIUM LEVEL 2.5 MG/DL (1.8-2.4); PHOSPHORUS LEVEL 1.6 MG/DL (2.5-4.9); POTASSIUM SERUM 4.5 MEQ/L (3.5-5.1)
[2019-07-11] MEDS ORDERED: POTASSIUM PHOSPHATE INJ 15 MMOL in D5W 250 ML IV ONE (20:00)
[2019-07-11] MEDS: MICAFUNGIN SODIUM 150 MG in D5W 100 ML IV SCH (20:17)
--- NOTE | 2019-07-11 22:50 | IPN ---
DATE: 07/11/2019 Alexa is seen and examined this morning at the bedside in the intensive care unit. She continues on continuous venovenous hemodiafiltration (CVVHDF) without any fluid removal. Her Levophed is at 8 mics this morning. She had a large volume paracentesis yesterday with 5.4 liters of ascitic fluid drained. She had worsening hypotension afterwards but was appropriately given albumin infusion. ICU nurse reports that the patient is having significant drainage from her gastric tube around 500 mL thus far. The patient is in overall negative fluid balance and chest x-ray today shows an improvement in aeration. She remains intubated and sedated. REVIEW OF SYSTEMS: Unable to be obtained secondary to clinical condition. VITAL SIGNS: Temperature 96.4 rectally, pulse 66, respiratory rate 24, blood pressure 89/50, saturating 100% on 30% FIO2. Review of intake and output (I and Os) shows that she is overall net negative by several liters and weight in the bed scale today is 52.4 kg which is decreased from prior days. General: The patient is seen intubated and sedated, hypothermic bear hugger is in place. She is not awake, not alert, pupils are reactive to light. Neck is supple. Trachea is midline. There are central lines present in the neck. CRRT is in progress. The orogastric tube is draining brownish fluid. Cardiac: Regular rate and rhythm. No appreciable murmur. Trace edema in the peripheries and up to 1+ in the dependent area. There are coarse ventilated breath sounds bilaterally, diminished at the bases. Abdomen is soft. There are bowel sounds. The distention and ascitic fluid is diminished. Extremities show trace edema in the peripheries and 1+ in the dependent areas. Genitourinary: Shows Sher catheter with minimal urine. LABS: With count 13.6, hemoglobin 8.3, platelet 57, sodium 138, potassium 4.5, bicarbonate 25, BUN 7, creatinine 1.2, phosphorus 1.6. Chest x-ray today shows improved aeration with decreased lower lobe air space disease. INPATIENT MEDICATIONS Today she received a unit of platelets. She received several runs of albumin yesterday. She received calcium gluconate. She received potassium chloride and potassium phosphate today. She was started on midodrine 10 mg three times a day yesterday. Remainder medications are unchanged as compared to prior. PROBLEMS: 1. Oligoanuric acute renal failure. Likely hepatorenal syndrome, but also element of sepsis. The patient was started yesterday on midodrine. Her Levophed is 8 mics today which is overall decreased from yesterday. She had a large volume paracentesis and received albumin yesterday as well. She continues on CVVHD F without significant fluid removal. However she is net negative given the large volume paracentesis and also significant drainage from her orogastric tube. Her lung imaging shows improved aeration. She is on minimal FIO2 requirements of 30%. I am not writing for fluid removal with CVVHD F yet today because of the already net negative fluid status and ongoing pressor requirements 2. Ventilator dependent respiratory failure. FIO2 was decreased from 45% to 30% but management is per the wrapping machine helper. She was started on micafungin as sputum culture grew yeast. After a large volume paracentesis there was also some improvement in her lung imaging. She is additionally on broad-spectrum antimicrobials. 3. Acute on chronic hypotension in this patient with diastolic congestive heart failure and decompensated cirrhosis with ascites/hepatorenal syndrome with worsening hemodynamics, on Levophed pressor support with ongoing lactic acidosis. Her CVVHD F prescription has a target of at least an effluent dose of 25 mL per kg per hour. She is on midodrine along with the Levophed, but I am uncertain how much she is absorbing given her significant gastric drainage. 4. Hypophosphatemia. It is secondary to the continued dialysis. She is receiving less aggressive phosphorus supplementation because it gives her 500 mL of intake with phosphorus supplementation. 5. Thrombocytopenia. Status post 1 unit of platelets today with improvement in platelet count. She is receiving heparin free dialysis.
[2019-07-12] VITALS (74 sets, daily range): BP systolic 76–129; BP diastolic 35–60; O2SAT 95–100
[2019-07-12] MEDS: NOREPINEPHRINE BITARTRATE 16 MG in D5W 484 ML IV SCH (00:23)
[2019-07-12] MEDS: PIPERACILLIN/TAZOBACTAM SOD 2.25 GM in D5W MINI-BAG PLUS 50 ML IV SCH ×2 (01:05→14:27)
[2019-07-12] MEDS: propofoL 1,000 MG in IV 1 EA IV SCH (04:18)
[2019-07-12] MEDS: SODIUM CHLORIDE 0.9% INJ 10 ML SYR IV SCH ×4 (05:35→21:03)
[2019-07-12 05:47] LABS: IONIZED CALCIUM 4.3 MG/DL (4.5-5.3)
[2019-07-12 05:51] LABS: BASO % 0.3 % (0.0-1.0); EOS # 0.8 10^3/uL (0.0-0.5); EOS % 5.2 % (0.0-3.0); HEMATOCRIT 27.8 % (36.0-47.0); HEMOGLOBIN 8.7 g/dl (12.0-15.5); LYMPH % 13.1 % (24.0-44.0); MEAN CORPUSCULAR HEMOGLOBIN 32.6 pg (27.0-33.0); MEAN CORPUSCULAR HGB CONC 31.3 g/dl (32.0-36.5); MEAN CORPUSCULAR VOLUME 104.1 fl (80.0-96.0); MONO # 1.1 10^3/uL (0.0-0.8); MONO % 7.1 % (0.0-5.0); NEUTROPHILS # 10.9 10^3/uL (1.5-8.5); NEUTROPHILS % 73.4 % (36.0-66.0); RED BLOOD COUNT 2.67 10^6/uL (4.00-5.40); WHITE BLOOD COUNT 14.9 10^3/uL (4.0-10.0)
[2019-07-12 05:54] LABS: PLATELET COUNT, AUTOMATED 52 10^3/uL (150-450)
[2019-07-12 06:01] LABS: INR 2.21; PROTHROMBIN TIME 24.3 SECONDS (11.8-14.0)
[2019-07-12 06:16] LABS: ALBUMIN 2.5 GM/DL (3.2-5.2); BILIRUBIN,TOTAL 2.4 MG/DL (0.2-1.0); CALCIUM LEVEL 7.8 MG/DL (8.5-10.1); CREATININE FOR GFR 1.09 MG/DL (0.55-1.30); GLOMERULAR FILTRATION RATE 55.1 (>51); MAGNESIUM LEVEL 2.4 MG/DL (1.8-2.4); PHOSPHORUS LEVEL 1.8 MG/DL (2.5-4.9); POTASSIUM SERUM 4.5 MEQ/L (3.5-5.1); TOTAL PROTEIN 5.8 GM/DL (6.4-8.2)
[2019-07-12 06:17] LABS: ABG BASE EXCESS 2.1 (-2.0-2.0); ABG HCO3 25.9 MEQ/L (22.0-26.0); ABG O2 SATURATION 96.3 % (95.0-99.0); ABG PARTIAL PRESSURE CO2 37.3 mmHg (35.0-45.0); ABG PARTIAL PRESSURE O2 78.8 mmHg (75.0-100.0); ABG STANDARD HCO3 26.3 MEQ/L (22.0-26.0); ABG TOTAL CO2 27.1 MEQ/L (22.0-29.0)
[2019-07-12] MEDS: CALCIUM GLUCONATE 1,000 MG in NS 100 ML IV SCH ×4 (07:10→21:02)
[2019-07-12] MEDS: IPRATROPIUM 0.5MG/ALBUTEROL 2.5MG INH SOL UD 3ML (DUONEB)(J7620) NEB SCH ×4 (07:29→20:13)
--- NOTE | 2019-07-12 07:58 | REP ---
Portable chest x-ray: Single view. History: Intubated. Comparison study: July 11, 2019. Findings: Endotracheal tube is in good position at the level of the proximal clavicles. NG tube enters left upper quadrant. Oxygen delivery tubing is noted. There are two right internal jugular central venous lines terminating in the expected location of the superior vena cava. Heart is not enlarged. Diffuse interstitial lung disease persists and there are more can fluent or heavier opacities in the bases bilaterally. Opacification in the right base is a little more prominent today than on yesterday's radiograph. Changes on the left are felt to be unchanged. Electronically Signed by Adilson Norman MD 07/12/2019 07:49 A
[2019-07-12] MEDS ORDERED: POTASSIUM PHOSPHATE INJ 15 MMOL in D5W 250 ML IV ONE (08:00)
[2019-07-12] MEDS: PANTOPRAZOLE 40MG INJ (PROTONIX) (C9113) IV SCH ×2 (08:40→20:19)
[2019-07-12] MEDS: CHLORHEXIDINE GLUCONATE 0.12 % 15ML UDC (PERIDEX ORAL RINSE) MT SCH ×2 (08:40→20:19)
[2019-07-12] MEDS: MIDODRINE 5 MG TAB FT SCH ×3 (08:40→17:38)
--- NOTE | 2019-07-12 11:34 | IPNPDOC ---
Subjective Date Seen The patient was seen on 07/12/19. Subjective Chief Complaint/HPI Patient is intubated, on CRRT in no apparent distress awaiting transfer to [facility] General: Reports: ROS Unobtainable Objective Physical Examination General Exam: Positive: Alert, Cooperative Chest Exam: Positive: Clear to auscultation, Normal air movement Heart Exam: Positive: Rate Normal, Normal S1, Normal S2 Abdomen Exam: Positive: Normal bowel sounds, Tenderness Extremity Exam: Positive: Normal pulses Skin Exam: Positive: Nl turgor and temperature Neuro Exam: Positive: Strength at 5/5 X4 ext, Cranial Nerves 3-12 NL Assessment /Plan Problems (1) Acute respiratory failure Status: Acute Problem Text: fluid overload and/or ARDS, intubated on mechanical ventilation, sedated w/ Propfol drip and as needed Versed & Fentanyl, Critical care on consult And is scheduled to be transferred to [facility] was the bed is available (2) Septic shock Status: Acute Problem Text: source unclear, ?pulm vs GI vs liver failure, continue Levophed to maintain MAP >65, continue Zosyn, repeat procal pending, continue Micafungin. Weaning off Levophed. Vitals are stable (3) ANTHONY (acute kidney injury) Status: Acute Problem Text: Renal function w/ suboptimal improvement despite all treatment measures, currently undergoing CRRT due to hypotension requiring vasopressor support. (4) Alcoholic cirrhosis of liver with ascites Status: Chronic Problem Text: 2/2 to alcohol use, on medical management, attempting to transfer patient to [facility] for inpatient liver transplant workup, she has been accepted, awaiting ICU bed for transfer. thrombocytopenia worsening, ?sepsis vs DIC (difficult to assess due to cirrhosis), abdomen blood-tinged output from OG tube, blood around the mouth and pinkish sputum and the ET tube, received 1 unit of platelets today. (5) Portal vein thrombosis Status: Chronic Problem Text: heparin drip held due to elevated INR & possible occult bleed. Status post 2 doses of vitamin K. Plan/VTE VTE Prophylaxis Ordered?: Yes VS, I&O, 24H, Fishbone Vital Signs/I&O Vital Signs Date Time Temp Pulse Resp B/P (MAP) Pulse Ox O2 Delivery O2 Flow Rate FiO2 07/12/19 10:00 60 19 104/56 (74) 97 Ventilator 35 07/12/19 08:30 97.1 07/07/19 08:01 12.0 I&O- Last 24 Hours up to 6 AM 07/12/19 06:00 Intake Total 1482.9 ml Output Total 1070 ml Balance 412.9 ml Laboratory Data 24H LABS Laboratory Tests 2 07/11/19 13:55: Nucleated Red Blood Cells % (auto) 0.0 07/11/19 15:21: Bedside Glucose (Misc Panel) 87 07/11/19 17:53: Nucleated Red Blood Cells % (auto) 0.0, Anion Gap 8, Glomerular Filtration Rate 47.0L, Calcium Level 8.1L, Whole Blood Ionized Calcium 4.4L, Phosphorus Level 1 .6#L, Magnesium Level 2.5H 07/12/19 00:39: Bedside Glucose (Misc Panel) 135H 07/12/19 05:34: Immature Granulocyte % (Auto) 0.9, Neutrophils (%) (Auto) 73.4H, Lymphocytes (%) (Auto) 13.1L, Monocytes (%) (Auto) 7.1H, Eosinophils (%) (Auto) 5.2H, Basophils (%) (Auto) 0.3, Neutrophils # (Auto) 10.9H, Lymphocytes # (Auto) 2.0, Monocytes # (Auto) 1.1H, Eosinophils # (Auto) 0.8H, Basophils # (Auto) 0.0, Nucleated Red Blood Cells % (auto) 0.0, Immature Platelet Fraction 5.5, Prothrombin Time 24.3H, Prothromb Time International Ratio 2.21, Anion Gap 8, Glomerular Filtration Rate 55.1, Calcium Level 7.8L, Whole Blood Ionized Calcium 4.3L, Phosphorus Level 1.8L, Magnesium Level 2.4, Total Bilirubin 2.4H, Aspartate Amino Transf (AST/SGOT) 66H, Alanine Aminotransferase (ALT/SGPT) 22, Alkaline Phosphatase 121H, Total Protein 5.8L, Albumin 2.5L, Albumin/Globulin Ratio 0.76L 07/12/19 05:47: Blood Gas Bicarbonate Standard 26.3H, Arterial Blood pH 7.460H, Arterial Blood Partial Pressure CO2 37.3, Arterial Blood Partial Pressure O2 78.8, Arterial Blood Total CO2 27.1, Arterial Blood HCO3 25.9, Arterial Blood Base Excess 2.1H, Arterial Blood Oxygen Saturation 96.3 CBC/BMP Laboratory Tests 07/11/19 13:55 07/11/19 17:53 07/12/19 05:34 Microbiology Microbiology 07/10/19 Acid Fast Stain, Received Pending 07/10/19 Mycobacterial Culture, Received Pending 07/10/19 Fungal Smear, Received Pending 07/10/19 Fungal Culture, Received Pending 07/10/19 Gram Stain - Final, Complete 07/10/19 Body Fluid Culture - Final, Complete 07/09/19 Blood Culture - Preliminary, Resulted No Growth after 72 hours. All specime... 07/08/19 Gram Stain - Final, Complete 07/08/19 Sputum Culture - Final, Complete Yeast Like Organism 07/05/19 Stool Occult Blood (ERIC) - Final, Complete 07/04/19 Stool Occult Blood (ERIC) - Final, Complete 07/02/19 Stool Occult Blood (ERIC) - Final, Complete MAYRA NAVA MD Jul 12, 2019 11:34
--- NOTE | 2019-07-12 13:36 | IPN ---
DATE OF SERVICE: 07/12/2019 SUBJECTIVE: Alexa is seen and examined this morning in the intensive care unit. 24-hour flow sheet is reviewed. She is positive 1 liter in the past 24 hours. She has had a zero fluid removal with continuous venovenous hemodiafiltration (CVVHDF). Her gastric tube put out 975 mL. Her Levophed is running at 10 mcg. Her central venous pressure (CVP) is 9 this morning. She remains on FIO2 35% on the ventilator and is still pending transfer. REVIEW OF SYSTEMS: Unable to obtain secondary to clinical condition. Temperature 96.7, pulse 53, respiratory rate 17, blood pressure 106/50, saturating 100% on 35% FIO2. Review of intake and output (I and O) yesterday shows that she is positive 1 liter in the past 24 hours. Weight in the bed scale today is 57.4 kg. General: The patient is intubated and sedated. She is not awake, not alert. Pupils are reactive to light. Neck is supple. There is a dialysis catheter present in the right internal jugular (vein) (IJ). Continuous renal replacement therapy (CRRT) is in progress. There is an orogastric tube draining very lightly pinkish fluid. Cardiac: Regular rate and rhythm. No appreciable murmur. 1+ edema present in the legs. Lungs: Coarse ventilated breath sounds bilaterally diminished at the bases. Abdomen is soft. There is some ascitic fluid reaccumulating. Genitourinary: Shows Sher catheter with minimal urine. Extremities show sequential compression devices and 1+ edema. LABORATORIES: White count 14.9, hemoglobin 8.7, platelet 52. Sodium 138, potassium 4.5, BUN 6, bicarbonate 25, phosphorus 1.8, albumin 2.5. Chest x-ray 07/12/2019 shows diffuse interstitial lung disease, heavier opacities in the bases. INPATIENT MEDICATIONS: Reviewed by me. She received calcium gluconate runs. Continues on Levophed at 10 mcg. Received potassium phosphate 30 mmol. Remainder of medications are unchanged as compared to previous days. PROBLEMS: 1. Oligoanuric acute renal failure, hepatorenal syndrome, and possible element of sepsis, as well. Ongoing significant pressor requirements. Levophed at 10 mcg today, along with full dose of midodrine. In the past 24 hours, she is positive 1 liter. We are going to try and remove gentle fluid with continuous dialysis today at 50 mL/h as long as her Levophed pressor requirement remain at 10 mcg or less. 2. Ventilator-dependent respiratory failure. The patient is positive 1 liter in the past 24 hours. I think she is having some reaccumulation of ascitic fluid, as well. Her FIO2 requirements are still fairly mild at 35%. We are having trouble keeping her on the dry side because of her hypotension. Will try to remove 50 mL/h with continuous renal replacement therapy. She continues on broad-spectrum antimicrobial and antifungal, as per the critical care team. 3. Chronic hypotension in the setting of cirrhosis which has worsened, and she remains vasopressor-dependent and also on midodrine. Presently on Levophed 10 mcg and midodrine 10 mg three times a day. She will have fluid removal with CRRT as long as her pressor requirements do not rise further. I am starting her on octreotide, as well, and we will see if that helps with maintaining of her mean arterial pressure (MAP). I am uncertain how much of the midodrine she is absorbing, given the significant gastric drainage. 4. Hypophosphatemia. It is secondary to continued dialysis. She is receiving less aggressive phosphorus supplementation because of the significant associated intake with phosphorus supplementation. 5. Diastolic congestive heart failure and decompensated cirrhosis with ascites with worsening hemodynamics on Levophed pressor support. Today we will start to try and remove some fluid with continuous dialysis, and parameters for fluid removal have been discussed with the intensive care unit (ICU) nurse.
[2019-07-12] MEDS ORDERED: LIDOCAINE 1% MDV 20ML VIAL As Ordered ONE (14:27)
[2019-07-12] MEDS: OCTREOTIDE ACETATE 100 MCG/ML VIAL (J2354) SC SCH ×2 (15:20→21:02)
--- NOTE | 2019-07-12 15:26 | CCN ---
DATE: 07/12/2019 The patient was seen, examined this morning during bedside rounds. The patient overnight had required increased amounts of Levophed up to 18 mcg per minute. Some of her hypotension is positional particularly when she is lying on her right side, her blood pressure will drop. When she is on her back or on the left side, her blood pressure improves. This morning she was able to be weaned down on her Levophed to 8 mcg per minute. She is still on continuous venovenous hemodialysis (CVVHD) and she has been tolerating some gentle fluid removal today. The patient's temperature had improved somewhat and she was off of the bear-hugger. She continues to have some copious output from her orogastric (OG) tube but is not as bloody appearing today. The patient was transfused 1 unit of platelets yesterday. The patient continues to be intubated and sedated. With weaning of sedation, she is responsive appropriately. PHYSICAL EXAM: Temperature 97.5, pulse 62, respiratory 23, blood pressure 98/49, O2 sat 99% on 35% FiO2. Input 1.7 liters, output 1 liter. GENERAL: Patient is intubated and sedated. She is responsive to painful stimuli and following commands intermittently. HEENT: Normocephalic, atraumatic. Pupils react to light bilaterally. NECK: Neck is supple. Trachea is midline. There is no palpable cervical adenopathy. CARDIAC: Regular rate and rhythm. Normal S1,S2. Unable appreciate murmurs. RESPIRATORY: There are some decreased breath sounds at the bases but no significant wheezing or rhonchi or rales. ABDOMEN: Soft, is mildly distended with some mild fluid wave. There are diminished bowel sounds present. EXTREMITIES: There is trace lower extremity edema noted bilaterally. There is spider angiomas on her skin noted. LABS WBC 14.90, hemoglobin 8.7, platelets are 52. Chemistry: Sodium 138, potassium 4.5, chloride 105, bicarb 25, BUN 6, creatinine 1.09, glucose 102, INR is 2.21 and ABG pH 7.460, pCO2 of 37.3, pO2 of 78.8. IMAGING: Chest x-ray shows endotracheal tube (ET) tube in good position. OG tube coursing below the diaphragm. She has a hemodialysis catheter and the right subclavian and a right internal jugular (IJ) catheter both terminating in the superior vena cava (SVC). She has some diffuse interstitial lung disease persisting with some opacities more in the bases bilaterally. The right base is an little more prominent today than previous. ASSESSMENT/PLAN: Ms. Burgos is a 58-year-old female with a history of alcoholic cirrhosis, gastroesophageal reflux disease (GERD), hypertension, portal vein thrombosis, chronic kidney disease (CKD) who presented with acute on chronic renal failure likely secondary to hepatorenal syndrome. The patient was treated with albumin, normal saline fluids as well as octreotide and was started on midodrine for her hypotension. She had worsening acute hypoxemic respiratory failure with a chest x-ray then showing bilateral infiltrates consistent with pulmonary edema. The patient was started on dialysis for fluid removal with her renal failure but continue to have worsening hypoxia and respiratory distress and required intubation and mechanical ventilation. The patient was also in shock likely secondary to sepsis and was started on Levophed for vasopressor support. The patient continues to remain on pressors as well as an intubated and mechanically ventilated. Neurologic: History of hepatic encephalopathy. - The patient has OG tube in place and lactulose was started for hepatic encephalopathy. - Continue with propofol for sedation with Versed as needed for agitation and fentanyl as needed for pain. - Will continue sedation and titrate for a Chiloquin score of 2-3. Will perform a sedation vacation tomorrow for assessment of weaning. Cardiac: History of chronic hypotension in setting of cirrhosis. The patient was in shock on Levophed likely secondary to sepsis. - The patient is still on Levophed and her pressor requirements have been going up and down. She does have positional hypotension particular on her right side likely due to compression from her ascites and distended abdomen on her IVC. Some of her hypotension may also be in the setting of her sedation. - The patient has mild lactic acidosis likely in setting of her chronic liver failure as well as with her renal failure. She did initially likely have sepsis and shock contributing to her lactic acidosis. - Midodrine is continued for her chronic hypotension but it is unclear how much she is absorbing but she does have output from her OG tube still with copious output from her OG tube. - The patient has a right IJ triple lumen in place for vasopressor administration. She will have had 7 days of her triple lumen in place and so will place a peripherally inserted central catheter (PICC) line for venous access and to administer her vasopressors and discontinue (DC) her right IJ triple lumen once it is in place. Pulmonary: The patient has acute hypoxemic respiratory failure in the setting initially of pulmonary edema as well as some concern for possible acute respiratory distress syndrome (ARDS) and aspiration pneumonia. - The patient is mechanically ventilated on volume control. We have been able to wean down her FiO2 and PEEP requirements. She is on current settings of 380/16/35 and 5. - Will continue with ABGs and chest x-rays while intubated. - Continue vent bundle care, head of elevation and chlorhexidine mouthwash. - Will perform a weaning trial tomorrow to assess if patient is able to be extubated. - The patient was initially on ceftriaxone which was then broadened to Zosyn. She was also given a dose of vancomycin and as her sputum was positive for yeast-like organisms, she was started on micafungin. Would continue to monitor. If she does not have improvement in her Levophed requirements in the next day or two would DC the micafungin. GI: The patient has a history of alcoholic cirrhosis and portal vein thrombosis, was on anticoagulation initially which was then held in the setting of her thrombocytopenia and coagulopathy. - The patient had a large volume paracentesis performed on 07/10/2019. She has a required a history of frequent paracentesis for her decompensated cirrhosis and ascites. Her abdomen today appears to be re-accumulated some fluid, will continue to monitor. - The patient has diminished bowel sounds and does have some drainage from her OG tube which appeared bloody yesterday. She was given 1 unit of platelets transfusion and this appears to have improved. Her hemoglobin has remained stable, will continue monitor and transfuse if hemoglobin less than 7. - The patient continues to have coagulopathy likely in the setting of her chronic liver disease. Her INR is slowly increasing, will continue to monitor. - Continue with Protonix twice a day. - Continue monitor LFTs. - The patient was accepted at [facility] in their inpatient liver transplant service for workup of possible liver transplant. She is still awaiting a bed in the intensive care unit (ICU), however. Renal/endocrine: Acute on chronic renal failure likely hepatorenal syndrome. The patient is on CVVHD currently and is today tolerating some gentle fluid removal. - Appreciate renal consults and recommendations. - Will continue monitoring fingerstick glucose checks but would decrease to every 12 hours. Deep venous thrombosis (DVT) prophylaxis: Thromboembolic deterrent stockings (TEDS) and sequential compression devices (SCDs). Gastrointestinal prophylaxis: Proton pump inhibitor (PPI). FULL CODE. Total critical care time spent not including procedures approximately 40 minutes.
[2019-07-12] MEDS ORDERED: SODIUM CHLORIDE 0.9% INJ 10 ML SYR IV PRN (16:15)
--- NOTE | 2019-07-12 16:55 | REP ---
Procedure: PICC line insertion with Lizette The procedure was performed under the direct supervision of Dr. Norman. The risks and benefits of the procedure were explained and informed consent was obtained by the healthcare proxy. The procedure was performed in the ICU at the bedside. The right basilic vein was localized using ultrasound guidance. The skin was prepped and draped in a sterile fashion. 1% lidocaine was used as a local anesthetic. Using ultrasound guidance the basilic vein was cannulated and a 0.018 guidewire was inserted. The needle was removed and a 5.5 Egyptian dilator and peel-away sheath was inserted over the guide wire. A 5.5 Egyptian dual lumen catheter was cut to length of 40 cm. The dilator was removed and the catheter was inserted over the guide wire. A portable chest x-ray was performed and the image demonstrates the tip of the catheter to be in the SVC. The peel-away sheath was removed and the catheter was flushed with heparinized saline as per Hospital protocol. The catheter was affixed to the skin and a sterile dressing was applied. The patient tolerated the procedure well and there were no immediate complications. Electronically Signed by FELECIA Figueroa 07/12/2019 04:18 P Electronically Signed by Adilson Norman MD 07/12/2019 04:46 P
[2019-07-12 18:01] LABS: IONIZED CALCIUM 4.3 MG/DL (4.5-5.3)
[2019-07-12 18:08] LABS: HEMATOCRIT 30.3 % (36.0-47.0); HEMOGLOBIN 9.4 g/dl (12.0-15.5); MEAN CORPUSCULAR HEMOGLOBIN 32.3 pg (27.0-33.0); MEAN CORPUSCULAR VOLUME 104.1 fl (80.0-96.0); RED BLOOD COUNT 2.91 10^6/uL (4.00-5.40); WHITE BLOOD COUNT 16.6 10^3/uL (4.0-10.0)
[2019-07-12 18:10] LABS: PLATELET COUNT, AUTOMATED 61 10^3/uL (150-450)
[2019-07-12 18:34] LABS: CALCIUM LEVEL 7.9 MG/DL (8.5-10.1); CREATININE FOR GFR 1.13 MG/DL (0.55-1.30); GLOMERULAR FILTRATION RATE 52.8 (>51); MAGNESIUM LEVEL 2.3 MG/DL (1.8-2.4); PHOSPHORUS LEVEL 2.7 MG/DL (2.5-4.9); POTASSIUM SERUM 4.5 MEQ/L (3.5-5.1)
[2019-07-12] MEDS: MICAFUNGIN SODIUM 150 MG in D5W 100 ML IV SCH (19:36)
[2019-07-13] VITALS (29 sets, daily range): BP systolic 85–123; BP diastolic 40–59; O2SAT 100
[2019-07-13] MEDS: PIPERACILLIN/TAZOBACTAM SOD 2.25 GM in D5W MINI-BAG PLUS 50 ML IV SCH (01:19)
[2019-07-13] MEDS: NOREPINEPHRINE BITARTRATE 16 MG in D5W 484 ML IV SCH (01:19)
[2019-07-13] MEDS: propofoL 1,000 MG in IV 1 EA IV SCH (03:15)
[2019-07-13 05:49] LABS: ABG HCO3 24.1 MEQ/L (22.0-26.0); ABG O2 SATURATION 98.7 % (95.0-99.0); ABG PARTIAL PRESSURE CO2 36.8 mmHg (35.0-45.0); ABG PARTIAL PRESSURE O2 117.3 mmHg (75.0-100.0); ABG STANDARD HCO3 24.6 MEQ/L (22.0-26.0); ABG TOTAL CO2 25.2 MEQ/L (22.0-29.0); ABG pH (ARTERIAL) 7.434 UNITS (7.350-7.450)
[2019-07-13] MEDS: SODIUM CHLORIDE 0.9% INJ 10 ML SYR IV SCH ×2 (05:58)
[2019-07-13] MEDS: OCTREOTIDE ACETATE 100 MCG/ML VIAL (J2354) SC SCH (05:58)
[2019-07-13 06:06] LABS: IONIZED CALCIUM 4.3 MG/DL (4.5-5.3)
[2019-07-13 06:13] LABS: BASO # 0.1 10^3/uL (0.0-0.2); BASO % 0.3 % (0.0-1.0); EOS # 0.9 10^3/uL (0.0-0.5); EOS % 5.4 % (0.0-3.0); HEMATOCRIT 29.1 % (36.0-47.0); LYMPH # 2.1 10^3/uL (1.5-5.0); LYMPH % 12.8 % (24.0-44.0); MEAN CORPUSCULAR HEMOGLOBIN 32.4 pg (27.0-33.0); MEAN CORPUSCULAR HGB CONC 30.9 g/dl (32.0-36.5); MEAN CORPUSCULAR VOLUME 104.7 fl (80.0-96.0); MONO # 1.6 10^3/uL (0.0-0.8); MONO % 9.6 % (0.0-5.0); NEUTROPHILS # 11.6 10^3/uL (1.5-8.5); NEUTROPHILS % 70.6 % (36.0-66.0); PLATELET COUNT, AUTOMATED 62 10^3/uL (150-450); RED BLOOD COUNT 2.78 10^6/uL (4.00-5.40); WHITE BLOOD COUNT 16.4 10^3/uL (4.0-10.0)
[2019-07-13 06:36] LABS: ALBUMIN 2.5 GM/DL (3.2-5.2); BILIRUBIN,TOTAL 2.7 MG/DL (0.2-1.0); CALCIUM LEVEL 7.5 MG/DL (8.5-10.1); CREATININE FOR GFR 1.14 MG/DL (0.55-1.30); GLOMERULAR FILTRATION RATE 52.3 (>51); MAGNESIUM LEVEL 2.4 MG/DL (1.8-2.4); PHOSPHORUS LEVEL 2.2 MG/DL (2.5-4.9); POTASSIUM SERUM 4.9 MEQ/L (3.5-5.1); TOTAL PROTEIN 6.1 GM/DL (6.4-8.2)
[2019-07-13] MEDS: IPRATROPIUM 0.5MG/ALBUTEROL 2.5MG INH SOL UD 3ML (DUONEB)(J7620) NEB SCH ×2 (07:34→11:16)
[2019-07-13] MEDS ORDERED: CALCIUM GLUCONATE 1,000 MG in NS 100 ML IV SCH (08:00)
[2019-07-13] MEDS ORDERED: POTASSIUM PHOSPHATE INJ 15 MMOL in D5W 250 ML IV ONE (08:00)
[2019-07-13] MEDS: MIDODRINE 5 MG TAB FT SCH ×2 (08:11→11:12)
[2019-07-13] MEDS: PANTOPRAZOLE 40MG INJ (PROTONIX) (C9113) IV SCH (08:13)
[2019-07-13] MEDS: CHLORHEXIDINE GLUCONATE 0.12 % 15ML UDC (PERIDEX ORAL RINSE) MT SCH (08:14)
[2019-07-13] MEDS: CALCIUM GLUCONATE 1,000 MG in NS 100 ML IV SCH ×2 (08:18→11:11)
[2019-07-13] MEDS ORDERED: PIPERACILLIN/TAZOBACTAM SOD 2.25 GM in D5W MINI-BAG PLUS 50 ML IV SCH (10:00)
--- NOTE | 2019-07-13 11:26 | REP ---
Portable chest x-ray: Single view. History: Intubated. Comparison study: July 24, 2019. Findings: Endotracheal tube is seen in position just at above the level of proximal clavicles. An NG tube enters left upper quadrant. There are two right internal jugular central venous lines with their tips terminating at the expected location of the superior vena cava. A right PICC line has been inserted since yesterday's radiograph and its tip is seen in the region of the right atrium. There are bibasilar infiltrates and/or atelectatic changes which are essentially unchanged. Diffuse interstitial lung disease persists. Electronically Signed by Adilson Norman MD 07/13/2019 07:54 A
--- NOTE | 2019-07-13 11:45 | DS.PDOC ---
Discharge Summary General Date of Admission Jun 30, 2019 at 23:44 Date of Discharge 07/13/19 Discharge Summary PROCEDURES PERFORMED DURING STAY: None. ADMITTING DIAGNOSES: 1. ANTHONY, hypertension, GERD, portal vein thrombosis. DISCHARGE DIAGNOSES: 1. Acute respiratory failure, acute kidney failure, hepatorenal syndrome, septic shock, alcoholic cirrhosis with ascites, portal vein thrombosis. COMPLICATIONS/CHIEF COMPLAINT: Acute Kidney Injury Superimposed On Ckd. HISTORY OF PRESENT ILLNESS: 58-year-old female with past medical history of cirrhosis, hypertension, GERD, and portal vein thrombosis (on Lovenox), presents from PCPs office for lab abnormalities. Patient was found to have a creatinine of 5.7 today, for which she was sent to the emergency department. Patient reports decreased oral intake over the past few weeks, was discharged from the hospital couple weeks ago after being admitted for portal vein thrombosis. She also reports decreased urine output for the past 2-3 days, has continued taking her lactulose with multiple bowel movements every day. She reportedly had 20 bowel movements yesterday. She has no other complaints at this time, denies shortness of breath, chest pain, nausea, vomiting, abdominal pain or diarrhea.. HOSPITAL COURSE: Acute respiratory failure fluid overload and/or ARDS, intubated on mechanical ventilation, sedated w/ Propfol drip and as needed Versed & Fentanyl, Critical care on consult Patient is being transferred to [facility] for liver transplant. Today Septic shock Source unclear, ?pulm vs GI vs liver failure, continue Levophed to maintain MAP >65, continue Zosyn, repeat procal pending, continue Micafungin. Weaning off Levophed. Vitals are stable Renal function w/ suboptimal improvement despite all treatment measures, curr ently undergoing CRRT due to hypotension requiring vasopressor support. Alcoholic cirrhosis of liver with ascites 2/2 to alcohol use, on medical management, attempting to transfer patient to [facility] for inpatient liver transplant workup, she has been accepted, awaiting ICU bed for transfer. thrombocytopenia worsening, ?sepsis vs DIC (difficult to assess due to cirrhosis), abdomen blood-tinged output from OG tube, blood around the mouth and pinkish sputum and the ET tube, received 1 unit of platelets today. Portal vein thrombosis heparin drip held due to elevated INR & possible occult bleed. Status post 2 doses of vitamin K.. DISCHARGE MEDICATIONS: Please see below. ALLERGIES: Please see below. PHYSICAL EXAMINATION ON DISCHARGE: VITAL SIGNS: Please see below. GENERAL: Within normal limits HEENT: Unable to do HEENT exam NECK: Supple CARDIOVASCULAR EXAMINATION: S1, S2, regular RESPIRATORY EXAMINATION: Clear to A&P ABDOMINAL EXAMINATION: Benign EXTREMITIES: No clubbing, cyanosis, edema SKIN: Normal NEUROLOGICAL EXAMINATION: Unable to do neuro exam PSYCHIATRIC EXAMINATION: Unable to psych exam LABORATORY DATA: Please see below. IMAGING: CXR: Endotracheal tube is seen in position just at above the level of proximal clavicles. An NG tube enters left upper quadrant. There are two right internal jugular central venous lines with their tips terminating at the expected location of the superior vena cava. A right PICC line has been inserted since yesterday's radiograph and its tip is seen in the region of the right atrium. There are bibasilar infiltrates and/or atelectatic changes which are essentially unchanged. Diffuse interstitial lung disease persists. PROGNOSIS: Unknown ACTIVITY: As tolerated. DIET: Nothing by mouth DISCHARGE PLAN: Discharging to [place] DISPOSITION: . Discharging to [facility] DISCHARGE INSTRUCTIONS: 1. As per discharge instructions. ITEMS TO FOLLOWUP ON ON OUTPATIENT: 1. Transfer to tertiary care facility. DISCHARGE CONDITION: Stable. TIME SPENT ON DISCHARGE: 42 minutes. Vital Signs/I&Os Vital Signs Date Time Temp Pulse Resp B/P (MAP) Pulse Ox O2 Delivery O2 Flow Rate FiO2 07/13/19 11:17 57 07/13/19 10:31 115/57 (78) 100 Ventilator 30 07/13/19 10:30 16 07/13/19 08:00 97.0 07/12/19 15:00 35 I&O- Last 24 Hours up to 6 AM 07/13/19 06:00 Intake Total 1669.7 ml Output Total 775 ml Balance 894.7 ml Laboratory Data Labs 24H Laboratory Tests 2 07/12/19 12:22: Bedside Glucose (Misc Panel) 128H 07/12/19 17:57: Nucleated Red Blood Cells % (auto) 0.0, Anion Gap 7L, Glomerular Filtration Rate 52.8, Calcium Level 7.9L, Whole Blood Ionized Calcium 4.3L, Phosphorus Level 2 .7#, Magnesium Level 2.3 07/12/19 23:42: Bedside Glucose (Misc Panel) 113H 07/13/19 05:44: Blood Gas Bicarbonate Standard 24.6, Arterial Blood pH 7.434, Arterial Blood Partial Pressure CO2 36.8, Arterial Blood Partial Pressure O2 117.3H, Arterial Blood Total CO2 25.2, Arterial Blood HCO3 24.1, Arterial Blood Base Excess 0.0, Arterial Blood Oxygen Saturation 98.7 07/13/19 05:49: Immature Granulocyte % (Auto) 1.3, Neutrophils (%) (Auto) 70.6H, Lymphocytes (%) (Auto) 12.8L, Monocytes (%) (Auto) 9.6H, Eosinophils (%) (Auto) 5.4H, Basophils (%) (Auto) 0.3, Neutrophils # (Auto) 11.6H, Lymphocytes # (Auto) 2.1, Monocytes # (Auto) 1.6H, Eosinophils # (Auto) 0.9H, Basophils # (Auto) 0.1, Nucleated Red Blood Cells % (auto) 0.0, Immature Platelet Fraction 6.0, Anion Gap 6L, Glomerular Filtration Rate 52.3, Calcium Level 7.5L, Whole Blood Ionized Calcium 4.3L, Phosphorus Level 2.2L, Magnesium Level 2.4, Total Bilirubin 2.7H, Aspartate Amino Transf (AST/SGOT) 79H, Alanine Aminotransferase (ALT/SGPT) 27, Alkaline Phosphatase 133H, Total Protein 6.1L, Albumin 2.5L, Albumin/Globulin Ratio 0.69L CBC/BMP Laboratory Tests 07/12/19 17:57 07/13/19 05:49 FSBS Laboratory Tests Test 07/12/19 12:22 07/12/19 23:42 Range/Units Bedside Glucose (Misc Panel) 128 113 70-105 MG/DL Microbiology Microbiology 07/10/19 Acid Fast Stain, Received Pending 07/10/19 Mycobacterial Culture, Received Pending 07/10/19 Fungal Smear, Received Pending 07/10/19 Fungal Culture, Received Pending 07/10/19 Gram Stain - Final, Complete 07/10/19 Body Fluid Culture - Final, Complete 07/09/19 Blood Culture - Preliminary, Resulted No Growth after 72 hours. All specime... 07/08/19 Gram Stain - Final, Complete 07/08/19 Sputum Culture - Final, Complete Yeast Like Organism 07/05/19 Stool Occult Blood (ERIC) - Final, Complete 07/04/19 Stool Occult Blood (ERIC) - Final, Complete Discharge Medications Scheduled Enoxaparin Sodium (Enoxaparin Sodium) 80 Mg/0.8 Ml Syringe, 80 MG SC DAILY, (Reported) Fluoxetine Hcl (Fluoxetine HCl) 40 Mg Cap, 40 MG PO QHS, (Reported) Lactulose (Lactulose) 10 Gm/15 Ml Solution, 15 ML PO BID, (Reported) Losartan Potassium (Losartan Potassium) 100 Mg Tab, 100 MG PO DAILY, (Reported) Metoprolol Tartrate (Metoprolol Tartrate) 25 Mg Tablet, 25 MG PO BID, (Reported) Pantoprazole Sodium (Pantoprazole Sodium) 40 Mg Tablet.dr, 40 MG PO QHS, (Reported) Scheduled PRN Alprazolam (Alprazolam) 1 Mg Tablet, 1 MG PO TIDP PRN for ANXIETY/AGITATION, (Reported) Ondansetron HCl (Ondansetron HCl) 4 Mg Tablet, 4 MG PO Q6HP PRN for nausea/vomiting, (Reported) NEW RX, HAS NOT STARTED Allergies Coded Allergies: Opioids - Morphine Analogues (Verified Adverse Reaction, Mild, N/V, 01/12/19) MAYRA NAVA MD Jul 13, 2019 11:45
--- NOTE | 2019-07-13 12:56 | IPN ---
DATE OF SERVICE: 07/13/2019 Alexa is seen and examined this morning in the intensive care unit. 24 hour flow sheet was reviewed. She is positive 600 mL in the past 24 hours. We have consistently been able to remove 50 mL/h via continuous renal replacement therapy (CRRT). Her propofol is currently off. She is on sedation vacation. She is pending continuous positive airway pressure (CPAP) trial. When her sedation was off nursing staff was able to cut down on her pressor support. Currently on Levophed at 5. She is still having significant gastric drainage. Her central venous pressure (CVP) is 8. Review of systems is unable to be obtained secondary to clinical condition. Vital Signs: Temperature 97.0, pulse 57, respiratory rate 18, blood pressure 85/42, saturating 100% on 30% FiO2. Review of intake and output (I's and O's) yesterday shows she is positive 600 mL. Weight in the bed scale today is 59.8 kg. Urine output was less than 50 mL and gastric drainage was 850. General: The patient is seen intubated presently with sedation vacation. Moves extremities and is following commands intermittently and responsive to painful stimuli. Pupils are reactive to light. Neck is supple. There is a hemodialysis catheter in the right internal jugular (IJ) which is in use. Jugular veins do not appear elevated. Heart sounds are regular. There is mild bradycardia. There is trace leg edema. Respiratory: Shows symmetric air entry, diminished at the bases, but no crackle or rale. Abdomen is soft and there is some ascitic fluid. Genitourinary: Shows Sher catheter with minimal urine. LABS: Sodium 138, potassium 4.9, phosphorus 2.2, magnesium 2.4, albumin 2.5. Hemoglobin 9.0, platelets 62. Chest x-ray today bibasilar infiltrates, diffuse interstitial lung disease. INPATIENT MEDICATIONS: Levophed is at 5 mcg. Propofol was presently held. Micafungin was changed to 100 mg IV daily. She received some calcium gluconate and 15 mmol of potassium phosphate. Remainder of medications are unchanged as compared to yesterday. PROBLEMS: 1. Oligoanuric acute renal failure, probable hepatorenal syndrome/possible element of sepsis as well. Her pressor requirements have come down especially when her sedation was held this morning. Levophed is down to 5 mcg fivel. She is also on full-dose midodrine. CRRT prescription is written today for increased fluid removal titrated for her pressor requirements. At most, we will try to remove 100 mL/h as long as her Levophed pressor requirements remain at 5 mcg or less. Her CVP this morning was 8. There are no signs of renal recovery. She has been on dialysis since 07/07/2019. 2. Ventilator dependent respiratory failure. The patient is for continuous positive airway pressure (CPAP) trial today. Her FiO2 requirements have come down to 30%. Her volume status I think is slowly improving. CVP this morning was 8. We are trying to keep her on the dry side and have made progress despite her hypotension. She was intermittently following commands. 3. Diastolic congestive heart failure/decompensated cirrhosis with ascites/pressor dependence. The patient's CVP is 8 . She is positive 600 mL in the past 24 hours and we are going to try and remove up to 100 mL/h with CRRT depending on her pressor requirements and parameters for fluid removal have been discussed with the intensive care unit (ICU) nurse. 4. History of alcoholic cirrhosis and portal vein thrombosis with initial anticoagulation, which was then held in the setting of thrombocytopenia and coagulopathy status post large volume paracentesis on 07/10/2019, has received albumin with paracentesis and is also back on octreotide. Her pressor requirements are coming down. [place] also has her on midodrine but it is unclear how much she is absorbing given the significant output from orogastric (OG) tube. She is tolerating some gentle fluid removal with CRRT now.
--- NOTE | 2019-07-13 15:06 | CCN ---
CRITICAL CARE PROGRESS NOTE DATE: 07/13/2019 The patient was seen and examined this morning during bedside rounds. The patient has been requiring less Levophed than previous. She is anywhere from 7 to 8 mcg per minute but she is able to have some fluid removal with Continuous Veno-Venous Hemofiltration (CVVH) which she has been tolerating more than previous. The patient is still intubated and sedated. With sedation vacation she is able to respond appropriately, although she is very lethargic. PHYSICAL EXAM: Temperature 97, pulse 56, respirations 19, blood pressure 104/54, O2 sat 100% on 30% FiO2, in 1.6 liters, out 1 liter. General: Patient is intubated and sedated. She is responsive to painful stimuli and with sedation vacation is able to follow commands. HEENT: Normocephalic, atraumatic. Pupils reactive light bilaterally. Neck is supple. Trachea is midline. There is no palpable cervical adenopathy. She has a right hemodialysis catheter in place with some blood oozing around the insertion site. Cardiac: Regular rate and rhythm. Normal S1-S2. There is a systolic murmur noted. Respiratory: There are decreased breath sounds at bases but no significant wheezing or rhonchi. Abdomen is soft, mildly distended with fluid wave. There are diminished bowel sounds. Extremities: There is upper extremity edema and trace lower extremity bilaterally. There are spider angiomas on her skin. There is also petechiae and bruising noted. LABORATORY DATA: WBC 16.4, hemoglobin 9.0, platelets 62. Chemistry - sodium is 138, potassium 4.9, chloride is 105, bicarb 27, BUN 6, creatinine 1.14, glucose is 144. ABGs pH 7.54, pCO2 of 36.8, pO2 of 117.3. IMAGING: Chest x-ray this morning shows ET tube in good position. OG tube is coursing below the diaphragm. Her previous right IJ triple lumen catheter was removed and a right-sided PICC line is placed. She has a right subclavian hemodialysis catheter in place. There are diffuse interstitial markings bilaterally as well as some opacities in the bases bilaterally as well as some small pleural effusions bilaterally. ASSESSMENT AND PLAN: Ms. Burgos is a 58-year-old female with history of alcoholic cirrhosis, gastroesophageal reflux disease (GERD), hypertension, pulmonary vein thrombosis, chronic kidney disease (CKD) who presented initially with acute on chronic renal failure likely secondary to hepatorenal syndrome. The patient was also hypotensive likely in the setting of her end-stage cirrhosis and was initially on midodrine. She was treated with albumin, normal saline as well as octreotide but had worsening acute hypoxemic respiratory failure with suspicion of pulmonary edema. The patient was also hypotensive in shock likely secondary to sepsis and was requiring Levophed for vasopressor support. She was initially on dialysis and switched to continuous veno-venous hemodialysis (CVVHD) with her hypotension. Neurologic: History of hepatic encephalopathy. - The patient has OG tube in place and lactulose for her hepatic encephalopathy. - The patient is on propofol for sedation with Versed as needed for agitation and fentanyl as needed for pain. - Continue sedation and titrate for [place] score of 2-3 and continue with sedation vacation and with weaning trials. Cardiac: History of chronic hypotension in the setting of cirrhosis. The patient was in shock on Levophed likely secondary to sepsis. She continues to require some low doses of Levophed likely in the setting of her sedation as well as with her CVVHD - Continue Levophed and titrate to maintain a MAP above 60-65. - Continue with the midodrine. - The patient does have some positional hypotension particular when laying on her right side due to compression of her IVC from her ascites and distended abdomen. We will attempt to keep the patient flat or the left side as much as possible. - The patient does have mild lactic acidosis which is in setting of her chronic liver failure as well as with renal failure and initially with some component from her sepsis. - The patient's right IJ triple lumen was removed and a PICC line was placed for venous access and for administration of vasopressors. Pulmonary: The patient with acute hypoxemic respiratory failure in the setting of pulmonary edema initially as well as with some concern for acute respiratory distress syndrome (ARDS) and aspiration pneumonia. - The patient is still mechanically ventilated on volume control. She has been weaned down on her PEEP and FiO2 and she is currently on 380/16/30/5. - Continue with ABGs and chest x-rays while intubated. - Continue vent bundle care with head of bed elevation and chlorhexidine mouthwash. - The patient will have a weaning trial today to assess for potential extubation although she does continue to have evidence of pulmonary vascular congestion on x-ray as well as some small bilateral effusion and bibasilar infiltrates. - The patient was initially on ceftriaxone for spontaneous bacterial peritonitis (SBP) prophylaxis, however, with her worsening sepsis she was brought into Zosyn. She was also started on micafungin and her sputum was positive for yeast like organisms. She has been afebrile but she did have periods of hypothermia the last few days. Her WBC has increased today. The patient is still on Zosyn although appears to have been suboptimally dosed with the CVH and so we will increase her Zosyn dosage. Will continue with micafungin for now but likely can discontinue. GI: History of alcoholic cirrhosis and portal vein thrombosis, was on anticoagulation initially which was then held the setting of her thrombocytopenia and coagulopathy. - The patient continues to have coagulopathy in the setting of her liver failure as well as thrombocytopenia. She was given 1 unit of platelet transfusion and her platelets appears to have improved and stabilized. Her hemoglobin has remained stable and has not required any further transfusion. - The patient has been given albumin periodically. She has previously required frequent large volume paracentesis and she had another paracentesis performed on 07/10/2019 where she had 5.5 liters of fluid removed and was administered albumin post paracentesis. - Continue to monitor her coagulopathy. - Continue with Protonix twice a day. - Continue to monitor LFTs. - The patient was except at [facility] in their inpatient liver transplant service for workup for possible liver transplant. She was just noted to receive of bed in their intensive care unit (ICU) today and is planned for transfer. Renal/endocrine: Acute on chronic renal failure likely hepatorenal syndrome. The patient is on CVVHD as per renal and is only able to tolerate some gentle fluid removal currently given her vasopressor requirements. - Appreciate renal consults recommendations. - Continue monitoring fingerstick glucose checks. Deep venous thrombosis (DVT) prophylaxis thromboembolic deterrent stockings (TEDS) and sequential compression devices (SCDs). Gastrointestinal (GI) prophylaxis, proton pump inhibitor (PPI). FULL CODE. Total critical care time spent not including procedures approximately 40 minutes.
[2019-07-13] MEDS ORDERED: MICAFUNGIN SODIUM 100 MG in D5W MINI-BAG PLUS 100 ML IV SCH (20:00)
[2019-07-13] MEDS ORDERED: MICAFUNGIN SODIUM 100 MG in D5W 100 ML IV SCH (20:00)
== END 2019-07-13 12:31 | disposition short-term general hospital (02) | DRG 469 ==
LOC: M ED 17:49 → M ED INP 23:44 → M MSPAV 07-01 04:10 → M PCU 07-03 00:08 → M MSPAV 07-03 14:36 → M PCU 07-05 11:48 → M ICU 07-07 09:40
PROVIDERS: ADMIT Internal Medicine; ATTEND Internal Medicine
PROC: 30233J1 Transfusion of Nonautologous Serum Albumin into Peripheral Vein, Percutaneous Approach (ICD-10-PCS; 2019-07-02)
PROC: 30233N1 Transfusion of Nonautologous Red Blood Cells into Peripheral Vein, Percutaneous Approach (ICD-10-PCS; 2019-07-05)
PROC: 02HV33Z Insertion of Infusion Device into Superior Vena Cava, Percutaneous Approach (ICD-10-PCS; 2019-07-07)
PROC: 0JH63XZ Insertion of Tunneled Vascular Access Device into Chest Subcutaneous Tissue and Fascia, Percutaneous Approach (ICD-10-PCS; 2019-07-07)
PROC: 5A1D70Z Performance of Urinary Filtration, Intermittent, Less than 6 Hours Per Day (ICD-10-PCS; 2019-07-07)
PROC: 5A1945Z Respiratory Ventilation, 24-96 Consecutive Hours (ICD-10-PCS; principal; 2019-07-07 13:00)
PROC: 02HV33Z Insertion of Infusion Device into Superior Vena Cava, Percutaneous Approach (ICD-10-PCS; 2019-07-12)
DX: N17.9 Acute kidney failure, unspecified (principal); K76.7 Hepatorenal syndrome; J96.01 Acute respiratory failure with hypoxia; R65.21 Severe sepsis with septic shock; I81 Portal vein thrombosis; E87.2 Acidosis; D69.6 Thrombocytopenia, unspecified; A41.9 Sepsis, unspecified organism; I13.0 Hypertensive heart and chronic kidney disease with heart failure and stage 1 through stage 4 chronic kidney disease, or unspecified chronic kidney disease; I50.30 Unspecified diastolic (congestive) heart failure; E87.1 Hypo-osmolality and hyponatremia; E83.42 Hypomagnesemia; E83.39 Other disorders of phosphorus metabolism; K70.31 Alcoholic cirrhosis of liver with ascites; K21.9 Gastro-esophageal reflux disease without esophagitis; Z79.899 Other long term (current) drug therapy; Z88.5 Allergy status to narcotic agent; F32.9 Major depressive disorder, single episode, unspecified; E87.6 Hypokalemia; Z79.01 Long term (current) use of anticoagulants; N18.3 Chronic kidney disease, stage 3 (moderate)

== ENCOUNTER → 2019-06-30 | Outpatient (REF) | payer OTHER ==
[~2019-06-30] MED LIST changes: +ENOX40IN3 SC; +ENOX80IN3 SC; +LACT10SO29 PO; +Lactulose Syrup PO; +MED REC COMMENT; +ONDA4TAB5 PO
[2019-06-30 12:08] LABS: INR 1.77; PROTHROMBIN TIME 20.4 SECONDS (11.8-14.0)
[2019-06-30 12:09] LABS: PARTIAL THROMBOPLASTIN TIME 36.9 SECONDS (25.0-38.4)
[2019-06-30 13:00] LABS: ALBUMIN 2.2 GM/DL (3.2-5.2); BILIRUBIN,TOTAL 1.3 MG/DL (0.2-1.0); CALCIUM LEVEL 8.5 MG/DL (8.5-10.1); CREATININE FOR GFR 5.07 MG/DL (0.55-1.30); GLOMERULAR FILTRATION RATE 9.3 (>51); POTASSIUM SERUM 3.7 MEQ/L (3.5-5.1); TOTAL PROTEIN 8.4 GM/DL (6.4-8.2)
== END ==
LOC: M SFHCPLAZ 11:01
PROVIDERS: ATTEND Physician Assistant Medical
DX: K74.60 Unspecified cirrhosis of liver (principal); N17.9 Acute kidney failure, unspecified

== ENCOUNTER → 2019-06-30 | Outpatient (CLI) | payer OTHER ==
--- NOTE | 2019-06-30 11:47 | REPPI ---
Clinical: History of right upper lobe pneumonia Comparison: 06/20/2019 . Technique: PA and lateral. Findings: The mediastinum and cardiac silhouette are normal. The lung reynoso are clear and without acute consolidation, effusion, or pneumothorax. Previous right upper lobe pneumonia has resolved. The skeletal structures are intact and normal. Impression: 1. No acute cardiopulmonary process. Electronically Signed by Braxton Hair MD 06/30/2019 11:38 A
== END ==
LOC: M PLAIMG 11:26
PROVIDERS: ATTEND Physician Assistant Medical
DX: J18.9 Pneumonia, unspecified organism (principal)